=== PATIENT | female | born 1950 | race Caucasian/White ===

== ENCOUNTER 2016-09-21 12:39 | Inpatient (IN) | payer OTHER, BC ==
[2016-09-21 14:06] LABS: URINE APPEARANCE CLEAR; URINE BILIRUBIN NEGATIVE (NEGATIVE); URINE BLOOD NEGATIVE (NEGATIVE); URINE COLOR LTYELLOW; URINE GLUCOSE (UA) NEGATIVE (NEGATIVE); URINE KETONE NEGATIVE (NEGATIVE); URINE NITRITE NEGATIVE (NEGATIVE); URINE PROTEIN NEGATIVE (NEGATIVE); URINE UROBILINOGEN NEGATIVE E.U./dl (0.2-1.0)
[2016-09-21 14:33] LABS: URINE LEUK ESTERASE TRACE (NEGATIVE)
[2016-09-21 14:47] LABS: BASOPHIL 0.9 % (0-2.0); EOSINOPHIL 1.2 % (0-4.5); MCH 31.4 pg (25.7-33.7); MCHC 34.8 g/dl (32.0-36.0); MEAN CELL VOLUME 90.3 fl (80-96); MEAN PLT VOLUME 7.2 fl (7.5-11.1); NEUTROPHILS 64.1 % (42.8-82.8); PLATELET COUNT 259 K/MM3 (134-434); WHITE BLOOD COUNT 7.4 K/mm3 (4.0-10.0)
[2016-09-21 14:53] LABS: URINE RBC 1 /hpf (0-3); URINE WBC 2 /hpf (3-5)
--- NOTE | 2016-09-21 14:56 | PDOC ---
History of Present Illness - General Chief Complaint: Tremors Stated Complaint: SHAKING, PCP SENT Time Seen by Provider: 09/21/16 14:54 History Source: Patient Exam Limitations: No Limitations - History of Present Illness Initial Comments: 09/21/16 14:55 CHIEF COMPLAINT: "Shaking" HISTORY OF PRESENT ILLNESS: This is a 66 year old female with a history of anxiety/depression/panic disorder, NIDDM with neuropathy, asthma/COPD, osteoarthritis, IBS, hypothyroidism, and multiple episodes of c diff sent by her PCP for evaluation of lower extremity tremors, facial tremors, and worsening protruding/twisting movements of the tongue. The patient is not taking any neuroleptic drugs. She takes daily Klonopin (was recently changed from Xanax). PCP is Dr. Donohue Neurologist is Dr. Hale REVIEW OF SYSTEMS: GENERAL/CONSTITUTIONAL: No fever or chills. No weakness. No weight change. HEAD, EYES, EARS, NOSE AND THROAT: No change in vision. No ear pain or discharge. No sore throat. CARDIOVASCULAR: No chest pain or palpitations. RESPIRATORY: No cough, wheezing, or shortness of breath. GASTROINTESTINAL: Chronic constipation. No nausea, vomiting, or diarrhea. GENITOURINARY: No dysuria, frequency, or change in urination. MUSCULOSKELETAL: No joint or muscle swelling or pain. No neck or back pain. SKIN: No rash or easy bruising. NEUROLOGIC: Decreased sensation in lower extremities, involuntary tremor in face and lower extremities, involuntary tongue protruding/twisting. PSYCHIATRIC: Anxiety/panic. No suicidal or homicidal ideations, no auditory or visual hallucinations. ENDOCRINE: No increased thirst. No abnormal weight change. HEMATOLOGIC/LYMPHATIC: No anemia, easy bleeding, or history of blood clots. ALLERGIC/IMMUNOLOGIC: Many drug allergies. PHYSICAL EXAM: GENERAL: The patient is awake, alert, and fully oriented, in no acute distress. ENT: Pupils equal, round and reactive to light, extraocular movements intact, sclera anicteric, conjunctiva clear. Neck supple. LUNGS: Clear to auscultation bilaterally. Normal excursion. No respiratory distress or use of accessory muscles. CV: RRR, S1/S2, no MRG. Cap refill < 2 sec. ABDOMEN: Soft, non-distended, non-tender. EXTREMITIES: Normal range of motion, no edema. NEUROLOGICAL: Normal speech. CN II-XII grossly intact. Tongue protruding, lip smacking. No tremors noted. PSYCH: Anxious affect. SKIN: Warm, dry, normal turgor, no rashes or lesions noted. Past History - Past Medical History Allergies/Adverse Reactions: Allergies Allergy/AdvReac Type Severity Reaction Status Date / Time clindamycin Allergy Verified 02/15/16 07:49 epinephrine Allergy Verified 02/15/16 07:49 ibuprofen Allergy palpatation Verified 02/15/16 07:49 s Penicillins Allergy Verified 02/15/16 07:49 Sulfa (Sulfonamide Allergy Verified 02/15/16 07:49 Antibiotics) tramadol Allergy Verified 09/21/16 12:49 Home Medications: Ambulatory Orders Aspirin [ASA -] 81 mg PO DAILY 12/16/13 Saxagliptin HCl [Onglyza] 5 mg PO HS 12/16/13 Metoprolol Succinate [Toprol XL -] 12.5 mg PO DAILY #60 tab.sr.24h 03/15/14 Alprazolam [Xanax] 1 mg PO TID PRN 12/08/14 Acetaminophen [Tylenol .Regular Strength -] 650 mg PO Q4H PRN #0 tablet Levothyroxine [Synthroid -] 88 mcg PO DAILY@0700 #30 tablet 11/15/15 Losartan Potassium [Cozaar -] 100 mg PO DAILY #30 tablet 11/15/15 Ondansetron [Zofran -] 4 mg PO Q4H PRN #10 tablet 11/15/15 Polyethylene Glycol 3350 [Miralax 119 gm Btl -] 17 gm PO DAILY #1 bottle Ranitidine HCl [Zantac] 150 mg PO BID #14 tablet 02/15/16 COPD: Yes Diabetes: Yes GI Disorders: Yes (DIVERTICULITIS) Disorders: Yes (pelvic, urethral pain, frequency) HTN: Yes Hypercholesterolemia: Yes Liver Disease: Yes (hepatitis) Psychiatric Problems: Yes (ANXIETY) Seizures: No Thyroid Disease: Yes (hyopthyroid) - Surgical History Cholecystectomy: Yes - Immunization History Immunization Up to Date: Yes - Psycho/Social/Smoking Cessation Hx Anxiety: Yes Suicidal Ideation: No Smoking History: Never smoked Have you smoked in the past 12 months: No Information on smoking cessation initiated: No Hx Alcohol Use: No Drug/Substance Use Hx: No Substance Use Type: None Hx Substance Use Treatment: No *Physical Exam - Vital Signs Last Vital Signs Temp Pulse Resp BP Pulse Ox 98 F 60 18 182/83 96 09/21/16 12:47 09/21/16 12:47 09/21/16 12:47 09/21/16 12:47 09/21/16 12:47 ED Treatment Course - LABORATORY CBC & Chemistry Diagram: 09/21/16 14:30 09/21/16 14:28 - ADDITIONAL ORDERS Additional order review: Laboratory Results 09/21/16 14:24 Urine Color Ltyellow Urine Appearance Clear Urine pH 6.0 Urine Protein Negative Urine Glucose (UA) Negative Urine Ketones Negative Urine Blood Negative Urine Nitrite Negative Urine Bilirubin Negative Urine Urobilinogen Negative Ur Leukocyte Esterase Trace H Medical Decision Making - Medical Decision Making 09/21/16 15:50 A/P: 66 year old female with worsening tardive dyskinesia of uncertain etiology. 1. Basic labs + PTH, anti-phospholipid Ab to rule out less common causes of chorea 2. Head CT 3. Ativan 0.5mg IVP now 4. Neurology consultation 5. Admit to Dr. Donohue 09/21/16 16:[address]: no acute process Discussed with Dr. Glynn *DC/Admit/Observation/Transfer Diagnosis at time of Disposition: Tardive dyskinesia - Discharge Dispostion Admit: Yes - Referrals Referrals: Sherrill Donohue MD [Primary Care Provider] -
[2016-09-21] MEDS ORDERED: LORAZEPAM CARPU-JECT 2 MG/ML DISP.SYRIN IVPUSH ONE ×2 (15:16→18:09)
[2016-09-21] MEDS ORDERED: POLYETHYLENE GLYCOL 3350 119 GM BTL PO ONE (15:16)
[2016-09-21 15:26] LABS: ALBUMIN 3.8 g/dl (3.4-5.0); ALK PHOS 91 U/L (45-117); ANION GAP 10 (8-16); BILIRUBIN,TOTAL 0.5 mg/dL (0.2-1.0); CALCIUM 9.3 mg/dL (8.5-10.1); CO2 27 mmol/L (21-32); COCKROFT - GAULT 68.5355; CREATININE 0.9 mg/dL (0.55-1.02); GLUCOSE,RANDOM 184 mg/dL (74-106); SGOT/AST 18 U/L (15-37); SGPT/ALT 23 U/L (12-78); TOT PROT 7.5 g/dl (6.4-8.2)
[2016-09-21] MEDS ORDERED: LORAZEPAM CARPU-JECT 2 MG/ML DISP.SYRIN ONE ×2 (15:26→18:23)
[2016-09-21 21:01] VITALS: BMI 31.4
[2016-09-21] MEDS: METOPROLOL SUCCINATE 25 MG TAB.SR.24H (FP) PO SCH (22:12)
[2016-09-21] MEDS: RANITIDINE HCL 150 MG TABLET (FP) PO SCH (22:12)
[2016-09-21] MEDS: METHYL SALICYLATE/MENTHOL OINT 30 GM TUBE TP SCH (22:14)
[2016-09-21] MEDS: ACETAMINOPHEN 325 MG TABLET (FP) PO PRN (22:15)
[2016-09-22] MEDS ORDERED: LORazepam 1 MG TABLET PO ONE (01:30)
[2016-09-22] MEDS: sitaGLIPtin PHOSPHATE 50 MG TABLET PO SCH (06:14)
[2016-09-22] MEDS: LEVOTHYROXINE NA 88 MCG TABLET (FP) PO SCH (06:14)
[2016-09-22] MEDS: ACETAMINOPHEN 325 MG TABLET (FP) PO PRN ×2 (06:16→14:18)
[2016-09-22] MEDS: RANITIDINE HCL 150 MG TABLET (FP) PO SCH ×2 (10:18→21:50)
[2016-09-22] MEDS: LOSARTAN POTASSIUM 50 MG TABLET (FP) PO SCH (10:18)
[2016-09-22] MEDS: ASPIRIN COATED 81 MG TABLET.EC PO SCH (10:18)
[2016-09-22] MEDS: METOPROLOL SUCCINATE 25 MG TAB.SR.24H (FP) PO SCH ×2 (10:19→21:50)
[2016-09-22] MEDS: POLYETHYLENE GLYCOL 3350 119 GM BTL PO SCH ×2 (11:00→18:47)
--- NOTE | 2016-09-22 13:17 | CONSULT ---
Consult - text type - Consultation Consultation Note: Neurology History of Present Illness 66 year old female with a history of anxiety/depression/panic disorder, NIDDM with neuropathy, asthma/COPD, osteoarthritis, IBS, hypothyroidism, and multiple episodes of c diff sent by her PCP for evaluation of lower extremity tremors, facial tremors, and worsening protruding/twisting movements of the tongue. The patient is not taking any neuroleptic drugs. She takes daily Klonopin (was recently changed from Xanax). She was switched medications by her providers and sees Dr. Hale in the office, most recently 3 weeks ago when she was prescribed propranolol for this. Reports these symptoms have been on and off for the past month. During my evaluation, she was having movement of mandible but twitching would move from side to side, then stop, then start. Unclear etiology, seems stress related and patient very emotional during encounter. Was asking for Xanax but I indicated her providers had recommended she switch to long acting medication and therefore I would not change this. Would start her on baclofen, muscle relaxant. Past History - Past Medical History Allergies/Adverse Reactions: Allergies Allergy/AdvReac Type Severity Reaction Status Date / Time clindamycin Allergy Verified 02/15/16 07:49 epinephrine Allergy Verified 02/15/16 07:49 ibuprofen Allergy palpatation Verified 02/15/16 07:49 s Penicillins Allergy Verified 02/15/16 07:49 Sulfa (Sulfonamide Allergy Verified 02/15/16 07:49 Antibiotics) tramadol Allergy Verified 09/21/16 12:49 Active Medications Acetaminophen (Tylenol -) 650 mg PO Q6H PRN PRN Reason: FEVER OR PAIN Last Admin: 09/22/16 06:16 Dose: 650 mg Aspirin (Ecotrin -) 81 mg PO DAILY [facility] Last Admin: 09/22/16 10:18 Dose: 81 mg Baclofen (Lioresal -) 10 mg PO BID [facility] Levothyroxine Sodium (Synthroid -) 88 mcg PO DAILY@0700 [facility] Last Admin: 09/22/16 06:14 Dose: 88 mcg Losartan Potassium (Cozaar -) 100 mg PO DAILY [facility] Last Admin: 09/22/16 10:18 Dose: 100 mg Methyl Salicylate (Ronnie-Andrews -) 1 applic TP BID [facility] Last Admin: 09/21/16 22:14 Dose: Not Given Metoprolol Succinate (Toprol Xl -) 12.5 mg PO BID [facility] Last Admin: 09/22/16 10:19 Dose: 12.5 mg Polyethylene Glycol (Miralax (For Daily Use) -) 17 gm PO DAILY [facility] Ranitidine HCl (Zantac -) 150 mg PO BID [facility] Last Admin: 09/22/16 10:18 Dose: 150 mg Sitagliptin Phosphate (Januvia -) 50 mg PO DAILY@0700 [facility] Last Admin: 09/22/16 06:14 Dose: 50 mg COPD: Yes Diabetes: Yes GI Disorders: Yes (DIVERTICULITIS) Disorders: Yes (pelvic, urethral pain, frequency) HTN: Yes Hypercholesterolemia: Yes Liver Disease: Yes (hepatitis) Psychiatric Problems: Yes (ANXIETY) Seizures: No Thyroid Disease: Yes (hyopthyroid) - Surgical History Cholecystectomy: Yes - Immunization History Immunization Up to Date: Yes - Psycho/Social/Smoking Cessation Hx Anxiety: Yes Suicidal Ideation: No Smoking History: Never smoked Have you smoked in the past 12 months: No Information on smoking cessation initiated: No Hx Alcohol Use: No Drug/Substance Use Hx: No Substance Use Type: None Hx Substance Use Treatment: No *Physical Exam - Vital Signs Last Vital Signs Temp Pulse Resp BP Pulse Ox 98 F 60 18 182/83 96 09/21/16 12:47 09/21/16 12:47 09/21/16 12:47 09/21/16 12:47 09/21/16 12:47 PHYSICAL EXAM: GENERAL: The patient is awake, alert, and fully oriented, in no acute distress. ENT: Pupils equal, round and reactive to light, extraocular movements intact, sclera anicteric, conjunctiva clear. Neck supple. LUNGS: Clear to auscultation bilaterally. Normal excursion. No respiratory distress or use of accessory muscles. CV: RRR, S1/S2, no MRG. Cap refill < 2 sec. ABDOMEN: Soft, non-distended, non-tender. EXTREMITIES: Normal range of motion, no edema. NEUROLOGICAL: Normal speech. CN II-XII grossly intact. Tongue protruding, lip smacking. No tremors noted. Jaw movements episodic, strength intact, sensory normal CBCD WBC 7.4 K/mm3 (4.0-10.0) 09/21/16 14:30 RBC 4.54 M/mm3 (3.60-5.2) 09/21/16 14:30 Hgb 14.3 GM/dL (10.7-15.3) 09/21/16 14:30 Hct 41.0 % (32.4-45.2) 09/21/16 14:30 MCV 90.3 fl (80-96) 09/21/16 14:30 MCHC 34.8 g/dl (32.0-36.0) 09/21/16 14:30 RDW 13.0 % (11.6-15.6) 09/21/16 14:30 Plt Count 259 K/MM3 (134-434) 09/21/16 14:30 MPV 7.2 fl (7.5-11.1) L 09/21/16 14:30 CMP Sodium 138 mmol/L (136-145) 09/21/16 14:28 Potassium 4.1 mmol/L (3.5-5.1) 09/21/16 14:28 Chloride 101 mmol/L (98-107) 09/21/16 14:28 Carbon Dioxide 27 mmol/L (21-32) 09/21/16 14:28 Anion Gap 10 (8-16) 09/21/16 14:28 BUN 16 mg/dL (7-18) D 09/21/16 14:28 Creatinine 0.9 mg/dL (0.55-1.02) D 09/21/16 14:28 Creat Clearance w eGFR > 60 (>60) 09/21/16 14:28 Calcium 9.3 mg/dL (8.5-10.1) 09/21/16 14:28 Total Bilirubin 0.5 mg/dL (0.2-1.0) 09/21/16 14:28 AST 18 U/L (15-37) D 09/21/16 14:28 ALT 23 U/L (12-78) 09/21/16 14:28 Alkaline Phosphatase 91 U/L (45-117) 09/21/16 14:28 Total Protein 7.5 g/dl (6.4-8.2) 09/21/16 14:28 Albumin 3.8 g/dl (3.4-5.0) 09/21/16 14:28 Medical Decision Making 66 year old female with a history of anxiety/depression/panic disorder, NIDDM with neuropathy, asthma/COPD, osteoarthritis, IBS, hypothyroidism, and multiple episodes of c diff sent by her PCP for evaluation of lower extremity tremors, facial tremors, and worsening protruding/twisting movements of the tongue. The patient is not taking any neuroleptic drugs. She takes daily Klonopin (was recently changed from Xanax). She was switched medications by her providers and sees Dr. Hale in the office, most recently 3 weeks ago when she was prescribed propranolol for this. Reports these symptoms have been on and off for the past month. Does not feel propanolol helped Seems stress related and patient very emotional during encounter. Was asking for Xanax but I indicated her providers had recommended she switch to long acting medication and therefore I would not change this. Can give Klonipin if patient was cleared to take this Would start her on baclofen, muscle relaxant. Provided reassurance, symptoms should improve Relaxation recommended Follow up with Dr. Hale in office
[2016-09-22] MEDS ORDERED: BACLOFEN 10 MG TABLET (FP) PO ONE (13:45)
[2016-09-22] MEDS: METHYL SALICYLATE/MENTHOL OINT 30 GM TUBE TP SCH ×2 (14:18→22:00)
--- NOTE | 2016-09-22 14:59 | HP ---
Admitting History and Physical - Primary Care Physician PCP: Sherrill Donohue - Admission Chief Complaint: SENT FROM MY OFFICE FOR ACUTE FACIAL TWITCHING/TARDIVE DYSKINESIA History Source: Patient Limitations to Obtaining History: No Limitations - Past Medical History FRAME HAND: Yes: Peripheral Neuropathy (diabetic), Seizure (?) Cardiovascular: Yes: HTN, Hyperlipdemia Pulmonary: Yes: Asthma, COPD (nonsmoker, childhood aerosolized chem. exposure), Pneumonia Gastrointestinal: Yes: Other (IBS) Hepatobiliary: Yes: Cholelithiasis Renal/: Yes: UTI ...LMP Comment: postmenuposal ...: No Infectious Disease: Yes: Other (refractory uti) Psych: Yes: Anxiety, Depression, Panic (RECENT ADMISSION TO PSYCH FACILITY???) Musculoskeletal: Yes: Osteoarthritis (cspine) Endocrine: Yes: Diabetes Mellitus (diabetic neuropathy), Other (HYPONATREMIA ( RECENT ADMISSION TO [facility] FOR SAME)) - Past Surgical History Past Surgical History: Yes: Cholecystectomy (laparoscopic), - Smoking History Smoking history: Never smoked Have you smoked in the past 12 months: No - Alcohol/Substance Use Hx Alcohol Use: No History of Substance Use: reports: None - Social History ADL: Independent 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, 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 History of Recent Travel: No Home Medications - Allergies Allergies/Adverse Reactions: Allergies Allergy/AdvReac Type Severity Reaction Status Date / Time clindamycin Allergy Verified 02/15/16 07:49 epinephrine Allergy Verified 02/15/16 07:49 ibuprofen Allergy palpatation Verified 02/15/16 07:49 s Penicillins Allergy Verified 02/15/16 07:49 Sulfa (Sulfonamide Allergy Verified 02/15/16 07:49 Antibiotics) tramadol Allergy Verified 09/21/16 12:49 - Home Medications Home Medications: Ambulatory Orders Aspirin [ASA -] 81 mg PO DAILY 12/16/13 Saxagliptin HCl [Onglyza] 5 mg PO HS 12/16/13 Metoprolol Succinate [Toprol XL -] 12.5 mg PO DAILY #60 tab.sr.24h 03/15/14 Acetaminophen [Tylenol .Regular Strength -] 650 mg PO Q4H PRN #0 tablet Levothyroxine [Synthroid -] 88 mcg PO DAILY@0700 #30 tablet 11/15/15 Losartan Potassium [Cozaar -] 100 mg PO DAILY #30 tablet 11/15/15 Ondansetron [Zofran -] 4 mg PO Q4H PRN #10 tablet 11/15/15 Polyethylene Glycol 3350 [Miralax 119 gm Btl -] 17 gm PO DAILY #1 bottle Clonazepam [Klonopin -] 0.5 mg PO BID 09/21/16 Propranolol HCl 20 mg PO DAILY 09/21/16 Family Disease History - Family Disease History Family Disease History: [place]: Father ( suddenly at age 48 -> no autopsy), Other: Mother ( of MRSA in [facility] rm [id number]), Brother (sarcoidosis age 32) Review of Systems - Review of Systems Constitutional: reports: Weakness Eyes: reports: No Symptoms HENT: reports: Other Neck: reports: No Symptoms Cardiovascular: reports: No Symptoms Respiratory: reports: No Symptoms Gastrointestinal: reports: Abdominal Pain, Indigestion Genitourinary: reports: Dysuria Musculoskeletal: reports: Muscle Weakness Integumentary: reports: No Symptoms Neurological: reports: Confusion, Incoordination, Parasthesia, Weakness Endocrine: reports: No Symptoms Hematology/Lymphatic: reports: No Symptoms Psychiatric: reports: Other Physical Examination Vital Signs: Vital Signs Temperature 98.1 F 09/22/16 14:07 Pulse Rate 59 L 09/22/16 14:07 Respiratory Rate 20 09/22/16 14:07 Blood Pressure 152/62 09/22/16 14:07 O2 Sat by Pulse Oximetry (%) 96 09/21/16 20:38 Constitutional: Yes: Mild Distress Eyes: Yes: WNL HENT: Yes: Other Neck: Yes: WNL Cardiovascular: Yes: WNL Respiratory: Yes: WNL Gastrointestinal: Yes: WNL Renal/: Yes: WNL Musculoskeletal: Yes: Muscle Weakness Extremities: Yes: WNL Edema: No Peripheral Pulses WNL: Yes Integumentary: Yes: WNL Wound/Incision: Yes: Clean/Dry Neurological: Yes: Tingling, Weakness ...Motor Strength: LLE, RLE Psychiatric: Yes: Other Problem List - Problems (1) Mouth pain Code(s): K13.79 - OTHER LESIONS OF ORAL MUCOSA (2) Tardive dyskinesia Code(s): G24.01 - DRUG INDUCED SUBACUTE DYSKINESIA (3) Acquired autoimmune hypothyroidism Code(s): E03.8 - OTHER SPECIFIED HYPOTHYROIDISM (4) Anxiety Code(s): F41.9 - ANXIETY DISORDER, UNSPECIFIED (5) Dysuria Code(s): R30.0 - DYSURIA (6) Hypothyroid Code(s): E03.9 - HYPOTHYROIDISM, UNSPECIFIED Qualifiers: Hypothyroidism type: acquired Qualified Code(s): E03.9 - Hypothyroidism, unspecified Assessment/Plan BACLOFENS TARTED FOR TARDIVE DYSKINESIA STOP XANAX ATIVAN AND KLONOPIN PRN PT JESUS MANUEL GIL FOR PT
--- NOTE | 2016-09-22 15:01 | CONSULT ---
Admitting History and Physical - Primary Care Physician PCP: Sherrill Donohue - Admission History of Present Illness: 66 year old female with a history of anxiety/depression/panic disorder, NIDDM with neuropathy, asthma/COPD, osteoarthritis, IBS, hypothyroidism, and multiple episodes of c diff sent by her PCP for evaluation of lower extremity tremors, facial tremors, and worsening protruding/twisting movements of the tongue. The patient is not taking any neuroleptic drugs. History Source: Patient, Family Member, Medical Record Limitations to Obtaining History: No Limitations - Past Medical History [employer]: Yes: Peripheral Neuropathy (diabetic), Seizure (?) Cardiovascular: Yes: HTN, Hyperlipdemia Pulmonary: Yes: Asthma, COPD (nonsmoker, childhood aerosolized chem. exposure), Pneumonia Gastrointestinal: Yes: Other (IBS) Hepatobiliary: Yes: Cholelithiasis Renal/: Yes: UTI ...LMP Comment: postmenuposal ...: No Infectious Disease: Yes: Other (refractory uti) Psych: Yes: Anxiety, Depression, Panic (RECENT ADMISSION TO PSYCH FACILITY???) Musculoskeletal: Yes: Osteoarthritis (cspine) Endocrine: Yes: Diabetes Mellitus (diabetic neuropathy), Other (HYPONATREMIA ( RECENT ADMISSION TO [facility] FOR SAME)) - Past Surgical History Past Surgical History: Yes: Cholecystectomy (laparoscopic), - Smoking History Smoking history: Never smoked Have you smoked in the past 12 months: No - Alcohol/Substance Use Hx Alcohol Use: No History of Substance Use: reports: None - Social History ADL: Independent 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, 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 History of Recent Travel: No History - Admission Reason For Visit: TARDIVE DYSKINESIA - Diagnostics X-ray: Report Reviewed CT Scan: Report Reviewed - General Mental Status: Alert and Oriented, Awake and Alert, Able to Follow Commands, Anxious Attention: Intact Ability to Follow Directions: Excellent Head/Neck Control: WFL - Hearing Hearing: Normal Hearing Aide: No Speech Evaluation - Communication Primary Language: ANGOLAN Communication: Yes: Within Normal Limits Oral Expression Ability: Yes: No Impairment - Speech Production Able to Make Needs Known: Yes: WNL Intelligibility: Yes: WNL - Speech Characteristics Voice Loudness: Normal Voice Pitch: Yes: Normal Voice Phonatory-based Quality: Yes: Normal Speech Pattern: Normal Speech Clarity: < 100% Nasal Resonance: Normal Articulation: Yes: Precise - Language/Auditory Comprehension Follows: Yes: 2 Stage Simple Commands - Language/Verbal Expression Able to Respond to Simple Queries: Yes: WNL Able to Communicate Wants and Needs: Yes: WNL Functional Communication Status: Yes: WNL - Memory/Perception MCFP Memory: Yes: WNL Short Term Memory: Yes: WNL - Swallow Evaluation/Bedside Assessment Current Nutritional Intake: Regular, Thin Liquids Oral Secretions: Yes: WFL Dentition: Yes: Missing Teeth Facial Symmetry at Rest: Symmetrical Facial Symmetry on Retraction: Symmetrical Facial Movement: Involuntary (Pt reports involuntary twitching, alternating side to side.) Against Resistance Opening: Normal Against Resistance Closing: Normal Pucker Lips: Normal Smile: Normal Lingual Movement: Normal Lingual Speed of Movement: Normal Lingual Movement Strgth Against Opposition: Normal Lingual Movement Characteristics: Normal Velopharyngeal Movement: Normal Laryngeal Elevation: WFL Laryngeal Movement: Able to Palpate Rate of Intake: WFL Bolus Size: WFL Labial Seal: WFL Chewing: WFL Oral Prep Time: WFL A-P Transit: WFL Pocketing: None Timing of Swallow: WFL Coughing/Throat Clear: No Change in Voice: No Recommendations - Speech Evaluation, Impression/Plan Impression: Pt reports involuntary twitching, alternating side to side. Educated pt on progressive relaxation oral technigue with excellent ability to. increase control over facial movements. Pt and family were appreciative and with follow through with practice using mirror for visual feedback. - Dysphagia Impressions/Plan Swallowing Skills: WF Dysphagia Impressions: No Impairment *Silent aspiration: cannot be R/O at bedside Recommendations: Other (progressive relaxation techniques.) - Recommendations Diet Consistency: Regular Medication Administration: Whole with water Liquids: Thin Liquids
[2016-09-22] MEDS ORDERED: SODIUM CHLORIDE NASAL SPRAY 44 ML BOTTLE NS PRN (15:16)
--- NOTE | 2016-09-22 17:13 | EKG ---
Test Reason : Blood Pressure : / mmHG Vent. Rate : 060 BPM Atrial Rate : 060 BPM P-R Int : 184 ms QRS Dur : 092 ms QT Int : 436 ms P-R-T Axes : 034 017 032 degrees QTc Int : 436 ms NORMAL SINUS RHYTHM NORMAL ECG WHEN COMPARED WITH ECG OF 15-FEB-2016 09:13, NO SIGNIFICANT CHANGE WAS FOUND Confirmed by YARIEL HICKEY MD ([id number]) on 09/22/2016 5:13:36 PM Referred By: Confirmed By:YARIEL HICKEY MD
[2016-09-22] MEDS: LORATADINE 10 MG TABLET PO SCH (18:46)
[2016-09-22] MEDS ORDERED: PT OWN MED DRAWER 7, Y5N ONE (21:45)
[2016-09-22] MEDS: BACLOFEN 10 MG TABLET (FP) PO SCH (21:51)
[2016-09-22] MEDS: LORazepam 0.5 MG TABLET PO PRN (21:57)
[2016-09-23] MEDS: sitaGLIPtin PHOSPHATE 50 MG TABLET PO SCH (06:28)
[2016-09-23] MEDS: LEVOTHYROXINE NA 88 MCG TABLET (FP) PO SCH (06:28)
[2016-09-23] MEDS: ACETAMINOPHEN 325 MG TABLET (FP) PO PRN ×2 (06:32→12:10)
[2016-09-23] MEDS: RANITIDINE HCL 150 MG TABLET (FP) PO SCH ×2 (09:24→21:08)
[2016-09-23] MEDS: LORATADINE 10 MG TABLET PO SCH (09:24)
[2016-09-23] MEDS: ASPIRIN COATED 81 MG TABLET.EC PO SCH (09:24)
[2016-09-23] MEDS: BACLOFEN 10 MG TABLET (FP) PO SCH ×2 (09:24→21:08)
[2016-09-23] MEDS: LOSARTAN POTASSIUM 50 MG TABLET (FP) PO SCH (09:24)
[2016-09-23] MEDS: METOPROLOL SUCCINATE 25 MG TAB.SR.24H (FP) PO SCH ×2 (09:24→21:08)
[2016-09-23] MEDS: LORazepam 0.5 MG TABLET PO PRN (12:09)
--- NOTE | 2016-09-23 13:20 | PN ---
Progress Note (short form) - Note Progress Note: Neurology History of Present Illness 66 year old female with a history of anxiety/depression/panic disorder, NIDDM with neuropathy, asthma/COPD, osteoarthritis, IBS, hypothyroidism, and multiple episodes of c diff sent by her PCP for evaluation of lower extremity tremors, facial tremors, and worsening protruding/twisting movements of the tongue. The patient is not taking any neuroleptic drugs. She takes daily Klonopin (was recently changed from Xanax). She was switched medications by her providers and sees Dr. Hale in the office, most recently 3 weeks ago when she was prescribed propranolol for this. Reports these symptoms have been on and off for the past month. During my evaluation, she was having movement of mandible but twitching would move from side to side, then stop, then start. Unclear etiology, started on baclofen with some improvement. I also recommended outpatient Botox for dystonia if the patient is interested. Active Medications Acetaminophen (Tylenol -) 650 mg PO Q6H PRN PRN Reason: FEVER OR PAIN Last Admin: 09/23/16 12:10 Dose: 650 mg Aspirin (Ecotrin -) 81 mg PO DAILY [facility] Last Admin: 09/23/16 09:24 Dose: 81 mg Baclofen (Lioresal -) 10 mg PO BID [facility] Last Admin: 09/23/16 09:24 Dose: 10 mg Levothyroxine Sodium (Synthroid -) 88 mcg PO DAILY@0700 [facility] Last Admin: 09/23/16 06:28 Dose: 88 mcg Loratadine (Claritin -) 10 mg PO DAILY [facility] Last Admin: 09/23/16 09:24 Dose: 10 mg Lorazepam (Ativan -) 0.5 mg PO Q12H PRN PRN Reason: ANXIETY Last Admin: 09/23/16 12:09 Dose: 0.5 mg Losartan Potassium (Cozaar -) 100 mg PO DAILY [facility] Last Admin: 09/23/16 09:24 Dose: 100 mg Methyl Salicylate (Ronnie-Andrew[place] -) 1 applic TP BID [facility] Last Admin: 09/22/16 22:00 Dose: 1 applic Metoprolol Succinate (Toprol Xl -) 12.5 mg PO BID [facility] Last Admin: 09/23/16 09:24 Dose: 12.5 mg Polyethylene Glycol (Miralax (For Daily Use) -) 17 gm PO DAILY [facility] Last Admin: 09/22/16 11:00 Dose: Not Given Polyethylene Glycol (Miralax (For Daily Use) -) 17 gm PO DAILY [facility] Last Admin: 09/22/16 18:47 Dose: 17 gm Ranitidine HCl (Zantac -) 150 mg PO BID [facility] Last Admin: 09/23/16 09:24 Dose: 150 mg Sitagliptin Phosphate (Januvia -) 50 mg PO DAILY@0700 [facility] Last Admin: 09/23/16 06:28 Dose: 50 mg Sodium Chloride ([place] Nasal [place] -) 2 spray NS Q8H PRN PRN Reason: NASAL CONGESTION Last Admin: 09/22/16 18:46 Dose: 2 spray *Physical Exam Last Vital Signs Temp Pulse Resp BP Pulse Ox 98.6 F 53 L 20 155/66 96 09/23/16 05:13 09/23/16 05:13 09/23/16 05:13 09/23/16 05:13 09/22/16 21:00 PHYSICAL EXAM: GENERAL: The patient is awake, alert, and fully oriented, in no acute distress. ENT: Pupils equal, round and reactive to light, extraocular movements intact, sclera anicteric, conjunctiva clear. Neck supple. LUNGS: Clear to auscultation bilaterally. Normal excursion. No respiratory distress or use of accessory muscles. CV: RRR, S1/S2, no MRG. Cap refill < 2 sec. ABDOMEN: Soft, non-distended, non-tender. EXTREMITIES: Normal range of motion, no edema. NEUROLOGICAL: Normal speech. CN II-XII grossly intact. Tongue protruding, lip smacking. No tremors noted. Jaw movements episodic, strength intact, sensory normal CBCD WBC 7.4 K/mm3 (4.0-10.0) 09/21/16 14:30 RBC 4.54 M/mm3 (3.60-5.2) 09/21/16 14:30 Hgb 14.3 GM/dL (10.7-15.3) 09/21/16 14:30 Hct 41.0 % (32.4-45.2) 09/21/16 14:30 MCV 90.3 fl (80-96) 09/21/16 14:30 MCHC 34.8 g/dl (32.0-36.0) 09/21/16 14:30 RDW 13.0 % (11.6-15.6) 09/21/16 14:30 Plt Count 259 K/MM3 (134-434) 09/21/16 14:30 MPV 7.2 fl (7.5-11.1) L 09/21/16 14:30 CMP Sodium 138 mmol/L (136-145) 09/21/16 14:28 Potassium 4.1 mmol/L (3.5-5.1) 09/21/16 14:28 Chloride 101 mmol/L (98-107) 09/21/16 14:28 Carbon Dioxide 27 mmol/L (21-32) 09/21/16 14:28 Anion Gap 10 (8-16) 09/21/16 14:28 BUN 16 mg/dL (7-18) D 09/21/16 14:28 Creatinine 0.9 mg/dL (0.55-1.02) D 09/21/16 14:28 Creat Clearance w eGFR > 60 (>60) 09/21/16 14:28 Calcium 9.3 mg/dL (8.5-10.1) 09/21/16 14:28 Total Bilirubin 0.5 mg/dL (0.2-1.0) 09/21/16 14:28 AST 18 U/L (15-37) D 09/21/16 14:28 ALT 23 U/L (12-78) 09/21/16 14:28 Alkaline Phosphatase 91 U/L (45-117) 09/21/16 14:28 Total Protein 7.5 g/dl (6.4-8.2) 09/21/16 14:28 Albumin 3.8 g/dl (3.4-5.0) 09/21/16 14:28 Medical Decision Making 66 year old female with a history of anxiety/depression/panic disorder, NIDDM with neuropathy, asthma/COPD, osteoarthritis, IBS, hypothyroidism, and multiple episodes of c diff sent by her PCP for evaluation of lower extremity tremors, facial tremors, and worsening protruding/twisting movements of the tongue. The patient is not taking any neuroleptic drugs. She takes daily Klonopin (was recently changed from Xanax). She was switched medications by her providers and sees Dr. Hale in the office, most recently 3 weeks ago when she was prescribed propranolol for this. Reports these symptoms have been on and off for the past month. Does not feel propanolol helped Seems stress related Feels some improvement on baclofen, muscle relaxant. Provided reassurance, symptoms should improve Relaxation recommended Follow up with Dr. Hale in office and can consider botox treatment
--- NOTE | 2016-09-23 19:08 | PN ---
Progress Note, Physician Chief Complaint: +STRESS/EMOTIONALLY LABILE C/O HEADACHE - Current Medication List Current Medications: Active Medications Acetaminophen (Tylenol -) 650 mg PO Q6H PRN PRN Reason: FEVER OR PAIN Last Admin: 09/23/16 12:10 Dose: 650 mg Aspirin (Ecotrin -) 81 mg PO DAILY [facility] Last Admin: 09/23/16 09:24 Dose: 81 mg Baclofen (Lioresal -) 10 mg PO BID [facility] Last Admin: 09/23/16 09:24 Dose: 10 mg Levothyroxine Sodium (Synthroid -) 88 mcg PO DAILY@0700 [facility] Last Admin: 09/23/16 06:28 Dose: 88 mcg Loratadine (Claritin -) 10 mg PO DAILY [facility] Last Admin: 09/23/16 09:24 Dose: 10 mg Lorazepam (Ativan -) 0.5 mg PO Q12H PRN PRN Reason: ANXIETY Last Admin: 09/23/16 12:09 Dose: 0.5 mg Losartan Potassium (Cozaar -) 100 mg PO DAILY [facility] Last Admin: 09/23/16 09:24 Dose: 100 mg Methyl Salicylate (Ronnie-Andrews -) 1 applic TP BID [facility] Last Admin: 09/22/16 22:00 Dose: 1 applic Metoprolol Succinate (Toprol Xl -) 12.5 mg PO BID [facility] Last Admin: 09/23/16 09:24 Dose: 12.5 mg Polyethylene Glycol (Miralax (For Daily Use) -) 17 gm PO DAILY [facility] Last Admin: 09/22/16 11:00 Dose: Not Given Polyethylene Glycol (Miralax (For Daily Use) -) 17 gm PO DAILY [facility] Last Admin: 09/22/16 18:47 Dose: 17 gm Ranitidine HCl (Zantac -) 150 mg PO BID [facility] Last Admin: 09/23/16 09:24 Dose: 150 mg Sitagliptin Phosphate (Januvia -) 50 mg PO DAILY@0700 [facility] Last Admin: 09/23/16 06:28 Dose: 50 mg Sodium Chloride ([place] Nasal [place] -) 2 spray NS Q8H PRN PRN Reason: NASAL CONGESTION Last Admin: 09/22/16 18:46 Dose: 2 spray - Objective Vital Signs: Vital Signs Temperature 97.6 F 09/23/16 18:00 Pulse Rate 64 09/23/16 18:00 Respiratory Rate 20 09/23/16 18:00 Blood Pressure 158/75 09/23/16 18:00 O2 Sat by Pulse Oximetry (%) 96 09/23/16 09:00 Constitutional: Yes: Mild Distress Eyes: Yes: WNL HENT: Yes: WNL Neck: Yes: WNL Cardiovascular: Yes: WNL Respiratory: Yes: WNL Gastrointestinal: Yes: WNL Genitourinary: Yes: WNL Musculoskeletal: Yes: Back Pain, Muscle Weakness Extremities: Yes: WNL Edema: No Peripheral Pulses WNL: Yes Integumentary: Yes: WNL Wound/Incision: Yes: Clean/Dry Neurological: Yes: Numbness, Pre-Existing Deficit, Unsteady Gait ...Motor Strength: LLE, RLE Psychiatric: Yes: Other Problem List - Problems (1) Mouth pain Code(s): K13.79 - OTHER LESIONS OF [place]AL [place] (2) Tardive dyskinesia Code(s): G24.01 - DRUG INDUCED SUBACUTE DYSKINESIA (3) Acquired autoimmune hypothyroidism Code(s): E03.8 - OTHER SPECIFIED HYPOTHYROIDISM (4) Anxiety Code(s): F41.9 - ANXIETY DISORDER, UNSPECIFIED (5) Dysuria Code(s): R30.0 - DYSURIA (6) Hypothyroid Code(s): E03.9 - HYPOTHYROIDISM, UNSPECIFIED Qualifiers: Hypothyroidism type: acquired Qualified Code(s): E03.9 - Hypothyroidism, unspecified Assessment/Plan CT HEAD NOW BACLOFENS STARTED FOR TARDIVE DYSKINESIA? LIKELY STRESS/ANXIETY STOP XANAX ATIVAN AND KLONOPIN PRN PT JESUS MANUEL GIL FOR PT
[2016-09-23] MEDS: METHYL SALICYLATE/MENTHOL OINT 30 GM TUBE TP SCH ×2 (19:53→22:40)
[2016-09-23] MEDS: POLYETHYLENE GLYCOL 3350 119 GM BTL PO SCH ×2 (19:53)
[2016-09-24 00:08] LABS: CALCIUM 9.4 mg/dL (8.7-10.3)
[2016-09-24] MEDS: LORazepam 0.5 MG TABLET PO PRN (00:33)
[2016-09-24] MEDS: sitaGLIPtin PHOSPHATE 50 MG TABLET PO SCH (06:39)
[2016-09-24] MEDS: LEVOTHYROXINE NA 88 MCG TABLET (FP) PO SCH (06:39)
[2016-09-24] MEDS: ACETAMINOPHEN 325 MG TABLET (FP) PO PRN (06:43)
[2016-09-24] MEDS: LORATADINE 10 MG TABLET PO SCH (09:43)
[2016-09-24] MEDS: LOSARTAN POTASSIUM 50 MG TABLET (FP) PO SCH (09:43)
[2016-09-24] MEDS: BACLOFEN 10 MG TABLET (FP) PO SCH (09:43)
[2016-09-24] MEDS: RANITIDINE HCL 150 MG TABLET (FP) PO SCH (09:43)
[2016-09-24] MEDS: METHYL SALICYLATE/MENTHOL OINT 30 GM TUBE TP SCH (09:44)
[2016-09-24] MEDS: METOPROLOL SUCCINATE 25 MG TAB.SR.24H (FP) PO SCH (09:44)
[2016-09-24] MEDS: POLYETHYLENE GLYCOL 3350 119 GM BTL PO SCH (09:44)
--- NOTE | 2016-09-24 10:44 | DS ---
Physical Examination Vital Signs: Vital Signs Temperature 98.2 F 09/24/16 06:44 Pulse Rate 48 L 09/24/16 06:44 Respiratory Rate 20 09/24/16 06:44 Blood Pressure 184/76 09/24/16 06:44 O2 Sat by Pulse Oximetry (%) 98 09/23/16 21:00 Constitutional: Yes: Mild Distress Eyes: Yes: WNL HENT: Yes: WNL Neck: Yes: WNL Cardiovascular: Yes: WNL Respiratory: Yes: WNL Gastrointestinal: Yes: WNL Renal/: Yes: WNL Musculoskeletal: Yes: Muscle Weakness Extremities: Yes: WNL Edema: No Peripheral Pulses WNL: Yes Integumentary: Yes: WNL Wound/Incision: Yes: Clean/Dry Neurological: Yes: Numbness, Paresthesia, Unsteady Gait ...Motor Strength: LLE, RLE Psychiatric: Yes: Other Discharge Summary Reason For Visit: TARDIVE DYSKINESIA Current Active Problems Abdominal pain (Acute) Hyponatremia (Acute) IBS (irritable bowel syndrome) (Acute) Mouth pain (Acute) Tardive dyskinesia (Acute) Procedures: Principal: acute neuropathy/tardive dyskinesia workup Other Procedures: labs/ct scan carotid doppler Hospital Course: admitted and worked up, given treatment for twitches/spasms and neuropathy, will need snf - Instructions Diet, Activity, Other Instructions: ada/low sodium Referrals: Sherrill Donohue MD [Primary Care Provider] - Disposition: SNF FACILITY - Home Medications Comprehensive Discharge Medication List: Ambulatory Orders Aspirin [ASA -] 81 mg PO DAILY 12/16/13 Metoprolol Succinate [Toprol XL -] 12.5 mg PO DAILY #60 tab.sr.24h 03/15/14 Acetaminophen [Tylenol .Regular Strength -] 650 mg PO Q4H PRN #0 tablet Levothyroxine [Synthroid -] 88 mcg PO DAILY@0700 #30 tablet 11/15/15 Losartan Potassium [Cozaar -] 100 mg PO DAILY #30 tablet 11/15/15 Ondansetron [Zofran -] 4 mg PO Q4H PRN #10 tablet 11/15/15 Polyethylene Glycol 3350 [Miralax 119 gm Btl -] 17 gm PO DAILY #1 bottle Propranolol HCl 20 mg PO DAILY 09/21/16 Acetaminophen [Tylenol .Regular Strength -] 650 mg PO Q6H PRN #0 tablet Baclofen [Lioresal -] 10 mg PO BID tablet 09/24/16 Levothyroxine [Synthroid -] 88 mcg PO DAILY@0700 tablet 09/24/16 Loratadine [Claritin -] 10 mg PO DAILY tablet 09/24/16 Lorazepam [Ativan] 0.5 mg PO Q12H PRN #0 tablet MDD 3 09/24/16 Losartan Potassium [Cozaar -] 100 mg PO DAILY tablet 09/24/16 Methyl Salicylate/Menthol Oint [Analgesic Agenda -] 1 applic TP BID applic Ranitidine [Zantac -] 150 mg PO BID tablet 09/24/16 Sitagliptin Phosphate [Januvia -] 50 mg PO DAILY@0700 tablet 09/24/16 Sodium Chloride Nasal [place] [[place] Nasal [place] -] 2 spray NS Q8H PRN #0 spray 09/24/16
--- NOTE | 2016-09-24 11:27 | PN ---
Progress Note (short form) - Note Progress Note: Neurology History of Present Illness 66 year old female with a history of anxiety/depression/panic disorder, NIDDM with neuropathy, asthma/COPD, osteoarthritis, IBS, hypothyroidism, and multiple episodes of c diff sent by her PCP for evaluation of lower extremity tremors, facial tremors, and worsening protruding/twisting movements of the tongue. The patient is not taking any neuroleptic drugs. She takes daily Klonopin (was recently changed from Xanax). She was switched medications by her providers and sees Dr. Hale in the office, most recently 3 weeks ago when she was prescribed propranolol for this. Reports these symptoms have been on and off for the past month. During my evaluation, she was having movement of mandible but twitching would move from side to side, then stop, then start. Started on baclofen with some improvement. I also recommended outpatient Botox for dystonia if the patient is interested. Active Medications Acetaminophen (Tylenol -) 650 mg PO Q6H PRN PRN Reason: FEVER OR PAIN Last Admin: 09/24/16 06:43 Dose: 650 mg Aspirin (Ecotrin -) 81 mg PO DAILY [facility] Last Admin: 09/23/16 09:24 Dose: 81 mg Baclofen (Lioresal -) 10 mg PO BID [facility] Last Admin: 09/24/16 09:43 Dose: 10 mg Levothyroxine Sodium (Synthroid -) 88 mcg PO DAILY@0700 [facility] Last Admin: 09/24/16 06:39 Dose: 88 mcg Loratadine (Claritin -) 10 mg PO DAILY [facility] Last Admin: 09/24/16 09:43 Dose: 10 mg Lorazepam (Ativan -) 0.5 mg PO Q12H PRN PRN Reason: ANXIETY Last Admin: 09/24/16 00:33 Dose: 0.5 mg Losartan Potassium (Cozaar -) 100 mg PO DAILY [facility] Last Admin: 09/24/16 09:43 Dose: 100 mg Methyl Salicylate (Ronnie-Andrews -) 1 applic TP BID [facility] Last Admin: 09/24/16 09:44 Dose: 1 applic Metoprolol Succinate (Toprol Xl -) 12.5 mg PO BID [facility] Last Admin: 09/24/16 09:44 Dose: 12.5 mg Polyethylene Glycol (Miralax (For Daily Use) -) 17 gm PO DAILY [facility] Last Admin: 09/24/16 09:44 Dose: 17 g Polyethylene Glycol (Miralax (For Daily Use) -) 17 gm PO DAILY [facility] Last Admin: 09/23/16 19:53 Dose: Not Given Ranitidine HCl (Zantac -) 150 mg PO BID [facility] Last Admin: 09/24/16 09:43 Dose: 150 mg Sitagliptin Phosphate (Januvia -) 50 mg PO DAILY@0700 [facility] Last Admin: 09/24/16 06:39 Dose: 50 mg Sodium Chloride ([place] Nasal [place] -) 2 spray NS Q8H PRN PRN Reason: NASAL CONGESTION Last Admin: 09/22/16 18:46 Dose: 2 spray *Physical Exam Vital Signs Temperature 98.2 F 09/24/16 06:44 Pulse Rate 48 L 09/24/16 06:44 Respiratory Rate 20 09/24/16 06:44 Blood Pressure 184/76 09/24/16 06:44 O2 Sat by Pulse Oximetry (%) 98 09/23/16 21:00 PHYSICAL EXAM: GENERAL: The patient is awake, alert, and fully oriented, in no acute distress. ENT: Pupils equal, round and reactive to light, extraocular movements intact, sclera anicteric, conjunctiva clear. Neck supple. LUNGS: Clear to auscultation bilaterally. Normal excursion. No respiratory distress or use of accessory muscles. CV: RRR, S1/S2, no MRG. Cap refill < 2 sec. ABDOMEN: Soft, non-distended, non-tender. EXTREMITIES: Normal range of motion, no edema. NEUROLOGICAL: Normal speech. CN II-XII grossly intact. Tongue protruding, lip smacking. No tremors noted. Jaw movements episodic, strength intact, sensory normal CBCD WBC 7.4 K/mm3 (4.0-10.0) 09/21/16 14:30 RBC 4.54 M/mm3 (3.60-5.2) 09/21/16 14:30 Hgb 14.3 GM/dL (10.7-15.3) 09/21/16 14:30 Hct 41.0 % (32.4-45.2) 09/21/16 14:30 MCV 90.3 fl (80-96) 09/21/16 14:30 MCHC 34.8 g/dl (32.0-36.0) 09/21/16 14:30 RDW 13.0 % (11.6-15.6) 09/21/16 14:30 Plt Count 259 K/MM3 (134-434) 09/21/16 14:30 MPV 7.2 fl (7.5-11.1) L 09/21/16 14:30 CMP Sodium 138 mmol/L (136-145) 09/21/16 14:28 Potassium 4.1 mmol/L (3.5-5.1) 09/21/16 14:28 Chloride 101 mmol/L (98-107) 09/21/16 14:28 Carbon Dioxide 27 mmol/L (21-32) 09/21/16 14:28 Anion Gap 10 (8-16) 09/21/16 14:28 BUN 16 mg/dL (7-18) D 09/21/16 14:28 Creatinine 0.9 mg/dL (0.55-1.02) D 09/21/16 14:28 Creat Clearance w eGFR > 60 (>60) 09/21/16 14:28 Calcium 9.3 mg/dL (8.5-10.1) 09/21/16 14:28 Total Bilirubin 0.5 mg/dL (0.2-1.0) 09/21/16 14:28 AST 18 U/L (15-37) D 09/21/16 14:28 ALT 23 U/L (12-78) 09/21/16 14:28 Alkaline Phosphatase 91 U/L (45-117) 09/21/16 14:28 Total Protein 7.5 g/dl (6.4-8.2) 09/21/16 14:28 Albumin 3.8 g/dl (3.4-5.0) 09/21/16 14:28 Medical Decision Making 66 year old female with a history of anxiety/depression/panic disorder, NIDDM with neuropathy, asthma/COPD, osteoarthritis, IBS, hypothyroidism, and multiple episodes of c diff sent by her PCP for evaluation of lower extremity tremors, facial tremors, and worsening protruding/twisting movements of the tongue. The patient is not taking any neuroleptic drugs. She takes daily Klonopin (was recently changed from Xanax). She was switched medications by her providers and sees Dr. Hale in the office, most recently 3 weeks ago when she was prescribed propranolol for this. Reports these symptoms have been on and off for the past month. Does not feel propanolol helped Seems stress related Feels some improvement on baclofen, muscle relaxant, [facility] Provided reassurance, symptoms should improve Relaxation recommended Follow up with Dr. Hale in office and can consider botox treatment
[2016-09-24 16:06] VITALS: BP 157/73; PULSE 60; TEMP 98.3
[2016-10-01 10:09] LABS: B2-GLYCOPROTEIN IGA <10; B2-GLYCOPROTEIN IGG <10; B2-GLYCOPROTEIN IGM <10
== END 2016-09-24 11:33 | DRG 93 ==
LOC: JER 12:39 → JERBED 16:58 → J7W 20:17
PROVIDERS: ADMIT Family Medicine; ATTEND Family Medicine
DX: G24.01 Drug induced subacute dyskinesia (principal); F41.9 Anxiety disorder, unspecified; F32.9 Major depressive disorder, single episode, unspecified; F41.0 Panic disorder [episodic paroxysmal anxiety]; E11.40 Type 2 diabetes mellitus with diabetic neuropathy, unspecified; J44.9 Chronic obstructive pulmonary disease, unspecified; J45.909 Unspecified asthma, uncomplicated; T50.995A Adverse effect of other drugs, medicaments and biological substances, initial encounter; R30.0 Dysuria; E03.8 Other specified hypothyroidism; K58.9 Irritable bowel syndrome, unspecified; M19.90 Unspecified osteoarthritis, unspecified site; Z79.84 Long term (current) use of oral hypoglycemic drugs
CPT/HCPCS: 36415; 70450-TC; 71020-TC; 80053; 81003; 81015; 82310; 83970; 85025; 85597; 85730; 86146; 86147; 93005; 93010; 93880-TC; 97116-GP; 97161-GP; 99284-25; J0475

== ENCOUNTER 2016-10-28 06:59 | Inpatient (IN) | payer OTHER, BC ==
[2016-10-28 07:11] VITALS: BMI 31.1
[2016-10-28 08:01] LABS: BASOPHIL 0.5 % (0-2.0); EOSINOPHIL 0.3 % (0-4.5); MCH 31.6 pg (25.7-33.7); MEAN CELL VOLUME 90.3 fl (80-96); MEAN PLT VOLUME 7.2 fl (7.5-11.1); NEUTROPHILS 76.9 % (42.8-82.8); PLATELET COUNT 303 K/MM3 (134-434); RDW 12.3 % (11.6-15.6); WHITE BLOOD COUNT 8.6 K/mm3 (4.0-10.0)
[2016-10-28] MEDS ORDERED: ONDANSETRON 4 MG/2 ML VIAL IVPUSH ONE (08:07)
[2016-10-28] MEDS ORDERED: FAMOTIDINE 20 MG/50 ML IVPB 50 ML IVPB ONE ×2 (08:08→08:14)
[2016-10-28] MEDS ORDERED: SODIUM CHLORIDE 0.9% 1000 ML INFUS.BAG IV ONE ×2 (08:08→11:03)
[2016-10-28] MEDS ORDERED: ONDANSETRON 4 MG/2 ML VIAL ONE ×2 (08:14→16:40)
--- NOTE | 2016-10-28 08:33 | PDOC ---
History of Present Illness <Jocelynn Tripathi - Last Filed: 10/28/16 11:00> - General History Source: Patient Exam Limitations: No Limitations - History of Present Illness Initial Comments: 10/28/16 08:35 The patient is a 66 year old female, with a significant past medical history of hypertension, hyperlipidemia, NIDDM with neuropathy, anxiety/depression, panic disorder, asthma/COPD, osteoarthritis, IBS, hypothyroidism, and multiple episodes of C diff, who presents to the ED complaining of dizziness and lightheadedness since earlier this morning. She reports weakness in her legs bilaterally secondary to weakness. The patient reports she is compliant with her hypertension meds, and last took them this morning. The patient reports a headache, but denies any vertigo or imbalance. Patient reports she was admitted for Rehab at [facility] approximately 4 weeks ago. At the time patient reports she was experiencing episodes of nausea and diarrhea, but she denies any vomiting or constipation. She reports she was tested for C dif, at which time it was negative. Patient reports her diarrhea has gone on for the past 3 weeks, and describes it as a watery-brown consistency. Patient also reports she had her eyes dialyzed last week at [facility]. Since then, patient reports she has had difficulty focusing her eyes. She reports weakness and chills, but denies any fever or cough. She reports some chest discomfort, but denies any shortness of breath, diaphoresis, or palpitations. She denies any dysuria, hematuria, frequency, or urgency. Allergies: Clindamycin, Penicillins, Epinephrine, Ibuprofen, Sulfa(Sulfonamide antibiotics), Tramadol Past Surgical History: Cholecystectomy Social History: Non smoker. No ETOH or drug use. PCP: Dr. Calloway <Chad Martinez - Last Filed: 10/28/16 12:02> - General Chief Complaint: Blood Pressure Problem Stated Complaint: BLOOD PRESSURE PROBLEM Time Seen by Provider: 10/28/16 07:11 Past History - Past Medical History COPD: Yes Diabetes: Yes GI Disorders: Yes (DIVERTICULITIS) Disorders: Yes (pelvic, urethral pain, frequency) HTN: Yes Hypercholesterolemia: Yes Liver Disease: Yes (hepatitis) Psychiatric Problems: Yes (ANXIETY) Seizures: No Thyroid Disease: Yes (hyopthyroid) - Surgical History Cholecystectomy: Yes - Immunization History Immunization Up to Date: Yes - Psycho/Social/Smoking Cessation Hx Anxiety: Yes Suicidal Ideation: No Smoking History: Never smoked Have you smoked in the past 12 months: No Information on smoking cessation initiated: No Hx Alcohol Use: No Drug/Substance Use Hx: No Substance Use Type: None Hx Substance Use Treatment: No <Jocelynn Tripathi - Last Filed: 10/28/16 11:00> <Chad Martinez - Last Filed: 10/28/16 12:02> - Past Medical History Allergies/Adverse Reactions: Allergies Allergy/AdvReac Type Severity Reaction Status Date / Time clindamycin Allergy Verified 10/28/16 07:09 epinephrine Allergy Verified 10/28/16 07:09 ibuprofen Allergy palpatation Verified 10/28/16 07:09 s Penicillins Allergy Verified 10/28/16 07:09 Sulfa (Sulfonamide Allergy Verified 10/28/16 07:09 Antibiotics) tramadol Allergy Verified 10/28/16 07:09 Home Medications: Ambulatory Orders Acetaminophen 650 mg PO Q6H PRN 10/28/16 Amlodipine Besylate [Norvasc -] 10 mg PO DAILY 10/28/16 Aspirin [ASA -] 81 mg PO DAILY 10/28/16 Baclofen 10 mg PO BID 10/28/16 Citalopram Hydrobromide [Celexa -] 10 mg PO BID 10/28/16 Dextran 70/Hypromellose [Artificials Tears Drops] 1 drop OU Q4H 10/28/16 Ergocalciferol (Vitamin D2) [Vitamin D2] 2,000 unit PO DAILY 10/28/16 Levothyroxine Sodium [Levo-T] 88 mcg PO DAILY 10/28/16 Loperamide HCl [Imodium -] 2 mg PO Q3H PRN 10/28/16 Loratadine 10 mg PO DAILY 10/28/16 Lorazepam [Ativan] 1 mg PO Q6H PRN 10/28/16 Losartan Potassium [Cozaar] 100 mg PO DAILY 10/28/16 Mag Hydrox/Al Hydrox/Simeth [Mylanta Suspension -] 20 ml PO BID 10/28/16 Methyl Salicylate/Menthol [Bengay Greaseless Cream] 57 gm TP BID PRN 10/28/16 Metoprolol Tartrate 25 mg PO BID 10/28/16 Nystatin Powder [Nystop Powder -] 100,000 unit TP DAILY 10/28/16 Nystatin/Triamcin [Nystatin-Triamcinolone Cream] 30 gm TP BID 10/28/16 Ranitidine HCl 150 mg PO BID 10/28/16 Simvastatin 10 mg PO DAILY 10/28/16 Sitagliptin Phosphate [Januvia] 50 mg PO DAILY 10/28/16 Sodium Chloride [Rhinaris] 2 spray NS BID 10/28/16 Review of Systems - Review of Systems Able to Perform ROS?: Yes Comments:: 10/28/16 08:35 GENERAL/CONSTITUTIONAL: Yes: +chills, +weakness. No fever. HEAD, EYES, EARS, NOSE AND THROAT: Yes: +change in vision. No ear pain or discharge. No sore throat. CARDIOVASCULAR: Yes: +chest discomfort. No shortness of breath. RESPIRATORY: No cough, wheezing, or hemoptysis. GASTROINTESTINAL: Yes: +nausea, +diarrhea, +Hx of C dif. No vomiting or constipation. GENITOURINARY: No dysuria, frequency, or change in urination. MUSCULOSKELETAL: No joint or muscle swelling or pain. No neck or back pain. SKIN: No rash NEUROLOGIC: Yes: +dizziness, +lightheadedness, +weakness in legs bilaterally, + headache. No vertigo or loss of consciousness. ENDOCRINE: No increased thirst. No abnormal weight change. HEMATOLOGIC/LYMPHATIC: No anemia, easy bleeding, or history of blood clots. ALLERGIC/IMMUNOLOGIC: No hives or skin allergy. <Chad Martinez - Last Filed: 10/28/16 12:02> *Physical Exam - Vital Signs Last Vital Signs Temp Pulse Resp BP Pulse Ox 98.0 F 67 18 206/84 100 10/28/16 07:09 10/28/16 07:09 10/28/16 07:09 10/28/16 07:09 10/28/16 07:09 <Jocelynn Tripathi - Last Filed: 10/28/16 11:00> - Vital Signs Last Vital Signs Temp Pulse Resp BP Pulse Ox 98.0 F 67 18 206/84 100 10/28/16 07:09 10/28/16 07:09 10/28/16 07:09 10/28/16 07:09 10/28/16 07:09 - Physical Exam Comments: 10/28/16 08:35 GENERAL: Awake, alert, and fully oriented, in no acute distress HEAD: No signs of trauma EYES: PERRLA, EOMI, sclera anicteric, conjunctiva clear ENT: Auricles normal inspection, hearing grossly normal, nares patent. Moist mucosa NECK: Normal ROM, supple, no lymphadenopathy, JVD, or masses LUNGS: Breath sounds equal, clear to auscultation bilaterally. No wheezes, and no crackles HEART: Regular rate and rhythm, normal S1 and S2, no murmurs, rubs or gallops ABDOMEN: RLQ and epigastric tenderness, but no guarding or rebound. Soft, normoactive bowel sounds. No masses EXTREMITIES: Normal range of motion, no edema. No clubbing or cyanosis. No cords, erythema, or tenderness. DP/PT pulses 2+ and symmetric. NEUROLOGICAL: 5/5 strength in the bilateral upper extremities, and ? strength in bilateral lower extremities. Facial asymmetry, but corrected with movement of facial muscles. Moves all extremities. Normal speech, normal gait SKIN: Warm, Dry, normal turgor, no rashes or lesions noted. <Chad Martinez - Last Filed: 10/28/16 12:02> Heart Score/ECG Review #1 General ECG Interpretation: Sinus Rhythm, Normal Rate (57sinus alyssa), Normal Intervals, No acute ischemic changes - ECG Intrepretation Rhythm: Regular Rhythm - [place]ib[place] Hephzib[place]: Normal <Jocelynn Tripathi - Last Filed: 10/28/16 11:00> ED Treatment Course - LABORATORY CBC & Chemistry Diagram: 10/28/16 07:50 10/28/16 07:50 - ADDITIONAL ORDERS Additional order review: 10/28/16 07:50 RBC 4.49 MCV 90.3 MCHC 35.0 RDW 12.3 MPV 7.2 L Neutrophils % 76.9 Lymphocytes % 14.6 D Monocytes % 7.7 Eosinophils % 0.3 Basophils % 0.5 - RADIOLOGY Radiology Studies Ordered: Category Date Time Status ABDOMEN & PELVIS CT WITH CONTR [CT] Stat CT Scan 10/28/16 08:09 Ordered CHEST PA & LAT [RAD] Stat Radiology 10/28/16 08:09 Ordered <Jocelynn Tripathi - Last Filed: 10/28/16 11:00> - LABORATORY CBC & Chemistry Diagram: 10/28/16 07:50 10/28/16 07:50 - ADDITIONAL ORDERS Additional order review: 10/28/16 07:50 RBC 4.49 MCV 90.3 MCHC 35.0 RDW 12.3 MPV 7.2 L Neutrophils % 76.9 Lymphocytes % 14.6 D Monocytes % 7.7 Eosinophils % 0.3 Basophils % 0.5 - RADIOLOGY Radiograph Interpretation: 10/28/16 09:44 EXAM: CXR INTERPRETED BY: Dr. Angelo REVIEWED BY: Dr. Tripathi IMPRESSION: Development of mild platelike atelectasis at the left base. Otherwise no acute intrathoracic abnormality seen. Clinical correlation advised. EXAM: CT Abdomen and Pelvis INTERPRETED BY: Dr. Angelo REVIEWED BY: Dr. Tripathi IMPRESSION: No evidence of colonic pathology seen other than for sigmoid diverticulosis. No colitis identified. Possible left adnexal cyst which can be evaluated with a sonogram. Other findings as above. Clinical correlation advised. <Chad Martinez - Last Filed: 10/28/16 12:02> Medical Decision Making - Medical Decision Making 10/28/16 08:25 66 yo F with ho HTN recent C diff, here with c/o persistant diarrhea, abd pain and now headache feeling lightheaded. pt c/o nausea, no vomiting. stool like water, non bloody. abd pain constant. no f/c. does also c/o chest pain. did take bp meds this am. no sob no cough no urinary complaints. also c/o feeling lightheaded, denies vertigo or imbalance. c/o generalized weaknesss. also c/o bitemporal headache, constant. on exam awake, alert facies nonsymmetric ( old) lungs clear heart RRR no mr/g. abd soft obese, rlq ttp, epigatric ttp. no rebound no guarding. ext wwp . nuero alert and oriented x 3, 5/5 bilat upper ext, 4/5 bilat lower ext. CN intact ( facies correct with effort h/o tardives) differential: colitis, appy, electroyte abnormality, anemia, cdiff. dehydration , acs. plan ekg labs cxr ct a/p iv hydration antinausea, antacid, reassess. 10/28/16 11:00 labs noteable for hyponatremia. ct pending. d/w dr calloway, will admit to med surg, place on contact requesting dr ronquillo for renal, Hugo for GI <Jocelynn Tripathi - Last Filed: 10/28/16 11:00> - Medical Decision Making 10/28/16 10:52 First call placed to Dr. Calloway at 10:52. Awaiting call back. Case discussed with Dr. Calloway at 10:58. Agreed to admit First call placed to Dr. Perez at 11:01. Awaiting call back. Second call placed to Dr. Perez at 11:41. Awaiting call back. First call placed to Dr. Guy at 11:01. Awaiting call back. Case discussed with Dr. Rdz at 12:00. <Chad Martinez - Last Filed: 10/28/16 12:02> *DC/Admit/Observation/Transfer - Discharge Dispostion Admit: Yes <Jocelynn Tripathi - Last Filed: 10/28/16 11:00> - Attestations Scribe Attestion: 10/28/16 08:35 Documentation prepared by Chad Martinez, acting as clinical specialist medical device for Jocelynn Tripathi MD. <Chad Martinez - Last Filed: 10/28/16 12:02> Diagnosis at time of Disposition: Hyponatremia syndrome, Colitis - Referrals
[2016-10-28 08:34] LABS: URINE APPEARANCE SLCLOUDY; URINE BILIRUBIN NEGATIVE (NEGATIVE); URINE BLOOD NEGATIVE (NEGATIVE); URINE COLOR STRAW; URINE GLUCOSE (UA) 1+ (NEGATIVE); URINE KETONE TRACE (NEGATIVE); URINE LEUK ESTERASE NEGATIVE (NEGATIVE); URINE NITRITE NEGATIVE (NEGATIVE); URINE PROTEIN NEGATIVE (NEGATIVE); URINE UROBILINOGEN NEGATIVE E.U./dl (0.2-1.0)
[2016-10-28 08:37] LABS: ANION GAP 11 (8-16); BILIRUBIN,TOTAL 0.8 mg/dL (0.2-1.0); CALCIUM 9.5 mg/dL (8.5-10.1); CO2 27 mmol/L (21-32); CREATININE 0.6 mg/dL (0.55-1.02); GLUCOSE,RANDOM 182 mg/dL (74-106); SGOT/AST 28 U/L (15-37); SGPT/ALT 31 U/L (12-78); TOT PROT 7.6 g/dl (6.4-8.2)
[2016-10-28 08:38] LABS: ALK PHOS 105 U/L (45-117)
[2016-10-28 09:10] LABS: TROPONIN I < 0.02 ng/ml (0.00-0.05)
[2016-10-28] MEDS ORDERED: ACETAMINOPHEN 325 MG TABLET (FP) PO ONE (10:50)
[2016-10-28] MEDS ORDERED: ACETAMINOPHEN 325 MG TABLET (FP) ONE ×2 (10:51→10:54)
--- NOTE | 2016-10-28 13:34 | EKG ---
Test Reason : Blood Pressure : / mmHG Vent. Rate : 057 BPM Atrial Rate : 057 BPM P-R Int : 182 ms QRS Dur : 092 ms QT Int : 462 ms P-R-T Axes : 033 018 033 degrees QTc Int : 449 ms SINUS BRADYCARDIA OTHERWISE NORMAL ECG WHEN COMPARED WITH ECG OF 21-SEP-2016 14:25, NO SIGNIFICANT CHANGE WAS FOUND Confirmed by LEDA CHAUDHARY MD ([id number]) on 10/28/2016 1:34:17 PM Referred By: Confirmed By:LEDA CHAUDHARY MD
[2016-10-28 14:19] LABS: C-REACTIVE PROTEIN 0.3 MG/DL (0.00-0.3)
[2016-10-28] MEDS ORDERED: SODIUM CHLORIDE NASAL SPRAY 44 ML BOTTLE NS PRN (16:00)
--- NOTE | 2016-10-28 17:46 | CONSULT ---
Consult Consult Specialty:: Nephrology Reason for Consultation:: hyponatremia - History of Present Illness Chief Complaint: dizziness History of Present Illness: Pt is a 66 year old female with pmhx of hyponatremia, HTN, chol, DM, depression , COPD, anxiety, hypothyroidism and arthritis who presents to the ER complaining or dizziness. This has been going on for about one day. She was found to be hyponatremic and I was called to evaluate her. She has had hyponatremia in the past and it was attributed to thiazide and increased water intake. She says she drinks about 4 - 500 ml bottles of water per day in addition to other fluid consumption. She also complains of diarrhea. She denies dysuria or hematuria. She is awake and alert. - History Source History Provided By: Patient, Family Member, Medical Record - Past Medical History LAB DIRECTOR: Yes: Peripheral Neuropathy (diabetic), Seizure (?) Cardio/Vascular: Yes: HTN, Hyperlipdemia Pulmonary: Yes: Asthma, COPD (nonsmoker, childhood aerosolized chem. exposure), Pneumonia Gastrointestinal: Yes: Other (IBS) Hepatobiliary: Yes: Cholelithiasis Renal/: Yes: UTI Infectious Disease: Yes: Other (refractory uti) Psych: Yes: Anxiety, Depression, Panic (RECENT ADMISSION TO PSYCH FACILITY???) Musculoskeletal: Yes: Osteoarthritis (cspine) Endocrine: Yes: Diabetes Mellitus (diabetic neuropathy), Other (HYPONATREMIA ( RECENT ADMISSION TO [facility] FOR SAME)) Additional Medical History: h/o scarred urethra. s/p dilation. 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 History of Recent Travel: No Home Medications - Allergies Allergies/Adverse Reactions: Allergies Allergy/AdvReac Type Severity Reaction Status Date / Time clindamycin Allergy Verified 10/28/16 07:09 epinephrine Allergy Verified 10/28/16 07:09 ibuprofen Allergy palpatation Verified 10/28/16 07:09 s Penicillins Allergy Verified 10/28/16 07:09 Sulfa (Sulfonamide Allergy Verified 10/28/16 07:09 Antibiotics) tramadol Allergy Verified 10/28/16 07:09 - Home Medications Home Medications: Ambulatory Orders Acetaminophen 650 mg PO Q6H PRN 10/28/16 Amlodipine Besylate [Norvasc -] 10 mg PO DAILY 10/28/16 Aspirin [ASA -] 81 mg PO DAILY 10/28/16 Baclofen 10 mg PO BID 10/28/16 Citalopram Hydrobromide [Celexa -] 10 mg PO BID 10/28/16 Dextran 70/Hypromellose [Artificials Tears Drops] 1 drop OU Q4H 10/28/16 Ergocalciferol (Vitamin D2) [Vitamin D2] 2,000 unit PO DAILY 10/28/16 Levothyroxine Sodium [Levo-T] 88 mcg PO DAILY 10/28/16 Loperamide HCl [Imodium -] 2 mg PO Q3H PRN 10/28/16 Loratadine 10 mg PO DAILY 10/28/16 Lorazepam [Ativan] 1 mg PO Q6H PRN 10/28/16 Losartan Potassium [Cozaar] 100 mg PO DAILY 10/28/16 Mag Hydrox/Al Hydrox/Simeth [Mylanta Suspension -] 20 ml PO BID 10/28/16 Methyl Salicylate/Menthol [Bengay Greaseless Cream] 57 gm TP BID PRN 10/28/16 Metoprolol Tartrate 25 mg PO BID 10/28/16 Nystatin Powder [Nystop Powder -] 100,000 unit TP DAILY 10/28/16 Nystatin/Triamcin [Nystatin-Triamcinolone Cream] 30 gm TP BID 10/28/16 Ranitidine HCl 150 mg PO BID 10/28/16 Simvastatin 10 mg PO DAILY 10/28/16 Sitagliptin Phosphate [Januvia] 50 mg PO DAILY 10/28/16 Sodium Chloride [Rhinaris] 2 spray NS BID 10/28/16 Family Disease History - Family Disease History Family Disease History: [place]: Father ( suddenly at age 48 -> no autopsy), Other: Mother ( of MRSA in [facility] rm [id number]), Brother (sarcoidosis age 32) Review of Systems - Review of Systems Constitutional: reports: Malaise, Weakness Eyes: reports: No Symptoms HENT: reports: No Symptoms Neck: reports: No Symptoms Cardiovascular: reports: No Symptoms Respiratory: reports: No Symptoms Gastrointestinal: reports: Diarrhea Genitourinary: reports: No Symptoms Musculoskeletal: reports: No Symptoms Integumentary: reports: No Symptoms Neurological: reports: Dizziness Endocrine: reports: No Symptoms Hematology/Lymphatic: reports: No Symptoms Psychiatric: reports: Anxiety, Depression Physical Exam Vital Signs: Vital Signs Temperature 98.0 F 10/28/16 07:09 Pulse Rate 67 10/28/16 07:09 Respiratory Rate 18 10/28/16 07:09 Blood Pressure 206/84 10/28/16 07:09 O2 Sat by Pulse Oximetry (%) 100 10/28/16 07:09 Constitutional: Yes: Anxious Eyes: Yes: Conjunctiva Clear HENT: Yes: Atraumatic Neck: Yes: Supple Cardiovascular: Yes: S1, S2 Respiratory: Yes: CTA Bilaterally Gastrointestinal: Yes: Soft Renal/: Yes: WNL Musculoskeletal: Yes: WNL Edema: No Neurological: Yes: Oriented Psychiatric: Yes: Oriented, Other (very anxious) Labs: Laboratory Tests 10/28/16 10/28/16 10/28/16 07:50 07:50 07:50 WBC 8.6 Hgb 14.2 Plt Count 303 Sodium 128 L Potassium 3.7 Chloride 90 L D Carbon Dioxide 27 Anion Gap 11 BUN 8 D Creatinine 0.6 D Creat Clearance w eGFR > 60 Random Glucose 182 H Hemoglobin A1c % 6.9 H Urine Color Urine Appearance Urine pH Ur Specific [place] Urine Protein Urine Ketones Urine Blood Urine Nitrite Urine Bilirubin Urine Urobilinogen Ur Leukocyte Esterase 10/28/16 08:23 WBC Hgb Plt Count Sodium Potassium Chloride Carbon Dioxide Anion Gap BUN Creatinine Creat Clearance w eGFR Random Glucose Hemoglobin A1c % Urine Color Straw Urine Appearance Slcloudy Urine pH 8.0 D Ur Specific [place] 1.020 Urine Protein Negative Urine Ketones Trace H Urine Blood Negative Urine Nitrite Negative Urine Bilirubin Negative Urine Urobilinogen Negative Ur Leukocyte Esterase Negative Imaging - Results Chest X-ray: Report Reviewed Problem List - Problems (1) Hyponatremia Code(s): E87.1 - HYPO-OSMOLALITY AND HYPONATREMIA (2) IBS (irritable bowel syndrome) Code(s): K58.9 - IRRITABLE BOWEL SYNDROME WITHOUT DIARRHEA (3) COPD (chronic obstructive pulmonary disease) Code(s): J44.9 - CHRONIC OBSTRUCTIVE PULMONARY DISEASE, UNSPECIFIED (4) Hypothyroid Code(s): E03.9 - HYPOTHYROIDISM, UNSPECIFIED Qualifiers: Hypothyroidism type: acquired Qualified Code(s): E03.9 - Hypothyroidism, unspecified (5) Obesity Code(s): E66.9 - OBESITY, UNSPECIFIED Assessment/Plan Current Medications Generic Name Dose Route Start Last Admin Trade Name Freq PRN Reason Stop Dose Admin Acetaminophen 650 mg 10/28/16 16:00 Tylenol - PO Q6H PRN FEVER OR PAIN Amlodipine Besylate 10 mg 10/29/16 10:00 Norvasc - PO DAILY [facility]N Artificial Tears 1 drop 10/28/16 16:00 Artificial Tears OU BID PRN DRY EYES Aspirin 81 mg 10/29/16 10:00 Ecotrin - PO DAILY SHAWN Baclofen 10 mg 10/28/16 22:00 Lioresal - PO BID SHAWN Citalopram Hydrobromide 10 mg 10/29/16 10:00 Celexa - PO DAILY [facility]N Levothyroxine Sodium 88 mcg 10/29/16 07:00 Synthroid - PO DAILY@0700 [facility] Loratadine 10 mg 10/29/16 10:00 Claritin - PO DAILY [facility]N Lorazepam 0.5 mg 10/28/16 16:00 Ativan - PO TID PRN ANXIETY Losartan Potassium 100 mg 10/29/16 10:00 Cozaar - PO DAILY [facility]N Metoprolol Tartrate 25 mg 10/28/16 22:00 Lopressor - PO BID [facility] Nystatin 1 applic 10/28/16 22:00 Mycostatin Cream - TP BID SHAWN Nystatin 1 applic 10/29/16 10:00 Nystop Powder - TP DAILY [facility] Ranitidine HCl 150 mg 10/28/16 22:00 Zantac - PO BID [facility] Sitagliptin Phosphate 50 mg 10/29/16 07:00 Januvia - PO DAILY@0700 [facility] Sodium Chloride 2 spray 10/28/16 16:00 [place] Nasal [place] - NS TID PRN NASAL CONGESTION 155/85 is the repeat blood pressure Impression 1. hyponatremia 2. HTN 3. anxiety 4. depression 5. diarrhea 6. GERD 7. DM 8. COPD 9. hypothyroidism Plan - will send workup for hyponatremia - check urine and plasma osm - check urine lytes - check tsh and cotisol level - restrict free water - monitor sodium - repeat blood pressure is improved - resume home bp meds - will comment more on etiology of hyponatremia after more data is gathered - will follow pt Dr Perez
[2016-10-28] MEDS: ACETAMINOPHEN 325 MG TABLET (FP) PO PRN (20:50)
[2016-10-28] MEDS ORDERED: RANITIDINE HCL 150 MG TABLET (FP) ONE (21:31)
[2016-10-28] MEDS ORDERED: METOPROLOL TARTRATE 25 MG TABLET (FP) ONE (21:31)
[2016-10-28] MEDS ORDERED: BACLOFEN 10 MG TABLET (FP) ONE (21:32)
[2016-10-28] MEDS: BACLOFEN 10 MG TABLET (FP) PO SCH (23:04)
[2016-10-28] MEDS: METOPROLOL TARTRATE 25 MG TABLET (FP) PO SCH (23:05)
[2016-10-28] MEDS: NYSTATIN 100,000 UNIT/GM TOPICAL CREAM 15 GM TUBE TP SCH (23:15)
[2016-10-29] MEDS: RANITIDINE HCL 150 MG TABLET (FP) PO SCH ×3 (00:05→22:08)
[2016-10-29] MEDS ORDERED: INSULIN (NOVOLOG MIX 70/30) 100 UNITS/ML MDV SQ ONE (01:20)
[2016-10-29] MEDS: LORazepam 0.5 MG TABLET PO PRN ×2 (04:32→22:14)
[2016-10-29] MEDS ORDERED: LORazepam 0.5 MG TABLET ONE (04:34)
[2016-10-29 07:41] LABS: ALBUMIN 3.8 g/dl (3.4-5.0); ANION GAP 10 (8-16); BILIRUBIN,TOTAL 0.4 mg/dL (0.2-1.0); CALCIUM 8.8 mg/dL (8.5-10.1); CO2 26 mmol/L (21-32); CREATININE 0.7 mg/dL (0.55-1.02); GLUCOSE,RANDOM 155 mg/dL (74-106); SGOT/AST 23 U/L (15-37); SGPT/ALT 32 U/L (12-78); TOT PROT 7.3 g/dl (6.4-8.2)
[2016-10-29] MEDS ORDERED: sitaGLIPtin PHOSPHATE 50 MG TABLET ONE (07:45)
[2016-10-29 07:49] LABS: ALK PHOS 103 U/L (45-117); THYROID STIMULATING HORMONE 1.33 uIU/ml (0.358-3.74)
[2016-10-29] MEDS: LEVOTHYROXINE NA 88 MCG TABLET (FP) PO SCH (08:20)
[2016-10-29] MEDS: sitaGLIPtin PHOSPHATE 50 MG TABLET PO SCH (08:28)
[2016-10-29] MEDS: BACLOFEN 10 MG TABLET (FP) PO SCH ×2 (09:27→22:07)
[2016-10-29] MEDS: METOPROLOL TARTRATE 25 MG TABLET (FP) PO SCH ×2 (09:27→22:07)
[2016-10-29] MEDS: NYSTATIN 100,000 UNIT/GM TOPICAL CREAM 15 GM TUBE TP SCH ×2 (09:28→22:09)
[2016-10-29] MEDS: LORATADINE 10 MG TABLET PO SCH (09:29)
[2016-10-29] MEDS: NYSTATIN POWDER 100,000 UNITS/GM - 15 GM TOPICAL POWDER TP SCH (09:29)
[2016-10-29] MEDS: ASPIRIN COATED 81 MG TABLET.EC PO SCH (09:29)
[2016-10-29] MEDS: amLODIPine BESYLATE 10 MG TABLET (FP) PO SCH (09:29)
[2016-10-29] MEDS: LOSARTAN POTASSIUM 50 MG TABLET (FP) PO SCH (09:29)
[2016-10-29] MEDS ORDERED: CITALOPRAM HYDROBROMIDE 10 MG TABLET (FP) ONE (09:32)
[2016-10-29] MEDS: CITALOPRAM HYDROBROMIDE 10 MG TABLET (FP) PO SCH (09:38)
[2016-10-29 15:20] LABS: OSMOLALITY,SERUM 273 mosm/kg (278-305)
--- NOTE | 2016-10-29 15:38 | CON.GI ---
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 SHE RECENTLY WAS DISCHARGED FROM A ASSISTED. THE LOOSE STOOLS STARTED IN THE NH AND CONTINUED WHEN DISCHARGED. SHE COMPLAINED ABOUT FATIGUE AND WEAKNESS AND CAME TO THE ED. SODIUM WAS FOUND TO BE 128 AND SHE WAS ADMITTED. SHE HAS NOT HAD A LOOSE STOOL SINCE HER ADMISSION. SHE HAS NO FEVER OR INCREASED WBC. HER CT SCAN IS NEGATIVE EXCEPT FOR LEFT ADENEXAL MASS. TRANSVAGINAL SONOGRAM COULD NOT EVALUATE THIS DUE TO EXCESSIVE BOWEL IN THAT AREA. HER LAST COLON WITH ME WAS IN 2013 AND WAS REDUNDANT BUT NO MASS ETC SEEN. SHE DID WELL ON A FIBER DIET AND MIRALAX. SHE DENIES FEVER, N/V, ABDOMINAL PAIN, GERD, DYSPHAGIA, RECTAL BLEEDING OR MELENA. - History Source History Provided By: Patient Limitations to Obtaining History: No Limitations - Past Medical History HOME EXTENSION AGENT: Yes: Peripheral Neuropathy (diabetic), Seizure (?) Cardio/Vascular: Yes: HTN, Hyperlipdemia Pulmonary: Yes: Asthma, COPD (nonsmoker, childhood aerosolized chem. exposure), Pneumonia Gastrointestinal: Yes: Other (IBS) Hepatobiliary: Yes: Cholelithiasis Renal/: Yes: UTI Infectious Disease: Yes: Other (refractory uti) Psych: Yes: Anxiety, Depression, Panic (RECENT ADMISSION TO PSYCH FACILITY???) Musculoskeletal: Yes: Osteoarthritis (cspine) Endocrine: Yes: Diabetes Mellitus (diabetic neuropathy), Other (HYPONATREMIA ( RECENT ADMISSION TO [facility] FOR SAME)) Additional Medical History: h/o scarred urethra. s/p dilation. 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 History of Recent Travel: No Home Medications - Allergies Allergies/Adverse Reactions: Allergies Allergy/AdvReac Type Severity Reaction Status Date / Time clindamycin Allergy Verified 10/28/16 07:09 epinephrine Allergy Verified 10/28/16 07:09 ibuprofen Allergy palpatation Verified 10/28/16 07:09 s Penicillins Allergy Verified 10/28/16 07:09 Sulfa (Sulfonamide Allergy Verified 10/28/16 07:09 Antibiotics) tramadol Allergy Verified 10/28/16 07:09 - Home Medications Home Medications: Ambulatory Orders Acetaminophen 650 mg PO Q6H PRN 10/28/16 Amlodipine Besylate [Norvasc -] 10 mg PO DAILY 10/28/16 Aspirin [ASA -] 81 mg PO DAILY 10/28/16 Baclofen 10 mg PO BID 10/28/16 Citalopram Hydrobromide [Celexa -] 10 mg PO BID 10/28/16 Dextran 70/Hypromellose [Artificials Tears Drops] 1 drop OU Q4H 10/28/16 Ergocalciferol (Vitamin D2) [Vitamin D2] 2,000 unit PO DAILY 10/28/16 Levothyroxine Sodium [Levo-T] 88 mcg PO DAILY 10/28/16 Loperamide HCl [Imodium -] 2 mg PO Q3H PRN 10/28/16 Loratadine 10 mg PO DAILY 10/28/16 Lorazepam [Ativan] 1 mg PO Q6H PRN 10/28/16 Losartan Potassium [Cozaar] 100 mg PO DAILY 10/28/16 Mag Hydrox/Al Hydrox/Simeth [Mylanta Suspension -] 20 ml PO BID 10/28/16 Methyl Salicylate/Menthol [Bengay Greaseless Cream] 57 gm TP BID PRN 10/28/16 Metoprolol Tartrate 25 mg PO BID 10/28/16 Nystatin Powder [Nystop Powder -] 100,000 unit TP DAILY 10/28/16 Nystatin/Triamcin [Nystatin-Triamcinolone Cream] 30 gm TP BID 10/28/16 Ranitidine HCl 150 mg PO BID 10/28/16 Simvastatin 10 mg PO DAILY 10/28/16 Sitagliptin Phosphate [Januvia] 50 mg PO DAILY 10/28/16 Sodium Chloride [Rhinaris] 2 spray NS BID 10/28/16 Family Disease History - Family Disease History Family Disease History: CA: Father ( suddenly at age 48 -> no autopsy), Other: Mother ( of MRSA in [facility] rm 529), Brother (sarcoidosis age 32) Review of Systems - Review of Systems Constitutional: reports: Lethargy, Weakness Eyes: reports: No Symptoms HENT: reports: No Symptoms Neck: reports: No Symptoms Cardiovascular: reports: No Symptoms Respiratory: reports: No Symptoms Gastrointestinal: reports: Diarrhea, Other (NONW RESOLVED) Psychiatric: reports: Anxiety, Depression Physical Exam-GI Vital Signs: Vital Signs Temperature 97.9 F 10/29/16 09:23 Pulse Rate 63 10/29/16 09:23 Respiratory Rate 16 10/29/16 09:23 Blood Pressure 162/76 10/29/16 09:23 O2 Sat by Pulse Oximetry (%) 98 10/29/16 09:23 Constitutional: Yes: Obese Eyes: Yes: Conjunctiva Clear HENT: Yes: Normocephalic Neck: Yes: Supple Cardiovascular: Yes: Regular Rate and Rhythm Respiratory: Yes: Regular Gastrointestinal Inspection: Yes: WNL ...Auscultate: Yes: Normoactive Bowel Sounds ...Palpate: Yes: Soft Extremities: Yes: WNL Labs: CBC, BMP 10/29/16 06:20 Laboratory Tests 10/28/16 10/28/16 10/28/16 07:50 07:50 07:50 WBC 8.6 RBC 4.49 Hgb 14.2 Hct 40.5 MCV 90.3 MCHC 35.0 RDW 12.3 Plt Count 303 Sodium 128 L Potassium 3.7 Chloride 90 L D Carbon Dioxide 27 Anion Gap 11 BUN 8 D Creatinine 0.6 D Creat Clearance w eGFR > 60 Random Glucose 182 H Hemoglobin A1c % 6.9 H Calcium Total Bilirubin AST ALT Alkaline Phosphatase Albumin Lipase 171 TSH 10/29/16 06:20 WBC RBC Hgb Hct MCV MCHC RDW Plt Count Sodium 136 Potassium 3.8 Chloride 100 D Carbon Dioxide 26 Anion Gap 10 BUN 5 L D Creatinine 0.7 Creat Clearance w eGFR > 60 Random Glucose 155 H Hemoglobin A1c % Calcium 8.8 Total Bilirubin 0.4 D AST 23 ALT 32 Alkaline Phosphatase 103 Albumin 3.8 Lipase TSH 1.33 D Problem List - Problems (1) Viral gastroenteritis Assessment/Plan: SYMPTOMS HAVE RESOLVED. NO DIARRHEA SINCE ADMISSION. NO EVALUATION SUGGESTED AT THIS TIME. Code(s): A08.4 - VIRAL INTESTINAL INFECTION, UNSPECIFIED (2) IBS (irritable bowel syndrome) Assessment/Plan: HER DIARRHEA COULD ALSO BE RELATED TO IBS WITH CONSTIPATION AND OVERFLOW. SUGGEST REGULAR DIET WITH FIBER SUPPLEMENT Code(s): K58.9 - IRRITABLE BOWEL SYNDROME WITHOUT DIARRHEA (3) Left adrenal mass Assessment/Plan: SUGGEST FURTHER SENIOR DEVOPS ENGINEER EVALUATION Code(s): E27.9 - DISORDER OF ADRENAL GLAND, UNSPECIFIED (4) Hyponatremia syndrome Code(s): E87.1 - HYPO-OSMOLALITY AND HYPONATREMIA (5) Anxiety Code(s): F41.9 - ANXIETY DISORDER, UNSPECIFIED (6) Depression Code(s): F32.9 - MAJOR DEPRESSIVE DISORDER, SINGLE EPISODE, UNSPECIFIED
--- NOTE | 2016-10-29 17:10 | HP ---
Admitting History and Physical - Primary Care Physician PCP: Sherrill Donohue - Admission Chief Complaint: ABD PAIN/COLITIS/FACIAL TWITCHING History of Present Illness: The patient is a 66 year old female, with a significant past medical history of hypertension, hyperlipidemia, NIDDM with neuropathy, anxiety/depression, panic disorder, asthma/COPD, osteoarthritis, IBS, hypothyroidism, and multiple episodes of C diff, who presents to the ED complaining of dizziness and lightheadedness since earlier this morning. She reports weakness in her legs bilaterally secondary to weakness. The patient reports she is compliant with her hypertension meds, and last took them this morning. The patient reports a headache, but denies any vertigo or imbalance. Patient reports she was admitted for Rehab at [facility] approximately 4 weeks ago. At the time patient reports she was experiencing episodes of nausea and diarrhea, but she denies any vomiting or constipation. She reports she was tested for C dif, at which time it was negative. Patient reports her diarrhea has gone on for the past 3 weeks, and describes it as a watery-brown consistency. Patient also reports she had her eyes dialyzed last week at [facility]. Since then, patient reports she has had difficulty focusing her eyes. She reports weakness and chills, but denies any fever or cough. She reports some chest discomfort, but denies any shortness of breath, diaphoresis, or palpitations. She denies any dysuria, hematuria, frequency, or urgency. 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 exposure), Pneumonia Gastrointestinal: Yes: Other (IBS) Hepatobiliary: Yes: Cholelithiasis Renal/: Yes: UTI Infectious Disease: Yes: Other (refractory uti) Psych: Yes: Anxiety, Depression, Panic (RECENT ADMISSION TO PSYCH FACILITY???) Musculoskeletal: Yes: Osteoarthritis (cspine) Endocrine: Yes: Diabetes Mellitus (diabetic neuropathy), Other (HYPONATREMIA ( RECENT ADMISSION TO [facility] FOR SAME)) - Past Surgical History Past Surgical History: Yes: Cholecystectomy (laparoscopic), - Smoking History Smoking history: Never smoked Have you smoked in the past 12 months: No - Alcohol/Substance Use Hx Alcohol Use: No History of Substance Use: reports: None - Social History ADL: Independent 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, 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 History of Recent Travel: No Home Medications - Allergies Allergies/Adverse Reactions: Allergies Allergy/AdvReac Type Severity Reaction Status Date / Time clindamycin Allergy Verified 10/28/16 07:09 epinephrine Allergy Verified 10/28/16 07:09 ibuprofen Allergy palpatation Verified 10/28/16 07:09 s Penicillins Allergy Verified 10/28/16 07:09 Sulfa (Sulfonamide Allergy Verified 10/28/16 07:09 Antibiotics) tramadol Allergy Verified 10/28/16 07:09 - Home Medications Home Medications: Ambulatory Orders Acetaminophen 650 mg PO Q6H PRN 10/28/16 Amlodipine Besylate [Norvasc -] 10 mg PO DAILY 10/28/16 Aspirin [ASA -] 81 mg PO DAILY 10/28/16 Baclofen 10 mg PO BID 10/28/16 Citalopram Hydrobromide [Celexa -] 10 mg PO BID 10/28/16 Dextran 70/Hypromellose [Artificials Tears Drops] 1 drop OU Q4H 10/28/16 Ergocalciferol (Vitamin D2) [Vitamin D2] 2,000 unit PO DAILY 10/28/16 Levothyroxine Sodium [Levo-T] 88 mcg PO DAILY 10/28/16 Loperamide HCl [Imodium -] 2 mg PO Q3H PRN 10/28/16 Loratadine 10 mg PO DAILY 10/28/16 Lorazepam [Ativan] 1 mg PO Q6H PRN 10/28/16 Losartan Potassium [Cozaar] 100 mg PO DAILY 10/28/16 Mag Hydrox/Al Hydrox/Simeth [Mylanta Suspension -] 20 ml PO BID 10/28/16 Methyl Salicylate/Menthol [Bengay Greaseless Cream] 57 gm TP BID PRN 10/28/16 Metoprolol Tartrate 25 mg PO BID 10/28/16 Nystatin Powder [Nystop Powder -] 100,000 unit TP DAILY 10/28/16 Nystatin/Triamcin [Nystatin-Triamcinolone Cream] 30 gm TP BID 10/28/16 Ranitidine HCl 150 mg PO BID 10/28/16 Simvastatin 10 mg PO DAILY 10/28/16 Sitagliptin Phosphate [Januvia] 50 mg PO DAILY 10/28/16 Sodium Chloride [Rhinaris] 2 spray NS BID 10/28/16 Family Disease History - Family Disease History Family Disease History: CA: Father ( suddenly at age 48 -> no autopsy), Other: Mother ( of MRSA in [facility] rm 529), Brother (sarcoidosis age 32) Review of Systems - Review of Systems Constitutional: reports: Loss of Appetite, Malaise, Weakness Eyes: reports: Recent Change in Vision HENT: reports: Other Neck: reports: No Symptoms Cardiovascular: reports: No Symptoms Respiratory: reports: No Symptoms Gastrointestinal: reports: Abdominal Pain, Constipation, Dysphagia, Indigestion , Nausea Genitourinary: reports: Frequency Breasts: reports: No Symptoms Reported Musculoskeletal: reports: Back Pain, Joint Pain, Muscle Pain Integumentary: reports: No Symptoms Neurological: reports: Pre-Existing Deficit, Unsteady Gait, Weakness Endocrine: reports: No Symptoms Hematology/Lymphatic: reports: No Symptoms Psychiatric: reports: Anxiety, Depression, Panic, Paranoia Physical Examination Vital Signs: Vital Signs Temperature 98 F 10/29/16 15:51 Pulse Rate 62 10/29/16 15:51 Respiratory Rate 16 10/29/16 15:51 Blood Pressure 145/79 10/29/16 15:51 O2 Sat by Pulse Oximetry (%) 98 10/29/16 15:51 Constitutional: Yes: Moderate Distress Eyes: Yes: WNL HENT: Yes: Other Neck: Yes: WNL Cardiovascular: Yes: WNL Respiratory: Yes: WNL Gastrointestinal: Yes: Tenderness Renal/: Yes: WNL Musculoskeletal: Yes: Back Pain, Muscle Pain, Muscle Weakness Extremities: Yes: WNL Edema: No Peripheral Pulses WNL: Yes Integumentary: Yes: WNL Wound/Incision: Yes: Clean/Dry Neurological: Yes: Numbness, Paresthesia, Pre-Existing Deficit ...Motor Strength: LLE, RLE Psychiatric: Yes: Other Labs: CBC, BMP 10/29/16 06:20 Imaging - Results Cat Scan: Report Reviewed Ultrasound: Report Reviewed Problem List - Problems (1) Abdominal pain Code(s): R10.9 - UNSPECIFIED ABDOMINAL PAIN Qualifiers: Abdominal location: generalized Qualified Code(s): R10.84 - Generalized abdominal pain (2) Colitis Code(s): K52.9 - NONINFECTIVE GASTROENTERITIS AND COLITIS, UNSPECIFIED (3) Depression Code(s): F32.9 - MAJOR DEPRESSIVE DISORDER, SINGLE EPISODE, UNSPECIFIED Qualifiers: Depression Type: other depression Qualified Code(s): F32.89 - Other specified depressive episodes (4) Hyponatremia Code(s): E87.1 - HYPO-OSMOLALITY AND HYPONATREMIA (5) Hyponatremia syndrome Code(s): E87.1 - HYPO-OSMOLALITY AND HYPONATREMIA (6) IBS (irritable bowel syndrome) Code(s): K58.9 - IRRITABLE BOWEL SYNDROME WITHOUT DIARRHEA Qualifiers: Irritable bowel syndrome type: with diarrhea Qualified Code(s): K58.0 - Irritable bowel syndrome with diarrhea (7) Left adrenal mass Code(s): E27.9 - DISORDER OF ADRENAL GLAND, UNSPECIFIED (8) Mouth pain Code(s): K13.79 - OTHER LESIONS OF ORAL MUCOSA (9) Anxiety Code(s): F41.9 - ANXIETY DISORDER, UNSPECIFIED (10) Anxiety about health Code(s): F41.8 - OTHER SPECIFIED ANXIETY DISORDERS (11) C. difficile colitis Code(s): A04.7 - ENTEROCOLITIS DUE TO CLOSTRIDIUM DIFFICILE (12) Chronic abdominal pain Code(s): R10.9 - UNSPECIFIED ABDOMINAL PAIN G89.29 - OTHER CHRONIC PAIN (13) Diabetes Code(s): E11.9 - TYPE 2 DIABETES MELLITUS WITHOUT COMPLICATIONS Qualifiers: Diabetes mellitus complication detail: with polyneuropathy (14) Diarrhea Code(s): R19.7 - DIARRHEA, UNSPECIFIED (15) Dyslipidemia Code(s): E78.5 - HYPERLIPIDEMIA, UNSPECIFIED (16) Dysphagia Code(s): R13.10 - DYSPHAGIA, UNSPECIFIED (17) Dysuria Code(s): R30.0 - DYSURIA (18) HTN (hypertension) Code(s): I10 - ESSENTIAL (PRIMARY) HYPERTENSION (19) Hypothyroid Code(s): E03.9 - HYPOTHYROIDISM, UNSPECIFIED Qualifiers: Hypothyroidism type: acquired Qualified Code(s): E03.9 - Hypothyroidism, unspecified (20) Tardive dyskinesia Code(s): G24.01 - DRUG INDUCED SUBACUTE DYSKINESIA (21) Weakness Code(s): R53.1 - WEAKNESS Assessment/Plan ENDOCRINE WORKUP 24 HOUR URINE RENAL EVAL APPRECIATED GI F/U STOOL CDIFF CHECK LABS OOB TO CHAIR NEURO EVAL TARDIVE DYSKINESIA
--- NOTE | 2016-10-29 17:45 | CON.NEURO ---
Consult Consult Specialty:: neurology - History of Present Illness History of Present Illness: 66 year old female, with a significant past medical history of hypertension, hyperlipidemia, NIDDM with neuropathy, anxiety/depression, panic disorder, asthma/COPD, osteoarthritis, IBS, hypothyroidism, and multiple episodes of C diff, who presents to the ED complaining of dizziness and lightheadedness since earlier this morning. She reports weakness in her legs bilaterally secondary to weakness. The patient reports she is compliant with her hypertension meds, and last took them this morning. The patient reports a headache, but denies any vertigo or imbalance. Patient reports she was admitted for Rehab at [facility] approximately 4 weeks ago. At the time patient reports she was experiencing episodes of nausea and diarrhea, but she denies any vomiting or constipation. She reports she was tested for C dif, at which time it was negative. Patient reports her diarrhea has gone on for the past 3 weeks, and describes it as a watery-brown consistency. HX of facial movements for some years (Hx of bells , on R ) and feels intermittent involuntary tongue movements , and facial twitch--none seen today on exam. HX of ativan , but denies any new psych RX. dizziness positional and feels some ear pain, no diplopia, unsteadiness etc. 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 exposure), Pneumonia Gastrointestinal: Yes: Other (IBS) Hepatobiliary: Yes: Cholelithiasis Renal/: Yes: UTI Infectious Disease: Yes: Other (refractory uti) Psych: Yes: Anxiety, Depression, Panic (RECENT ADMISSION TO PSYCH FACILITY???) Musculoskeletal: Yes: Osteoarthritis (cspine) Endocrine: Yes: Diabetes Mellitus (diabetic neuropathy), Other (HYPONATREMIA ( RECENT ADMISSION TO [facility])) Additional Medical History: h/o scarred urethra. s/p dilation. 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 History of Recent Travel: No Home Medications - Allergies Allergies/Adverse Reactions: Allergies Allergy/AdvReac Type Severity Reaction Status Date / Time clindamycin Allergy Verified 10/28/16 07:09 epinephrine Allergy Verified 10/28/16 07:09 ibuprofen Allergy palpatation Verified 10/28/16 07:09 s Penicillins Allergy Verified 10/28/16 07:09 Sulfa (Sulfonamide Allergy Verified 10/28/16 07:09 Antibiotics) tramadol Allergy Verified 10/28/16 07:09 - Home Medications Home Medications: Ambulatory Orders Acetaminophen 650 mg PO Q6H PRN 10/28/16 Amlodipine Besylate [Norvasc -] 10 mg PO DAILY 10/28/16 Aspirin [ASA -] 81 mg PO DAILY 10/28/16 Baclofen 10 mg PO BID 10/28/16 Citalopram Hydrobromide [Celexa -] 10 mg PO BID 10/28/16 Dextran 70/Hypromellose [Artificials Tears Drops] 1 drop OU Q4H 10/28/16 Ergocalciferol (Vitamin D2) [Vitamin D2] 2,000 unit PO DAILY 10/28/16 Levothyroxine Sodium [Levo-T] 88 mcg PO DAILY 10/28/16 Loperamide HCl [Imodium -] 2 mg PO Q3H PRN 10/28/16 Loratadine 10 mg PO DAILY 10/28/16 Lorazepam [Ativan] 1 mg PO Q6H PRN 10/28/16 Losartan Potassium [Cozaar] 100 mg PO DAILY 10/28/16 Mag Hydrox/Al Hydrox/Simeth [Mylanta Suspension -] 20 ml PO BID 10/28/16 Methyl Salicylate/Menthol [Bengay Greaseless Cream] 57 gm TP BID PRN 10/28/16 Metoprolol Tartrate 25 mg PO BID 10/28/16 Nystatin Powder [Nystop Powder -] 100,000 unit TP DAILY 10/28/16 Nystatin/Triamcin [Nystatin-Triamcinolone Cream] 30 gm TP BID 10/28/16 Ranitidine HCl 150 mg PO BID 10/28/16 Simvastatin 10 mg PO DAILY 10/28/16 Sitagliptin Phosphate [Januvia] 50 mg PO DAILY 10/28/16 Sodium Chloride [Rhinaris] 2 spray NS BID 10/28/16 Family Disease History - Family Disease History Family Disease History: CA: Father ( suddenly at age 48 -> no autopsy), Other: Mother ( of MRSA in [facility] rm 529), Brother (sarcoidosis age 32) Physical Exam-Neuro Vital Signs: Vital Signs Temperature 98 F 10/29/16 15:51 Pulse Rate 62 10/29/16 15:51 Respiratory Rate 16 10/29/16 15:51 Blood Pressure 145/79 10/29/16 15:51 O2 Sat by Pulse Oximetry (%) 98 10/29/16 15:51 Constitutional: Yes: Well Nourished, No Distress Neck: Yes: WNL, Supple Respiratory: Yes: CTA Bilaterally Labs: CBC, BMP 10/29/16 06:20 - Neuro Exam Level Of Consciousness: Yes: Alert, Oriented to Person (EOMI, VFF, no facial twitching noted, no focal weakness though limited movements in the prox UE , shoulder region BL, distally LE 5/5, dec reflxes distally; can walk without assist. ) NIH Stroke Scale - Total Score NIH Stroke Scale Score: 0 Problem List - Problems (1) Weakness Code(s): R53.1 - WEAKNESS (2) Abnormal involuntary movement Code(s): R25.9 - UNSPECIFIED ABNORMAL INVOLUNTARY MOVEMENTS (3) Vertigo, peripheral Code(s): H81.399 - OTHER PERIPHERAL VERTIGO, UNSPECIFIED EAR Assessment/Plan 66 year old female, with a significant past medical history of hypertension, hyperlipidemia, NIDDM with neuropathy, anxiety/depression, panic disorder, asthma/COPD, osteoarthritis, IBS, hypothyroidism, and multiple episodes of C diff, who presents to the ED complaining of dizziness and lightheadedness since earlier this morning. HX of facial movements for some years (Hx of bells , on R ) and feels intermittent involuntary tongue movements , and facial twitch--none seen today on exam. HX of ativan , but denies any new psych RX. could be tardive though unusual to be not seen-- ? intermittent hemifascial spasm (from prior bells) she is very bothered by these sx, so will give trial congentin 0.5 bID TSH NL dizziness positional and feels some ear pain, no diplopia, unsteadiness etc. no central features on exam consider outpt ENT, fluids, meclizine. GI fu for ? IBS c/o. outpt FU Dr LUAN Hackett [phone]
--- NOTE | 2016-10-29 18:58 | PN ---
Progress Note, Physician History of Present Illness: Pt seen and examined at bedside. She still complains of light headedness. She says that the diarrhea has resolved. - Current Medication List Current Medications: Active Medications Acetaminophen (Tylenol -) 650 mg PO Q6H PRN PRN Reason: FEVER OR PAIN Last Admin: 10/28/16 20:50 Dose: 650 mg Amlodipine Besylate (Norvasc -) 10 mg PO DAILY [facility] Last Admin: 10/29/16 09:29 Dose: 10 mg Artificial Tears (Artificial Tears) 1 drop OU BID PRN PRN Reason: DRY EYES Aspirin (Ecotrin -) 81 mg PO DAILY [facility] Last Admin: 10/29/16 09:29 Dose: 81 mg Baclofen (Lioresal -) 10 mg PO BID [facility] Last Admin: 10/29/16 09:27 Dose: 10 mg Benztropine Mesylate (Cogentin -) 0.5 mg PO BID [facility] Citalopram Hydrobromide (Celexa -) 10 mg PO DAILY [facility] Last Admin: 10/29/16 09:38 Dose: 10 mg Insulin Aspart (Novolog Vial Sliding Scale -) 1 vial SQ ACHS [facility] PRN Reason: Protocol Levothyroxine Sodium (Synthroid -) 88 mcg PO DAILY@0700 [facility] Last Admin: 10/29/16 08:20 Dose: 88 mcg Loratadine (Claritin -) 10 mg PO DAILY [facility] Last Admin: 10/29/16 09:29 Dose: 10 mg Lorazepam (Ativan -) 0.5 mg PO TID PRN PRN Reason: ANXIETY Last Admin: 10/29/16 04:32 Dose: 0.5 mg Losartan Potassium (Cozaar -) 100 mg PO DAILY [facility] Last Admin: 10/29/16 09:29 Dose: 100 mg Metoprolol Tartrate (Lopressor -) 25 mg PO BID [facility] Last Admin: 10/29/16 09:27 Dose: 25 mg Nystatin (Mycostatin Cream -) 1 applic TP BID [facility] Last Admin: 10/29/16 09:28 Dose: 1 applic Nystatin (Nystop Powder -) 1 applic TP DAILY [facility] Last Admin: 10/29/16 09:29 Dose: Not Given Ranitidine HCl (Zantac -) 150 mg PO BID [facility] Last Admin: 10/29/16 09:28 Dose: 150 mg Sitagliptin Phosphate (Januvia -) 50 mg PO DAILY@0700 [facility] Last Admin: 10/29/16 08:28 Dose: 50 mg Sodium Chloride ([place]al [place] -) 2 spray NS TID PRN PRN Reason: NASAL CONGESTION - Objective Vital Signs: Vital Signs Temperature 98.1 F 10/29/16 18:50 Pulse Rate 59 L 10/29/16 18:50 Respiratory Rate 14 10/29/16 18:50 Blood Pressure 158/72 10/29/16 18:50 O2 Sat by Pulse Oximetry (%) 98 10/29/16 18:50 Constitutional: Yes: Calm Eyes: Yes: Conjunctiva Clear HENT: Yes: Atraumatic Neck: Yes: Supple Cardiovascular: Yes: S1, S2 Respiratory: Yes: CTA Bilaterally Gastrointestinal: Yes: Normal Bowel Sounds, Soft Genitourinary: Yes: WNL Musculoskeletal: Yes: WNL Edema: No Neurological: Yes: Oriented Psychiatric: Yes: Oriented Labs: CBC, BMP 10/29/16 06:20 Problem List - Problems (1) Hyponatremia Code(s): E87.1 - HYPO-OSMOLALITY AND HYPONATREMIA (2) IBS (irritable bowel syndrome) Code(s): K58.9 - IRRITABLE BOWEL SYNDROME WITHOUT DIARRHEA Qualifiers: Irritable bowel syndrome type: with diarrhea Qualified Code(s): K58.0 - Irritable bowel syndrome with diarrhea (3) COPD (chronic obstructive pulmonary disease) Code(s): J44.9 - CHRONIC OBSTRUCTIVE PULMONARY DISEASE, UNSPECIFIED (4) Hypothyroid Code(s): E03.9 - HYPOTHYROIDISM, UNSPECIFIED Qualifiers: Hypothyroidism type: acquired Qualified Code(s): E03.9 - Hypothyroidism, unspecified (5) Obesity Code(s): E66.9 - OBESITY, UNSPECIFIED Assessment/Plan Current Medications Generic Name Dose Route Start Last Admin Trade Name Freq PRN Reason Stop Dose Admin Acetaminophen 650 mg 10/28/16 16:00 10/28/16 20:50 Tylenol - PO 650 mg Q6H PRN Administration FEVER OR PAIN Amlodipine Besylate 10 mg 10/29/16 10:00 10/29/16 09:29 Norvasc - PO 10 mg DAILY [facility] Administration Artificial Tears 1 drop 10/28/16 16:00 Artificial Tears OU BID PRN DRY EYES Aspirin 81 mg 10/29/16 10:00 10/29/16 09:29 Ecotrin - PO 81 mg DAILY [facility] Administration Baclofen 10 mg 10/28/16 22:00 10/29/16 09:27 Lioresal - PO 10 mg BID [facility] Administration Benztropine Mesylate 0.5 mg 10/29/16 22:00 Cogentin - PO BID [facility] Citalopram Hydrobromide 10 mg 10/29/16 10:00 10/29/16 09:38 Celexa - PO 10 mg DAILY [facility] Administration Insulin Aspart 1 vial 10/29/16 22:00 Novolog Vial Sliding Scale - SQ ACHS [facility] Protocol Levothyroxine Sodium 88 mcg 10/29/16 07:00 10/29/16 08:20 Synthroid - PO 88 mcg DAILY@0700 [facility] Administration Loratadine 10 mg 10/29/16 10:00 10/29/16 09:29 Claritin - PO 10 mg DAILY [facility] Administration Lorazepam 0.5 mg 10/28/16 16:00 10/29/16 04:32 Ativan - PO 0.5 mg TID PRN Administration ANXIETY Losartan Potassium 100 mg 10/29/16 10:00 10/29/16 09:29 Cozaar - PO 100 mg DAILY [facility] Administration Metoprolol Tartrate 25 mg 10/28/16 22:00 10/29/16 09:27 Lopressor - PO 25 mg BID [facility] Administration Nystatin 1 applic 10/28/16 22:00 10/29/16 09:28 Mycostatin Cream - TP 1 applic BID [facility] Administration Nystatin 1 applic 10/29/16 10:00 10/29/16 09:29 Nystop Powder - TP Not Given DAILY [facility] Ranitidine HCl 150 mg 10/28/16 22:00 10/29/16 09:28 Zantac - PO 150 mg BID [facility] Administration Sitagliptin Phosphate 50 mg 10/29/16 07:00 10/29/16 08:28 Januvia - PO 50 mg DAILY@0700 [facility] Administration Sodium Chloride 2 spray 10/28/16 16:00 [place] Nasal [place] - NS TID PRN NASAL CONGESTION Laboratory Tests 11/11/15 11/12/15 11/13/15 10:11 06:20 06:00 Sodium 132 L 136 136 Serum Osmolality TSH Cortisol AM Sample Urine Osmolality Ur Random Sodium Ur Random Potassium Ur Random Chloride 10/29/16 10/29/16 10/29/16 06:20 06:20 09:40 Sodium Serum Osmolality TSH 1.33 D Cortisol AM Sample Pending Urine Osmolality Ur Random Sodium 157 Ur Random Potassium 13.0 Ur Random Chloride 162 10/29/16 09:48 Sodium Serum Osmolality 273 L TSH Cortisol AM Sample Urine Osmolality 403 Ur Random Sodium Ur Random Potassium Ur Random Chloride Impression 1. hyponatremia 2. HTN 3. anxiety 4. depression 5. diarrhea 6. GERD 7. DM 8. COPD 9. hypothyroidism Plan - sodium has improved - can stop fluids - diarrhea has resolved - monitor sodium - pt likely developed hyponatremia from excess free water intake and diarrhea Dr Perez
[2016-10-29] MEDS: ACETAMINOPHEN 325 MG TABLET (FP) PO PRN (20:07)
[2016-10-29] MEDS: INSULIN SLIDING SCALE (NOVOLOG) 1 VIAL SQ SCH (21:53)
[2016-10-29] MEDS: BENZTROPINE MESYLATE 0.5 MG TABLET (FP) PO SCH (22:14)
[2016-10-30] MEDS: INSULIN SLIDING SCALE (NOVOLOG) 1 VIAL SQ SCH ×4 (06:21→21:19)
[2016-10-30] MEDS: sitaGLIPtin PHOSPHATE 50 MG TABLET PO SCH (06:22)
[2016-10-30] MEDS: LEVOTHYROXINE NA 88 MCG TABLET (FP) PO SCH (06:25)
[2016-10-30] MEDS ORDERED: METOPROLOL TARTRATE 25 MG TABLET (FP) PO STA (07:09)
[2016-10-30] MEDS ORDERED: PT OWN MED DRAWER 7, Y5N ONE ×2 (08:55→21:02)
[2016-10-30] MEDS: ASPIRIN COATED 81 MG TABLET.EC PO SCH (08:59)
[2016-10-30] MEDS: HYDROCHLOROTHIAZIDE 25 MG TABLET (FP) PO SCH (08:59)
[2016-10-30] MEDS: LORATADINE 10 MG TABLET PO SCH (08:59)
[2016-10-30] MEDS: BACLOFEN 10 MG TABLET (FP) PO SCH ×2 (08:59→21:13)
[2016-10-30] MEDS: LOSARTAN POTASSIUM 50 MG TABLET (FP) PO SCH (08:59)
[2016-10-30] MEDS: RANITIDINE HCL 150 MG TABLET (FP) PO SCH ×2 (08:59→21:27)
[2016-10-30] MEDS: amLODIPine BESYLATE 10 MG TABLET (FP) PO SCH (08:59)
[2016-10-30] MEDS: CITALOPRAM HYDROBROMIDE 10 MG TABLET (FP) PO SCH (09:00)
[2016-10-30] MEDS: BENZTROPINE MESYLATE 0.5 MG TABLET (FP) PO SCH ×2 (09:00→21:15)
[2016-10-30] MEDS: NYSTATIN 100,000 UNIT/GM TOPICAL CREAM 15 GM TUBE TP SCH ×2 (09:01→21:16)
[2016-10-30] MEDS: NYSTATIN POWDER 100,000 UNITS/GM - 15 GM TOPICAL POWDER TP SCH (09:04)
--- NOTE | 2016-10-30 12:31 | PN ---
Progress Note, Physician History of Present Illness: Pt seen and examined. She complains of constipation. - Current Medication List Current Medications: Active Medications Acetaminophen (Tylenol -) 650 mg PO Q6H PRN PRN Reason: FEVER OR PAIN Last Admin: 10/29/16 20:07 Dose: 650 mg Amlodipine Besylate (Norvasc -) 10 mg PO DAILY [facility] Last Admin: 10/30/16 08:59 Dose: 10 mg Artificial Tears (Artificial Tears) 1 drop OU BID PRN PRN Reason: DRY EYES Aspirin (Ecotrin -) 81 mg PO DAILY [facility] Last Admin: 10/30/16 08:59 Dose: 81 mg Baclofen (Lioresal -) 10 mg PO BID [facility] Last Admin: 10/30/16 08:59 Dose: 10 mg Benztropine Mesylate (Cogentin -) 0.5 mg PO BID [facility] Last Admin: 10/30/16 09:00 Dose: Not Given Citalopram Hydrobromide (Celexa -) 10 mg PO DAILY [facility] Last Admin: 10/30/16 09:00 Dose: 10 mg Hydrochlorothiazide (Hctz -) 25 mg PO DAILY [facility] Last Admin: 10/30/16 08:59 Dose: 25 mg Insulin Aspart (Novolog Vial Sliding Scale -) 1 vial SQ ACHS [facility] PRN Reason: Protocol Last Admin: 10/30/16 12:02 Dose: Not Given Levothyroxine Sodium (Synthroid -) 88 mcg PO DAILY@0700 [facility] Last Admin: 10/30/16 06:25 Dose: 88 mcg Loratadine (Claritin -) 10 mg PO DAILY [facility] Last Admin: 10/30/16 08:59 Dose: 10 mg Lorazepam (Ativan -) 0.5 mg PO TID PRN PRN Reason: ANXIETY Last Admin: 10/29/16 22:14 Dose: 0.5 mg Losartan Potassium (Cozaar -) 100 mg PO DAILY [facility] Last Admin: 10/30/16 08:59 Dose: 100 mg Metoprolol Tartrate (Lopressor -) 25 mg PO BID [facility] Last Admin: 10/29/16 22:07 Dose: 25 mg Nystatin (Mycostatin Cream -) 1 applic TP BID [facility] Last Admin: 10/30/16 09:01 Dose: 1 applic Nystatin (Nystop Powder -) 1 applic TP DAILY [facility] Last Admin: 10/30/16 09:04 Dose: Not Given Ranitidine HCl (Zantac -) 150 mg PO BID [facility] Last Admin: 10/30/16 08:59 Dose: 150 mg Sitagliptin Phosphate (Januvia -) 50 mg PO DAILY@0700 [facility] Last Admin: 10/30/16 06:22 Dose: 50 mg Sodium Chloride ([place] Nasal [place] -) 2 spray NS TID PRN PRN Reason: NASAL CONGESTION Last Admin: 10/30/16 06:22 Dose: 2 spray - Objective Vital Signs: Vital Signs Temperature 98.2 F 10/30/16 08:00 Pulse Rate 60 10/30/16 08:57 Respiratory Rate 18 10/30/16 08:00 Blood Pressure 178/59 10/30/16 08:00 O2 Sat by Pulse Oximetry (%) 98 10/29/16 21:00 Constitutional: Yes: Calm Eyes: Yes: Conjunctiva Clear HENT: Yes: Atraumatic Neck: Yes: Supple Cardiovascular: Yes: S1, S2 Respiratory: Yes: CTA Bilaterally Gastrointestinal: Yes: Normal Bowel Sounds, Soft Genitourinary: Yes: WNL Musculoskeletal: Yes: WNL Neurological: Yes: Oriented Psychiatric: Yes: Oriented Labs: CBC, BMP 10/29/16 06:20 Problem List - Problems (1) Hyponatremia Code(s): E87.1 - HYPO-OSMOLALITY AND HYPONATREMIA (2) IBS (irritable bowel syndrome) Code(s): K58.9 - IRRITABLE BOWEL SYNDROME WITHOUT DIARRHEA Qualifiers: Irritable bowel syndrome type: with diarrhea Qualified Code(s): K58.0 - Irritable bowel syndrome with diarrhea (3) COPD (chronic obstructive pulmonary disease) Code(s): J44.9 - CHRONIC OBSTRUCTIVE PULMONARY DISEASE, UNSPECIFIED (4) Hypothyroid Code(s): E03.9 - HYPOTHYROIDISM, UNSPECIFIED Qualifiers: Hypothyroidism type: acquired Qualified Code(s): E03.9 - Hypothyroidism, unspecified (5) Obesity Code(s): E66.9 - OBESITY, UNSPECIFIED Assessment/Plan Current Medications Generic Name Dose Route Start Last Admin Trade Name Freq PRN Reason Stop Dose Admin Acetaminophen 650 mg 10/28/16 16:00 10/29/16 20:07 Tylenol - PO 650 mg Q6H PRN Administration FEVER OR PAIN Amlodipine Besylate 10 mg 10/29/16 10:00 10/30/16 08:59 Norvasc - PO 10 mg DAILY [facility] Administration Artificial Tears 1 drop 10/28/16 16:00 Artificial Tears OU BID PRN DRY EYES Aspirin 81 mg 10/29/16 10:00 10/30/16 08:59 Ecotrin - PO 81 mg DAILY [facility] Administration Baclofen 10 mg 10/28/16 22:00 10/30/16 08:59 Lioresal - PO 10 mg BID [facility] Administration Benztropine Mesylate 0.5 mg 10/29/16 22:00 10/30/16 09:00 Cogentin - PO Not Given BID [facility] Citalopram Hydrobromide 10 mg 10/29/16 10:00 10/30/16 09:00 Celexa - PO 10 mg DAILY [facility] Administration Hydrochlorothiazide 25 mg 10/30/16 10:00 10/30/16 08:59 Hctz - PO 25 mg DAILY [facility] Administration Insulin Aspart 1 vial 10/29/16 22:00 10/30/16 12:02 Novolog Vial Sliding Scale - SQ Not Given ACHS [facility] Protocol Levothyroxine Sodium 88 mcg 10/29/16 07:00 10/30/16 06:25 Synthroid - PO 88 mcg DAILY@0700 [facility] Administration Loratadine 10 mg 10/29/16 10:00 10/30/16 08:59 Claritin - PO 10 mg DAILY [facility] Administration Lorazepam 0.5 mg 10/28/16 16:00 10/29/16 22:14 Ativan - PO 0.5 mg TID PRN Administration ANXIETY Losartan Potassium 100 mg 10/29/16 10:00 10/30/16 08:59 Cozaar - PO 100 mg DAILY [facility] Administration Metoprolol Tartrate 25 mg 10/28/16 22:00 10/29/16 22:07 Lopressor - PO 25 mg BID [facility] Administration Nystatin 1 applic 10/28/16 22:00 10/30/16 09:01 Mycostatin Cream - TP 1 applic BID [facility] Administration Nystatin 1 applic 10/29/16 10:00 10/30/16 09:04 Nystop Powder - TP Not Given DAILY [facility] Ranitidine HCl 150 mg 10/28/16 22:00 10/30/16 08:59 Zantac - PO 150 mg BID [facility] Administration Sitagliptin Phosphate 50 mg 10/29/16 07:00 10/30/16 06:22 Januvia - PO 50 mg DAILY@0700 [facility] Administration Sodium Chloride 2 spray 10/28/16 16:00 10/30/16 06:22 [place] Nasal [place] - NS 2 spray TID PRN Administration NASAL CONGESTION Impression 1. hyponatremia 2. HTN 3. anxiety 4. depression 5. diarrhea 6. GERD 7. DM 8. COPD 9. hypothyroidism Plan - no new labs - monitor bmp - no acute change in management - discussed diet with pt - will follow PRN Dr Perez
[2016-10-30] MEDS: ACETAMINOPHEN 325 MG TABLET (FP) PO PRN (12:46)
[2016-10-30] MEDS: METOPROLOL TARTRATE 25 MG TABLET (FP) PO SCH ×2 (12:56→21:15)
--- NOTE | 2016-10-30 12:56 | PN ---
Progress Note (short form) - Note Progress Note: GASTROENTEROLOGY PATIENT ADMITTED FOR SEVERE DIARRHEA FOR TWO WEEKS. NOW SHE IS COMPLAINING OF CONSTIPATION! SEE RECOMMENDATIONS FROM YESTERDAY. WILL SIGN OFF CASE TODAY RANJIT PURI MD Problem List - Problems (1) Viral gastroenteritis Code(s): A08.4 - VIRAL INTESTINAL INFECTION, UNSPECIFIED (2) IBS (irritable bowel syndrome) Code(s): K58.9 - IRRITABLE BOWEL SYNDROME WITHOUT DIARRHEA Qualifiers: Irritable bowel syndrome type: with diarrhea Qualified Code(s): K58.0 - Irritable bowel syndrome with diarrhea (3) Left adrenal mass Code(s): E27.9 - DISORDER OF ADRENAL GLAND, UNSPECIFIED (4) Hyponatremia syndrome Code(s): E87.1 - HYPO-OSMOLALITY AND HYPONATREMIA (5) Anxiety Code(s): F41.9 - ANXIETY DISORDER, UNSPECIFIED (6) Depression Code(s): F32.9 - MAJOR DEPRESSIVE DISORDER, SINGLE EPISODE, UNSPECIFIED Qualifiers: Depression Type: other depression Qualified Code(s): F32.89 - Other specified depressive episodes
[2016-10-30] MEDS ORDERED: MAGNESIUM HYDROX 2400MG/30ML ORAL SUSPENSION 30 ML CUP PO PRN (15:30)
--- NOTE | 2016-10-30 15:30 | PN ---
Progress Note, Physician Chief Complaint: VERY ANXIOUS FEELS LIKE SHE IS DYING DIARRHEA/CONSTIPATION FROM IBS NO FEVER VS STABLE - Current Medication List Current Medications: Active Medications Acetaminophen (Tylenol -) 650 mg PO Q6H PRN PRN Reason: FEVER OR PAIN Last Admin: 10/30/16 12:46 Dose: 650 mg Amlodipine Besylate (Norvasc -) 10 mg PO DAILY [facility] Last Admin: 10/30/16 08:59 Dose: 10 mg Artificial Tears (Artificial Tears) 1 drop OU BID PRN PRN Reason: DRY EYES Aspirin (Ecotrin -) 81 mg PO DAILY [facility] Last Admin: 10/30/16 08:59 Dose: 81 mg Baclofen (Lioresal -) 10 mg PO BID [facility] Last Admin: 10/30/16 08:59 Dose: 10 mg Benztropine Mesylate (Cogentin -) 0.5 mg PO BID [facility] Last Admin: 10/30/16 09:00 Dose: Not Given Citalopram Hydrobromide (Celexa -) 10 mg PO DAILY [facility] Last Admin: 10/30/16 09:00 Dose: 10 mg Hydrochlorothiazide (Hctz -) 25 mg PO DAILY [facility] Last Admin: 10/30/16 08:59 Dose: 25 mg Insulin Aspart (Novolog Vial Sliding Scale -) 1 vial SQ ACHS [facility] PRN Reason: Protocol Last Admin: 10/30/16 12:02 Dose: Not Given Levothyroxine Sodium (Synthroid -) 88 mcg PO DAILY@0700 [facility] Last Admin: 10/30/16 06:25 Dose: 88 mcg Loratadine (Claritin -) 10 mg PO DAILY [facility] Last Admin: 10/30/16 08:59 Dose: 10 mg Lorazepam (Ativan -) 0.5 mg PO TID PRN PRN Reason: ANXIETY Last Admin: 10/29/16 22:14 Dose: 0.5 mg Losartan Potassium (Cozaar -) 100 mg PO DAILY [facility] Last Admin: 10/30/16 08:59 Dose: 100 mg Metoprolol Tartrate (Lopressor -) 25 mg PO BID [facility] Last Admin: 10/30/16 12:56 Dose: 25 mg Nystatin (Mycostatin Cream -) 1 applic TP BID [facility] Last Admin: 10/30/16 09:01 Dose: 1 applic Nystatin (Nystop Powder -) 1 applic TP DAILY [facility] Last Admin: 10/30/16 09:04 Dose: Not Given Ranitidine HCl (Zantac -) 150 mg PO BID [facility] Last Admin: 10/30/16 08:59 Dose: 150 mg Sitagliptin Phosphate (Januvia -) 50 mg PO DAILY@0700 [facility] Last Admin: 10/30/16 06:22 Dose: 50 mg Sodium Chloride ([place] Nasal [place] -) 2 spray NS TID PRN PRN Reason: NASAL CONGESTION Last Admin: 10/30/16 06:22 Dose: 2 spray - Objective Vital Signs: Vital Signs Temperature 98.9 F 10/30/16 15:00 Pulse Rate 59 L 10/30/16 15:00 Respiratory Rate 20 10/30/16 15:00 Blood Pressure 158/80 10/30/16 15:00 O2 Sat by Pulse Oximetry (%) 98 10/30/16 15:27 Constitutional: Yes: Mild Distress Eyes: Yes: WNL HENT: Yes: WNL Neck: Yes: WNL Cardiovascular: Yes: WNL Respiratory: Yes: WNL Gastrointestinal: Yes: Other Genitourinary: Yes: WNL Musculoskeletal: Yes: Back Pain, Muscle Pain Extremities: Yes: WNL Edema: Yes Edema: LLE: 1+, RLE: 1+ Peripheral Pulses WNL: Yes Integumentary: Yes: WNL Wound/Incision: Yes: Clean/Dry Neurological: Yes: Paresthesia, Pre-Existing Deficit, Unsteady Gait, Weakness ...Motor Strength: LLE, RLE Psychiatric: Yes: Agitated, Other Labs: CBC, BMP 10/29/16 06:20 Problem List - Problems (1) Abdominal pain Code(s): R10.9 - UNSPECIFIED ABDOMINAL PAIN Qualifiers: Abdominal location: generalized Qualified Code(s): R10.84 - Generalized abdominal pain (2) Colitis Code(s): K52.9 - NONINFECTIVE GASTROENTERITIS AND COLITIS, UNSPECIFIED (3) Depression Code(s): F32.9 - MAJOR DEPRESSIVE DISORDER, SINGLE EPISODE, UNSPECIFIED Qualifiers: Depression Type: other depression Qualified Code(s): F32.89 - Other specified depressive episodes (4) Hyponatremia Code(s): E87.1 - HYPO-OSMOLALITY AND HYPONATREMIA (5) Hyponatremia syndrome Code(s): E87.1 - HYPO-OSMOLALITY AND HYPONATREMIA (6) IBS (irritable bowel syndrome) Code(s): K58.9 - IRRITABLE BOWEL SYNDROME WITHOUT DIARRHEA Qualifiers: Irritable bowel syndrome type: with diarrhea Qualified Code(s): K58.0 - Irritable bowel syndrome with diarrhea (7) Left adrenal mass Code(s): E27.9 - DISORDER OF ADRENAL GLAND, UNSPECIFIED (8) Mouth pain Code(s): K13.79 - OTHER LESIONS OF ORAL MUCOSA (9) Anxiety Code(s): F41.9 - ANXIETY DISORDER, UNSPECIFIED (10) Anxiety about health Code(s): F41.8 - OTHER SPECIFIED ANXIETY DISORDERS (11) C. difficile colitis Code(s): A04.7 - ENTEROCOLITIS DUE TO CLOSTRIDIUM DIFFICILE (12) Chronic abdominal pain Code(s): R10.9 - UNSPECIFIED ABDOMINAL PAIN G89.29 - OTHER CHRONIC PAIN (13) Diabetes Code(s): E11.9 - TYPE 2 DIABETES MELLITUS WITHOUT COMPLICATIONS Qualifiers: Diabetes mellitus complication detail: with polyneuropathy (14) Diarrhea Code(s): R19.7 - DIARRHEA, UNSPECIFIED (15) Dyslipidemia Code(s): E78.5 - HYPERLIPIDEMIA, UNSPECIFIED (16) Dysphagia Code(s): R13.10 - DYSPHAGIA, UNSPECIFIED (17) Dysuria Code(s): R30.0 - DYSURIA (18) HTN (hypertension) Code(s): I10 - ESSENTIAL (PRIMARY) HYPERTENSION (19) Hypothyroid Code(s): E03.9 - HYPOTHYROIDISM, UNSPECIFIED Qualifiers: Hypothyroidism type: acquired Qualified Code(s): E03.9 - Hypothyroidism, unspecified (20) Tardive dyskinesia Code(s): G24.01 - DRUG INDUCED SUBACUTE DYSKINESIA (21) Weakness Code(s): R53.1 - WEAKNESS Assessment/Plan PSYCHIATRY CONSULT REASSURANCE GIVEN FOR 20 MINS MOM X 1 FOR CONSTIPATION PRN REFUSES SHAUNA, WANTS TO DISCUSS WITH NEUROLOGY
--- NOTE | 2016-10-30 17:11 | CON.PSY ---
Psychiatry Consult Chief Complaint: I am anxious, all these meds make me sick. look at my tongue and moutrh. cant stop twitching. Symptoms: reports: Irritability - Previous Psychiatric Treatment Outpatient: None Inpatient: None - Previous Substance Abuse Treatment Outpatient: None Inpatient: None - Current Medications Current Medications: Active Medications Acetaminophen (Tylenol -) 650 mg PO Q6H PRN PRN Reason: FEVER OR PAIN Last Admin: 10/30/16 12:46 Dose: 650 mg Amlodipine Besylate (Norvasc -) 10 mg PO DAILY [facility] Last Admin: 10/30/16 08:59 Dose: 10 mg Artificial Tears (Artificial Tears) 1 drop OU BID PRN PRN Reason: DRY EYES Aspirin (Ecotrin -) 81 mg PO DAILY [facility] Last Admin: 10/30/16 08:59 Dose: 81 mg Baclofen (Lioresal -) 10 mg PO BID [facility] Last Admin: 10/30/16 08:59 Dose: 10 mg Benztropine Mesylate (Cogentin -) 0.5 mg PO BID [facility] Last Admin: 10/30/16 09:00 Dose: Not Given Citalopram Hydrobromide (Celexa -) 10 mg PO DAILY [facility] Last Admin: 10/30/16 09:00 Dose: 10 mg Hydrochlorothiazide (Hctz -) 25 mg PO DAILY [facility] Last Admin: 10/30/16 08:59 Dose: 25 mg Insulin Aspart (Novolog Vial Sliding Scale -) 1 vial SQ ACHS [facility] PRN Reason: Protocol Last Admin: 10/30/16 12:02 Dose: Not Given Levothyroxine Sodium (Synthroid -) 88 mcg PO DAILY@0700 [facility] Last Admin: 10/30/16 06:25 Dose: 88 mcg Loratadine (Claritin -) 10 mg PO DAILY [facility] Last Admin: 10/30/16 08:59 Dose: 10 mg Lorazepam (Ativan -) 0.5 mg PO TID PRN PRN Reason: ANXIETY Last Admin: 10/29/16 22:14 Dose: 0.5 mg Losartan Potassium (Cozaar -) 100 mg PO DAILY [facility] Last Admin: 10/30/16 08:59 Dose: 100 mg Magnesium Hydroxide (Milk Of Magnesia -) 30 ml PO DAILY PRN PRN Reason: CONSTIPATION Metoprolol Tartrate (Lopressor -) 25 mg PO BID [facility] Last Admin: 10/30/16 12:56 Dose: 25 mg Nystatin (Mycostatin Cream -) 1 applic TP BID [facility] Last Admin: 10/30/16 09:01 Dose: 1 applic Nystatin (Nystop Powder -) 1 applic TP DAILY [facility] Last Admin: 10/30/16 09:04 Dose: Not Given Ranitidine HCl (Zantac -) 150 mg PO BID [facility] Last Admin: 10/30/16 08:59 Dose: 150 mg Sitagliptin Phosphate (Januvia -) 50 mg PO DAILY@0700 [facility] Last Admin: 10/30/16 06:22 Dose: 50 mg Sodium Chloride ([place] Nasal [place] -) 2 spray NS TID PRN PRN Reason: NASAL CONGESTION Last Admin: 10/30/16 06:22 Dose: 2 spray - Allergies Allergies: Allergies Allergy/AdvReac Type Severity Reaction Status Date / Time clindamycin Allergy Verified 10/28/16 07:09 epinephrine Allergy Verified 10/28/16 07:09 ibuprofen Allergy palpatation Verified 10/28/16 07:09 s Penicillins Allergy Verified 10/28/16 07:09 Sulfa (Sulfonamide Allergy Verified 10/28/16 07:09 Antibiotics) tramadol Allergy Verified 10/28/16 07:09 - Current Living Status Usual Living Arrangement: With Spouse - Current Mental Status Evaluation Appearance: Disheveled Attitude: Cooperative - Affect Affect: Constrictive Appropriateness: Appropriate to Content - Mood Mood: Anxious - Speech/Language Expressive: Delayed, Talkative - Psychomotor Activity Psychomotor Activity: Hyperactive - Thought Process Thought Process: Intact - Thought Content Hallucinations: Absent Delusions: Absent - Self Perception Self Perception: No Impairment - Cognition Attention: Alert Orientation: Time Memory, Immediate Recall: Intact Memory, Short Term: 2/3 Memory, Remote with Promptin/3 - Concentration Serial Sevens Intact: No Simple Calculations Intact: No - Abstraction Proverb Interpretation: Intact Judgement: Intact - Insight Insight: Intact - Impulse Control Impulse Control: Good Control - Suicidal Ideation Suicidal Ideation: No - Homicidal Ideation Homicidal Ideation: No Assessment/Plan 1) D/C Ciatlopram , can cause Hyponatremia.
[2016-10-30] MEDS ORDERED: INSULIN (NOVOLOG) ASPART 100 UNITS/ML 10ML VIAL ONE (21:12)
[2016-10-30] MEDS: LORazepam 0.5 MG TABLET PO PRN (21:13)
[2016-10-31 00:24] LABS: URINE POTASSIUM 11.9 MEQ/L
[2016-10-31] MEDS ORDERED: diphenhydrAMINE HCL 25 MG CAPSULE (FP) PO PRN (02:48)
[2016-10-31] MEDS ORDERED: diphenhydrAMINE HCL 25 MG CAPSULE (FP) PO ONE (02:50)
--- NOTE | 2016-10-31 02:52 | HOSP ---
Subjective - Review of Symptoms Events since last encounter: Called to evaluate patient by nurse. Patient states her face is red and "demands " to see a doctor. Patient states that she was sleeping soundly, had to urinate , when she look in the mirror she noticed her face was red. She denies numbness , tingling, change in sensation. General: Yes: Fatigue, Malaise. No: Chills, Night Sweats HEENT: No: Head Aches, Visual Changes, Eye Pain, Ear Pain Pulmonary: No: Dyspnea, Cough Cardiovascular: No: Chest Pain, Palpitations, Light Headedness Gastrointestinal: Yes: Diarrhea. No: Nausea, Vomiting, Abdominal Pain Genitourinary: No: Dysuria, Frequency, Incontinence Musculoskeletal: Yes: Back Pain Neurological: Yes: Weakness, Other (twitching; facail drooping from tardive dyskinesia). No: Numbness, Incoordination, Change in speech Physical Examination Vital Signs: Vital Signs Temperature 97.7 F 10/30/16 22:00 Pulse Rate 56 L 10/30/16 22:00 Respiratory Rate 20 10/30/16 22:00 Blood Pressure 160/72 10/30/16 22:00 O2 Sat by Pulse Oximetry (%) 98 10/30/16 21:00 Constitutional: Yes: Well Nourished, Anxious Eyes: Yes: WNL HENT: Yes: WNL, Other (facial twitching; david erythema f the nose and cheeks) Neck: Yes: Supple Cardiovascular: Yes: Regular Rate and Rhythm, S1, S2 Respiratory: Yes: Regular Gastrointestinal: Yes: Normal Bowel Sounds, Soft Edema: No Peripheral Pulses: Left Radial: 2+, Right Radial: 2+, Left Doralis Pedis: 2+, Right Dorsalis Pedis: 2+ Integumentary: Yes: WNL Neurological: Yes: Alert, Oriented, Pre-Existing Deficit (facial twitching and tongue deviation chronic), Tremors Labs: CBC, BMP 10/29/16 06:20 Hospitalist Encounter Assessment: 66 year old female with a PMH hypertension, hyperlipidemia, NIDDM with neuropathy, anxiety/depression, panic disorder, asthma/COPD, osteoarthritis, IBS , hypothyroidism, and multiple episodes of C diff. Admitted for hyponatremia and diarrhea. Patient has history of facial movements for years, bells palsy, intermittent tongue movements and spasms, seen by neurology, complaining of redness in face. Denies any other associated symptoms including weakness, numbness, itching. #erythema may be secondary to sleeping with face pressed against pillow?, patient rubbing face? mouthwash? -nurse states that she kept rubbing her face and chest and asking her if she was turning red. -nurse also states that she swallowed her mouth wash instead of spitting it out. -do not think there is any acute/new medical concerns at this time -patient states that all obvious muscle twitching/tongue movement were her baseline; no new symptoms -monitor patient -vitals wnl -Benadryl 25mg po once Visit type - Emergency Visit Emergency Visit: Yes ED Registration Date: 10/28/16 Care time: The patient presented to the Emergency Department on the above date and was hospitalized for further evaluation of their emergent condition. - New Patient This patient is new to me today: Yes Date on this admission: 10/31/16 - Critical Care Critical Care patient: No
[2016-10-31] MEDS: LEVOTHYROXINE NA 88 MCG TABLET (FP) PO SCH (06:47)
[2016-10-31] MEDS: INSULIN SLIDING SCALE (NOVOLOG) 1 VIAL SQ SCH ×4 (06:47→22:17)
[2016-10-31] MEDS: sitaGLIPtin PHOSPHATE 50 MG TABLET PO SCH (06:48)
--- NOTE | 2016-10-31 09:16 | PN ---
Progress Note, Physician History of Present Illness: LEG PAIN - Current Medication List Current Medications: Active Medications Acetaminophen (Tylenol -) 650 mg PO Q6H PRN PRN Reason: FEVER OR PAIN Last Admin: 10/30/16 12:46 Dose: 650 mg Amlodipine Besylate (Norvasc -) 10 mg PO DAILY [facility] Last Admin: 10/30/16 08:59 Dose: 10 mg Artificial Tears (Artificial Tears) 1 drop OU BID PRN PRN Reason: DRY EYES Aspirin (Ecotrin -) 81 mg PO DAILY [facility] Last Admin: 10/30/16 08:59 Dose: 81 mg Baclofen (Lioresal -) 10 mg PO BID [facility] Last Admin: 10/30/16 21:13 Dose: 10 mg Benztropine Mesylate (Cogentin -) 0.5 mg PO BID [facility] Last Admin: 10/30/16 21:15 Dose: Not Given Hydrochlorothiazide (Hctz -) 25 mg PO DAILY [facility] Last Admin: 10/30/16 08:59 Dose: 25 mg Insulin Aspart (Novolog Vial Sliding Scale -) 1 vial SQ ACHS [facility] PRN Reason: Protocol Last Admin: 10/31/16 06:47 Dose: Not Given Levothyroxine Sodium (Synthroid -) 88 mcg PO DAILY@0700 [facility] Last Admin: 10/31/16 06:47 Dose: 88 mcg Loratadine (Claritin -) 10 mg PO DAILY [facility] Last Admin: 10/30/16 08:59 Dose: 10 mg Lorazepam (Ativan -) 0.5 mg PO TID PRN PRN Reason: ANXIETY Last Admin: 10/30/16 21:13 Dose: 0.5 mg Losartan Potassium (Cozaar -) 100 mg PO DAILY [facility] Last Admin: 10/30/16 08:59 Dose: 100 mg Magnesium Hydroxide (Milk Of Magnesia -) 30 ml PO DAILY PRN PRN Reason: CONSTIPATION Metoprolol Tartrate (Lopressor -) 25 mg PO BID [facility] Last Admin: 10/30/16 21:15 Dose: Not Given Nystatin (Mycostatin Cream -) 1 applic TP BID [facility] Last Admin: 10/30/16 21:16 Dose: Not Given Nystatin (Nystop Powder -) 1 applic TP DAILY [facility] Last Admin: 10/30/16 09:04 Dose: Not Given Ranitidine HCl (Zantac -) 150 mg PO BID [facility] Last Admin: 10/30/16 21:27 Dose: Not Given Sitagliptin Phosphate (Januvia -) 50 mg PO DAILY@0700 [facility] Last Admin: 10/31/16 06:48 Dose: 50 mg Sodium Chloride ([place] Nasal [place] -) 2 spray NS TID PRN PRN Reason: NASAL CONGESTION Last Admin: 10/30/16 06:22 Dose: 2 spray - Objective Vital Signs: Vital Signs Temperature 98.3 F 10/31/16 06:00 Pulse Rate 63 10/31/16 06:00 Respiratory Rate 20 10/31/16 06:00 Blood Pressure 150/66 10/31/16 06:00 O2 Sat by Pulse Oximetry (%) 98 10/30/16 21:00 Cardiovascular: Yes: Regular Rate and Rhythm Respiratory: Yes: Regular, CTA Bilaterally Gastrointestinal: Yes: Normal Bowel Sounds, Soft. No: Tenderness Labs: CBC, BMP 10/29/16 06:20 Assessment/Plan - Problems 1) Viral gastroenteritis Assessment/Plan: SYMPTOMS HAVE RESOLVED. NO DIARRHEA SINCE ADMISSION. NO EVALUATION SUGGESTED AT THIS TIME. Code(s): A08.4 - VIRAL INTESTINAL INFECTION, UNSPECIFIED (2) IBS (irritable bowel syndrome) Assessment/Plan: HER DIARRHEA COULD ALSO BE RELATED TO IBS WITH CONSTIPATION AND OVERFLOW. SUGGEST REGULAR DIET WITH FIBER SUPPLEMENT Code(s): K58.9 - IRRITABLE BOWEL SYNDROME WITHOUT DIARRHEA (3) Depression Code(s): F32.9 - MAJOR DEPRESSIVE DISORDER, SINGLE EPISODE, UNSPECIFIED Qualifiers: Depression Type: other depression Qualified Code(s): F32.89 - Other specified depressive episodes (4) Hyponatremia Code(s): E87.1 - HYPO-OSMOLALITY AND HYPONATREMIA (5) Left adrenal mass Code(s): E27.9 - DISORDER OF ADRENAL GLAND, UNSPECIFIED (6) Mouth pain Code(s): K13.79 - OTHER LESIONS OF ORAL MUCOSA (7) Anxiety PSYCHIATRY CONSULT REASSURANCE GIVEN FOR 20 MINS MOM X 1 FOR CONSTIPATION PRN REFUSES SHAUNA, WANTS TO DISCUSS WITH NEUROLOGY Code(s): F41.9 - ANXIETY DISORDER, UNSPECIFIED (8) Diabetes Code(s): E11.9 - TYPE 2 DIABETES MELLITUS WITHOUT COMPLICATIONS Qualifiers: Diabetes mellitus complication detail: with polyneuropathy (9) Leg pAIN DUPLEX (10) Hypothyroid Code(s): E03.9 - HYPOTHYROIDISM, UNSPECIFIED Qualifiers: Hypothyroidism type: acquired Qualified Code(s): E03.9 - Hypothyroidism, unspecified (11) Tardive dyskinesia Code(s): G24.01 - DRUG INDUCED SUBACUTE DYSKINESIA
[2016-10-31] MEDS: LORazepam 0.5 MG TABLET PO PRN (09:54)
[2016-10-31] MEDS: LORATADINE 10 MG TABLET PO SCH (09:54)
[2016-10-31] MEDS: BENZTROPINE MESYLATE 0.5 MG TABLET (FP) PO SCH ×2 (09:55→22:20)
[2016-10-31] MEDS: ASPIRIN COATED 81 MG TABLET.EC PO SCH (09:55)
[2016-10-31] MEDS: LOSARTAN POTASSIUM 50 MG TABLET (FP) PO SCH (09:55)
[2016-10-31] MEDS: HYDROCHLOROTHIAZIDE 25 MG TABLET (FP) PO SCH (09:56)
[2016-10-31] MEDS: METOPROLOL TARTRATE 25 MG TABLET (FP) PO SCH ×2 (09:57→22:21)
[2016-10-31] MEDS: BACLOFEN 10 MG TABLET (FP) PO SCH ×2 (09:57→22:20)
[2016-10-31] MEDS: RANITIDINE HCL 150 MG TABLET (FP) PO SCH ×2 (09:58→22:20)
[2016-10-31] MEDS: amLODIPine BESYLATE 10 MG TABLET (FP) PO SCH (09:58)
[2016-10-31] MEDS: NYSTATIN POWDER 100,000 UNITS/GM - 15 GM TOPICAL POWDER TP SCH (09:59)
[2016-10-31] MEDS: NYSTATIN 100,000 UNIT/GM TOPICAL CREAM 15 GM TUBE TP SCH ×2 (09:59→22:57)
[2016-10-31 11:02] LABS: BASOPHIL 0.9 % (0-2.0); EOSINOPHIL 0.6 % (0-4.5); MCH 31.5 pg (25.7-33.7); MCHC 34.9 g/dl (32.0-36.0); MEAN CELL VOLUME 90.3 fl (80-96); MEAN PLT VOLUME 7.3 fl (7.5-11.1); NEUTROPHILS 71.1 % (42.8-82.8); PLATELET COUNT 298 K/MM3 (134-434); RDW 12.2 % (11.6-15.6); WHITE BLOOD COUNT 7.4 K/mm3 (4.0-10.0)
[2016-10-31 11:29] LABS: ALBUMIN 3.7 g/dl (3.4-5.0); ANION GAP 11 (8-16); CALCIUM 8.9 mg/dL (8.5-10.1); CO2 26 mmol/L (21-32); GLUCOSE,RANDOM 196 mg/dL (74-106); SGOT/AST 19 U/L (15-37); SGPT/ALT 28 U/L (12-78)
[2016-10-31 11:32] LABS: ALK PHOS 107 U/L (45-117); BILIRUBIN,TOTAL 0.5 mg/dL (0.2-1.0); CREATININE 0.8 mg/dL (0.55-1.02); TOT PROT 7.1 g/dl (6.4-8.2)
[2016-10-31] MEDS: ACETAMINOPHEN 325 MG TABLET (FP) PO PRN (20:11)
[2016-10-31] MEDS ORDERED: PT OWN MED DRAWER 7, Y5N ONE (22:36)
[2016-11-01] MEDS: ARTIFICIAL TEARS (POLYVINYL ALCOHOL 1.4%) OPTH DROPS OU PRN (02:07)
[2016-11-01] MEDS ORDERED: PT OWN MED DRAWER 7, Y5N ONE ×2 (06:03→22:26)
[2016-11-01] MEDS: LEVOTHYROXINE NA 88 MCG TABLET (FP) PO SCH (06:17)
[2016-11-01] MEDS: sitaGLIPtin PHOSPHATE 50 MG TABLET PO SCH (06:18)
[2016-11-01] MEDS: INSULIN SLIDING SCALE (NOVOLOG) 1 VIAL SQ SCH ×4 (06:18→21:45)
[2016-11-01] MEDS: HYDROCHLOROTHIAZIDE 25 MG TABLET (FP) PO SCH (09:52)
[2016-11-01] MEDS: LORATADINE 10 MG TABLET PO SCH (09:52)
[2016-11-01] MEDS: amLODIPine BESYLATE 10 MG TABLET (FP) PO SCH (09:52)
[2016-11-01] MEDS: BACLOFEN 10 MG TABLET (FP) PO SCH ×2 (09:52→21:42)
[2016-11-01] MEDS: LOSARTAN POTASSIUM 50 MG TABLET (FP) PO SCH (09:53)
[2016-11-01] MEDS: RANITIDINE HCL 150 MG TABLET (FP) PO SCH ×2 (09:53→21:42)
[2016-11-01] MEDS: ASPIRIN COATED 81 MG TABLET.EC PO SCH (09:53)
[2016-11-01] MEDS: METOPROLOL TARTRATE 25 MG TABLET (FP) PO SCH ×2 (09:53→21:42)
[2016-11-01] MEDS: LORazepam 0.5 MG TABLET PO PRN ×2 (09:53→21:45)
[2016-11-01] MEDS: BENZTROPINE MESYLATE 0.5 MG TABLET (FP) PO SCH ×3 (09:54→21:49)
[2016-11-01] MEDS: NYSTATIN 100,000 UNIT/GM TOPICAL CREAM 15 GM TUBE TP SCH ×2 (09:54→21:47)
[2016-11-01] MEDS: NYSTATIN POWDER 100,000 UNITS/GM - 15 GM TOPICAL POWDER TP SCH (09:54)
[2016-11-01] MEDS: ACETAMINOPHEN 325 MG TABLET (FP) PO PRN ×2 (09:56→15:59)
--- NOTE | 2016-11-01 12:52 | PN ---
Progress Note (short form) - Note Progress Note: HPI: 66 year old female, with a significant past medical history of hypertension , hyperlipidemia, NIDDM with neuropathy, anxiety/depression, panic disorder, asthma/COPD, osteoarthritis, IBS, hypothyroidism, and multiple episodes of C diff, who presents to the ED complaining of dizziness and lightheadedness since earlier this morning. She reports weakness in her legs bilaterally secondary to weakness. The patient reports she is compliant with her hypertension meds, and last took them this morning. The patient reports a headache, but denies any vertigo or imbalance. Patient reports she was admitted for Rehab at [facility] approximately 4 weeks ago. At the time patient reports she was experiencing episodes of nausea and diarrhea, but she denies any vomiting or constipation. She reports she was tested for C dif, at which time it was negative. Patient reports her diarrhea has gone on for the past 3 weeks, and describes it as a watery-brown consistency. HX of facial movements for some years (Hx of bells , on R ) and feels intermittent involuntary tongue movements , and facial twitch--none seen today on exam. HX of ativan , but denies any new psych RX. dizziness positional and feels some ear pain, no diplopia, unsteadiness etc. FU: multiple complaints from rectal pain , blurry vision, and hands shaking. very anxious. facial movements lessen she is distracted. 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 exposure), Pneumonia Gastrointestinal: Yes: Other (IBS) Hepatobiliary: Yes: Cholelithiasis Renal/: Yes: UTI Infectious Disease: Yes: Other (refractory uti) Psych: Yes: Anxiety, Depression, Panic (RECENT ADMISSION TO PSYCH FACILITY???) Musculoskeletal: Yes: Osteoarthritis (cspine) Endocrine: Yes: Diabetes Mellitus (diabetic neuropathy), Other (HYPONATREMIA ( RECENT ADMISSION TO [facility] FOR SAME)) Additional Medical History: h/o scarred urethra. s/p dilation. 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 History of Recent Travel: No Home Medications - Allergies Allergies/Adverse Reactions: Allergies Allergy/AdvReac Type Severity Reaction Status Date / Time clindamycin Allergy Verified 10/28/16 07:09 epinephrine Allergy Verified 10/28/16 07:09 ibuprofen Allergy palpatation Verified 10/28/16 07:09 s Penicillins Allergy Verified 10/28/16 07:09 Sulfa (Sulfonamide Allergy Verified 10/28/16 07:09 Antibiotics) tramadol Allergy Verified 10/28/16 07:09 - Home Medications Home Medications: Ambulatory Orders Acetaminophen 650 mg PO Q6H PRN 10/28/16 Amlodipine Besylate [Norvasc -] 10 mg PO DAILY 10/28/16 Aspirin [ASA -] 81 mg PO DAILY 10/28/16 Baclofen 10 mg PO BID 10/28/16 Citalopram Hydrobromide [Celexa -] 10 mg PO BID 10/28/16 Dextran 70/Hypromellose [Artificials Tears Drops] 1 drop OU Q4H 10/28/16 Ergocalciferol (Vitamin D2) [Vitamin D2] 2,000 unit PO DAILY 10/28/16 Levothyroxine Sodium [Levo-T] 88 mcg PO DAILY 10/28/16 Loperamide HCl [Imodium -] 2 mg PO Q3H PRN 10/28/16 Loratadine 10 mg PO DAILY 10/28/16 Lorazepam [Ativan] 1 mg PO Q6H PRN 10/28/16 Losartan Potassium [Cozaar] 100 mg PO DAILY 10/28/16 Mag Hydrox/Al Hydrox/Simeth [Mylanta Suspension -] 20 ml PO BID 10/28/16 Methyl Salicylate/Menthol [Bengay Greaseless Cream] 57 gm TP BID PRN 10/28/16 Metoprolol Tartrate 25 mg PO BID 10/28/16 Nystatin Powder [Nystop Powder -] 100,000 unit TP DAILY 10/28/16 Nystatin/Triamcin [Nystatin-Triamcinolone Cream] 30 gm TP BID 10/28/16 Ranitidine HCl 150 mg PO BID 10/28/16 Simvastatin 10 mg PO DAILY 10/28/16 Sitagliptin Phosphate [Januvia] 50 mg PO DAILY 10/28/16 Sodium Chloride [Rhinaris] 2 spray NS BID 10/28/16 Family Disease History - Family Disease History Family Disease History: [place]: Father ( suddenly at age 48 -> no autopsy), Other: Mother ( of MRSA in [facility] rm [id number]), Brother (sarcoidosis age 32) Physical Exam-Neuro Vital Signs: Vital Signs Period Temp Pulse Resp BP Sys/Mathew Pulse Ox Last 24 Hr 97.8 F-98.3 F 59-69 18-20 136-157/70-80 98 Constitutional: Yes: Well Nourished, No Distress Neck: Yes: WNL, Supple Respiratory: Yes: CTA Bilaterally Labs: CBC, BMP 10/29/16 06:20 - Neuro Exam Level Of Consciousness: Yes: Alert, Oriented to Person (EOMI, VFF, no facial twitching noted, no focal weakness though limited movements in the prox UE , shoulder region BL, distally LE 5/5, dec reflxes distally; can walk without assist. ) NIH Stroke Scale - Total Score NIH Stroke Scale Score: 0 Problem List - Problems (1) Weakness Code(s): R53.1 - WEAKNESS (2) Abnormal involuntary movement Code(s): R25.9 - UNSPECIFIED ABNORMAL INVOLUNTARY MOVEMENTS (3) Vertigo, peripheral Code(s): H81.399 - OTHER PERIPHERAL VERTIGO, UNSPECIFIED EAR Assessment/Plan 66 year old female, with a significant past medical history of hypertension, hyperlipidemia, NIDDM with neuropathy, anxiety/depression, panic disorder, asthma/COPD, osteoarthritis, IBS, hypothyroidism, and multiple episodes of C diff, presents, HX of facial movements for some years (Hx of bells , on R ) and feels intermittent involuntary tongue movements , and facial twitch; facial appear psychogenic, along with multiple unrelated somatic c/o. possible can use new tardive RX, though NA at hospital --need psychiatry FU as outpt neurology sign off Dr Hackett [phone] Problem List - Problems (1) Weakness Code(s): R53.1 - WEAKNESS (2) Abnormal involuntary movement Code(s): R25.9 - UNSPECIFIED ABNORMAL INVOLUNTARY MOVEMENTS (3) Vertigo, peripheral Code(s): H81.399 - OTHER PERIPHERAL VERTIGO, UNSPECIFIED EAR
--- NOTE | 2016-11-01 16:24 | PN ---
Progress Note, Physician History of Present Illness: LEG PAIN - Current Medication List Current Medications: Active Medications Acetaminophen (Tylenol -) 650 mg PO Q6H PRN PRN Reason: FEVER OR PAIN Last Admin: 11/01/16 15:59 Dose: 650 mg Amlodipine Besylate (Norvasc -) 10 mg PO DAILY [facility] Last Admin: 11/01/16 09:52 Dose: 10 mg Artificial Tears (Artificial Tears) 1 drop OU BID PRN PRN Reason: DRY EYES Last Admin: 11/01/16 02:07 Dose: 1 drp Aspirin (Ecotrin -) 81 mg PO DAILY [facility] Last Admin: 11/01/16 09:53 Dose: 81 mg Baclofen (Lioresal -) 10 mg PO BID [facility] Last Admin: 11/01/16 09:52 Dose: 10 mg Benztropine Mesylate (Cogentin -) 0.5 mg PO BID [facility] Last Admin: 11/01/16 09:54 Dose: Not Given Hydrochlorothiazide (Hctz -) 25 mg PO DAILY [facility] Last Admin: 11/01/16 09:52 Dose: 25 mg Insulin Aspart (Novolog Vial Sliding Scale -) 1 vial SQ ACHS [facility] PRN Reason: Protocol Last Admin: 11/01/16 12:23 Dose: Not Given Levothyroxine Sodium (Synthroid -) 88 mcg PO DAILY@0700 [facility] Last Admin: 11/01/16 06:17 Dose: 88 mcg Loratadine (Claritin -) 10 mg PO DAILY [facility] Last Admin: 11/01/16 09:52 Dose: 10 mg Lorazepam (Ativan -) 0.5 mg PO TID PRN PRN Reason: ANXIETY Last Admin: 11/01/16 09:53 Dose: 0.5 mg Losartan Potassium (Cozaar -) 100 mg PO DAILY [facility] Last Admin: 11/01/16 09:53 Dose: 100 mg Magnesium Hydroxide (Milk Of Magnesia -) 30 ml PO DAILY PRN PRN Reason: CONSTIPATION Metoprolol Tartrate (Lopressor -) 25 mg PO BID [facility] Last Admin: 11/01/16 09:53 Dose: 25 mg Nystatin (Mycostatin Cream -) 1 applic TP BID [facility] Last Admin: 11/01/16 09:54 Dose: 1 applic Nystatin (Nystop Powder -) 1 applic TP DAILY [facility] Last Admin: 11/01/16 09:54 Dose: 1 applic Ranitidine HCl (Zantac -) 150 mg PO BID [facility] Last Admin: 11/01/16 09:53 Dose: 150 mg Sitagliptin Phosphate (Januvia -) 50 mg PO DAILY@0700 [facility] Last Admin: 11/01/16 06:18 Dose: 50 mg Sodium Chloride ([place] Nasal [place] -) 2 spray NS TID PRN PRN Reason: NASAL CONGESTION Last Admin: 10/30/16 06:22 Dose: 2 spray - Objective Vital Signs: Vital Signs Temperature 97.9 F 11/01/16 14:00 Pulse Rate 61 11/01/16 14:00 Respiratory Rate 18 11/01/16 14:00 Blood Pressure 137/71 11/01/16 14:00 O2 Sat by Pulse Oximetry (%) 98 10/31/16 21:00 Cardiovascular: Yes: Regular Rate and Rhythm Respiratory: Yes: Regular, CTA Bilaterally Gastrointestinal: Yes: Normal Bowel Sounds, Soft Labs: CBC, BMP 10/31/16 10:00 10/31/16 10:00 Assessment/Plan - Problems 1) Viral gastroenteritis Assessment/Plan: SYMPTOMS HAVE RESOLVED. NO DIARRHEA SINCE ADMISSION. NO EVALUATION SUGGESTED AT THIS TIME. Code(s): A08.4 - VIRAL INTESTINAL INFECTION, UNSPECIFIED (2) IBS (irritable bowel syndrome) Assessment/Plan: HER DIARRHEA COULD ALSO BE RELATED TO IBS WITH CONSTIPATION AND OVERFLOW. SUGGEST REGULAR DIET WITH FIBER SUPPLEMENT Code(s): K58.9 - IRRITABLE BOWEL SYNDROME WITHOUT DIARRHEA (3) Depression Code(s): F32.9 - MAJOR DEPRESSIVE DISORDER, SINGLE EPISODE, UNSPECIFIED Qualifiers: Depression Type: other depression Qualified Code(s): F32.89 - Other specified depressive episodes (4) Hyponatremia Code(s): E87.1 - HYPO-OSMOLALITY AND HYPONATREMIA (5) Left adrenal mass Code(s): E27.9 - DISORDER OF ADRENAL GLAND, UNSPECIFIED (6) Mouth pain Code(s): K13.79 - OTHER LESIONS OF ORAL MUCOSA (7) Anxiety PSYCHIATRY CONSULT REASSURANCE GIVEN FOR 20 MINS MOM X 1 FOR CONSTIPATION PRN REFUSES COGENTIN, WANTS TO DISCUSS WITH NEUROLOGY Code(s): F41.9 - ANXIETY DISORDER, UNSPECIFIED (8) Diabetes Code(s): E11.9 - TYPE 2 DIABETES MELLITUS WITHOUT COMPLICATIONS Qualifiers: Diabetes mellitus complication detail: with polyneuropathy (9) Leg pAIN DUPLEX NEGATIVE (10) Hypothyroid Code(s): E03.9 - HYPOTHYROIDISM, UNSPECIFIED Qualifiers: Hypothyroidism type: acquired Qualified Code(s): E03.9 - Hypothyroidism, unspecified (11) Tardive dyskinesia Code(s): G24.01 - DRUG INDUCED SUBACUTE DYSKINESIA
[2016-11-02] MEDS: LORazepam 0.5 MG TABLET PO PRN (04:55)
[2016-11-02] MEDS ORDERED: PT OWN MED DRAWER 7, Y5N ONE ×2 (05:18→10:09)
[2016-11-02] MEDS: sitaGLIPtin PHOSPHATE 50 MG TABLET PO SCH (06:26)
[2016-11-02] MEDS: LEVOTHYROXINE NA 88 MCG TABLET (FP) PO SCH (06:26)
[2016-11-02] MEDS: INSULIN SLIDING SCALE (NOVOLOG) 1 VIAL SQ SCH ×3 (06:26→17:39)
--- NOTE | 2016-11-02 07:36 | DS ---
Physical Examination Vital Signs: Vital Signs Temperature 98.8 F 11/02/16 05:31 Pulse Rate 78 11/02/16 05:31 Respiratory Rate 20 11/02/16 05:31 Blood Pressure 158/78 11/02/16 05:31 O2 Sat by Pulse Oximetry (%) 98 11/01/16 20:41 Constitutional: Yes: No Distress Eyes: Yes: WNL HENT: Yes: WNL Neck: Yes: WNL Cardiovascular: Yes: WNL Respiratory: Yes: WNL Gastrointestinal: Yes: WNL Musculoskeletal: Yes: Muscle Pain Extremities: Yes: WNL Edema: No Peripheral Pulses WNL: Yes Integumentary: Yes: WNL Wound/Incision: Yes: Clean/Dry Neurological: Yes: Paresthesia, Unsteady Gait ...Motor Strength: LLE, RLE Psychiatric: Yes: Agitated, Other Labs: CBC, BMP 10/31/16 10:00 10/31/16 10:00 Discharge Summary Reason For Visit: HYPONATREMIA Current Active Problems Abdominal pain (Acute) Abnormal involuntary movement (Acute) Colitis (Acute) Depression (Acute) Hyponatremia (Acute) Hyponatremia syndrome (Acute) IBS (irritable bowel syndrome) (Acute) Left adrenal mass (Acute) Mouth pain (Acute) Vertigo, peripheral (Acute) Viral gastroenteritis (Acute) Procedures: Principal: ct scan Other Procedures: labs Hospital Course: admitted with colitis, r/o cva, labs and workup as outpatient Condition: Fair - Instructions Diet, Activity, Other Instructions: ada Referrals: Sherrill Donohue MD [Primary Care Provider] - Disposition: VNS/HOME HEALTH CARE - Home Medications Comprehensive Discharge Medication List: Ambulatory Orders Acetaminophen 650 mg PO Q6H PRN 10/28/16 Amlodipine Besylate [Norvasc -] 10 mg PO DAILY 10/28/16 Aspirin [ASA -] 81 mg PO DAILY 10/28/16 Baclofen 10 mg PO BID 10/28/16 Dextran 70/Hypromellose [Artificials Tears Drops] 1 drop OU Q4H 10/28/16 Ergocalciferol (Vitamin D2) [Vitamin D2] 2,000 unit PO DAILY 10/28/16 Levothyroxine Sodium [Levo-T] 88 mcg PO DAILY 10/28/16 Loperamide HCl [Imodium -] 2 mg PO Q3H PRN 10/28/16 Loratadine 10 mg PO DAILY 10/28/16 Lorazepam [Ativan] 1 mg PO Q6H PRN 10/28/16 Losartan Potassium [Cozaar] 100 mg PO DAILY 10/28/16 Mag Hydrox/Al Hydrox/Simeth [MAALOX *SUSPENSION* -] 20 ml PO BID 10/28/16 Methyl Salicylate/Menthol [Bengay Greaseless Cream] 57 gm TP BID PRN 10/28/16 Metoprolol Tartrate 25 mg PO BID 10/28/16 Nystatin Powder [Nystop Powder -] 100,000 unit TP DAILY 10/28/16 Nystatin/Triamcin [Nystatin-Triamcinolone Cream] 30 gm TP BID 10/28/16 Ranitidine HCl 150 mg PO BID 10/28/16 Simvastatin 10 mg PO DAILY 10/28/16 Sitagliptin Phosphate [Januvia] 50 mg PO DAILY 10/28/16 Sodium Chloride [Rhinaris] 2 spray NS BID 10/28/16 Acetaminophen [Tylenol .Regular Strength -] 650 mg PO Q6H PRN #0 tablet Amlodipine Besylate [Norvasc -] 10 mg PO DAILY tablet 11/02/16 Baclofen [Lioresal -] 10 mg PO BID tablet 11/02/16 Benztropine Mesylate [Cogentin -] 0.5 mg PO BID #60 tablet 11/02/16 Levothyroxine [Synthroid -] 88 mcg PO DAILY@0700 tablet 11/02/16 Loratadine [Claritin -] 10 mg PO DAILY tablet 11/02/16 Lorazepam [Ativan] 0.5 mg PO TID PRN #0 tablet MDD 3 11/02/16 Losartan Potassium [Cozaar -] 100 mg PO DAILY tablet 11/02/16 Metoprolol Tartrate [Lopressor -] 25 mg PO BID tablet 11/02/16 Ranitidine [Zantac -] 150 mg PO BID tablet 11/02/16
[2016-11-02] MEDS: amLODIPine BESYLATE 10 MG TABLET (FP) PO SCH (09:55)
[2016-11-02] MEDS: LORATADINE 10 MG TABLET PO SCH (09:55)
[2016-11-02] MEDS: RANITIDINE HCL 150 MG TABLET (FP) PO SCH (09:55)
[2016-11-02] MEDS: METOPROLOL TARTRATE 25 MG TABLET (FP) PO SCH (09:56)
[2016-11-02] MEDS: BACLOFEN 10 MG TABLET (FP) PO SCH (09:56)
[2016-11-02] MEDS: LOSARTAN POTASSIUM 50 MG TABLET (FP) PO SCH (09:56)
[2016-11-02] MEDS: HYDROCHLOROTHIAZIDE 25 MG TABLET (FP) PO SCH (09:56)
[2016-11-02] MEDS: BENZTROPINE MESYLATE 0.5 MG TABLET (FP) PO SCH (09:56)
[2016-11-02] MEDS: ASPIRIN COATED 81 MG TABLET.EC PO SCH (09:56)
[2016-11-02] MEDS: NYSTATIN POWDER 100,000 UNITS/GM - 15 GM TOPICAL POWDER TP SCH (10:06)
[2016-11-02] MEDS: NYSTATIN 100,000 UNIT/GM TOPICAL CREAM 15 GM TUBE TP SCH (10:06)
[2016-11-02] MEDS: ARTIFICIAL TEARS (POLYVINYL ALCOHOL 1.4%) OPTH DROPS OU PRN (10:07)
[2016-11-02] MEDS: ACETAMINOPHEN 325 MG TABLET (FP) PO PRN (11:33)
[2016-11-02 14:18] VITALS: BP 143/78; PULSE 62; TEMP 98.2
[2016-11-03 11:12] LABS: URINE 24 HOUR PH 5.8
[2016-11-03 14:14] LABS: KAPPA/LAMBDA RATIO, UR 18.68 (2.04-10.37)
[2016-11-05 11:42] LABS: URIC 24HR URINE 325.5
[2016-11-05 11:48] LABS: URINE MAGNESIUM RANDOM 4.4 MG/DL; URINE PHOSPHOROUS 12.6 MG/DL
== END 2016-11-02 18:06 | disposition home health service (06) | DRG 392 ==
LOC: JER 06:59 → JERBED 11:02 → J6S 10-29 18:59
PROVIDERS: ADMIT Family Medicine; ATTEND Family Medicine
DX: K58.8 Other irritable bowel syndrome (principal); E87.1 Hypo-osmolality and hyponatremia; K57.92 Diverticulitis of intestine, part unspecified, without perforation or abscess without bleeding; A08.4 Viral intestinal infection, unspecified; I10 Essential (primary) hypertension; E78.5 Hyperlipidemia, unspecified; F41.8 Other specified anxiety disorders; F41.0 Panic disorder [episodic paroxysmal anxiety]; J44.9 Chronic obstructive pulmonary disease, unspecified; E11.42 Type 2 diabetes mellitus with diabetic polyneuropathy; J45.909 Unspecified asthma, uncomplicated; E03.9 Hypothyroidism, unspecified; E27.9 Disorder of adrenal gland, unspecified; K80.20 Calculus of gallbladder without cholecystitis without obstruction; M19.90 Unspecified osteoarthritis, unspecified site; E78.00 Pure hypercholesterolemia, unspecified; E66.8 Other obesity; Z68.31 Body mass index [BMI] 31.0-31.9, adult; H81.399 Other peripheral vertigo, unspecified ear; G24.01 Drug induced subacute dyskinesia; Z88.0 Allergy status to penicillin
CPT/HCPCS: 36415; 71020-TC; 74177-TC; 76830-TC; 76856-TC; 80053; 81003; 82043; 82150; 82436; 82533; 82550; 82553; 83036; 83690; 83735; 83883; 83930; 83935; 83945; 83986; 84105; 84133; 84300; 84443; 84484; 84560; 85025; 85651; 86140; 87086; 87324; 87449; 93005; 93010; 93971-TC; 99285-25; J0475; Q9967

== ENCOUNTER 2016-12-25 14:33 | Inpatient (IN) | payer OTHER, BC ==
[2016-12-25] MEDS ORDERED: LORazepam 2 MG/ML SDV VIAL ONE ×3 (14:43→16:35)
[2016-12-25] MEDS ORDERED: SODIUM CHLORIDE 1,000 ML IV STA ×2 (14:54→19:33)
[2016-12-25 15:06] LABS: BASOPHIL 0.6 % (0-2.0); EOSINOPHIL 0.2 % (0-4.5); MCHC 33.9 g/dl (32.0-36.0); MEAN CELL VOLUME 91.5 fl (80-96); MEAN PLT VOLUME 7.6 fl (7.5-11.1); NEUTROPHILS 72.7 % (42.8-82.8); PLATELET COUNT 410 K/MM3 (134-434); RDW 12.6 % (11.6-15.6); WHITE BLOOD COUNT 12.5 K/mm3 (4.0-10.0)
[2016-12-25 15:11] LABS: URINE APPEARANCE SLCLOUDY; URINE BILIRUBIN NEGATIVE (NEGATIVE); URINE BLOOD NEGATIVE (NEGATIVE); URINE COLOR YELLOW; URINE GLUCOSE (UA) NEGATIVE (NEGATIVE); URINE KETONE NEGATIVE (NEGATIVE); URINE LEUK ESTERASE NEGATIVE (NEGATIVE); URINE NITRITE NEGATIVE (NEGATIVE); URINE UROBILINOGEN NEGATIVE mg/dL (0.2-1.0)
[2016-12-25 15:12] LABS: URINE PROTEIN 2+ (NEGATIVE)
[2016-12-25 15:15] LABS: URINE HYALINE CAST 21 /lpf; URINE MUCUS RARE; URINE RBC 2 /hpf (0-3); URINE WBC 2 /hpf (3-5)
[2016-12-25 15:31] LABS: URINE MARIJUANA THC NEGATIVE ng/ml (CUTOFF=50)
[2016-12-25 15:39] LABS: ALBUMIN 4.2 g/dl (3.4-5.0); ANION GAP 13 (8-16); BILIRUBIN,TOTAL 0.8 mg/dL (0.2-1.0); CALCIUM 9.8 mg/dL (8.5-10.1); CO2 22 mmol/L (21-32); CREATININE 1.1 mg/dL (0.55-1.02); GLUCOSE,RANDOM 191 mg/dL (74-106); SGOT/AST 16 U/L (15-37); SGPT/ALT 25 U/L (12-78); TOT PROT 8.2 g/dl (6.4-8.2)
--- NOTE | 2016-12-25 15:42 | PDOC ---
History of Present Illness <Samantha Matute - Last Filed: 12/25/16 20:11> - History of Present Illness Initial Comments: 12/25/16 22:06 "The patient is a 66 year old female, with a significant past medical history of hypertension, hyperlipidemia, NIDDM with neuropathy, anxiety/depression, panic disorder, asthma/COPD, osteoarthritis, IBS, hypothyroidism, and multiple episodes of C diff, who presents to the ED with AMS. As per , patient was mildly confused last night as she was unable to answer questions appropriately. This morning the patient was increasingly altered. states, patient was not responding to questions. Patient presents to the ED for further evaluation. states the patient was not complaining of fevers/chills, headache, neck pain before last night. Has had previous ER visits and admissions for similar episodes in the past but has never had this level of confusion. Family denies seeing pt take any illicit substances, though daughter states that the pt does not take her medications as prescribed and often self medicates and misses doses. Of note, daughter states that the pt is chronically on benzos, previously prescribed xanax and klonopin, now on ativan. Does not know when her last dose was. Does not believe pt has ever withdrawn. Allergies: Clindamycin, Penicillins, Epinephrine, Ibuprofen, Sulfa(Sulfonamide antibiotics), Tramadol Past Surgical History: Cholecystectomy Social History: Non smoker. No ETOH or drug use. PCP: Dr. Donohue " 12/25/16 22:11 <Vance Calloway - Last Filed: 12/25/16 22:06> <Ayla Hawk - Last Filed: 12/26/16 02:14> - General Chief Complaint: CVA/TIA Stated Complaint: CHANGE IN MENTAL STATUS Time Seen by Provider: 12/25/16 15:01 Past History <Samantha Matute - Last Filed: 12/25/16 20:11> - Past Medical History COPD: Yes Diabetes: Yes GI Disorders: Yes (Diverticulitis, Colitis, Stool c-diff in the past) Disorders: Yes (pelvic, urethral pain, frequency) HTN: Yes Hypercholesterolemia: Yes Liver Disease: Yes (Hepatitis) Psychiatric Problems: Yes (ANXIETY) Seizures: No Thyroid Disease: Yes (Hyopthyroidism) - Surgical History Cholecystectomy: Yes - Immunization History Immunization Up to Date: Yes - Psycho/Social/Smoking Cessation Hx Anxiety: Yes Suicidal Ideation: No Smoking History: Unknown if ever smoked Have you smoked in the past 12 months: No Hx Alcohol Use: No Drug/Substance Use Hx: No Substance Use Type: None Hx Substance Use Treatment: No <Vance Calloway - Last Filed: 12/25/16 22:06> <Ayla Hawk - Last Filed: 12/26/16 02:14> - Past Medical History Allergies/Adverse Reactions: Allergies Allergy/AdvReac Type Severity Reaction Status Date / Time clindamycin Allergy Verified 12/25/16 14:36 epinephrine Allergy Verified 12/25/16 14:36 ibuprofen Allergy palpatation Verified 12/25/16 14:36 s Penicillins Allergy Verified 12/25/16 14:36 Sulfa (Sulfonamide Allergy Verified 12/25/16 14:36 Antibiotics) tramadol Allergy Verified 12/25/16 14:36 Home Medications: Ambulatory Orders Levothyroxine [Synthroid -] 88 mcg PO DAILY@0700 #30 tablet 11/02/16 Lorazepam [Ativan] 0.5 mg PO TID PRN #0 tablet MDD 3 11/02/16 Metoprolol Tartrate [Lopressor -] 25 mg PO BID tablet 11/02/16 Sitagliptin Phosphate [Januvia] 50 mg PO DAILY #30 tab 11/02/16 Losartan Potassium 100 mg PO DAILY 12/25/16 Valbenazine Tosylate [Ingrezza] 40 mg PO DAILY 12/25/16 Review of Systems - Review of Systems Able to Perform ROS?: No Comments:: 12/25/16 22:07 Altered mental status <Vance Calloway - Last Filed: 12/25/16 22:06> *Physical Exam - Vital Signs Last Vital Signs Temp Pulse Resp BP Pulse Ox 99.4 F 122 H 20 187/64 96 12/25/16 19:36 12/25/16 19:36 12/25/16 19:36 12/25/16 19:36 12/25/16 19:36 <Samantha Matute - Last Filed: 12/25/16 20:11> - Vital Signs Last Vital Signs Temp Pulse Resp BP Pulse Ox 99.4 F 145 H 20 239/138 100 12/25/16 14:36 12/25/16 14:36 12/25/16 14:36 12/25/16 14:36 12/25/16 14:36 - Physical Exam Comments: 12/25/16 22:08 GENERAL: Awake, agitated and confused HEAD: No signs of trauma EYES: PERRLA, EOMI, sclera anicteric, conjunctiva clear ENT: Auricles normal inspection, nares patent, oropharynx clear without exudates. Moist mucosa NECK: Normal ROM, no signs of meningismus, supple, no lymphadenopathy, JVD, or masses LUNGS: Breath sounds equal, clear to auscultation bilaterally. No wheezes, and no crackles HEART: Regular rate and rhythm, normal S1 and S2, no murmurs, rubs or gallops ABDOMEN: Soft, nontender, normoactive bowel sounds. No guarding, no rebound. No masses EXTREMITIES: Normal range of motion, no edema. No clubbing or cyanosis. No cords, erythema, or tenderness NEUROLOGICAL: Cranial nerves II through XII grossly intact. moves all extremities, mild tremor in BUE, no rigidity, no clonus SKIN: Warm, Dry, normal turgor, no rashes or lesions noted." <Ou,Vance - Last Filed: 12/25/16 22:06> - Vital Signs Last Vital Signs Temp Pulse Resp BP Pulse Ox 99.4 F 122 H 20 187/64 96 12/25/16 19:36 12/25/16 19:36 12/25/16 19:36 12/25/16 19:36 12/25/16 19:36 <Ayla Hawk - Last Filed: 12/26/16 02:14> Heart Score/ECG Review - ECG Impressions Comment:: 12/25/16 22:10 Sinus tachycardia with no TI/STDs, no TWIs, intervals wnl, no terminal R wave in aVR, no QRS prolongation, no QTc prolongation <Ou,Vance - Last Filed: 12/25/16 22:06> ED Treatment Course - LABORATORY CBC & Chemistry Diagram: 12/25/16 14:45 12/25/16 14:45 - ADDITIONAL ORDERS Additional order review: Laboratory Results 12/25/16 12/25/16 12/25/16 17:10 14:45 14:45 INR PTT (Actin FS) Sodium 134 L Potassium 3.8 Chloride 99 Carbon Dioxide 22 Anion Gap 13 BUN 15 D Creatinine 1.1 H D Creat Clearance w eGFR 49.39 Random Glucose 191 H Lactic Acid 1.0 Calcium 9.8 Total Bilirubin 0.8 D AST 16 ALT 25 Alkaline Phosphatase 129 H D Creatine Kinase 118 Troponin I 0.05 Total Protein 8.2 Albumin 4.2 TSH 2.33 D Free T4 1.26 Urine Color Urine Appearance Urine pH Ur Specific [place] Urine Protein Urine Glucose (UA) Urine Ketones Urine Blood Urine Nitrite Urine Bilirubin Urine Urobilinogen Ur Leukocyte Esterase Urine RBC Urine WBC Hyaline Casts Urine Mucus Opiates Screen Negative Methadone Screen Negative Barbiturate Screen Negative Phencyclidine Screen Negative Ur Amphetamines Screen Negative MDMA (Ecstasy) Screen Negative Benzodiazepines Screen Positive Cocaine Screen Negative U Marijuana (THC) Screen Negative 12/25/16 12/25/16 12/25/16 14:45 14:45 14:45 INR 1.20 H PTT (Actin FS) 23.0 L Sodium Cancelled Potassium Cancelled Chloride Cancelled Carbon Dioxide Cancelled Anion Gap Cancelled BUN Cancelled Creatinine Cancelled Creat Clearance w eGFR Cancelled Random Glucose Cancelled Lactic Acid Calcium Cancelled Total Bilirubin Cancelled AST Cancelled ALT Cancelled Alkaline Phosphatase Cancelled Creatine Kinase Cancelled Troponin I Cancelled Total Protein Cancelled Albumin Cancelled TSH Free T4 Urine Color Yellow Urine Appearance Slcloudy Urine pH 5.0 D Ur Specific [place] 1.020 Urine Protein 2+ H Urine Glucose (UA) Negative Urine Ketones Negative Urine Blood Negative Urine Nitrite Negative Urine Bilirubin Negative Urine Urobilinogen Negative Ur Leukocyte Esterase Negative Urine RBC 2 Urine WBC 2 Hyaline Casts 21 Urine Mucus Rare Opiates Screen Methadone Screen Barbiturate Screen Phencyclidine Screen Ur Amphetamines Screen MDMA (Ecstasy) Screen Benzodiazepines Screen Cocaine Screen U Marijuana (THC) Screen 12/25/16 14:45 RBC 4.73 MCV 91.5 MCHC 33.9 RDW 12.6 MPV 7.6 Neutrophils % 72.7 Lymphocytes % 18.3 Monocytes % 8.2 Eosinophils % 0.2 Basophils % 0.6 - Medications Given in the ED: ED Medications Discontinued Medications Generic Name Dose Route Start Last Admin Trade Name Freq PRN Reason Stop Dose Admin Sodium Chloride 1,000 mls @ 1,000 mls/hr 12/25/16 14:54 12/25/16 15:00 Normal Saline - IV 12/25/16 15:53 1,000 mls/hr ASDIR STA Administration Lorazepam 2 mg 12/25/16 14:50 12/25/16 14:30 Ativan Injection - IVPUSH 12/25/16 14:51 2 mg ONCE ONE Administration Lorazepam 2 mg 12/25/16 15:40 12/25/16 16:02 Ativan Injection - IVPUSH 12/25/16 15:41 2 mg ONCE ONE Administration Lorazepam 2 mg 12/25/16 16:30 12/25/16 16:37 Ativan Injection - IVPUSH 12/25/16 16:31 2 mg ONCE ONE Administration <Samantha Matute - Last Filed: 12/25/16 20:11> - LABORATORY CBC & Chemistry Diagram: 12/25/16 14:45 12/25/16 14:45 - ADDITIONAL ORDERS Additional order review: Laboratory Results 12/25/16 12/25/16 12/25/16 14:45 14:45 14:45 Sodium Cancelled Potassium Cancelled Chloride Cancelled Carbon Dioxide Cancelled Anion Gap Cancelled BUN Cancelled Creatinine Cancelled Creat Clearance w eGFR Cancelled Random Glucose Cancelled Calcium Cancelled Total Bilirubin Cancelled AST Cancelled ALT Cancelled Alkaline Phosphatase Cancelled Creatine Kinase Cancelled Troponin I Cancelled Total Protein Cancelled Albumin Cancelled Urine Color Yellow Urine Appearance Slcloudy Urine pH 5.0 D Urine Protein 2+ H Urine Glucose (UA) Negative Urine Ketones Negative Urine Blood Negative Urine Nitrite Negative Urine Bilirubin Negative Urine Urobilinogen Negative Ur Leukocyte Esterase Negative Urine RBC 2 Urine WBC 2 Hyaline Casts 21 Urine Mucus Rare Opiates Screen Negative Methadone Screen Negative Barbiturate Screen Negative Phencyclidine Screen Negative Ur Amphetamines Screen Negative MDMA (Ecstasy) Screen Negative Benzodiazepines Screen Positive Cocaine Screen Negative U Marijuana (THC) Screen Negative 12/25/16 14:45 RBC 4.73 MCV 91.5 MCHC 33.9 RDW 12.6 MPV 7.6 Neutrophils % 72.7 Lymphocytes % 18.3 Monocytes % 8.2 Eosinophils % 0.2 Basophils % 0.6 - Medications Given in the ED: ED Medications Discontinued Medications Generic Name Dose Route Start Last Admin Trade Name Freq PRN Reason Stop Dose Admin Lorazepam 2 mg 12/25/16 14:50 12/25/16 14:30 Ativan Injection - IVPUSH 12/25/16 14:51 2 mg ONCE ONE Administration <Vance Calloway - Last Filed: 12/25/16 22:06> - LABORATORY CBC & Chemistry Diagram: 12/25/16 22:30 12/25/16 22:30 - ADDITIONAL ORDERS Additional order review: Laboratory Results 12/25/16 12/25/16 12/25/16 17:10 14:45 14:45 INR PTT (Actin FS) Sodium 134 L Potassium 3.8 Chloride 99 Carbon Dioxide 22 Anion Gap 13 BUN 15 D Creatinine 1.1 H D Creat Clearance w eGFR 49.39 Random Glucose 191 H Lactic Acid 1.0 Calcium 9.8 Total Bilirubin 0.8 D AST 16 ALT 25 Alkaline Phosphatase 129 H D Creatine Kinase 118 Troponin I 0.05 Total Protein 8.2 Albumin 4.2 TSH 2.33 D Free T4 1.26 Urine Color Urine Appearance Urine pH Ur Specific [place] Urine Protein Urine Glucose (UA) Urine Ketones Urine Blood Urine Nitrite Urine Bilirubin Urine Urobilinogen Ur Leukocyte Esterase Urine RBC Urine WBC Hyaline Casts Urine Mucus Opiates Screen Negative Methadone Screen Negative Barbiturate Screen Negative Phencyclidine Screen Negative Ur Amphetamines Screen Negative MDMA (Ecstasy) Screen Negative Benzodiazepines Screen Positive Cocaine Screen Negative U Marijuana (THC) Screen Negative 12/25/16 12/25/16 12/25/16 14:45 14:45 14:45 INR 1.20 H PTT (Actin FS) 23.0 L Sodium Cancelled Potassium Cancelled Chloride Cancelled Carbon Dioxide Cancelled Anion Gap Cancelled BUN Cancelled Creatinine Cancelled Creat Clearance w eGFR Cancelled Random Glucose Cancelled Lactic Acid Calcium Cancelled Total Bilirubin Cancelled AST Cancelled ALT Cancelled Alkaline Phosphatase Cancelled Creatine Kinase Cancelled Troponin I Cancelled Total Protein Cancelled Albumin Cancelled TSH Free T4 Urine Color Yellow Urine Appearance Slcloudy Urine pH 5.0 D Ur Specific [place] 1.020 Urine Protein 2+ H Urine Glucose (UA) Negative Urine Ketones Negative Urine Blood Negative Urine Nitrite Negative Urine Bilirubin Negative Urine Urobilinogen Negative Ur Leukocyte Esterase Negative Urine RBC 2 Urine WBC 2 Hyaline Casts 21 Urine Mucus Rare Opiates Screen Methadone Screen Barbiturate Screen Phencyclidine Screen Ur Amphetamines Screen MDMA (Ecstasy) Screen Benzodiazepines Screen Cocaine Screen U Marijuana (THC) Screen 12/25/16 14:45 RBC 4.73 MCV 91.5 MCHC 33.9 RDW 12.6 MPV 7.6 Neutrophils % 72.7 Lymphocytes % 18.3 Monocytes % 8.2 Eosinophils % 0.2 Basophils % 0.6 - Medications Given in the ED: ED Medications Discontinued Medications Generic Name Dose Route Start Last Admin Trade Name Jerrica PRN Reason Stop Dose Admin Sodium Chloride 1,000 mls @ 1,000 mls/hr 12/25/16 14:54 12/25/16 15:00 Normal Saline - IV 12/25/16 15:53 1,000 mls/hr ASDIR STA Administration Sodium Chloride 1,000 mls @ 1,000 mls/hr 12/25/16 19:33 12/25/16 20:34 Normal Saline - IV 12/25/16 20:32 1,000 mls/hr ASDIR STA Administration Lorazepam 2 mg 12/25/16 14:50 12/25/16 14:30 Ativan Injection - IVPUSH 12/25/16 14:51 2 mg ONCE ONE Administration Lorazepam 2 mg 12/25/16 15:40 12/25/16 16:02 Ativan Injection - IVPUSH 12/25/16 15:41 2 mg ONCE ONE Administration Lorazepam 2 mg 12/25/16 16:30 12/25/16 16:37 Ativan Injection - IVPUSH 12/25/16 16:31 2 mg ONCE ONE Administration <Ayla Hawk - Last Filed: 12/26/16 02:14> Medical Decision Making - Medical Decision Making 12/25/16 20:11 Dr. Hackett was paged and notified via phone service. <Samantha Matute - Last Filed: 12/25/16 20:11> - Medical Decision Making 12/25/16 22:11 66 F presents with altered mental status x 2 days. Highly suspicious for toxic/ metabolic process given polypharmacy and h/o depression/anxiety and benzo dependence. Possible benzo withrawal given agitation, confusion, and vitals reflecting tachycardia and hypertension. Consider NMS or serotonin syndrome, though pt clinically does not appear consistent with these, with no clonus or rigidity or fever. Pt also not on neuroleptics or antidepressants per family. Pt with no fever upon presentation to ER and no infectious symptoms at home. However, should consider meningitis or other infectious process. Other primary neuro process should be considered as well, though less likely given otherwise non-focal neuro exam. - CTH - Labs, UA, BCx, Ucx - Tox labs, ETOH level - CXR - IVF - Benzos for agitation - Consider abx for meningitis - Admit <Vance Calloway - Last Filed: 12/25/16 22:06> - Medical Decision Making 12/26/16 02:12 Pt comes with AMS; I received signout. Pt spiked a fever. She has normal head CT scan and she has normal labs (WBC elevated at 12.5) she was pancultured; she will be treated for meningitis; pt is PCN allergy - unclear what her allergic rxn is. She will be treated with meropenem; vanco; acyclovir; dexamethasone. Ampicillin for listeria cannot be given. Case d/w ID service. They will follow in the AM. Pt admitted to the ICU. <Ayla Hawk - Last Filed: 12/26/16 02:14> *DC/Admit/Observation/Transfer <Samantha Matute - Last Filed: 12/25/16 20:11> <Vance Calloway - Last Filed: 12/25/16 22:06> - Discharge Dispostion Admit: Yes <Ayla Hawk - Last Filed: 12/26/16 02:14> Diagnosis at time of Disposition: Meningitis - Discharge Dispostion Condition at time of disposition: Critical - Referrals
[2016-12-25 15:47] LABS: ALK PHOS 129 U/L (45-117); CPK 118 IU/L (26-192); FREE T4 1.26 ng/dl (0.76-1.46); THYROID STIMULATING HORMONE 2.33 uIU/ml (0.358-3.74); TROPONIN I 0.05 ng/ml (0.00-0.05)
[2016-12-25 16:35] LABS: INR 1.2 (0.82-1.09); PROTHROMBIN TIME (PATIENT) 13.3 SEC (9.98-11.88)
[2016-12-25] MEDS ORDERED: MIDAZOLAM HCL 2 MG/2 ML SINGLE DOSE VIAL ONE (17:18)
[2016-12-25] MEDS ORDERED: HALOPERIDOL LACTATE 5 MG/ML ONE (17:56)
[2016-12-25] MEDS ORDERED: PROPOFOL 20 ML ONE ×2 (18:56→23:32)
[2016-12-25] MEDS ORDERED: ACETAMINOPHEN 1000 MG/100 ML VIAL (NON FORMULARY) IVPB ONE (19:56)
[2016-12-25] MEDS ORDERED: METOPROLOL TARTRATE 5 MG/5 ML VIAL IVPUSH ONE (19:56)
[2016-12-25] MEDS ORDERED: VANCOMYCIN 1,000 MG in DEXTROSE 5%-WATER - 250 ML IVPB ONE (20:03)
[2016-12-25] MEDS ORDERED: DEXTROSE 5% IVPB ONE ×2 (20:11→23:45)
[2016-12-25] MEDS ORDERED: DEXAMETHASONE SOD PHOSPHATE 20 MG/5 ML VIAL IVPB ONE (20:11)
[2016-12-25] MEDS ORDERED: MEROPENEM IVPB ONE ×2 (20:11→23:45)
[2016-12-25] MEDS ORDERED: WATER IVPB ONE ×2 (20:11→23:45)
[2016-12-25] MEDS ORDERED: ACYCLOVIR INJECTION 800 MG in DEXTROSE 5%-WATER - 100 ML IVPB ONE (20:16)
[2016-12-25] MEDS ORDERED: PROPOFOL 200 MG/20 ML VIAL IVPUSH ONE (20:38)
[2016-12-25] MEDS ORDERED: METOPROLOL TARTRATE 5 MG/5 ML VIAL ONE ×2 (20:39→20:53)
[2016-12-25] MEDS ORDERED: ACETAMINOPHEN INJECTION 100 ML IVPB ONE (20:39)
[2016-12-25] MEDS ORDERED: DEXAMETHASONE SOD PHOSPHATE 4 MG/1 ML VIAL ONE (20:39)
[2016-12-25] MEDS ORDERED: VANCOMYCIN 1 GRAM (PRE-DOCKED) 250 ML IVPB ONE (20:40)
[2016-12-25] MEDS ORDERED: MIDAZOLAM HCL 2 MG/2 ML SINGLE DOSE VIAL IVPUSH ONE ×2 (22:03→22:05)
[2016-12-25] MEDS ORDERED: SODIUM CHLORIDE 1,000 ML IV SCH (23:00)
[2016-12-25] MEDS ORDERED: PROPOFOL 100 ML IVPUSH SCH (23:30)
[2016-12-25] MEDS ORDERED: CEFTRIAXONE 100 ML IVPB ONE (23:37)
[2016-12-26] MEDS: DEXTROSE 5%-NORMAL SALINE 1,000 ML IV SCH
--- NOTE | 2016-12-26 00:04 | PROC ---
Lumbar Puncture Indication: fever, altered mental status, leukocytosis, no other obvious source Risks and Benefits Explained: Yes Consent on Chart: Yes Sterile Technique: Yes Skin prep: Chlorhexidine Position: Right lateral decubitus Site: L3-L4 Local Anesthesia: 1% Lidocaine with epi Opening Pressure(mmHg): 17 CSF Color, Appearance: Clear Sterile Dressing Applied: Yes
[2016-12-26 00:07] LABS: MCH 31.1 pg (25.7-33.7); MCHC 34.2 g/dl (32.0-36.0); MEAN CELL VOLUME 90.9 fl (80-96); MEAN PLT VOLUME 7.7 fl (7.5-11.1); PLATELET COUNT 279 K/MM3 (134-434); RDW 12.5 % (11.6-15.6); WHITE BLOOD COUNT 13.4 K/mm3 (4.0-10.0)
--- NOTE | 2016-12-26 00:18 | CONSULT ---
Consult Consult Specialty:: PULMONARY/CRITICAL CARE Referred by:: Dr Donohue Reason for Consultation:: fever, altered mental status - History of Present Illness Chief Complaint: altered mental status History of Present Illness: In brief, 66 woman with HTN, HLD, DM2, neuropathy, anxiety and depression, chronic pain, asthma, COPD, hypothyroid, history of C.Diff, IBS, who presented to the ED when she was found to have expressive aphasia, was aggitated, confused and combative (baseline is alert, oriented and calm). In the ED a HCT was done and negative for an acute process, she was febrile to 101F with WBC of 12. Urine was negative and CXR was negative. She was treated for presumed meningitis with Vanc, Dexamethasone and was ordered Meropenem (not given) and admitted to the ICU. - History Source History Provided By: Family Member, Medical Record Limitations to Obtaining History: Clinical Condition - Past Medical History [employer]NER: Yes: Peripheral Neuropathy (diabetic), Seizure (?) Cardio/Vascular: Yes: HTN, Hyperlipdemia Pulmonary: Yes: Asthma, COPD (nonsmoker, childhood aerosolized chem. exposure), Pneumonia Gastrointestinal: Yes: Other (IBS) Hepatobiliary: Yes: Cholelithiasis Renal/: Yes: UTI Infectious Disease: Yes: Other (refractory uti) Psych: Yes: Anxiety, Depression, Panic (RECENT ADMISSION TO PSYCH FACILITY???) Musculoskeletal: Yes: Osteoarthritis (cspine) Endocrine: Yes: Diabetes Mellitus (diabetic neuropathy), Other (HYPONATREMIA ( RECENT ADMISSION TO [facility] FOR SAME)) Additional Medical History: h/o scarred urethra. s/p dilation. 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 History of Recent Travel: No Home Medications - Allergies Allergies/Adverse Reactions: Allergies Allergy/AdvReac Type Severity Reaction Status Date / Time clindamycin Allergy Verified 12/25/16 14:36 epinephrine Allergy Verified 12/25/16 14:36 ibuprofen Allergy palpatation Verified 12/25/16 14:36 s Penicillins Allergy Verified 12/25/16 14:36 Sulfa (Sulfonamide Allergy Verified 12/25/16 14:36 Antibiotics) tramadol Allergy Verified 12/25/16 14:36 - Home Medications Home Medications: Ambulatory Orders Levothyroxine [Synthroid -] 88 mcg PO DAILY@0700 #30 tablet 11/02/16 Lorazepam [Ativan] 0.5 mg PO TID PRN #0 tablet MDD 3 11/02/16 Metoprolol Tartrate [Lopressor -] 25 mg PO BID tablet 11/02/16 Sitagliptin Phosphate [Januvia] 50 mg PO DAILY #30 tab 11/02/16 Losartan Potassium 100 mg PO DAILY 12/25/16 Valbenazine Tosylate [Ingrezza] 40 mg PO DAILY 12/25/16 Family Disease History - Family Disease History Family Disease History: [place]: Father ( suddenly at age 48 -> no autopsy), Other: Mother ( of MRSA in [facility] rm [id number]), Brother (sarcoidosis age 32) Review of Systems Unable to obtain ROS, reason: unresponsive Physical Exam Vital Signs: Vital Signs Temperature 99.8 F H 12/25/16 21:55 Pulse Rate 89 12/25/16 21:55 Respiratory Rate 20 12/25/16 21:55 Blood Pressure 145/89 12/25/16 21:55 O2 Sat by Pulse Oximetry (%) 96 12/25/16 19:36 Constitutional: Yes: Anxious, Mild Distress Eyes: Yes: WNL, PERRL HENT: Yes: Atraumatic, Normocephalic Neck: Yes: Rigid. No: Lymphadenopathy Cardiovascular: Yes: Regular Rate and Rhythm Respiratory: Yes: WNL Gastrointestinal: Yes: Soft, Abdomen, Obese Renal/: Yes: [place] Present Musculoskeletal: Yes: WNL Extremities: Yes: WNL, Other (SOUTH) Edema: No Peripheral Pulses WNL: Yes Integumentary: Yes: WNL Neurological: Yes: Other (awake, does not follow, moves all extremities) Imaging - Results Chest X-ray: Image Reviewed Cat Scan: Report Reviewed, Image Reviewed Problem List - Problems (1) Diabetes Code(s): E11.9 - TYPE 2 DIABETES MELLITUS WITHOUT COMPLICATIONS Qualifiers: Diabetes mellitus complication detail: with polyneuropathy (2) HTN (hypertension) Code(s): I10 - ESSENTIAL (PRIMARY) HYPERTENSION (3) Hypothyroid Code(s): E03.9 - HYPOTHYROIDISM, UNSPECIFIED Qualifiers: Hypothyroidism type: acquired Qualified Code(s): E03.9 - Hypothyroidism, unspecified (4) Sepsis Code(s): A41.9 - SEPSIS, UNSPECIFIED ORGANISM (5) Altered mental status, unspecified Code(s): R41.82 - ALTERED MENTAL STATUS, UNSPECIFIED Assessment/Plan Altered mental status with headache and fever - r/o meningitis HTN DM2 Hypothyroid HLD Anxiety Depression Prior C.Diff IBD -LP now -Vanc/CTX/Acyclovir pending LP results -IVF -FS and Dextrose -MRI when able -DVT PPx Thank you for this interesting consult CCT 45min Stoney Owusu [employer] SALES DIRECTOR
[2016-12-26 00:21] LABS: INR 1.25 (0.82-1.09); PROTHROMBIN TIME (PATIENT) 13.8 SEC (9.98-11.88)
[2016-12-26 00:25] VITALS: BMI 32.2
[2016-12-26 00:33] LABS: ALBUMIN 3.7 g/dl (3.4-5.0); ANION GAP 8 (8-16); CALCIUM 8.6 mg/dL (8.5-10.1); CO2 26 mmol/L (21-32); CREATININE 0.7 mg/dL (0.55-1.02); GLUCOSE,RANDOM 192 mg/dL (74-106); PHOSPHOROUS 2.2 mg/dL (2.5-4.9); SGPT/ALT 25 U/L (12-78)
[2016-12-26 00:35] LABS: ALK PHOS 109 U/L (45-117); BILIRUBIN,TOTAL 0.9 mg/dL (0.2-1.0); TOT PROT 7.1 g/dl (6.4-8.2)
[2016-12-26] MEDS ORDERED: PT OWN MED DRAWER 7, Y5N ONE ×2 (00:36→09:16)
[2016-12-26] MEDS: CEFTRIAXONE 100 ML IVPB SCH ×2 (00:38→09:32)
[2016-12-26 00:43] LABS: MAGNESIUM 1.7 mg/dL (1.8-2.4); SGOT/AST 28 U/L (15-37)
[2016-12-26 01:19] LABS: CSF APPEARANCE CLEAR; CSF COLOR COLORLESS; CSF RBC 0
[2016-12-26 01:41] LABS: GLUCOSE,CSF 94 mg/dL (50-80)
[2016-12-26] MEDS ORDERED: ACYCLOVIR INJECTION 800 MG in DEXTROSE 5%-WATER - 100 ML IVPB SCH (02:00)
[2016-12-26] MEDS: ACYCLOVIR INJECTION 800 MG in DEXTROSE 5%-WATER - 250 ML IVPB SCH ×2 (02:10→10:19)
[2016-12-26] MEDS ORDERED: MAGNESIUM SULF 50% (8.12 MEQ/2 ML-1 GM VIAL) IVPB ONE (05:51)
[2016-12-26] MEDS ORDERED: POTASSIUM PHOSPHATE 15 MM in SODIUM CHLORIDE 250 ML IVPB ONE (05:52)
[2016-12-26 06:47] LABS: MCH 31.4 pg (25.7-33.7); MCHC 34.7 g/dl (32.0-36.0); MEAN CELL VOLUME 90.4 fl (80-96); MEAN PLT VOLUME 7.8 fl (7.5-11.1); PLATELET COUNT 278 K/MM3 (134-434); RDW 12.9 % (11.6-15.6); WHITE BLOOD COUNT 7.7 K/mm3 (4.0-10.0)
[2016-12-26] MEDS: INSULIN SLIDING SCALE (NOVOLOG) 1 VIAL SQ SCH ×4 (06:59→21:49)
[2016-12-26 07:12] LABS: ALBUMIN 3.6 g/dl (3.4-5.0); ALK PHOS 110 U/L (45-117); ANION GAP 13 (8-16); BILIRUBIN,TOTAL 0.6 mg/dL (0.2-1.0); CALCIUM 8.6 mg/dL (8.5-10.1); CO2 24 mmol/L (21-32); CREATININE 0.7 mg/dL (0.55-1.02); GLUCOSE,RANDOM 272 mg/dL (74-106); MAGNESIUM 1.7 mg/dL (1.8-2.4); PHOSPHOROUS 2.1 mg/dL (2.5-4.9); SGOT/AST 23 U/L (15-37); SGPT/ALT 23 U/L (12-78); TOT PROT 7.1 g/dl (6.4-8.2)
[2016-12-26] MEDS: MUPIROCIN 2% TOPICAL OINTMENT FOR DECOLONIZATION NS SCH ×2 (09:32→22:01)
[2016-12-26] MEDS ORDERED: HALOPERIDOL LACTATE 5 MG/ML IM PRN (10:03)
--- NOTE | 2016-12-26 10:56 | PN ---
Progress Note (short form) - Note Progress Note: ID consult dictated imp/reccd 66 year old female admitted from home with increased confusion has anxiety and depression and was started on ingrezza 2 months ago for tardive dyskinesia no fevers at home in ed required sedation for head ct (ativan, versed, propoful) had fever after she returned form head ct 101 with WBC of 12 she was given vancomycin and decadron and admitted to ICU head ct negative cxray no infiltrate she had an LP with 0/0 wbc/rbc currently awake intermittently alert some aphasia noted change in Mental status given normal LP will d/c antibiotics and antivirals await neurology evaluation-?MRI, ?EEG, ?meds I spoke with the ICU [facility]ER about this patient last night Problem List - Problems (1) Altered mental status, unspecified Code(s): R41.82 - ALTERED MENTAL STATUS, UNSPECIFIED
--- NOTE | 2016-12-26 11:43 | CONS ---
DATE OF CONSULTATION: DATE OF DICTATION: 12/26/2016 REQUESTING PHYSICIAN: Sherrill Donohue MD HISTORY OF PRESENT ILLNESS: This is a 66-year-old woman who lives at home with her family. She has a history of anxiety and depression. She was brought to the emergency room by her family with aphasia. She was agitated and confused and combative. Per her family, she has had some issues of anxiety in the past as well as tardive dyskinesia and was recently started on a new medication two months ago for that. She was placed on Ingrezza. There were no fevers at home. She was sedated with multiple medications in the emergency room in order to have a head CT that was read as normal. She also had episodic hypertension after the head CT was completed. She was noted to have fever, which verbally was reported at 101, documented at 99.8. She was felt by the emergency room doctor to be obtunded with a stiff neck and was empirically ordered broad spectrum antibiotics. She received Decadron and vancomycin and was transferred to the ICU prior to receiving any other antibiotics. She underwent a spinal tap in the ICU after consent was obtained from the family. CSF revealed 0 white cells and 0 red cells with glucose of 94. I had spoken to the critical care PROJECT PROGRAM MANAGER prior to LP, and we elected to start her immediately after the tap with Rocephin, vancomycin, and acyclovir pending LP results. I am asked to see her for further management. She is awake. She is restless. She is intermittently appropriate. She is able to state her name. She knows the names of her children. She otherwise has intermittent garbled speech and aphasia. She has had no further fever. PAST MEDICAL HISTORY: Notable for history of hypertension, COPD, diverticulitis , C. difficile. She gets pelvic urethral pain. She has a history of hypertension, hypercholesterolemia, hepatitis, anxiety, depression, and hypothyroidism. She is status post cholecystectomy in the past. She also has a past medical history of neuropathy, anxiety, depression, panic disorder, and osteoarthritis. ALLERGIES: Include CLINDAMYCIN, EPINEPHRINE, IBUPROFEN, PENICILLIN, SULFA, and TRAMADOL. She has tolerated ceftriaxone in the past in 2013 when she had diverticulitis. MEDICATIONS AT HOME: Include Synthroid, Ativan, Lopressor, Januvia, losartan, and Ingrezza. SOCIAL HISTORY: She lives at home with her family. PHYSICAL EXAMINATION Vital signs: This morning, her temperature is 98, her pulse is 78, blood pressure is 140/82, respiratory rate 18, she is saturating 100%. HEENT: She is normocephalic. Her eyes are anicteric. Neck: Supple. She has no meningeal signs. Lungs: Clear to auscultation. Heart: Regular rate and rhythm. Abdomen: Soft, nontender. Skin: She has no skin breakdown. DIAGNOSTIC DATA: White count is 7.7, it was on admission 12.5, hemoglobin 13.5, platelets are 278. BUN 11, creatinine 0.7. LFTs are normal. Urinalysis had 2 white cells. CSF with 0 white cells and 0 red cells. Urine toxicology was positive for benzodiazepines which she takes. Blood cultures are pending. Urine culture is negative. Gram stain and CSF negative, of course. Chest x-ray has no infiltrates. Head CT has no evidence of any acute changes. SUMMARY: This is a 66-year-old woman with change in mental status. Given the normal lichen planus, I do not suspect she has an infectious etiology for this. Given normal lichen planus, I would stop her antibiotics and antivirals. Would await neurology evaluation. Perhaps, she has had stroke and needs an MRI or EEG. She has no signs of urinary tract infection or pneumonia as well. Between conversations with ED MD, ICU staff and patient evaluation, over 40 minutes spent in the care of this critically ill ICU patient ADAN PEARSON M.D. [id number] MTDD
--- NOTE | 2016-12-26 11:43 | CON.NEURO ---
Consult - History of Present Illness History of Present Illness: 66 woman with HTN, HLD, DM2, neuropathy, anxiety and depression, chronic pain, asthma, COPD, hypothyroid, history of C.Diff, IBS, who presented to the ED when she was found to have was agitated, confused and combative (baseline is anxious) . In the ED a HCT was done and negative for an acute process, she was febrile to 101F with WBC of 12. Urine was negative and CXR was negative. LP done : WBC (-), protein NL ; now off ABX ; no more fevers --more awake today though still may become somwehat nonsensical midsentence--she is bale to follow all requests. States started on INGREZA last couple weeks for dyskinesias by PSYCH--she was seen by me for this in past as well, though there was a question if these were psych driven. - History Source History Provided By: Medical Record - Past Medical History SPEAKER WIRER: Yes: Peripheral Neuropathy (diabetic), Seizure (?) Cardio/Vascular: Yes: HTN, Hyperlipdemia Pulmonary: Yes: Asthma, COPD (nonsmoker, childhood aerosolized chem. exposure), Pneumonia Gastrointestinal: Yes: Other (IBS) Hepatobiliary: Yes: Cholelithiasis Renal/: Yes: UTI Infectious Disease: Yes: Other (refractory uti) Psych: Yes: Anxiety, Depression, Panic (RECENT ADMISSION TO PSYCH FACILITY???) Musculoskeletal: Yes: Osteoarthritis (cspine) Endocrine: Yes: Diabetes Mellitus (diabetic neuropathy), Other (HYPONATREMIA ( RECENT ADMISSION TO [facility] FOR SAME)) Additional Medical History: h/o scarred urethra. s/p dilation. 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 History of Recent Travel: No Home Medications - Allergies Allergies/Adverse Reactions: Allergies Allergy/AdvReac Type Severity Reaction Status Date / Time clindamycin Allergy Verified 12/25/16 14:36 epinephrine Allergy Verified 12/25/16 14:36 ibuprofen Allergy palpatation Verified 12/25/16 14:36 s Penicillins Allergy Verified 12/25/16 14:36 Sulfa (Sulfonamide Allergy Verified 12/25/16 14:36 Antibiotics) tramadol Allergy Verified 12/25/16 14:36 - Home Medications Home Medications: Ambulatory Orders Levothyroxine [Synthroid -] 88 mcg PO DAILY@0700 #30 tablet 11/02/16 Lorazepam [Ativan] 0.5 mg PO TID PRN #0 tablet MDD 3 11/02/16 Metoprolol Tartrate [Lopressor -] 25 mg PO BID tablet 11/02/16 Sitagliptin Phosphate [Januvia] 50 mg PO DAILY #30 tab 11/02/16 Losartan Potassium 100 mg PO DAILY 12/25/16 Valbenazine Tosylate [Ingrezza] 40 mg PO DAILY 12/25/16 Family Disease History - Family Disease History Family Disease History: [place]: Father ( suddenly at age 48 -> no autopsy), Other: Mother ( of MRSA in [facility] rm [id number]), Brother (sarcoidosis age 32) Physical Exam-Neuro Vital Signs: Vital Signs Temperature 98.0 F 12/26/16 10:00 Pulse Rate 78 12/26/16 10:00 Respiratory Rate 18 12/26/16 10:00 Blood Pressure 140/82 12/26/16 10:00 O2 Sat by Pulse Oximetry (%) 100 12/26/16 08:59 Constitutional: Yes: Well Nourished Labs: CBC, BMP 12/26/16 05:15 12/26/16 05:15 INR, PTT INR 1.25 (0.82-1.09) H 12/25/16 22:30 CBCD WBC 7.7 K/mm3 (4.0-10.0) D 12/26/16 05:15 RBC 4.30 M/mm3 (3.60-5.2) 12/26/16 05:15 Hgb 13.5 GM/dL (10.7-15.3) 12/26/16 05:15 Hct 38.9 % (32.4-45.2) 12/26/16 05:15 MCV 90.4 fl (80-96) 12/26/16 05:15 MCHC 34.7 g/dl (32.0-36.0) 12/26/16 05:15 RDW 12.9 % (11.6-15.6) 12/26/16 05:15 Plt Count 278 K/MM3 (134-434) 12/26/16 05:15 MPV 7.8 fl (7.5-11.1) 12/26/16 05:15 CMP Sodium 134 mmol/L (136-145) L 12/26/16 05:15 Potassium 3.3 mmol/L (3.5-5.1) L 12/26/16 05:15 Chloride 97 mmol/L (98-107) L 12/26/16 05:15 Carbon Dioxide 24 mmol/L (21-32) 12/26/16 05:15 Anion Gap 13 (8-16) 12/26/16 05:15 BUN 9 mg/dL (7-18) 12/26/16 05:15 Creatinine 0.7 mg/dL (0.55-1.02) 12/26/16 05:15 Creat Clearance w eGFR > 60 (>60) 12/26/16 05:15 Calcium 8.6 mg/dL (8.5-10.1) 12/26/16 05:15 Total Bilirubin 0.6 mg/dL (0.2-1.0) D 12/26/16 05:15 AST 23 U/L (15-37) 12/26/16 05:15 ALT 23 U/L (12-78) 12/26/16 05:15 Alkaline Phosphatase 110 U/L (45-117) 12/26/16 05:15 Total Protein 7.1 g/dl (6.4-8.2) 12/26/16 05:15 Albumin 3.6 g/dl (3.4-5.0) 12/26/16 05:15 - Neuro Exam Level Of Consciousness: Yes: Alert (awake and conversive, she recongnized me after only seeing me 2x over one month ago, she was oriented and follwed all requests, though she had periods of nonsesnsical speech, difficulty with naming and repetition, EOMI, no focal weakness, no EPS or dykinesias , plantars down ) Imaging - Results Cat Scan: Report Reviewed, Image Reviewed Problem List - Problems (1) Abdominal pain Code(s): R10.9 - UNSPECIFIED ABDOMINAL PAIN Qualifiers: Abdominal location: generalized Qualified Code(s): R10.84 - Generalized abdominal pain (2) Altered mental status, unspecified Code(s): R41.82 - ALTERED MENTAL STATUS, UNSPECIFIED Assessment/Plan ? toxic /metabolic encephalopathy --Rx induced (ingreza) ? vs less likely receptive aphasia (? wernickes though she was still able to comprehend) she has underlying severe anxiety and not sure if this is also contributing. states she did not misuse RX LP (-), off ABX, FU HSV check MRI BRAIN may move to tele FU Abdom pain FU TSH, B12 Dr Hackett [phone]
[2016-12-26] MEDS ORDERED: PNEUMOC 13-VAL CONJ-DIP CRM/PF 0.5 ML DISP.SYRIN IM ONE (12:00)
[2016-12-26] MEDS ORDERED: LORazepam 2 MG/ML SDV VIAL ONE (16:07)
--- NOTE | 2016-12-26 18:37 | HP ---
Admitting History and Physical - Primary Care Physician PCP: Sherrill Donohue - Admission Chief Complaint: Patient came in for increasing confusion and agitation History of Present Illness: 66 woman with HTN, HLD, DM2, neuropathy, anxiety and depression, chronic pain, asthma, COPD, hypothyroid, history of C.Diff, IBS, who presented to the ED when she was found to have increasing confusion and agitation (baseline is anxious). Patient was started on Ingreza a couple of weeks ago for dyskinesias by psych. In the ED a HCT was done and negative for an acute process, she was febrile to 101F with WBC of 12. Urine was negative and CXR was negative. But was started on emperic therapy to cover for meningitis. LP done : WBC (-), protein NL ; now off ABX ; no more fevers --patient was initially asleep and woke up, able to responds to questions, although noted with some confabulated words. 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 exposure), Pneumonia Gastrointestinal: Yes: Other (IBS) Hepatobiliary: Yes: Cholelithiasis Renal/: Yes: UTI Infectious Disease: Yes: Other (refractory uti) Psych: Yes: Anxiety, Depression, Panic (RECENT ADMISSION TO PSYCH FACILITY???) Musculoskeletal: Yes: Osteoarthritis (cspine) Endocrine: Yes: Diabetes Mellitus (diabetic neuropathy), Other (HYPONATREMIA ( RECENT ADMISSION TO [facility] FOR SAME)) - Past Surgical History Past Surgical History: Yes: Cholecystectomy (laparoscopic), - Smoking History Smoking history: Unknown if ever smoked Have you smoked in the past 12 months: No - Alcohol/Substance Use Hx Alcohol Use: No History of Substance Use: reports: None - Social History ADL: Independent 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, 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 History of Recent Travel: No Home Medications - Allergies Allergies/Adverse Reactions: Allergies Allergy/AdvReac Type Severity Reaction Status Date / Time clindamycin Allergy Verified 12/25/16 14:36 epinephrine Allergy Verified 12/25/16 14:36 ibuprofen Allergy palpatation Verified 12/25/16 14:36 s Penicillins Allergy Verified 12/25/16 14:36 Sulfa (Sulfonamide Allergy Verified 12/25/16 14:36 Antibiotics) tramadol Allergy Verified 12/25/16 14:36 - Home Medications Home Medications: Ambulatory Orders Levothyroxine [Synthroid -] 88 mcg PO DAILY@0700 #30 tablet 11/02/16 Lorazepam [Ativan] 0.5 mg PO TID PRN #0 tablet MDD 3 11/02/16 Metoprolol Tartrate [Lopressor -] 25 mg PO BID tablet 11/02/16 Sitagliptin Phosphate [Januvia] 50 mg PO DAILY #30 tab 11/02/16 Losartan Potassium 100 mg PO DAILY 12/25/16 Valbenazine Tosylate [Ingrezza] 40 mg PO DAILY 12/25/16 Family Disease History - Family Disease History Family Disease History: [place]: Father ( suddenly at age 48 -> no autopsy), Other: Mother ( of MRSA in [facility] rm 529), Brother (sarcoidosis age 32) Review of Systems - Review of Systems Constitutional: reports: Fever (Febrile in the ED. Currently afebrile.). denies: Chills Eyes: denies: Double Vision HENT: denies: Ear Discharge, Ear Pain, Gingival Bleeding Neck: denies: Stiffness Cardiovascular: denies: Chest Pain Respiratory: denies: Cough Gastrointestinal: denies: Abdominal Pain Genitourinary: denies: Burning Musculoskeletal: denies: Joint Swelling Integumentary: denies: Bruising Neurological: reports: Confusion (Confusion in the ED. Now, more awake, responds to questions appropriately, although noted with some confabulated words ) Endocrine: denies: Excessive Sweating Hematology/Lymphatic: denies: Excessive Bleeding Physical Examination Vital Signs: Vital Signs Temperature 97.8 F 12/26/16 18:00 Pulse Rate 100 H 12/26/16 18:00 Respiratory Rate 18 12/26/16 18:00 Blood Pressure 122/67 12/26/16 18:00 O2 Sat by Pulse Oximetry (%) 98 12/26/16 12:08 Constitutional: Yes: No Distress, Anxious Eyes: Yes: Conjunctiva Clear, EOM Intact HENT: Yes: Atraumatic, Normocephalic Neck: Yes: Supple Cardiovascular: Yes: Regular Rate and Rhythm, S1, S2 Respiratory: Yes: Regular, CTA Bilaterally Gastrointestinal: Yes: Normal Bowel Sounds, Soft Edema: No Peripheral Pulses WNL: Yes Neurological: Yes: Alert, Oriented, Other (noted with some confabulated words between conversation) Psychiatric: Yes: Agitated (Agitated in the ED, now more awake, alert and oriented, responds to questions appropriately.) Labs: CBC, BMP 12/26/16 05:15 12/26/16 05:15 Problem List - Problems (1) Altered mental status, unspecified Code(s): R41.82 - ALTERED MENTAL STATUS, UNSPECIFIED (2) Fever Code(s): R50.9 - FEVER, UNSPECIFIED Assessment/Plan (1) Altered mental status, unspecified Code(s): R41.82 - ALTERED MENTAL STATUS, UNSPECIFIED - CT head - negative for acute process - Neurology consult appreciated. - Follow up MRI result - Patient is now more awake, responds to questions appropriately, although noted with some confabulation of words. - Continue Neuro check (2) Fever Code(s): R50.9 - FEVER, UNSPECIFIED - started on empiric therapy (R/O Meningitis) - [facility] culture - CXR - negative - UC - negative - LP - WBC (-), protein NL ; now off ABX - Currently afebrile. - Repeat labs in AM - Possible downgrade to tele
--- NOTE | 2016-12-26 18:41 | EKG ---
Test Reason : Blood Pressure : / mmHG Vent. Rate : 136 BPM Atrial Rate : 136 BPM P-R Int : 148 ms QRS Dur : 092 ms QT Int : 280 ms P-R-T Axes : 073 045 080 degrees QTc Int : 421 ms POOR DATA QUALITY, INTERPRETATION MAY BE ADVERSELY AFFECTED SINUS TACHYCARDIA SEPTAL INFARCT , AGE UNDETERMINED ABNORMAL ECG WHEN COMPARED WITH ECG OF 28-OCT-2016 07:13, VENT. RATE HAS INCREASED BY [address] NOW DEPRESSED IN LATERAL LEADS Confirmed by JOSHUA REYES MD ([id number]) on 12/26/2016 6:41:07 PM Referred By: Confirmed By:JOSHUA REYES MD
[2016-12-26] MEDS: VANCOMYCIN 1,000 MG in DEXTROSE 5%-WATER - 250 ML IVPB SCH (19:32)
[2016-12-26] MEDS: CHLORHEXIDINE GLUCONATE 4% CLEANSER FOR DECOLONIZATION TP SCH (21:02)
[2016-12-27 06:32] LABS: BASOPHIL 0.6 % (0-2.0); EOSINOPHIL 0.2 % (0-4.5); MCH 31.2 pg (25.7-33.7); MCHC 34.3 g/dl (32.0-36.0); MEAN CELL VOLUME 90.8 fl (80-96); MEAN PLT VOLUME 7.7 fl (7.5-11.1); NEUTROPHILS 76.4 % (42.8-82.8); PLATELET COUNT 289 K/MM3 (134-434); RDW 12.7 % (11.6-15.6); WHITE BLOOD COUNT 11.5 K/mm3 (4.0-10.0)
[2016-12-27 06:57] LABS: ALBUMIN 3.3 g/dl (3.4-5.0); ALK PHOS 97 U/L (45-117); ANION GAP 7 (8-16); BILIRUBIN,TOTAL 0.7 mg/dL (0.2-1.0); CALCIUM 8.5 mg/dL (8.5-10.1); CO2 28 mmol/L (21-32); CREATININE 0.8 mg/dL (0.55-1.02); GLUCOSE,RANDOM 198 mg/dL (74-106); MAGNESIUM 2.1 mg/dL (1.8-2.4); PHOSPHOROUS 1.8 mg/dL (2.5-4.9); SGOT/AST 21 U/L (15-37); SGPT/ALT 25 U/L (12-78); TOT PROT 6.5 g/dl (6.4-8.2)
[2016-12-27] MEDS: DEXTROSE 5%-NORMAL SALINE 1,000 ML IV SCH ×2 (08:02→10:42)
[2016-12-27] MEDS: INSULIN SLIDING SCALE (NOVOLOG) 1 VIAL SQ SCH ×4 (08:05→21:38)
[2016-12-27] MEDS ORDERED: ONDANSETRON 4 MG/2 ML VIAL ONE (08:52)
[2016-12-27] MEDS: ONDANSETRON 4 MG/2 ML VIAL IVPB PRN (09:00)
--- NOTE | 2016-12-27 09:14 | PN ---
Progress Note (short form) - Note Progress Note: PULMONARY/CCM Pt seen and examined in the ICU. Mental status much improved today. Some nausea and epigastric discomfort today. No cough but some diarrhea. No fevers or chills. Last Vital Signs Temp Pulse Resp BP Pulse Ox 97 F L 106 H 20 151/79 100 12/27/16 02:00 12/27/16 08:00 12/27/16 08:00 12/27/16 08:00 12/27/16 08:23 Intake & Output 12/24/16 12/25/16 12/26/16 12/27/16 23:59 23:59 23:59 23:59 Intake Total 2250 3257 Output Total 3050 550 Balance 2250 207 -550 Weight 185 lb 176 lb 5.917 oz 176 lb Gen: NAD, more alert, awake Heart: tachycardic, regular Lung: decreased breath sounds at the bases Abd: soft, nontender Ext: no edema CBC, BMP 12/27/16 05:15 12/27/16 05:15 Active Medications Chlorhexidine Gluconate (Hibiclens For Decolonization -) 1 applic TP HS SHAWN Last Admin: 12/26/16 21:02 Dose: 1 applic Haloperidol (Haldol Injection (Fast Acting) -) 2 mg IM Q4H PRN PRN Reason: AGITATION Last Admin: 12/26/16 16:15 Dose: 2 mg Dextrose/Sodium Chloride (D5-Ns -) 1,000 mls @ 83 mls/hr IV ASDIR [facility] Last Admin: 12/27/16 08:02 Dose: Not Given Insulin Aspart (Novolog Vial Sliding Scale -) 1 vial SQ ACHS SHAWN PRN Reason: Protocol Last Admin: 12/27/16 08:05 Dose: Not Given Mupirocin (Bactroban Ointment (For Decolonization) -) 1 applic NS BID SHAWN Stop: 12/31/16 09:59 Last Admin: 12/26/16 22:01 Dose: 1 applic A/P Altered Mental Status improved likely medication effect HTN DM Hypothyroidism Hyperlipidemia h/o C Diff Anxiety/Depression - continue IVF - start zofran, zantac - f/u cultures - continue to monitor off antibiotics - DVT prophylaxis - can monitor on floor
[2016-12-27] MEDS: MUPIROCIN 2% TOPICAL OINTMENT FOR DECOLONIZATION NS SCH ×2 (09:45→21:32)
[2016-12-27] MEDS: RANITIDINE HCL 150 MG TABLET (FP) PO SCH ×2 (09:51→21:35)
[2016-12-27] MEDS: METOPROLOL TARTRATE 25 MG TABLET (FP) PO SCH ×2 (09:51→21:35)
[2016-12-27] MEDS: LEVOTHYROXINE NA 88 MCG TABLET (FP) PO SCH (10:21)
[2016-12-27] MEDS: LOSARTAN POTASSIUM 50 MG TABLET (FP) PO SCH (10:21)
--- NOTE | 2016-12-27 10:31 | PN ---
Progress Note (short form) - Note Progress Note: totally alert and oriented remembers me from 2013 when I took care of her for cdiff! anxious Vital Signs Period Temp Pulse Resp BP Sys/Mathew Pulse Ox Last 24 Hr 97 F-98.2 F 85-113 14-24 119-164/64-99 98-100 cor-rrr lungs clear abd soft,nt ext no edema MRI- no cva CBC, BMP 12/27/16 05:15 12/27/16 05:15 Microbiology 12/25/16 22:30 Blood - Peripheral Venous Blood Culture - Preliminary NO GROWTH OBTAINED AFTER 24 HOURS, INCUBATION TO CONTINUE FOR 4 DAYS. 12/25/16 22:30 Blood - Peripheral Venous Blood Culture - Preliminary NO GROWTH OBTAINED AFTER 24 HOURS, INCUBATION TO CONTINUE FOR 4 DAYS. 12/26/16 00:00 Cerebral Spinal Fluid - Lumbar Puncture Viral Culture - Preliminary 12/26/16 00:00 Cerebral Spinal Fluid - Lumbar Puncture KRISTINA Preparation - Preliminary 12/26/16 00:00 Cerebral Spinal Fluid - Lumbar Puncture Fungal Culture - Preliminary 12/25/16 14:45 Urine - Urine Molina Urine Culture - Final NO GROWTH OBTAINED 12/26/16 00:00 Cerebral Spinal Fluid - Lumbar Puncture Gram Stain - Final 12/26/16 00:00 Cerebral Spinal Fluid - Lumbar Puncture AFB Smear Concentration - Preliminary 12/26/16 00:00 Cerebral Spinal Fluid - Lumbar Puncture Mycobacterial Culture - Preliminary Current Medications Chlorhexidine Gluconate (Hibiclens For Decolonization -) 1 applic TP HS [facility] Last Admin: 12/26/16 21:02 Dose: 1 applic Haloperidol (Haldol Injection (Fast Acting) -) 2 mg IM Q4H PRN PRN Reason: AGITATION Last Admin: 12/26/16 16:15 Dose: 2 mg Dextrose/Sodium Chloride (D5-Ns -) 1,000 mls @ 83 mls/hr IV ASDIR [facility] Last Admin: 12/27/16 08:02 Dose: Not Given Insulin Aspart (Novolog Vial Sliding Scale -) 1 vial SQ ACHS [facility] PRN Reason: Protocol Last Admin: 12/27/16 08:05 Dose: Not Given Levothyroxine Sodium (Synthroid -) 88 mcg PO DAILY@0700 [facility] Last Admin: 12/27/16 10:21 Dose: 88 mcg Losartan Potassium (Cozaar -) 100 mg PO DAILY [facility] Last Admin: 12/27/16 10:21 Dose: 100 mg Metoprolol Tartrate (Lopressor -) 25 mg PO BID [facility] Last Admin: 12/27/16 09:51 Dose: 25 mg Mupirocin (Bactroban Ointment (For Decolonization) -) 1 applic NS BID [facility] Stop: 12/31/16 09:59 Last Admin: 12/27/16 09:45 Dose: 1 applic Ondansetron HCl (Zofran Injection) 4 mg IVPB Q6H PRN PRN Reason: NAUSEA Last Admin: 12/27/16 09:00 Dose: 4 mg Ranitidine HCl (Zantac -) 150 mg PO BID [facility] Last Admin: 12/27/16 09:51 Dose: 150 mg Sitagliptin Phosphate (Januvia -) 50 mg PO DAILY@0700 [facility] a/p doing well mental status changes resolved suspect meds leukocytosis most likely due to steroids she received in ED continue off antiboitics cultures are negative please call back if needed Problem List - Problems (1) Altered mental status, unspecified Code(s): R41.82 - ALTERED MENTAL STATUS, UNSPECIFIED
[2016-12-27] MEDS: SODIUM CHLORIDE 1,000 ML IV SCH ×2 (12:38→21:51)
--- NOTE | 2016-12-27 13:48 | PN ---
Progress Note (short form) - Note Progress Note: 66 woman with HTN, HLD, DM2, neuropathy, anxiety and depression, chronic pain, asthma, COPD, hypothyroid, history of C.Diff, IBS, who presented to the ED when she was found to have was agitated, confused and combative (baseline is anxious) . In the ED a HCT was done and negative for an acute process, she was febrile to 101F with WBC of 12. Urine was negative and CXR was negative. LP done : WBC (-), protein NL ; now off ABX ; no more fevers --more awake today though still may become somwehat nonsensical midsentence--she is bale to follow all requests. States started on INGREZA last couple weeks for dyskinesias by PSYCH--she was seen by me for this in past as well, though there was a question if these were psych driven. FU back to baseline, MRI reviewed. states she had similar rxn before starting ingrezza feels dizziness (has multiple somatic complaints historically) MRI BRAIN IMPRESSION: No infarct is identified. Minimal to mild periventricular and subcortical chronic microvascular changes are noted. Right frontal chronic microbleed. - History Source History Provided By: Medical Record - Past Medical History [employer]: Yes: Peripheral Neuropathy (diabetic), Seizure (?) Cardio/Vascular: Yes: HTN, Hyperlipdemia Pulmonary: Yes: Asthma, COPD (nonsmoker, childhood aerosolized chem. exposure), Pneumonia Gastrointestinal: Yes: Other (IBS) Hepatobiliary: Yes: Cholelithiasis Renal/: Yes: UTI Infectious Disease: Yes: Other (refractory uti) Psych: Yes: Anxiety, Depression, Panic (RECENT ADMISSION TO PSYCH FACILITY???) Musculoskeletal: Yes: Osteoarthritis (cspine) Endocrine: Yes: Diabetes Mellitus (diabetic neuropathy), Other (HYPONATREMIA ( RECENT ADMISSION TO [facility] FOR SAME)) Additional Medical History: h/o scarred urethra. s/p dilation. 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 History of Recent Travel: No Home Medications - Allergies Allergies/Adverse Reactions: Allergies Allergy/AdvReac Type Severity Reaction Status Date / Time clindamycin Allergy Verified 12/25/16 14:36 epinephrine Allergy Verified 12/25/16 14:36 ibuprofen Allergy palpatation Verified 12/25/16 14:36 s Penicillins Allergy Verified 12/25/16 14:36 Sulfa (Sulfonamide Allergy Verified 12/25/16 14:36 Antibiotics) tramadol Allergy Verified 12/25/16 14:36 - Home Medications Home Medications: Ambulatory Orders Levothyroxine [Synthroid -] 88 mcg PO DAILY@0700 #30 tablet 11/02/16 Lorazepam [Ativan] 0.5 mg PO TID PRN #0 tablet MDD 3 11/02/16 Metoprolol Tartrate [Lopressor -] 25 mg PO BID tablet 11/02/16 Sitagliptin Phosphate [Januvia] 50 mg PO DAILY #30 tab 11/02/16 Losartan Potassium 100 mg PO DAILY 12/25/16 Valbenazine Tosylate [Ingrezza] 40 mg PO DAILY 12/25/16 Family Disease History - Family Disease History Family Disease History: [place]: Father ( suddenly at age 48 -> no autopsy), Other: Mother ( of MRSA in [facility] rm [id number]), Brother (sarcoidosis age 32) Physical Exam-Neuro Vital Signs: Vital Signs Vital Signs Temperature 98.9 F 12/27/16 10:00 Pulse Rate 68 12/27/16 12:00 Respiratory Rate 20 12/27/16 12:00 Blood Pressure 157/91 12/27/16 12:00 O2 Sat by Pulse Oximetry (%) 100 12/27/16 12:41 Constitutional: Yes: Well Nourished Labs: CBCD WBC 11.5 K/mm3 (4.0-10.0) H D 12/27/16 05:15 RBC 4.19 M/mm3 (3.60-5.2) 12/27/16 05:15 Hgb 13.1 GM/dL (10.7-15.3) 12/27/16 05:15 Hct 38.0 % (32.4-45.2) 12/27/16 05:15 MCV 90.8 fl (80-96) 12/27/16 05:15 MCHC 34.3 g/dl (32.0-36.0) 12/27/16 05:15 RDW 12.7 % (11.6-15.6) 12/27/16 05:15 Plt Count 289 K/MM3 (134-434) 12/27/16 05:15 MPV 7.7 fl (7.5-11.1) 12/27/16 05:15 CMP Sodium 137 mmol/L (136-145) 12/27/16 05:15 Potassium 3.6 mmol/L (3.5-5.1) 12/27/16 05:15 Chloride 102 mmol/L (98-107) 12/27/16 05:15 Carbon Dioxide 28 mmol/L (21-32) 12/27/16 05:15 Anion Gap 7 (8-16) L 12/27/16 05:15 BUN 12 mg/dL (7-18) D 12/27/16 05:15 Creatinine 0.8 mg/dL (0.55-1.02) 12/27/16 05:15 Creat Clearance w eGFR > 60 (>60) 12/27/16 05:15 Calcium 8.5 mg/dL (8.5-10.1) 12/27/16 05:15 Total Bilirubin 0.7 mg/dL (0.2-1.0) 12/27/16 05:15 AST 21 U/L (15-37) 12/27/16 05:15 ALT 25 U/L (12-78) 12/27/16 05:15 Alkaline Phosphatase 97 U/L (45-117) 12/27/16 05:15 Total Protein 6.5 g/dl (6.4-8.2) 12/27/16 05:15 Albumin 3.3 g/dl (3.4-5.0) L 12/27/16 05:15 - Neuro Exam Level Of Consciousness: Yes: Alert (awake and conversive, she recongnized me after only seeing me 2x over one month ago, she was oriented and follwed all requests, though she had periods of nonsesnsical speech, difficulty with naming and repetition, EOMI, no focal weakness, no EPS or dykinesias , plantars down ) Imaging - Results Cat Scan: Report Reviewed, Image Reviewed Problem List - Problems (1) Abdominal pain Code(s): R10.9 - UNSPECIFIED ABDOMINAL PAIN Qualifiers: Abdominal location: generalized Qualified Code(s): R10.84 - Generalized abdominal pain (2) Altered mental status, unspecified Code(s): R41.82 - ALTERED MENTAL STATUS, UNSPECIFIED Assessment/Plan ? toxic /metabolic encephalopathy --Rx induced (ingreza) ? vs less likely receptive aphasia (? wernickes though she was still able to comprehend) she has underlying severe anxiety and not sure if this is also contributing. states she did not misuse RX LP (-), off ABX, FU HSV MRI BRAIN no acute findings [facility] for chronic vertigo outpt PSYCH FU Dr Hackett [phone] Problem List - Problems (1) Abdominal pain Code(s): R10.9 - UNSPECIFIED ABDOMINAL PAIN Qualifiers: Abdominal location: generalized Qualified Code(s): R10.84 - Generalized abdominal pain (2) Altered mental status, unspecified Code(s): R41.82 - ALTERED MENTAL STATUS, UNSPECIFIED
--- NOTE | 2016-12-27 15:15 | PN ---
Progress Note, Physician Chief Complaint: Increasing confusion and agitation Got better now, patient is baseline mentation History of Present Illness: 66 woman with HTN, HLD, DM2, neuropathy, anxiety and depression, chronic pain, asthma, COPD, hypothyroid, history of C.Diff, IBS, who presented to the ED when she was found to have increasing confusion and agitation (baseline is anxious). Patient was started on Ingreza a couple of weeks ago for dyskinesias by psych. In the ED a HCT was done and negative for an acute process, she was febrile to 101F with WBC of 12. Urine was negative and CXR was negative. But was started on emperic therapy to cover for meningitis. LP done : WBC (-), protein NL ; now off ABX ; no more fevers --patient was initially asleep and woke up, able to responds to questions, although noted with some confabulated words. Currently patient is alert and oriented, NAD, complains of a slight headache. Denies chest pain, SOB, palpitation. - Current Medication List Current Medications: Active Medications Chlorhexidine Gluconate (Hibiclens For Decolonization -) 1 applic TP HS [facility] Last Admin: 12/26/16 21:02 Dose: 1 applic Haloperidol (Haldol Injection (Fast Acting) -) 2 mg IM Q4H PRN PRN Reason: AGITATION Last Admin: 12/26/16 16:15 Dose: 2 mg Sodium Chloride (Normal Saline -) 1,000 mls @ 83 mls/hr IV ASDIR [facility] Last Admin: 12/27/16 12:38 Dose: 83 mls/hr Insulin Aspart (Novolog Vial Sliding Scale -) 1 vial SQ ACHS [facility] PRN Reason: Protocol Last Admin: 12/27/16 10:54 Dose: 2 units Levothyroxine Sodium (Synthroid -) 88 mcg PO DAILY@0700 [facility] Last Admin: 12/27/16 10:21 Dose: 88 mcg Losartan Potassium (Cozaar -) 100 mg PO DAILY [facility] Last Admin: 12/27/16 10:21 Dose: 100 mg Metoprolol Tartrate (Lopressor -) 25 mg PO BID [facility] Last Admin: 12/27/16 09:51 Dose: 25 mg Mupirocin (Bactroban Ointment (For Decolonization) -) 1 applic NS BID [facility] Stop: 12/31/16 09:59 Last Admin: 12/27/16 09:45 Dose: 1 applic Ondansetron HCl (Zofran Injection) 4 mg IVPB Q6H PRN PRN Reason: NAUSEA Last Admin: 12/27/16 09:00 Dose: 4 mg Ranitidine HCl (Zantac -) 150 mg PO BID [facility] Last Admin: 12/27/16 09:51 Dose: 150 mg Sitagliptin Phosphate (Januvia -) 50 mg PO DAILY@0700 [facility] - Objective Vital Signs: Vital Signs Temperature 98.0 F 12/27/16 14:00 Pulse Rate 68 12/27/16 14:00 Respiratory Rate 20 12/27/16 14:00 Blood Pressure 160/70 12/27/16 14:00 O2 Sat by Pulse Oximetry (%) 100 12/27/16 12:41 Constitutional: Yes: No Distress, Anxious Eyes: Yes: Conjunctiva Clear, EOM Intact HENT: Yes: Atraumatic, Normocephalic Neck: Yes: Supple Cardiovascular: Yes: Regular Rate and Rhythm Respiratory: Yes: Regular, CTA Bilaterally Gastrointestinal: Yes: Normal Bowel Sounds, Soft Edema: No Peripheral Pulses WNL: Yes Neurological: Yes: Alert, Oriented Labs: CBC, BMP 12/27/16 05:15 12/27/16 05:15 INR, PTT INR 1.25 (0.82-1.09) H 12/25/16 22:30 Problem List - Problems (1) Altered mental status, unspecified Code(s): R41.82 - ALTERED MENTAL STATUS, UNSPECIFIED (2) Fever Code(s): R50.9 - FEVER, UNSPECIFIED Assessment/Plan (1) Altered mental status, unspecified Code(s): R41.82 - ALTERED MENTAL STATUS, UNSPECIFIED - CT head - negative for acute process - Neurology on board - MRI result reviewed. --> No infarct identified - Patient is now more awake, responds to questions appropriately, looks anxious - Continue to monitor LOC (2) Fever Code(s): R50.9 - FEVER, UNSPECIFIED - started on empiric therapy (R/O Meningitis) - [facility] culture - CXR - negative - UC - negative - LP - WBC (-), protein NL ; now off ABX - Currently afebrile. - Repeat labs in AM - Possible downgrade to floor
[2016-12-27] MEDS: ACETAMINOPHEN 325 MG TABLET (FP) PO PRN ×2 (16:23→22:15)
[2016-12-27] MEDS: CHLORHEXIDINE GLUCONATE 4% CLEANSER FOR DECOLONIZATION TP SCH (21:32)
[2016-12-28] MEDS: ONDANSETRON 4 MG/2 ML VIAL IVPB PRN ×3 (03:10→18:47)
[2016-12-28] MEDS: ACETAMINOPHEN 325 MG TABLET (FP) PO PRN ×2 (03:10→09:54)
[2016-12-28] MEDS: SODIUM CHLORIDE 1,000 ML IV SCH (05:11)
[2016-12-28] MEDS: INSULIN SLIDING SCALE (NOVOLOG) 1 VIAL SQ SCH ×4 (06:09→22:32)
[2016-12-28] MEDS: LEVOTHYROXINE NA 88 MCG TABLET (FP) PO SCH (06:11)
[2016-12-28] MEDS: sitaGLIPtin PHOSPHATE 50 MG TABLET PO SCH ×2 (06:33→06:38)
--- NOTE | 2016-12-28 07:10 | DS ---
Physical Examination Vital Signs: Vital Signs Temperature 97.9 F 12/27/16 22:00 Pulse Rate 88 12/27/16 22:00 Respiratory Rate 20 12/27/16 22:00 Blood Pressure 138/78 12/27/16 22:00 O2 Sat by Pulse Oximetry (%) 95 12/27/16 21:00 Findings/Remarks: awaiting physical therapy eval for snf vs home. Patient offered SNF placement but she and her family refused,,dc home with nurse home service. Patient nervous and anxious Constitutional: Yes: Mild Distress Eyes: Yes: WNL HENT: Yes: WNL Neck: Yes: WNL Cardiovascular: Yes: WNL Respiratory: Yes: WNL Gastrointestinal: Yes: WNL Renal/: Yes: WNL Musculoskeletal: Yes: Muscle Pain Extremities: Yes: WNL Edema: No Peripheral Pulses WNL: Yes Integumentary: Yes: WNL Wound/Incision: Yes: Clean/Dry Neurological: Yes: Pre-Existing Deficit Psychiatric: Yes: Agitated, Other Labs: CBC, BMP 12/27/16 05:15 12/27/16 05:15 Discharge Summary Reason For Visit: TRANSIENT ALTERATION OF AWARENESS Current Active Problems Abdominal pain (Acute) Altered mental status, unspecified (Acute) Fever (Acute) Hyponatremia (Acute) IBS (irritable bowel syndrome) (Acute) Meningitis (Acute) Mouth pain (Acute) Sepsis (Acute) Procedures: Principal: mri brain Other Procedures: labs and cultures/LP Hospital Course: admitted for altered mental status, and worked up for rule out CVA and LP done all without any acut changes, BP meds adjustd, DC home or SNF . Condition: Improved - Instructions Diet, Activity, Other Instructions: low sodium/ada/low fat Please see your PMD in 1 week Referrals: Sherrill Donohue MD [Primary Care Provider] - Disposition: VNS/HOME HEALTH CARE - Home Medications Comprehensive Discharge Medication List: Ambulatory Orders Levothyroxine [Synthroid -] 88 mcg PO DAILY@0700 #30 tablet 11/02/16 Lorazepam [Ativan] 0.5 mg PO TID PRN #0 tablet MDD 3 11/02/16 Metoprolol Tartrate [Lopressor -] 25 mg PO BID tablet 11/02/16 Sitagliptin Phosphate [Januvia] 50 mg PO DAILY #30 tab 11/02/16 Losartan Potassium 100 mg PO DAILY 12/25/16 Acetaminophen [Tylenol .Regular Strength -] 650 mg PO Q6H PRN #0 tablet Levothyroxine [Synthroid -] 88 mcg PO DAILY@0700 tablet 12/28/16 Losartan Potassium [Cozaar -] 100 mg PO DAILY tablet 12/28/16 Metoprolol Tartrate [Lopressor -] 25 mg PO BID tablet 12/28/16 Mupirocin Ointment [Bactroban Ointment (For Decolonization) -] 1 applic NS BID applic 12/28/16 Sitagliptin Phosphate [Januvia -] 50 mg PO DAILY@0700 tablet 12/28/16
[2016-12-28 08:57] LABS: BASOPHIL 0.9 % (0-2.0); EOSINOPHIL 1.1 % (0-4.5); MCH 31.5 pg (25.7-33.7); MCHC 34.3 g/dl (32.0-36.0); MEAN CELL VOLUME 91.6 fl (80-96); MEAN PLT VOLUME 7.4 fl (7.5-11.1); NEUTROPHILS 63.7 % (42.8-82.8); PLATELET COUNT 353 K/MM3 (134-434); RDW 12.8 % (11.6-15.6); WHITE BLOOD COUNT 8.6 K/mm3 (4.0-10.0)
[2016-12-28 09:14] LABS: ALBUMIN 3.5 g/dl (3.4-5.0); ANION GAP 6 (8-16); CALCIUM 8.8 mg/dL (8.5-10.1); CO2 26 mmol/L (21-32); GLUCOSE,RANDOM 166 mg/dL (74-106); MAGNESIUM 2.1 mg/dL (1.8-2.4); SGOT/AST 20 U/L (15-37); SGPT/ALT 28 U/L (12-78)
[2016-12-28 09:17] LABS: ALK PHOS 101 U/L (45-117); BILIRUBIN,TOTAL 0.5 mg/dL (0.2-1.0); CREATININE 0.7 mg/dL (0.55-1.02); TOT PROT 6.9 g/dl (6.4-8.2)
[2016-12-28] MEDS: MUPIROCIN 2% TOPICAL OINTMENT FOR DECOLONIZATION NS SCH ×2 (09:48→22:32)
[2016-12-28] MEDS: METOPROLOL TARTRATE 25 MG TABLET (FP) PO SCH ×2 (09:54→22:32)
[2016-12-28] MEDS: LOSARTAN POTASSIUM 50 MG TABLET (FP) PO SCH (09:54)
[2016-12-28] MEDS: RANITIDINE HCL 150 MG TABLET (FP) PO SCH ×2 (09:54→22:32)
[2016-12-28] MEDS ORDERED: INSULIN (NOVOLOG) ASPART 100 UNITS/ML 10ML VIAL ONE ×2 (11:17→22:24)
[2016-12-28] MEDS ORDERED: amLODIPine BESYLATE 5 MG TABLET (FP) PO ONE (17:45)
[2016-12-28] MEDS: CHLORHEXIDINE GLUCONATE 4% CLEANSER FOR DECOLONIZATION TP SCH (22:32)
[2016-12-29] MEDS: ACETAMINOPHEN 325 MG TABLET (FP) PO PRN ×2 (01:46→14:18)
[2016-12-29] MEDS ORDERED: PT OWN MED DRAWER 7, Y5N ONE ×2 (05:53→06:55)
[2016-12-29] MEDS: sitaGLIPtin PHOSPHATE 50 MG TABLET PO SCH (06:06)
[2016-12-29] MEDS: LEVOTHYROXINE NA 88 MCG TABLET (FP) PO SCH (06:07)
[2016-12-29] MEDS: INSULIN SLIDING SCALE (NOVOLOG) 1 VIAL SQ SCH ×4 (06:07→22:31)
[2016-12-29] MEDS: METOPROLOL TARTRATE 50 MG TABLET (FP) PO SCH ×3 (06:44→22:31)
[2016-12-29] MEDS ORDERED: HYDROCHLOROTHIAZIDE 12.5 MG CAPSULE (FP) PO SCH (06:45)
[2016-12-29] MEDS: MUPIROCIN 2% TOPICAL OINTMENT FOR DECOLONIZATION NS SCH (10:30)
[2016-12-29] MEDS: LOSARTAN POTASSIUM 50 MG TABLET (FP) PO SCH (10:36)
[2016-12-29] MEDS: RANITIDINE HCL 150 MG TABLET (FP) PO SCH ×2 (10:36→22:31)
[2016-12-29] MEDS ORDERED: amLODIPine BESYLATE 5 MG TABLET (FP) PO ONE (13:30)
[2016-12-29] MEDS ORDERED: LORazepam 1 MG TABLET PO ONE (13:30)
[2016-12-29] MEDS ORDERED: FUROSEMIDE 40 MG/4 ML INJECTABLE VIAL IVPB ONE (15:41)
--- NOTE | 2016-12-29 15:41 | PN ---
Progress Note, Physician Chief Complaint: AWAKE ALERT ANXIOUS HTN ELEVATED BP DISCUSSED WITH PATIENT DENIES CP/SOB - Current Medication List Current Medications: Active Medications Acetaminophen (Tylenol -) 650 mg PO Q6H PRN PRN Reason: FEVER OR PAIN Last Admin: 12/29/16 14:18 Dose: 650 mg Chlorhexidine Gluconate (Hibiclens For Decolonization -) 1 applic TP HS [facility] Last Admin: 12/28/16 22:32 Dose: Not Given Haloperidol (Haldol Injection (Fast Acting) -) 2 mg IM Q4H PRN PRN Reason: AGITATION Last Admin: 12/26/16 16:15 Dose: 2 mg Hydrochlorothiazide (Hctz -) 12.5 mg PO DAILY [facility] Last Admin: 12/29/16 06:44 Dose: 12.5 mg Insulin Aspart (Novolog Vial Sliding Scale -) 1 vial SQ ACHS [facility] PRN Reason: Protocol Last Admin: 12/29/16 11:50 Dose: Not Given Levothyroxine Sodium (Synthroid -) 88 mcg PO DAILY@0700 [facility] Last Admin: 12/29/16 06:07 Dose: 88 mcg Losartan Potassium (Cozaar -) 100 mg PO DAILY [facility] Last Admin: 12/29/16 10:36 Dose: 100 mg Metoprolol Tartrate (Lopressor -) 50 mg PO BID [facility] Last Admin: 12/29/16 10:33 Dose: Not Given Mupirocin (Bactroban Ointment (For Decolonization) -) 1 applic NS BID [facility] Stop: 12/31/16 09:59 Last Admin: 12/29/16 10:30 Dose: Not Given Ondansetron HCl (Zofran Injection) 4 mg IVPB Q6H PRN PRN Reason: NAUSEA Last Admin: 12/28/16 18:47 Dose: 4 mg Ranitidine HCl (Zantac -) 150 mg PO BID [facility] Last Admin: 12/29/16 10:36 Dose: 150 mg Sitagliptin Phosphate (Januvia -) 50 mg PO DAILY@0700 [facility] Last Admin: 12/29/16 06:06 Dose: 50 mg - Objective Vital Signs: Vital Signs Temperature 97.9 F 12/29/16 13:58 Pulse Rate 75 12/29/16 13:58 Respiratory Rate 20 12/29/16 13:19 Blood Pressure 196/105 12/29/16 13:19 O2 Sat by Pulse Oximetry (%) 96 12/29/16 09:00 Constitutional: Yes: Moderate Distress Eyes: Yes: WNL HENT: Yes: WNL Neck: Yes: WNL Cardiovascular: Yes: WNL Respiratory: Yes: WNL Gastrointestinal: Yes: WNL Genitourinary: Yes: WNL Musculoskeletal: Yes: WNL Extremities: Yes: WNL Edema: No Peripheral Pulses WNL: Yes Integumentary: Yes: WNL Wound/Incision: Yes: Clean/Dry Neurological: Yes: WNL (DYSKINESA OF FACE TWITCHING), Other ...Motor Strength: WNL Psychiatric: Yes: WNL Labs: CBC, BMP 12/28/16 08:15 12/28/16 08:15 INR, PTT INR 1.25 (0.82-1.09) H 12/25/16 22:30 Problem List - Problems (1) Mouth pain Code(s): K13.79 - OTHER LESIONS OF ORAL MUCOSA (2) Hypertensive emergency Code(s): I16.1 - HYPERTENSIVE EMERGENCY (3) Hypertensive urgency Code(s): I16.0 - HYPERTENSIVE URGENCY Assessment/Plan CANCEL DISCHARGE METOPROLOL 50MG BID INCREASED FROM 25MG BID LOSARTAN 100MG HCTZ 12.5 MG STOP ALL IVF WILL GIVE ATIVAN PRN FOR ANXIETY EKG STAT CARDIOLOGY EVAL PSYCHIATRY EVAL LASIX IV NOW FOR FLUID OVERLOAD
[2016-12-29] MEDS ORDERED: hydrALAZINE HCL 50 MG TABLET (FP) PO ONE (16:04)
--- NOTE | 2016-12-29 16:16 | PN ---
Progress Note (short form) - Note Progress Note: brief note--formal consult to follow. requested by dr calloway to consult on this pt for hypertensive urgency. chart reviewed. phone call to floor, spoke with nurse. in summary: pt admitted thru ER 12/25, presented with confusion and agitation, not answering questions appropriately at home per . she has PMH depression, anxiety, panic disorder with mult prior admits for "similar episodes" per ER doctors' note, but never this extent of confusion. other PMH notable for HTN (on metopr 25 bid and losartan 100mg at home), HPL, DM , asthma, chronic pain, IBS. in ER, ekg showed sinus tachycardia, trop was 0.05. CT head unrevealing. +fever, WBC 12. she had lumbar puncture which was negative for meningitis per neuro consult note. subsequent TSH was normal. neuro felt etiology could be toxic-metabolic encephalopathy, vs meds (recently started Ingreza) vs less likely receptive aphasia (e.g. wernickes) vs severe anxiety. MRI ordered which showed R frontal chronic microbleed. seen by neuro in f/u 12/27 who felt no acute neuro process evidence here, rec'd outpt psych f/u. Echo done here, showing: nl LV size and systolic fxn; basal septal LVH; nl RV; nl LA; mild-mod AI; moderate aortic root dilation; no peric effusion BP on presentation to ER was 239/138, came down to 170s-180s/90-100. on subsequent hospital days she was running 130s-160s/70s-90s. in am of 12/29 her BP was up again (190/90), so her lopressor was increased from 25 bid to 50 bid, and hctz 12.5mg was added to her losartan (first doses of the med changes given at 6:40am). then bp 196/105 at 1:19pm and amlodipine 5mg x 1 given (at 1:30 pm). RN confirms dr calloway's earlier note that pt denies cp or sob, or other new neuro deficits for that matter--only complaint at time of this note is headache. EKG done earlier this afternoon reviewed by me: sinus alyssa at 56 bpm; normal axis/intervals; no q waves or ST-T abnormalities. i recommended one time dose of hydralazine 50mg po now, and nurse to call with BP in 60 minutes following the med--will decide on standing hydralazine dose depending on the bp response. changed hctz 12.5 to chlorthalidone 25mg (twice as potent as hctz), to start tomorrow if bp remains stable tonight. changed losartan to valsartan 320mg to start tomorrow. continue metoprolol 50 bid for now--consider change to labetalol depending on bp trend. i ordered plasma renin activity and aldosterone levels (which will need to be followed up as outpt as results take several days--though her K has been mostly normal here, low on one occasion. will consider pheo workup later, depending on clinical response to meds. given dilated aortic root with mild-moderate AI, this suggests pt's bp is chronically suboptimally controlled. will need close outpt f/u of bp in future ADDENDUM (5:50 PM): phone call to RN, pt's bp down to 146/66 after hydralazine 50mg dose. mild VALENZUELA at present. no cp, sob, neuro complaints. will start hydralazine 25mg bid. cont metopr 50 bid, diovan 320 qd (starting tomorrow), chlorthalidone 25mg qd ( starting tomorrow). defer amlodipine as her bp did not respond to this. suspect will be able to decr or stop hydralazine once the other meds are on board. full consult to follow in am
[2016-12-29] MEDS ORDERED: hydrALAZINE HCL 50 MG TABLET (FP) PO PRN (17:48)
--- NOTE | 2016-12-29 18:43 | EKG ---
Test Reason : Blood Pressure : / mmHG Vent. Rate : 056 BPM Atrial Rate : 056 BPM P-R Int : 166 ms QRS Dur : 090 ms QT Int : 474 ms P-R-T Axes : 034 -04 022 degrees QTc Int : 457 ms SINUS BRADYCARDIA OTHERWISE NORMAL ECG WHEN COMPARED WITH ECG OF 25-DEC-2016 14:49, VENT. RATE HAS DECREASED BY [address] NO LONGER DEPRESSED IN LATERAL LEADS CLINICAL CORRELATION IS RECOMMENDED Confirmed by RAMANDEEP WHALEN MD ([id number]) on 12/29/2016 6:42:41 PM Referred By: Misael ALARCON Confirmed By:RAMANDEEP WHALEN MD
--- NOTE | 2016-12-29 19:30 | CON.PSY ---
Psychiatry Consult Chief Complaint: Asked to see this patient, a 66 year old female admitted on with Altered mental Status. History of Present Problem: History obtained from chart, RN, and both and son gave collateral information. 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 Since then,she has had multiple hospitalizations. She has a history of Depression/Anxiety and its hard to decipher the circumstances surrounding her T dyskinesia. At some point she must have taken antipsychotics medications. As per patient, she sees and was given Ingrezza for her tardive dyskinesia. She is adamant about not starting any type of psychiatric medications for fear of worsening t.dyskinesia. Both and son are also against antidepresants or benzo. Patient expressed anger and depression and she has multiple somatic complaints. Symptoms: reports: Depressed Mood, Worthlessness/Guilt, Decreased Energy, Impaired Concentration, Decreased Motivation, Restlessness - Current Medications Current Medications: Active Medications Acetaminophen (Tylenol -) 650 mg PO Q6H PRN PRN Reason: FEVER OR PAIN Last Admin: 12/29/16 14:18 Dose: 650 mg Chlorthalidone (Hygroton -) 25 mg PO DAILY [facility] Haloperidol (Haldol Injection (Fast Acting) -) 2 mg IM Q4H PRN PRN Reason: AGITATION Last Admin: 12/26/16 16:15 Dose: 2 mg Hydralazine HCl (Apresoline -) 25 mg PO BID [facility] Hydralazine HCl (Apresoline -) 50 mg PO Q4H PRN PRN Reason: HYPERTENSION Insulin Aspart (Novolog Vial Sliding Scale -) 1 vial SQ ACHS [facility] PRN Reason: Protocol Last Admin: 12/29/16 17:03 Dose: Not Given Levothyroxine Sodium (Synthroid -) 88 mcg PO DAILY@0700 [facility] Last Admin: 12/29/16 06:07 Dose: 88 mcg Metoprolol Tartrate (Lopressor -) 50 mg PO BID [facility] Last Admin: 12/29/16 10:33 Dose: Not Given Ondansetron HCl (Zofran Injection) 4 mg IVPB Q6H PRN PRN Reason: NAUSEA Last Admin: 12/28/16 18:47 Dose: 4 mg Ranitidine HCl (Zantac -) 150 mg PO BID [facility] Last Admin: 12/29/16 10:36 Dose: 150 mg Sitagliptin Phosphate (Januvia -) 50 mg PO DAILY@0700 [facility] Last Admin: 12/29/16 06:06 Dose: 50 mg Valsartan (Diovan -) 320 mg PO DAILY [facility] - Allergies Allergies: Allergies Allergy/AdvReac Type Severity Reaction Status Date / Time clindamycin Allergy Verified 12/25/16 14:36 epinephrine Allergy Verified 12/25/16 14:36 ibuprofen Allergy palpatation Verified 12/25/16 14:36 s Penicillins Allergy Verified 12/25/16 14:36 Sulfa (Sulfonamide Allergy Verified 12/25/16 14:36 Antibiotics) tramadol Allergy Verified 12/25/16 14:36 - Current Living Status Usual Living Arrangement: With Significant Other - Current Mental Status Evaluation Appearance: Other (casual, neat and clean) Attitude: Cooperative - Affect Affect: Labile - Mood Mood: Depressed, Anxious, Angry, Irritable - Speech/Language Expressive: Coherent Receptive: Age Appropriate Comprehension of Spoken Words - Psychomotor Activity Psychomotor Activity: Normal - Thought Process Thought Process: Intact - Thought Content Hallucinations: Absent Delusions: Absent Type: Somatic Delusions, Description: multiple somatic complaints - Cognition Attention: Alert Orientation: Time, Person, Place Memory, Immediate Recall: Impaired Memory, Short Term: 1/3 (not cooperative with further exam) - Abstraction Proverb Interpretation: Intact Judgement: Moderately Impaired - Insight Insight: Impaired - Impulse Control Impulse Control: Minimally Impaired - Suicidal Ideation Suicidal Ideation: No Plan: Discuss treatment options with patient /family. She will be followed by her psychiatrist upon discharge. Adv. to discuss options with her psychiatrist - antidepressants. Adv. to consider ativan prn for now
[2016-12-29] MEDS: hydrALAZINE HCL 25 MG TABLET (FP) PO SCH (22:31)
[2016-12-30] MEDS ORDERED: PT OWN MED DRAWER 7, Y5N ONE ×2 (05:57→09:35)
[2016-12-30] MEDS ORDERED: HALOPERIDOL LACTATE 5 MG/ML IM PRN (07:40)
[2016-12-30 08:20] LABS: MCH 30.6 pg (25.7-33.7); MEAN CELL VOLUME 89.9 fl (80-96); MEAN PLT VOLUME 7.3 fl (7.5-11.1); PLATELET COUNT 368 K/MM3 (134-434); RDW 12.6 % (11.6-15.6); WHITE BLOOD COUNT 8.8 K/mm3 (4.0-10.0)
[2016-12-30 09:12] LABS: ALBUMIN 3.7 g/dl (3.4-5.0); ALK PHOS 100 U/L (45-117); ANION GAP 12 (8-16); BILIRUBIN,TOTAL 0.6 mg/dL (0.2-1.0); CO2 29 mmol/L (21-32); CREATININE 0.6 mg/dL (0.55-1.02); GLUCOSE,RANDOM 170 mg/dL (74-106); MAGNESIUM 1.6 mg/dL (1.8-2.4); PHOSPHOROUS 3.1 mg/dL (2.5-4.9); SGOT/AST 14 U/L (15-37); SGPT/ALT 26 U/L (12-78)
[2016-12-30] MEDS: VALSARTAN 160 MG TABLET (UD) PO SCH (10:03)
[2016-12-30] MEDS: hydrALAZINE HCL 25 MG TABLET (FP) PO SCH ×2 (10:03→22:06)
[2016-12-30] MEDS: METOPROLOL TARTRATE 50 MG TABLET (FP) PO SCH ×2 (10:03→22:05)
[2016-12-30] MEDS: RANITIDINE HCL 150 MG TABLET (FP) PO SCH ×2 (10:03→22:05)
[2016-12-30] MEDS: CHLORTHALIDONE 25 MG TABLET PO SCH (10:25)
--- NOTE | 2016-12-30 11:08 | CON.CARD ---
Cardiology Consult (text) - Consultation Consultation Note: cc: ams hpi: 66 f hx dm, htn, hld, depression/anxiety, hypothyroid, who came to ER for ams. No cp, sob, palps, loc, pnd, orthopnea, le edema. No hx hrt dz. Seen by neuro and felt likely psych issues causing her presenting sxs. Psych now following. BP has been very high here, often driven by her anxiety. Cardio eval requested for bp management. pmh: per hpi psh: cholecystectomy social: no tob fam: no premature cad/scd ros: per hpi; no nvd, cough, rash, dysuria, nasal congestion. +VALENZUELA, +rectal pain , no hematuria, gib meds: Home Medications Medication Instructions Recorded Levothyroxine [Synthroid -] 88 mcg PO DAILY@0700 #30 tablet 11/02/16 Lorazepam [Ativan] 0.5 mg PO TID PRN #0 tablet MDD 3 11/02/16 Metoprolol Tartrate [Lopressor -] 25 mg PO BID tablet 11/02/16 Sitagliptin Phosphate [Januvia] 50 mg PO DAILY #30 tab 11/02/16 Losartan Potassium 100 mg PO DAILY 12/25/16 Acetaminophen [Tylenol .Regular 650 mg PO Q6H PRN #0 tablet 12/28/16 Strength -] Levothyroxine [Synthroid -] 88 mcg PO DAILY@0700 tablet 12/28/16 Losartan Potassium [Cozaar -] 100 mg PO DAILY tablet 12/28/16 Metoprolol Tartrate [Lopressor -] 25 mg PO BID tablet 12/28/16 Mupirocin Ointment [Bactroban 1 applic NS BID applic 12/28/16 Ointment (For Decolonization) -] Sitagliptin Phosphate [Januvia -] 50 mg PO DAILY@0700 tablet 12/28/16 pe: Vital Signs Period Temp Pulse Resp BP Sys/Mathew Pulse Ox Last 24 Hr 97.6 F-97.9 F 64-92 18-20 146-202/66-105 96 nad no jvd rrr s1s2 no mrg cta bl nl eff aaox3 no le e/c/c abd nt nd pos bs no jaundice diaphoresis pos dp pt no carotid bruits Laboratory Last Values WBC 8.8 K/mm3 (4.0-10.0) 12/30/16 06:30 RBC 4.48 M/mm3 (3.60-5.2) 12/30/16 06:30 Hgb 13.7 GM/dL (10.7-15.3) 12/30/16 06:30 Hct 40.3 % (32.4-45.2) 12/30/16 06:30 MCV 89.9 fl (80-96) 12/30/16 06:30 MCH 30.6 pg (25.7-33.7) 12/30/16 06:30 MCHC 34.0 g/dl (32.0-36.0) 12/30/16 06:30 RDW 12.6 % (11.6-15.6) 12/30/16 06:30 Plt Count 368 K/MM3 (134-434) 12/30/16 06:30 MPV 7.3 fl (7.5-11.1) L 12/30/16 06:30 Neutrophils % 63.7 % (42.8-82.8) 12/28/16 08:15 Lymphocytes % 26.8 % (8-40) D 12/28/16 08:15 Monocytes % 7.5 % (3.8-10.2) 12/28/16 08:15 Eosinophils % 1.1 % (0-4.5) D 12/28/16 08:15 Basophils % 0.9 % (0-2.0) 12/28/16 08:15 INR 1.25 (0.82-1.09) H 12/25/16 22:30 PTT (Actin FS) 23.0 SECONDS (26.9-34.4) L 12/25/16 14:45 Sodium 133 mmol/L (136-145) L 12/30/16 06:30 Potassium 3.7 mmol/L (3.5-5.1) 12/30/16 06:30 Chloride 92 mmol/L (98-107) L D 12/30/16 06:30 Carbon Dioxide 29 mmol/L (21-32) 12/30/16 06:30 Anion Gap 12 (8-16) 12/30/16 06:30 BUN 8 mg/dL (7-18) 12/30/16 06:30 Creatinine 0.6 mg/dL (0.55-1.02) 12/30/16 06:30 Creat Clearance w eGFR > 60 (>60) 12/30/16 06:30 POC Glucometer 173 UNITS (()) 12/30/16 06:22 Random Glucose 170 mg/dL (74-106) H 12/30/16 06:30 Lactic Acid 0.8 mmol/L (0.4-2.0) 12/25/16 22:30 Calcium 9.0 mg/dL (8.5-10.1) 12/30/16 06:30 Phosphorus 3.1 mg/dL (2.5-4.9) D 12/30/16 06:30 Magnesium 1.6 mg/dL (1.8-2.4) L D 12/30/16 06:30 Total Bilirubin 0.6 mg/dL (0.2-1.0) 12/30/16 06:30 AST 14 U/L (15-37) L D 12/30/16 06:30 ALT 26 U/L (12-78) 12/30/16 06:30 Alkaline Phosphatase 100 U/L (45-117) 12/30/16 06:30 Creatine Kinase 118 IU/L (26-192) 12/25/16 14:45 Troponin I 0.05 ng/ml (0.00-0.05) 12/25/16 14:45 Total Protein 7.0 g/dl (6.4-8.2) 12/30/16 06:30 Albumin 3.7 g/dl (3.4-5.0) 12/30/16 06:30 TSH 2.33 uIU/ml (0.358-3.74) D 12/25/16 14:45 Free T4 1.26 ng/dl (0.76-1.46) 12/25/16 14:45 Free T3 2.2 pg/ml (2.0-4.4) 12/25/16 14:45 Urine Color Yellow 12/25/16 14:45 Urine Appearance Slcloudy 12/25/16 14:45 Urine pH 5.0 (5.0-8.0) D 12/25/16 14:45 Ur Specific [place] 1.020 (1.005-1.025) 12/25/16 14:45 Urine Protein 2+ (NEGATIVE) H 12/25/16 14:45 Urine Glucose (UA) Negative (NEGATIVE) 12/25/16 14:45 Urine Ketones Negative (NEGATIVE) 12/25/16 14:45 Urine Blood Negative (NEGATIVE) 12/25/16 14:45 Urine Nitrite Negative (NEGATIVE) 12/25/16 14:45 Urine Bilirubin Negative (NEGATIVE) 12/25/16 14:45 Urine Urobilinogen Negative mg/dL (0.2-1.0) 12/25/16 14:45 Ur Leukocyte Esterase Negative (NEGATIVE) 12/25/16 14:45 Urine RBC 2 /hpf (0-3) 12/25/16 14:45 Urine WBC 2 /hpf (3-5) 12/25/16 14:45 Hyaline Casts 21 /lpf 12/25/16 14:45 Urine Mucus Rare 12/25/16 14:45 CSF Appearance Clear 12/26/16 00:00 CSF Color Colorless 12/26/16 00:00 CSF WBC 0 /mm3 12/26/16 00:00 CSF RBC 0 12/26/16 00:00 CSF Neutrophils % 12/26/16 00:00 CSF Glucose 94 mg/dL (50-80) H 12/26/16 00:00 CSF Total Protein 47 mg/dL (15-45) H 12/26/16 00:00 CSF VDRL Non reactive (Non Heaven:<1:1) 12/26/16 00:00 Vancomycin Pre-Dose 6.442 ug/ml (5.0-10.0) 12/26/16 05:15 Salicylates < 4.0 mg/dl (0.0-30.0) 12/25/16 14:45 Opiates Screen Negative ng/ml (KCBJMD=889) 12/25/16 14:45 Methadone Screen Negative ng/ml (XJGKAD=274) 12/25/16 14:45 Barbiturate Screen Negative ng/ml (KZGYOJ=613) 12/25/16 14:45 Phencyclidine Screen Negative ng/ml (CUTOFF=25) 12/25/16 14:45 Ur Amphetamines Screen Negative ng/ml (SDWUNM=367) 12/25/16 14:45 MDMA (Ecstasy) Screen Negative ng/ml (JEYASG=960) 12/25/16 14:45 Benzodiazepines Screen Positive ng/ml (EVHUZZ=839) 12/25/16 14:45 Cocaine Screen Negative ng/ml (JBIRGI=587) 12/25/16 14:45 U Marijuana (THC) Screen Negative ng/ml (CUTOFF=50) 12/25/16 14:45 ecg 12/25/16: sinus tachy, nl intervals, no ischemic changes ecg 12/29/16: sr, nl intervals, no ischemic changes echo 12/2016: nl lv/rv, g1dd, mild-mod ar, mild mr, mild tr, mild-mod pr, mod ao root dil cxr: clear lungs a/p: 66 f hx dm, htn, hld, depression/anxiety, hypothyroid, who came to ER for ams. ams: -evaluated by neuro and psych, seems issues mostly psych related at this point htn: -elevated, likely extreme anxiety contributing -changed hctz 12.5 to chlorthalidone 25mg (twice as potent as hctz) -changed losartan to valsartan 320mg -continued metoprolol 50 bid -started hydralazine 25 bid -monitor bp response, uptitrate hydralazine if needed -ordered plasma renin activity and aldosterone levels (which will need to be followed up as outpt as results take several days) -given dilated aortic root with mild-moderate AI, this suggests pt's bp is chronically suboptimally controlled-->will need close outpt f/u of bp in future hld: -stable, diet control hypothyroid: -stable on synthroid, tsh wnl mild valvular dz (mr, tr, pr, ar): -stable, outpt monitoring and bp control
[2016-12-30] MEDS: INSULIN SLIDING SCALE (NOVOLOG) 1 VIAL SQ SCH ×3 (14:17→22:06)
--- NOTE | 2016-12-30 16:20 | PN ---
Progress Note, Physician Chief Complaint: FAMILY BEDSIDE, ANXIOUS WITH ELEVATED BP NO CHEST PAIN NO SOB NO DIZZINESS - Current Medication List Current Medications: Active Medications Acetaminophen (Tylenol -) 650 mg PO Q6H PRN PRN Reason: FEVER OR PAIN Last Admin: 12/29/16 14:18 Dose: 650 mg Chlorthalidone (Hygroton -) 25 mg PO DAILY COUNT INCLUDES THE [facility] Last Admin: 12/30/16 10:25 Dose: 25 mg Haloperidol (Haldol Injection (Fast Acting) -) 2 mg IM Q4H PRN PRN Reason: AGITATION Hydralazine HCl (Apresoline -) 25 mg PO BID COUNT INCLUDES THE [facility] Last Admin: 12/30/16 10:03 Dose: 25 mg Hydralazine HCl (Apresoline -) 50 mg PO Q4H PRN PRN Reason: HYPERTENSION Insulin Aspart (Novolog Vial Sliding Scale -) 1 vial SQ ACHS COUNT INCLUDES THE [facility] PRN Reason: Protocol Last Admin: 12/30/16 14:17 Dose: Not Given Levothyroxine Sodium (Synthroid -) 88 mcg PO DAILY@0700 COUNT INCLUDES THE [facility] Last Admin: 12/29/16 06:07 Dose: 88 mcg Metoprolol Tartrate (Lopressor -) 50 mg PO BID COUNT INCLUDES THE [facility] Last Admin: 12/30/16 10:03 Dose: 50 mg Ondansetron HCl (Zofran Injection) 4 mg IVPB Q6H PRN PRN Reason: NAUSEA Last Admin: 12/28/16 18:47 Dose: 4 mg Ranitidine HCl (Zantac -) 150 mg PO BID COUNT INCLUDES THE [facility] Last Admin: 12/30/16 10:03 Dose: 150 mg Sitagliptin Phosphate (Januvia -) 50 mg PO DAILY@0700 COUNT INCLUDES THE [facility] Last Admin: 12/29/16 06:06 Dose: 50 mg Valsartan (Diovan -) 320 mg PO DAILY COUNT INCLUDES THE [facility] Last Admin: 12/30/16 10:03 Dose: 320 mg - Objective Vital Signs: Vital Signs Temperature 98.1 F 12/30/16 15:02 Pulse Rate 74 12/30/16 15:02 Respiratory Rate 20 12/30/16 06:00 Blood Pressure 161/97 12/30/16 15:02 O2 Sat by Pulse Oximetry (%) 96 12/29/16 21:00 Constitutional: Yes: Mild Distress Eyes: Yes: WNL HENT: Yes: WNL Neck: Yes: WNL Cardiovascular: Yes: WNL Respiratory: Yes: WNL Gastrointestinal: Yes: WNL Genitourinary: Yes: WNL Musculoskeletal: Yes: WNL Extremities: Yes: WNL Edema: No Peripheral Pulses WNL: Yes Integumentary: Yes: WNL Wound/Incision: Yes: Clean/Dry Neurological: Yes: Pre-Existing Deficit ...Motor Strength: LLE, RLE Psychiatric: Yes: Agitated, Other (ANXIOUS) Labs: CBC, BMP 12/30/16 06:30 12/30/16 06:30 INR, PTT INR 1.25 (0.82-1.09) H 12/25/16 22:30 Problem List - Problems (1) Mouth pain Code(s): K13.79 - OTHER LESIONS OF [place]AL [place]OS[place] (2) Hypertensive emergency Code(s): I16.1 - HYPERTENSIVE EMERGENCY (3) Hypertensive urgency Code(s): I16.0 - HYPERTENSIVE URGENCY (4) Anxiety and depression Code(s): F41.8 - OTHER SPECIFIED ANXIETY DISORDERS Assessment/Plan [facility]IV[facility] PRN MONITOR TONIGHT DC PLANNING TOMORROW SEVERE ANXIETY NEEDS STRONG SUPPORT GROUP OUTPATIENT RECOMMENDING A [facility] A REFERRAL
[2016-12-30] MEDS ORDERED: LORazepam 1 MG TABLET PO PRN (16:24)
[2016-12-31] MEDS: INSULIN SLIDING SCALE (NOVOLOG) 1 VIAL SQ SCH (06:07)
[2016-12-31] MEDS: LEVOTHYROXINE NA 88 MCG TABLET (FP) PO SCH (06:08)
[2016-12-31] MEDS: sitaGLIPtin PHOSPHATE 50 MG TABLET PO SCH (06:08)
--- NOTE | 2016-12-31 06:25 | DS ---
Physical Examination Vital Signs: Vital Signs Temperature 98.7 F 12/30/16 22:51 Pulse Rate 76 12/30/16 22:51 Respiratory Rate 20 12/30/16 22:51 Blood Pressure 128/66 12/30/16 22:51 O2 Sat by Pulse Oximetry (%) 97 12/30/16 20:47 Findings/Remarks: improving blood pressure, can go home and follow with her primary MD Constitutional: Yes: No Distress Eyes: Yes: WNL HENT: Yes: WNL Neck: Yes: WNL Cardiovascular: Yes: WNL Respiratory: Yes: WNL Gastrointestinal: Yes: WNL Musculoskeletal: Yes: WNL Extremities: Yes: WNL Edema: No Peripheral Pulses WNL: Yes Integumentary: Yes: WNL Wound/Incision: Yes: Clean/Dry Neurological: Yes: Pre-Existing Deficit ...Motor Strength: WNL Psychiatric: Yes: Other Labs: CBC, BMP 12/30/16 06:30 12/30/16 06:30 Discharge Summary Reason For Visit: TRANSIENT ALTERATION OF AWARENESS Current Active Problems Abdominal pain (Acute) Altered mental status, unspecified (Acute) Anxiety and depression (Acute) Fever (Acute) Hypertensive emergency (Acute) Hypertensive urgency (Acute) Hyponatremia (Acute) IBS (irritable bowel syndrome) (Acute) Meningitis (Acute) Mouth pain (Acute) Sepsis (Acute) Procedures: Principal: mri/mra/ct brain Other Procedures: labs/cultures, lumbar punctures Hospital Course: admitted for viral syndrome rule out cva vs meningitis, patient developed malignant hypertension and now improves, cva workup negative, patient history of severe anxiety with malingering disorder. will need strong support group as outpatient Condition: Fair - Instructions Diet, Activity, Other Instructions: low sodium/ada/low fat Please see your PMD in 1 week Cardiology follow up with dr moreau Referrals: Sherrill Donohue MD [Primary Care Provider] - Disposition: VNS/HOME HEALTH CARE - Home Medications Comprehensive Discharge Medication List: Ambulatory Orders Levothyroxine [Synthroid -] 88 mcg PO DAILY@0700 #30 tablet 11/02/16 Lorazepam [Ativan] 0.5 mg PO TID PRN #0 tablet MDD 3 11/02/16 Sitagliptin Phosphate [Januvia] 50 mg PO DAILY #30 tab 11/02/16 Acetaminophen [Tylenol .Regular Strength -] 650 mg PO Q6H PRN #0 tablet Levothyroxine [Synthroid -] 88 mcg PO DAILY@0700 tablet 12/28/16 Mupirocin Ointment [Bactroban Ointment (For Decolonization) -] 1 applic NS BID applic 12/28/16 Sitagliptin Phosphate [Januvia -] 50 mg PO DAILY@0700 tablet 12/28/16 Chlorthalidone [Hygroton -] 25 mg PO DAILY #30 tablet 12/31/16 Hydralazine HCl [Apresoline -] 25 mg PO BID #60 tablet 12/31/16 Lorazepam [Ativan] 1 mg PO TID PRN #0 tablet MDD 3 12/31/16 Metoprolol Tartrate [Lopressor -] 50 mg PO BID #60 tablet 12/31/16 Valsartan [Diovan] 320 mg PO DAILY #30 tablet 12/31/16
[2016-12-31] MEDS: CHLORTHALIDONE 25 MG TABLET PO SCH (09:54)
[2016-12-31] MEDS: RANITIDINE HCL 150 MG TABLET (FP) PO SCH (09:54)
[2016-12-31] MEDS: METOPROLOL TARTRATE 50 MG TABLET (FP) PO SCH (09:54)
[2016-12-31] MEDS: hydrALAZINE HCL 25 MG TABLET (FP) PO SCH (09:54)
[2016-12-31] MEDS: VALSARTAN 160 MG TABLET (UD) PO SCH (09:54)
--- NOTE | 2016-12-31 10:47 | PN ---
Progress Note (short form) - Note Progress Note: s: no cp sob palps dizzy o: Vital Signs Period Temp Pulse Resp BP Sys/Mathew Pulse Ox Last 24 Hr 98.1 F-98.8 F 74-83 18-20 128-161/66-97 97-97 nad no jvd rrr s1s2 no mrg cta bl nl eff aaox3 no le e/c/c no jaundice diaphoresis Current Medications Generic Name Dose Route Start Last Admin Trade Name Freq PRN Reason Stop Dose Admin Acetaminophen 650 mg 12/27/16 15:10 12/29/16 14:18 Tylenol - PO 650 mg Q6H PRN Administration FEVER OR PAIN Chlorthalidone 25 mg 12/30/16 10:00 12/31/16 09:54 Hygroton - PO 25 mg DAILY SHAWN Administration Haloperidol 2 mg 12/30/16 07:40 Haldol Injection (Fast Acting) - IM Q4H PRN AGITATION Hydralazine HCl 25 mg 12/29/16 22:00 12/31/16 09:54 Apresoline - PO 25 mg BID SHAWN Administration Hydralazine HCl 50 mg 12/29/16 17:48 Apresoline - PO Q4H PRN HYPERTENSION Insulin Aspart 1 vial 12/30/16 11:00 12/31/16 06:07 Novolog Vial Sliding Scale - SQ Not Given ACHS [facility] Protocol Levothyroxine Sodium 88 mcg 12/27/16 10:15 12/31/16 06:08 Synthroid - PO 88 mcg DAILY@0700 SHAWN Administration Lorazepam 1 mg 12/30/16 16:24 12/31/16 06:08 Ativan - PO 1 mg TID PRN Administration ANXIETY Metoprolol Tartrate 50 mg 12/29/16 06:45 12/31/16 09:54 Lopressor - PO 50 mg BID SHAWN Administration Ondansetron HCl 4 mg 12/27/16 09:16 12/28/16 18:47 Zofran Injection IVPB 4 mg Q6H PRN Administration NAUSEA Ranitidine HCl 150 mg 12/27/16 10:00 12/31/16 09:54 Zantac - PO 150 mg BID SHAWN Administration Sitagliptin Phosphate 50 mg 12/28/16 07:00 12/31/16 06:08 Januvia - PO 50 mg DAILY@0700 SHAWN Administration Valsartan 320 mg 12/30/16 10:00 12/31/16 09:54 Diovan - PO 320 mg DAILY SHAWN Administration CBC, BMP 12/30/16 06:30 12/30/16 06:30 ecg 12/25/16: sinus tachy, nl intervals, no ischemic changes ecg 12/29/16: sr, nl intervals, no ischemic changes echo 12/2016: nl lv/rv, g1dd, mild-mod ar, mild mr, mild tr, mild-mod pr, mod ao root dil cxr: clear lungs a/p: 66 f hx dm, htn, hld, depression/anxiety, hypothyroid, who came to ER for ams. ams: -evaluated by neuro and psych, seems issues mostly psych related at this point htn: -elevated, likely anxiety contributing -changed hctz 12.5 to chlorthalidone 25mg (twice as potent as hctz) -changed losartan to valsartan 320mg -continued metoprolol 50 bid -started hydralazine 25 bid -bp improved today after above changes, cont same, monitor as outpt and can uptitrate hydralazine if needed -ordered plasma renin activity and aldosterone levels (which will need to be followed up as outpt as results take several days) -given dilated aortic root with mild-moderate AI, this suggests pt's bp is chronically suboptimally controlled-->will need close outpt f/u of bp in future hld: -stable, diet control hypothyroid: -stable on synthroid, tsh wnl mild valvular dz (mr, tr, pr, ar): -stable, outpt monitoring and bp control
[2016-12-31 11:56] VITALS: BP 121/77; PULSE 88; TEMP 98.7
[2017-01-02 16:13] LABS: RENIN ACTIVITY(PRA) < 0.167 ng/mL/hr (0.167-5.380)
== END 2016-12-31 12:35 | disposition home health service (06) | DRG 880 ==
LOC: JER 14:33 → JERBED 20:47 → JICU 22:25 → J6S 12-27 14:37
PROVIDERS: ADMIT Family Medicine; ATTEND Family Medicine
PROC: 009U3ZX Drainage of Spinal Canal, Percutaneous Approach, Diagnostic (ICD-10-PCS; principal; 2016-12-26)
DX: F41.8 Other specified anxiety disorders (principal); E87.1 Hypo-osmolality and hyponatremia; I16.1 Hypertensive emergency; I10 Essential (primary) hypertension; E78.5 Hyperlipidemia, unspecified; E11.42 Type 2 diabetes mellitus with diabetic polyneuropathy; F41.0 Panic disorder [episodic paroxysmal anxiety]; J44.9 Chronic obstructive pulmonary disease, unspecified; K58.8 Other irritable bowel syndrome; E03.9 Hypothyroidism, unspecified; M19.90 Unspecified osteoarthritis, unspecified site; R10.84 Generalized abdominal pain; K80.80 Other cholelithiasis without obstruction; R45.1 Restlessness and agitation; G24.9 Dystonia, unspecified; R50.9 Fever, unspecified; I08.3 Combined rheumatic disorders of mitral, aortic and tricuspid valves; K13.79 Other lesions of oral mucosa; Z88.0 Allergy status to penicillin; Z76.5 Malingerer [conscious simulation]
CPT/HCPCS: 36415; 70450-TC; 70551-TC; 71010-TC; 74000-TC; 80053; 80307; 81003; 81015; 82088; 82945; 83605; 83735; 84100; 84157; 84244; 84439; 84443; 84481; 84484; 85025; 85027; 85610; 85730; 86592; 87040; 87070; 87086; 87102; 87116; 87205; 87206; 87210; 87252; 87324; 87449; 87529; 89050; 90670; 93005; 93010; 93306-TC; 97116-GP; 97161-GP; 99283-25; G0480; J8540

== ENCOUNTER 2017-01-12 20:23 | Inpatient (IN) | payer OTHER, BC ==
[2017-01-12] MEDS ORDERED: ONDANSETRON 4 MG TABLET PO ONE (20:39)
--- NOTE | 2017-01-12 21:03 | PDOC ---
History of Present Illness - General Chief Complaint: Altered Mental Status Stated Complaint: AMS Time Seen by Provider: 01/12/17 20:39 History Source: Patient Exam Limitations: Clinical Condition - History of Present Illness Initial Comments: 01/12/17 21:03 Patient is a 66 y.o. female with a PMH HTN, HLD, NIDDM and COPD who presents to our ED today via family for AMS. Family notes patient had an unwitnessed fall this morning when getting out of bed though patient denies any head trauma. Patient's family notes patient has been unresponsive - her eyes remained open, however she would give monosyllabic answers. Patient's family also notes patient has had 1 episode of vomiting (non-bloody) today. Of note, patient was recently hospitalized 12/25-01/01 at which time CVA was ruled out and patient was noted to have malingering and anxiety. Patient's family notes similarities to her presentation today and last month, however also notes that patient had an increased in her hypertension medications since her last admission and that they believe this is the source of her altered mental status. Patient denies any chest pain, shortness of breath or abdominal pain. Past History - Past Medical History Allergies/Adverse Reactions: Allergies Allergy/AdvReac Type Severity Reaction Status Date / Time clindamycin Allergy Verified 01/12/17 21:31 epinephrine Allergy Verified 01/12/17 21:31 ibuprofen Allergy palpatation Verified 01/12/17 21:31 s Penicillins Allergy Verified 01/12/17 21:31 Sulfa (Sulfonamide Allergy Verified 01/12/17 21:31 Antibiotics) tramadol Allergy Verified 01/12/17 21:31 Home Medications: Ambulatory Orders Levothyroxine [Synthroid -] 88 mcg PO DAILY@0700 #30 tablet 11/02/16 Lorazepam [Ativan] 0.5 mg PO TID PRN #0 tablet MDD 3 11/02/16 Sitagliptin Phosphate [Januvia] 50 mg PO DAILY #30 tab 11/02/16 Acetaminophen [Tylenol .Regular Strength -] 650 mg PO Q6H PRN #0 tablet Levothyroxine [Synthroid -] 88 mcg PO DAILY@0700 tablet 12/28/16 Mupirocin Ointment [Bactroban Ointment (For Decolonization) -] 1 applic NS BID applic 12/28/16 Sitagliptin Phosphate [Januvia -] 50 mg PO DAILY@0700 tablet 12/28/16 Chlorthalidone [Hygroton -] 25 mg PO DAILY #30 tablet 12/31/16 Hydralazine HCl [Apresoline -] 25 mg PO BID #60 tablet 12/31/16 Lorazepam [Ativan] 1 mg PO TID PRN #0 tablet MDD 3 12/31/16 Metoprolol Tartrate [Lopressor -] 50 mg PO BID #60 tablet 12/31/16 Valsartan [Diovan] 320 mg PO DAILY #30 tablet 12/31/16 COPD: Yes Diabetes: Yes GI Disorders: Yes (Diverticulitis, Colitis, Stool c-diff in the past) Disorders: Yes (pelvic, urethral pain, frequency) HTN: Yes Hypercholesterolemia: Yes Liver Disease: Yes (Hepatitis) Psychiatric Problems: Yes (ANXIETY) Seizures: No Thyroid Disease: Yes (Hyopthyroidism) - Surgical History Cholecystectomy: Yes - Immunization History Immunization Up to Date: Yes - Psycho/Social/Smoking Cessation Hx Anxiety: Yes Suicidal Ideation: No Smoking History: Never smoked Have you smoked in the past 12 months: No Information on smoking cessation initiated: No Hx Alcohol Use: No Drug/Substance Use Hx: No Substance Use Type: None Hx Substance Use Treatment: No *Physical Exam - Vital Signs Last Vital Signs Temp Pulse Resp BP Pulse Ox 98 F 62 19 111/61 96 01/12/17 21:01 01/12/17 21:01 01/12/17 21:01 01/12/17 21:01 01/12/17 21:01 - Physical Exam General Appearance: Yes: Nourished HEENT: positive: EOMI, ANDRE, Normal Voice Neck: positive: Trachea midline, Supple Respiratory/Chest: positive: Lungs Clear, Normal Breath Sounds Cardiovascular: positive: Regular Rhythm, Regular Rate, S1, S2 Gastrointestinal/Abdominal: positive: Soft Extremity: positive: Normal Capillary Refill, Normal Inspection Integumentary: positive: Normal Color, Diaphoresis Neurologic: positive: Alert, Depressed Affect Medical Decision Making - Medical Decision Making 01/12/17 21:41 Patient is an 66 y.o. female with a PMH of HTN, NIDDM, COPD, Hypothyroidism and Malingering who presents via family for AMS. Patient did have a mechanical unwitnessed fall today. Differential DDx includes Brain Bleed vs. UTI vs. Electrolyte Imbalance vs. Malingering PLAN 1. CT Head 2. UA, Urine Toxicology 3. CMP, CBC 4. EKG 5. TSH, FT4 01/12/17 21:54 Patient signed out to Dr. Margarito Everett (Attending) *DC/Admit/Observation/Transfer Diagnosis at time of Disposition: Alteration in activity - Referrals Referrals: Sherrill Donohue MD [Primary Care Provider] -
[2017-01-12] MEDS ORDERED: SODIUM CHLORIDE 0.9% 1000 ML INFUS.BAG IV ONE (21:08)
--- NOTE | 2017-01-12 21:08 | PDOC ---
Attending Attestation - Resident Resident Name: Taisha Shelton - ED Attending Attestation I have performed the following: I have examined & evaluated the patient, The case was reviewed & discussed with the resident, I agree w/resident's findings & plan, Exceptions are as noted - HPI HPI: 01/12/17 21:06 Pt brought in by family because of being out of it. Possible of unwitnessed fall today. - Physicial Exam PE: 01/12/17 21:08 *Physical Exam General Appearance: Yes: disheveled. No: Apparent Distress, Intoxicated HEENT: positive: EOMI, ANDRE, Normal ENT Inspection, Normal Voice, TMs Normal, Pharynx Normal. negative: Pale Conjunctivae, Photophobia, Scleral Icterus (R), Scleral Icterus (L) Neck: positive: Trachea midline, Normal Thyroid, Supple. negative: Tender, Rigid, Carotid bruit, Stridor, Lymphadenopathy (R), Lymphadenopathy (L), Thyromegaly Respiratory/Chest: positive: Lungs Clear, Normal Breath Sounds. negative: Chest Tender, Respiratory Distress, Accessory Muscle Use, Labored Respiration, RES, Crackles, Rales, Rhonchi, Stridor, Wheezing, Dullness Cardiovascular: positive: Regular Rhythm, Regular Rate, S1, S2. negative: Edema , JVD, Murmur, Bradycardia, Tachycardia Gastrointestinal/Abdominal: positive: Normal Bowel Sounds, Flat, Soft. negative : Tender, Organomegaly, Pulsatile Mass, Increased Bowel Sounds, Decreased BS, Distended, Guarding, Rebound, Hernia, Hepatomegaly, Spleenomegaly Lymphatic: negative: Adenopathy, Tenderness Musculoskeletal: positive: Normal Inspection. negative: CVA Tenderness, Decreased Range of Motion Extremity: positive: Normal Capillary Refill, Normal Inspection, Normal Range of Motion, Pelvis Stable. negative: Tender, Pedal Edema, Swelling, Erythema Integumentary: positive: Normal Color, Dry, Warm. 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 negative: EOM Palsy, Facial Droop, Sensory Deficit - Medical Decision Making 01/13/17 00:05 Pt will be admitted for electrolyte imbalance 01/13/17 00:45 Dr. Donohue called me last night to inform me that the pt was discharged from his practice. He will not be taking pt for admission. 01/13/17 01:[address] Perez (nephrology) states to repeat labs after the two liter of NS she received, then the sodium deficit can be calculated. Discharge Disposition - Diagnosis Hyponatremia, Hypokalemia, Altered mental status, unspecified - Discharge Dispostion Condition at time of disposition: Guarded Last Admission D/C Date: 12/31/16 Admit: Yes - Referrals - Patient Instructions - Post Discharge Activity
[2017-01-12] MEDS ORDERED: ONDANSETRON *ODT* 4 MG TABLET ONE (21:09)
[2017-01-12 22:19] LABS: BASOPHIL 0.2 % (0-2.0); MCH 31.7 pg (25.7-33.7); MCHC 37.3 g/dl (32.0-36.0); MEAN CELL VOLUME 85.1 fl (80-96); MEAN PLT VOLUME 7.1 fl (7.5-11.1); NEUTROPHILS 84.8 % (42.8-82.8); PLATELET COUNT 473 K/MM3 (134-434); RDW 12.9 % (11.6-15.6); WHITE BLOOD COUNT 13.9 K/mm3 (4.0-10.0)
[2017-01-12 22:36] LABS: ANION GAP 15 (8-16); BILIRUBIN,TOTAL 1.3 mg/dL (0.2-1.0); CALCIUM 9.3 mg/dL (8.5-10.1); CO2 25 mmol/L (21-32); CREATININE 0.6 mg/dL (0.55-1.02); GLUCOSE,RANDOM 154 mg/dL (74-106); SGOT/AST 40 U/L (15-37); SGPT/ALT 35 U/L (12-78); TOT PROT 7.6 g/dl (6.4-8.2)
[2017-01-12 22:39] LABS: ALK PHOS 112 U/L (45-117)
[2017-01-12] MEDS ORDERED: SODIUM CHLORIDE 1,000 ML IV STA (22:47)
[2017-01-12] MEDS ORDERED: POTASSIUM CHLORIDE TABS 20 MEQ TABLET.ER (FP) PO ONE ×2 (22:47→22:55)
[2017-01-12] MEDS ORDERED: POTASSIUM CHLORIDE ORAL LIQUID 20 MEQ/15 ML ONE (22:59)
[2017-01-12 23:45] LABS: PLATELET COMMENT2 NO CLOTTING DETECTED; PLATELET ESTIMATE SLT INCREASED (NORMAL)
[2017-01-13 00:07] LABS: URINE APPEARANCE CLEAR; URINE BILIRUBIN NEGATIVE (NEGATIVE); URINE BLOOD NEGATIVE (NEGATIVE); URINE COLOR YELLOW; URINE GLUCOSE (UA) 3+ (NEGATIVE); URINE KETONE 1+ (NEGATIVE); URINE LEUK ESTERASE NEGATIVE (NEGATIVE); URINE NITRITE NEGATIVE (NEGATIVE); URINE UROBILINOGEN NEGATIVE mg/dL (0.2-1.0)
[2017-01-13 00:09] LABS: URINE PROTEIN 2+ (NEGATIVE)
[2017-01-13 00:11] LABS: URINE HYALINE CAST 1 /lpf; URINE MUCUS RARE; URINE RBC 5 /hpf (0-3); URINE WBC 1 /hpf (3-5)
--- NOTE | 2017-01-13 01:25 | PN ---
Teaching Attending Note Name of Resident: Orlin Olivera ATTENDING PHYSICIAN STATEMENT I saw and evaluated the patient. I reviewed the resident's note and discussed the case with the resident. I agree with the resident's findings and plan as documented. SUBJECTIVE: 66 yo F with pmhx of HTN, HLD, NIDDM, and COPD. hypothyriodism, hx. of C.Diff, IBS, who presents with AMS. Family states that she was getting out of bed this am, when she fell. Also notes 1 episode of vomiting. When they spoke to her she was mumbleing and unable to give answers. Family states she increased her Anti-Htn meds. As per Family she was started on Chlorothalidone recently. OBJECTIVE: Physical: VS: Vital Signs Period Temp Pulse Resp BP Sys/Mathew Pulse Ox Last 24 Hr 98 F 62-89 19-20 111-157/61-70 96 GEN: NAD, AA0 X1 (person) HEENT: NCAT, PERRL, throat without erythema or exudates CARD: RRR S1, S2 RESP: CTAB ABD: BSx4, NTD to palpation EXT: - C/C/E CBCD WBC 13.9 K/mm3 (4.0-10.0) H D 01/12/17 21:45 RBC 4.36 M/mm3 (3.60-5.2) 01/12/17 21:45 Hgb 13.8 GM/dL (10.7-15.3) 01/12/17 21:45 Hct 37.1 % (32.4-45.2) 01/12/17 21:45 MCV 85.1 fl (80-96) 01/12/17 21:45 MCHC 37.3 g/dl (32.0-36.0) H 01/12/17 21:45 RDW 12.9 % (11.6-15.6) 01/12/17 21:45 Plt Count 473 K/MM3 (134-434) H D 01/12/17 21:45 MPV 7.1 fl (7.5-11.1) L 01/12/17 21:45 CMP Sodium 108 mmol/L (136-145) L* D 01/12/17 21:45 Potassium 3.1 mmol/L (3.5-5.1) L 09/05/17 21:45 Chloride 68 mmol/L (98-107) L D 01/12/17 21:45 Carbon Dioxide 25 mmol/L (21-32) 01/12/17 21:45 Anion Gap 15 (8-16) 01/12/17 21:45 BUN 17 mg/dL (7-18) D 01/12/17 21:45 Creatinine 0.6 mg/dL (0.55-1.02) 01/12/17 21:45 Creat Clearance w eGFR > 60 (>60) 01/12/17 21:45 Calcium 9.3 mg/dL (8.5-10.1) 01/12/17 21:45 Total Bilirubin 1.3 mg/dL (0.2-1.0) H D 01/12/17 21:45 AST 40 U/L (15-37) H D 01/12/17 21:45 ALT 35 U/L (12-78) D 01/12/17 21:45 Alkaline Phosphatase 112 U/L (45-117) 01/12/17 21:45 Total Protein 7.6 g/dl (6.4-8.2) 01/12/17 21:45 Albumin 4.0 g/dl (3.4-5.0) 01/12/17 21:45 Home Medications Medication Instructions Recorded Levothyroxine [Synthroid -] 88 mcg PO DAILY@0700 #30 tablet 11/02/16 Lorazepam [Ativan] 0.5 mg PO TID PRN #0 tablet MDD 3 11/02/16 Sitagliptin Phosphate [Januvia] 50 mg PO DAILY #30 tab 11/02/16 Acetaminophen [Tylenol .Regular 650 mg PO Q6H PRN #0 tablet 12/28/16 Strength -] Levothyroxine [Synthroid -] 88 mcg PO DAILY@0700 tablet 12/28/16 Mupirocin Ointment [Bactroban 1 applic NS BID applic 12/28/16 Ointment (For Decolonization) -] Sitagliptin Phosphate [Januvia -] 50 mg PO DAILY@0700 tablet 12/28/16 Chlorthalidone [Hygroton -] 25 mg PO DAILY #30 tablet 12/31/16 Hydralazine HCl [Apresoline -] 25 mg PO BID #60 tablet 12/31/16 Lorazepam [Ativan] 1 mg PO TID PRN #0 tablet MDD 3 12/31/16 Metoprolol Tartrate [Lopressor -] 50 mg PO BID #60 tablet 12/31/16 Valsartan [Diovan] 320 mg PO DAILY #30 tablet 12/31/16 CXR- Pending HEAD CT- Negative (Pre-[place] Read) ASSESSMENT AND PLAN: 66 yo F with pmhx of HTN, HLD, NIDDM, recently admitted for AMS who presents with AMS and found to be severely hyponatremic 1.) AMS- Most likely due to severe hyponatremia - Nephrology consulted and recc NS @ 100/hr, as pt. is having no active seizures does not need 3%hypertonic saline at this time - Fluid Restrict - Chem checks q 3 hrs - Neuro checks q 2 hrs - check U/Serum osm/lytess - HOLD Chlorothalidone as most likely cause - Check TSH, FT4 - FU Utox - CT Head negative - NPO until AMS resolved 2.) HTN - Hold PO meds for now, as pt. has AMS - HOLD Chlorothalidone 3.) NIDDM - FS - RAISS 4.) Leukocytosis - Most likley reactive - Negative UA, FU CXR 5.) Dvt Ppx - Heparin 5000 q 8 F: As above E: Hypokalemia/Hypomagnesemia- Replete- Chk. EKG N: NPO Place in ICU CC Time: 40 minutes Case discussed with Silk Screener
[2017-01-13 02:12] LABS: ALBUMIN 3.4 g/dl (3.4-5.0); ALK PHOS 98 U/L (45-117); ANION GAP 15 (8-16); BILIRUBIN,TOTAL 1.1 mg/dL (0.2-1.0); CALCIUM 8.4 mg/dL (8.5-10.1); CO2 21 mmol/L (21-32); CREATININE 0.6 mg/dL (0.55-1.02); GLUCOSE,RANDOM 151 mg/dL (74-106); MAGNESIUM 1.5 mg/dL (1.8-2.4); SGOT/AST 37 U/L (15-37); SGPT/ALT 31 U/L (12-78); TOT PROT 6.5 g/dl (6.4-8.2)
--- NOTE | 2017-01-13 02:23 | CONSULT ---
Consult Consult Specialty:: Pulm/CCM Reason for Consultation:: AMS in setting of hyponatremia - History of Present Illness Chief Complaint: AMS History of Present Illness: 66 year old F with pmh of anxiety, HTN, HLD, NIDDM, and COPD presenting with altered mental status.Found to be hyponatremic with Na 108. She was given 2L NS bolus and transferred to ICU for further management As per family and previous notes pt has had decreased responsiveness over the past few days and was significantly altered this afternoon. She was hospitalized about 3 weeks ago for similar symptoms. Extensive w/u including LP was unremarkable. AMS thought to be d/t hypertensive urgency re SBP>200. She was discharged on ~3 additional antihypertensives including Chlorthalidone, valsartan. Family stated that pt was compliant with her meds and denied excessive po fluid intake. They reported bilious emesis x2 but denied fever, chills, dizziness, SOB, diarrhea. In ED VSS T98, HR 68, BP 111/61, O2 sat 96% on RA. CT head unremarkable. Labs notable for Na 108, K 3.1, Cl 68. ECG NSR. 2L NS bolus given. K repleted. Nephrology consulted. In ICU VS stable, oriented x2, able to follow simple commands but mental status waxing and waning. Na 109 after 2L NS. Nephrology recommended continue NS IVF @ 100cc/h and check BMP q3-4hrs. 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 exposure), Pneumonia Gastrointestinal: Yes: Other (IBS) Hepatobiliary: Yes: Cholelithiasis Renal/: Yes: UTI Infectious Disease: Yes: Other (refractory uti) Psych: Yes: Anxiety, Depression, Panic (RECENT ADMISSION TO PSYCH FACILITY???) Musculoskeletal: Yes: Osteoarthritis (cspine) Endocrine: Yes: Diabetes Mellitus (diabetic neuropathy), Other (HYPONATREMIA ( RECENT ADMISSION TO [facility] FOR SAME)) Additional Medical History: h/o scarred urethra. s/p dilation. 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 History of Recent Travel: No Home Medications - Allergies Allergies/Adverse Reactions: Allergies Allergy/AdvReac Type Severity Reaction Status Date / Time clindamycin Allergy Verified 01/12/17 21:31 epinephrine Allergy Verified 01/12/17 21:31 ibuprofen Allergy palpatation Verified 01/12/17 21:31 s Penicillins Allergy Verified 01/12/17 21:31 Sulfa (Sulfonamide Allergy Verified 01/12/17 21:31 Antibiotics) tramadol Allergy Verified 01/12/17 21:31 - Home Medications Home Medications: Ambulatory Orders Levothyroxine [Synthroid -] 88 mcg PO DAILY@0700 #30 tablet 11/02/16 Lorazepam [Ativan] 0.5 mg PO TID PRN #0 tablet MDD 3 11/02/16 Sitagliptin Phosphate [Januvia] 50 mg PO DAILY #30 tab 11/02/16 Acetaminophen [Tylenol .Regular Strength -] 650 mg PO Q6H PRN #0 tablet Levothyroxine [Synthroid -] 88 mcg PO DAILY@0700 tablet 12/28/16 Mupirocin Ointment [Bactroban Ointment (For Decolonization) -] 1 applic NS BID applic 12/28/16 Sitagliptin Phosphate [Januvia -] 50 mg PO DAILY@0700 tablet 12/28/16 Chlorthalidone [Hygroton -] 25 mg PO DAILY #30 tablet 12/31/16 Hydralazine HCl [Apresoline -] 25 mg PO BID #60 tablet 12/31/16 Lorazepam [Ativan] 1 mg PO TID PRN #0 tablet MDD 3 12/31/16 Metoprolol Tartrate [Lopressor -] 50 mg PO BID #60 tablet 12/31/16 Valsartan [Diovan] 320 mg PO DAILY #30 tablet 12/31/16 Family Disease History - Family Disease History Family Disease History: [place]: Father ( suddenly at age 48 -> no autopsy), Other: Mother ( of MRSA in [facility] rm 529), Brother (sarcoidosis age 32) Review of Systems Unable to obtain ROS, reason: Pt somnolent Physical Exam Vital Signs: Vital Signs Temperature 98 F 01/12/17 21:01 Pulse Rate 89 01/13/17 00:34 Respiratory Rate 20 01/13/17 00:34 Blood Pressure 157/70 01/13/17 00:34 O2 Sat by Pulse Oximetry (%) 96 01/12/17 21:01 Constitutional: Yes: No Distress, Calm, Obese Eyes: Yes: Other (Pupils equal, slow response to light) HENT: Yes: Atraumatic Neck: Yes: WNL, Trachea Midline Cardiovascular: Yes: Regular Rate and Rhythm Respiratory: Yes: WNL, CTA Bilaterally Gastrointestinal: Yes: Soft, Abdomen, Obese, Other (Non tender) Musculoskeletal: Yes: WNL Extremities: Yes: WNL Edema: No Peripheral Pulses WNL: Yes Integumentary: Yes: WNL Neurological: Yes: Other (Somnolent, Oriented x1; responding appropriately to simple commands) Labs: CBC, BMP 01/13/17 01:30 CBC,CMP WBC 13.9 K/mm3 (4.0-10.0) H D 01/12/17 21:45 RBC 4.36 M/mm3 (3.60-5.2) 01/12/17 21:45 Hgb 13.8 GM/dL (10.7-15.3) 01/12/17 21:45 Hct 37.1 % (32.4-45.2) 01/12/17 21:45 MCV 85.1 fl (80-96) 01/12/17 21:45 MCH 31.7 pg (25.7-33.7) 01/12/17 21:45 MCHC 37.3 g/dl (32.0-36.0) H 01/12/17 21:45 RDW 12.9 % (11.6-15.6) 01/12/17 21:45 Plt Count 473 K/MM3 (134-434) H D 01/12/17 21:45 MPV 7.1 fl (7.5-11.1) L 01/12/17 21:45 Neutrophils % 84.8 % (42.8-82.8) H D 01/12/17 21:45 Lymphocytes % 8.7 % (8-40) D 01/12/17 21:45 Monocytes % 6.3 % (3.8-10.2) 01/12/17 21:45 Eosinophils % 0.0 % (0-4.5) D 01/12/17 21:45 Basophils % 0.2 % (0-2.0) 01/12/17 21:45 Platelet Estimate Slt increased (NORMAL) 01/12/17 21:45 Platelet Comment No clumping noted 01/12/17 21:45 Platelet Comment No clotting detected 01/12/17 21:45 RBC Morphology Appears normal 01/12/17 21:45 Sodium 109 mmol/L (136-145) L* 01/13/17 01:30 Potassium 3.3 mmol/L (3.5-5.1) L 01/13/17 01:30 Chloride 73 mmol/L (98-107) L 01/13/17 01:30 Carbon Dioxide 21 mmol/L (21-32) 01/13/17 01:30 Anion Gap 15 (8-16) 01/13/17 01:30 BUN 18 mg/dL (7-18) 01/13/17 01:30 Creatinine 0.6 mg/dL (0.55-1.02) 01/13/17 01:30 Creat Clearance w eGFR > 60 (>60) 01/13/17 01:30 Random Glucose 151 mg/dL (74-106) H 01/13/17 01:30 Calcium 8.4 mg/dL (8.5-10.1) L 01/13/17 01:30 Magnesium 1.5 mg/dL (1.8-2.4) L 01/13/17 01:30 Total Bilirubin 1.1 mg/dL (0.2-1.0) H 01/13/17 01:30 AST 37 U/L (15-37) 01/13/17 01:30 ALT 31 U/L (12-78) 01/13/17 01:30 Alkaline Phosphatase 98 U/L (45-117) 01/13/17 01:30 Total Protein 6.5 g/dl (6.4-8.2) 01/13/17 01:30 Albumin 3.4 g/dl (3.4-5.0) 01/13/17 01:30 Lipase 216 U/L (73-393) 01/13/17 01:30 Problem List - Problems (1) Altered mental status, unspecified Code(s): R41.82 - ALTERED MENTAL STATUS, UNSPECIFIED (2) Hypokalemia Code(s): E87.6 - HYPOKALEMIA (3) Hyponatremia Code(s): E87.1 - HYPO-OSMOLALITY AND HYPONATREMIA Assessment/Plan 66 year old F with pmh of anxiety, HTN, HLD, NIDDM, and COPD who was transferred to ICU with altered mental status in the setting of severe hyponatremia possible d/t adverse reaction to diuretic (chlorthalidone). Plan: -Nephrology consult-recs appreciated -Cont NS IVF @100cc/h -Monitor BMPq3-4hrs/ -Goal Na 120 after 24hrs -Hold free water -Neuro checks -Safety precautions re disorientation -Aspiration precautions -HD monitor -Antihypertensives as needed -SCDs
[2017-01-13] MEDS ORDERED: MAGNESIUM SULF 50% (8.12 MEQ/2 ML-1 GM VIAL) IVPB ONE (02:28)
--- NOTE | 2017-01-13 02:29 | MSN ---
Admitting History and Physical - Admission Chief Complaint: AMS History of Present Illness: History obtained from family, patient has altered mental status and is poor historian. Pt is a 66 y/o female w hx of severe anxiety, HTN, HLD, and NIDDM presenting for evaluation of altered mental status over the past several days. Pt was admitted 3 weeks ago for similar symptoms as well as malignant hypertension and had a no acute findings on neuro/cardio workup, cause was believed to be anxiety /malingering. Pt's BP medications were changed including changing hctz 12.5 daily to chlorthalidone 25 daily. Pt did not see PCP or cardiology for follow- up afterwards as advised at discharge. Pt's family states that she has been less and less responsive over the past few days and more confused, leading them to bring her to the ER tonight. In the ER she was found to have very low sodium of 108 as well as other electrolyte abnormalities. They state that she has been taking her medications as prescribed, has not been drinking excess fluids, has not taken any drugs other than those prescribed to her. She had 3 episodes of vomiting, small volume and bilious, over the last 3 days, but no diarrhea. No seizures. 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 exposure), Pneumonia Gastrointestinal: Yes: Other (IBS) Hepatobiliary: Yes: Cholelithiasis Renal/: Yes: UTI Infectious Disease: Yes: Other (refractory uti) Psych: Yes: Anxiety, Depression, Panic (RECENT ADMISSION TO PSYCH FACILITY???) Musculoskeletal: Yes: Osteoarthritis (cspine) Endocrine: Yes: Diabetes Mellitus (diabetic neuropathy), Other (HYPONATREMIA ( RECENT ADMISSION TO [facility] FOR SAME)) - Past Surgical History Past Surgical History: Yes: Cholecystectomy (laparoscopic), - Smoking History Smoking history: Never smoked Have you smoked in the past 12 months: No - Alcohol/Substance Use Hx Alcohol Use: No History of Substance Use: reports: None - Social History ADL: Independent 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, 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 History of Recent Travel: No Home Medications - Allergies Allergies/Adverse Reactions: Allergies Allergy/AdvReac Type Severity Reaction Status Date / Time clindamycin Allergy Verified 01/12/17 21:31 epinephrine Allergy Verified 01/12/17 21:31 ibuprofen Allergy palpatation Verified 01/12/17 21:31 s Penicillins Allergy Verified 01/12/17 21:31 Sulfa (Sulfonamide Allergy Verified 01/12/17 21:31 Antibiotics) tramadol Allergy Verified 01/12/17 21:31 - Home Medications Home Medications: Ambulatory Orders Levothyroxine [Synthroid -] 88 mcg PO DAILY@0700 #30 tablet 11/02/16 Lorazepam [Ativan] 0.5 mg PO TID PRN #0 tablet MDD 3 11/02/16 Sitagliptin Phosphate [Januvia] 50 mg PO DAILY #30 tab 11/02/16 Acetaminophen [Tylenol .Regular Strength -] 650 mg PO Q6H PRN #0 tablet Levothyroxine [Synthroid -] 88 mcg PO DAILY@0700 tablet 12/28/16 Mupirocin Ointment [Bactroban Ointment (For Decolonization) -] 1 applic NS BID applic 12/28/16 Sitagliptin Phosphate [Januvia -] 50 mg PO DAILY@0700 tablet 12/28/16 Chlorthalidone [Hygroton -] 25 mg PO DAILY #30 tablet 12/31/16 Hydralazine HCl [Apresoline -] 25 mg PO BID #60 tablet 12/31/16 Lorazepam [Ativan] 1 mg PO TID PRN #0 tablet MDD 3 12/31/16 Metoprolol Tartrate [Lopressor -] 50 mg PO BID #60 tablet 12/31/16 Valsartan [Diovan] 320 mg PO DAILY #30 tablet 12/31/16 Family Disease History - Family Disease History Family Disease History: [place]: Father ( suddenly at age 48 -> no autopsy), Other: Mother ( of MRSA in [facility] rm 529), Brother (sarcoidosis age 32) Review of Systems Unable to obtain ROS, reason: Pt is stuporous Physical Examination Vital Signs: Vital Signs Temperature 98 F 01/12/17 21:01 Pulse Rate 89 01/13/17 00:34 Respiratory Rate 20 01/13/17 00:34 Blood Pressure 157/70 01/13/17 00:34 O2 Sat by Pulse Oximetry (%) 96 01/12/17 21:01 Constitutional: Yes: Well Nourished, Other (Stuporous) Eyes: Yes: WNL, Conjunctiva Clear, EOM Intact HENT: Yes: WNL, Atraumatic, Normocephalic Neck: Yes: WNL, Supple, Trachea Midline Cardiovascular: Yes: WNL, Regular Rate and Rhythm. No: Bradycardia, Tachycardia , Gallop, Murmur, Rub Respiratory: Yes: WNL, Regular, CTA Bilaterally. No: Diminished, Rales, Rhonchi , Stridor, Wheezes Gastrointestinal: Yes: WNL, Normal Bowel Sounds, Soft Extremities: Yes: WNL Peripheral Pulses WNL: Yes Neurological: Yes: Confusion, Unresponsive, Weakness, Other (Oriented to self, not to place or time). No: Dysarthria, Facial Droop, Seizure, Tremors ...Motor Strength: WNL Psychiatric: Yes: Other (Unable to assess) Labs: CBC, BMP 01/13/17 01:30 Imaging - Results X-ray: Image Reviewed Assessment/Plan #Hyponatremia - Possibly secondary to diuretic use. - Hold chlorthalidone - AMS improving - Per Dr. Perez, continue NS 75ml/hr, avoid hypertonic saline for now. Last Na showed improvement from 108 to 109. Pt's mental status slightly improved from admission. - Serum and urine osmolarities - Trend BMP q2h. #Metabolic encephalopathy, likely secondary to above - Mental status improving. Neurochecks q4h. #FEN - Hypokalemia (3.1), hypochloremia (68), hypomagnesemia (1.5) KCl given twice in ER. Magnesium repleted. - Trend BMP q2h. #HTN - Hold all po home hypertensives for now. #HLD - Continue home statin #Hypothyroid - Continue synthroid #Anxiety/depression - Hold xanax #DVT Prophylaxis - Heparin 5000 sq TID
[2017-01-13] MEDS ORDERED: SODIUM CHLORIDE 1,000 ML IV SCH ×3 (02:30→03:30)
[2017-01-13 02:45] LABS: ACETONE SERUM NEGATIVE (NEGATIVE)
--- NOTE | 2017-01-13 03:17 | HP ---
CHIEF COMPLAINT: Altered mental status PCP: Dr. Donohue HISTORY OF PRESENT ILLNESS: 66 year old F with pmh of anxiety, HTN, HLD, NIDDM, and COPD presenting with altered mental status. History obtained by family members. Patient has had decreased responsiveness over the past few days and was significantly altered this afternoon prompting them to bring her to the ER. Patient had episodes of non bloody, non bilious emesis. Family states patient has been taking all of her medications as prescribed, has not been drinking excessive amounts of water , denies any drug usage or OTC medications. Patient was admitted to the hospital in the ICU 3 weeks ago for similar symptoms. She underwent an LP that was negative for meningitis. She was found to have malignant HTN and was d/c with new BP meds. She had increased her HCTZ from 12.5 to chlorthalidone 25. ER course was notable for: (1) Na- 108, wbc- 13.9, k- 3.1, cl-68 (2) UA-negative, UTox-pending (3) Head CT- negative per [facility], cxr- pending Recent Travel: denies PAST MEDICAL HISTORY: as per hpi PAST SURGICAL HISTORY: cholecystectomy, Social History: Smoking: denies Alcohol: denies Drugs: denies Family History: Allergies clindamycin Allergy (Verified 01/12/17 21:31) epinephrine Allergy (Verified 01/12/17 21:31) ibuprofen Allergy (Verified 01/12/17 21:31) palpatations Penicillins Allergy (Verified 01/12/17 21:31) Sulfa (Sulfonamide Antibiotics) Allergy (Verified 01/12/17 21:31) tramadol Allergy (Verified 01/12/17 21:31) HOME MEDICATIONS: Home Medications Medication Instructions Recorded Levothyroxine [Synthroid -] 88 mcg PO DAILY@0700 #30 tablet 11/02/16 Lorazepam [Ativan] 0.5 mg PO TID PRN #0 tablet MDD 3 11/02/16 Sitagliptin Phosphate [Januvia] 50 mg PO DAILY #30 tab 11/02/16 Acetaminophen [Tylenol .Regular 650 mg PO Q6H PRN #0 tablet 12/28/16 Strength -] Levothyroxine [Synthroid -] 88 mcg PO DAILY@0700 tablet 12/28/16 Mupirocin Ointment [Bactroban 1 applic NS BID applic 12/28/16 Ointment (For Decolonization) -] Sitagliptin Phosphate [Januvia -] 50 mg PO DAILY@0700 tablet 12/28/16 Chlorthalidone [Hygroton -] 25 mg PO DAILY #30 tablet 12/31/16 Hydralazine HCl [Apresoline -] 25 mg PO BID #60 tablet 12/31/16 Lorazepam [Ativan] 1 mg PO TID PRN #0 tablet MDD 3 12/31/16 Metoprolol Tartrate [Lopressor -] 50 mg PO BID #60 tablet 12/31/16 Valsartan [Diovan] 320 mg PO DAILY #30 tablet 12/31/16 REVIEW OF SYSTEMS-- unable to obtain as patient has AMS PHYSICAL EXAMINATION GENERAL: Awake, stuporous, somnelent, arousable and oriented to self, in no acute distress. HEAD: Normal with no signs of trauma. EYES: Pupils equal, round and reactive to light (diminshed), extraocular movements intact, sclera anicteric, conjunctiva clear. No lid lag. EARS, NOSE, THROAT: Oropharynx clear without exudates. Moist mucous membranes. NECK: Normal range of motion, supple without lymphadenopathy, JVD, or masses. LUNGS: Breath sounds equal, clear to auscultation bilaterally. No wheezes, and no crackles. HEART: Regular rate and rhythm, normal S1 and S2 without murmur, rub or gallop. ABDOMEN: Soft, nontender, not distended, normoactive bowel sounds, no guarding, no rebound, no masses. No hepatomegaly or splenomegaly. MUSCULOSKELETAL: Normal range of motion at all joints. No bony deformities or tenderness. UPPER EXTREMITIES: 2+ pulses, warm, well-perfused. No cyanosis. No clubbing. No peripheral edema. LOWER EXTREMITIES: 2+ pulses, warm, well-perfused. No calf tenderness. No peripheral edema. NEUROLOGICAL: Unable to assess SKIN: Warm, dry, normal turgor, no rashes or lesions noted, normal capillary refill. Laboratory Results - last 24 hr 01/13/17 01/13/17 01:30 01:30 Sodium 109 L* Potassium 3.3 L Chloride 73 L Carbon Dioxide 21 Anion Gap 15 BUN 18 Creatinine 0.6 Creat Clearance w eGFR > 60 Random Glucose 151 H Calcium 8.4 L Magnesium 1.5 L Total Bilirubin 1.1 H AST 37 ALT 31 Alkaline Phosphatase 98 Total Protein 6.5 Albumin 3.4 Lipase 216 Alcohol, Quantitative < 5.0 Acetone, Qual Negative L ASSESSMENT/PLAN: 66 y.o. F with pmh of HTN, HLD, DM, and COPD presenting with AMS. #Metabolic Encephalopathy 2/2 to severe hyponatremia likely 2/2 to thiazide diuretics -Na-108 on admission, repeat 109 -Hold chlorthalidone -Serum osm/urine osm/urine lytes pending -TSH/Free T4/Am cortisol pending -Neuro checks q2 hrs -BMP q 3-4 hrs -Fluid restrict <1L -UTox pending -Continue IVF NS 100 cc/hr. Spoke with Dr. Perez regarding patient, he recommends IVF NS @ 100 cc/hr and re-checking BMP q3-[address] Bal, due to no active seizures, pt does not need hypertonic saline at this time. -Nephrology consulted, Dr. Perez #HTN -Hold chlorthalidone -Hold hydralazine 25 mg po bid -Hold valsartan 320 mg po daily #DM -Hold januvia -BGM achs -ISS achs #Leukocytosis, likely reactive -F/u CXR -UA negative -Follow CBC #FEN/GI -IVF @ 100 cc/hr -repleted Mg, K, Cl -NPO #PPx -Heparin 5000 units sq TID #Dispo -Admit to ICU -Slowly correct sodium Visit type - Emergency Visit Emergency Visit: Yes ED Registration Date: 01/13/17 Care time: The patient presented to the Emergency Department on the above date and was hospitalized for further evaluation of their emergent condition. - New Patient This patient is new to me today: Yes Date on this admission: 01/14/17 - Critical Care Critical Care patient: No
[2017-01-13 03:58] VITALS: BMI 31.9
[2017-01-13] MEDS: LEVOTHYROXINE NA 88 MCG TABLET (FP) PO SCH (06:06)
[2017-01-13] MEDS: HEPARIN NA (PORCINE) 5,000 UNITS/ML 1ML VIAL SQ SCH ×3 (06:06→22:49)
[2017-01-13] MEDS: INSULIN SLIDING SCALE (NOVOLOG) 1 VIAL SQ SCH ×4 (06:11→23:48)
[2017-01-13 06:47] LABS: ALBUMIN 3.4 g/dl (3.4-5.0); ANION GAP 14 (8-16); CALCIUM 8.5 mg/dL (8.5-10.1); CO2 24 mmol/L (21-32); GLUCOSE,RANDOM 133 mg/dL (74-106); SGPT/ALT 31 U/L (12-78)
[2017-01-13 06:50] LABS: ALK PHOS 92 U/L (45-117); BASOPHIL 0.2 % (0-2.0); BILIRUBIN,TOTAL 1.1 mg/dL (0.2-1.0); CREATININE 0.5 mg/dL (0.55-1.02); EOSINOPHIL 0.1 % (0-4.5); MCH 31.3 pg (25.7-33.7); MCHC 36.7 g/dl (32.0-36.0); MEAN CELL VOLUME 85.3 fl (80-96); NEUTROPHILS 80.4 % (42.8-82.8); PLATELET COUNT 371 K/MM3 (134-434); RDW 12.9 % (11.6-15.6); SGOT/AST 35 U/L (15-37); TOT PROT 6.2 g/dl (6.4-8.2)
[2017-01-13] MEDS: KCL 10 MEQ IVPB 100 ML IVPB SCH ×6 (07:53→15:41)
[2017-01-13 08:47] LABS: OSMOLALITY,SERUM 230 mosm/kg (278-305)
[2017-01-13] MEDS ORDERED: KCL 10 MEQ IVPB 100 ML IVPB SCH (09:45)
[2017-01-13] MEDS: MUPIROCIN 2% TOPICAL OINTMENT FOR DECOLONIZATION NS SCH ×2 (09:48→22:50)
[2017-01-13] MEDS ORDERED: VALSARTAN 160 MG TABLET (UD) PO SCH (10:00)
[2017-01-13] MEDS ORDERED: hydrALAZINE HCL 25 MG TABLET (FP) PO SCH (10:00)
[2017-01-13] MEDS ORDERED: HEPARIN NA (PORCINE) 5,000 UNITS/ML 1ML VIAL SQ SCH (10:00)
[2017-01-13] MEDS: METOPROLOL TARTRATE 50 MG TABLET (FP) PO SCH ×2 (10:15→22:49)
--- NOTE | 2017-01-13 12:06 | CONSULT ---
Consult Consult Specialty:: Nephrology Reason for Consultation:: hyponatremia - History of Present Illness Chief Complaint: brought in with fall and s/p change in mental status History of Present Illness: Pt is a 66 year old female with pmhx of hyponatremia, DM, COPD, and HTN who was brought in to the hospital after a fall and change in mental status. I was called to evaluate her for hyponatremia. Pt says she was taking chlorthalidone once or twice per day. She says that she has not been eating much over last 3 to 4 days. She remains confused. She was given two liters of saline in er and her sodium started to improve. She has history of anxiety. She was recently admitted for r/o CVA. She is more awake today than she was last night. - History Source History Provided By: Patient, Medical Record - Past Medical History [employer] ROCK [employer]ER: Yes: Peripheral Neuropathy (diabetic), Seizure (?) Cardio/Vascular: Yes: HTN, Hyperlipdemia Pulmonary: Yes: Asthma, COPD (nonsmoker, childhood aerosolized chem. exposure), Pneumonia Gastrointestinal: Yes: Other (IBS) Hepatobiliary: Yes: Cholelithiasis Renal/: Yes: UTI Infectious Disease: Yes: Other (refractory uti) Psych: Yes: Anxiety, Depression, Panic (RECENT ADMISSION TO PSYCH FACILITY???) Musculoskeletal: Yes: Osteoarthritis (cspine) Endocrine: Yes: Diabetes Mellitus (diabetic neuropathy), Other (HYPONATREMIA ( RECENT ADMISSION TO [facility] FOR SAME)) Additional Medical History: h/o scarred urethra. s/p dilation. 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 History of Recent Travel: No Home Medications - Allergies Allergies/Adverse Reactions: Allergies Allergy/AdvReac Type Severity Reaction Status Date / Time clindamycin Allergy Verified 01/12/17 21:31 epinephrine Allergy Verified 01/12/17 21:31 ibuprofen Allergy palpatation Verified 01/12/17 21:31 s Penicillins Allergy Verified 01/12/17 21:31 Sulfa (Sulfonamide Allergy Verified 01/12/17 21:31 Antibiotics) tramadol Allergy Verified 01/12/17 21:31 - Home Medications Home Medications: Ambulatory Orders Levothyroxine [Synthroid -] 88 mcg PO DAILY@0700 #30 tablet 11/02/16 Lorazepam [Ativan] 0.5 mg PO TID PRN #0 tablet MDD 3 11/02/16 Sitagliptin Phosphate [Januvia] 50 mg PO DAILY #30 tab 11/02/16 Acetaminophen [Tylenol .Regular Strength -] 650 mg PO Q6H PRN #0 tablet Levothyroxine [Synthroid -] 88 mcg PO DAILY@0700 tablet 12/28/16 Mupirocin Ointment [Bactroban Ointment (For Decolonization) -] 1 applic NS BID applic 12/28/16 Sitagliptin Phosphate [Januvia -] 50 mg PO DAILY@0700 tablet 12/28/16 Chlorthalidone [Hygroton -] 25 mg PO DAILY #30 tablet 12/31/16 Hydralazine HCl [Apresoline -] 25 mg PO BID #60 tablet 12/31/16 Lorazepam [Ativan] 1 mg PO TID PRN #0 tablet MDD 3 12/31/16 Metoprolol Tartrate [Lopressor -] 50 mg PO BID #60 tablet 12/31/16 Valsartan [Diovan] 320 mg PO DAILY #30 tablet 12/31/16 Family Disease History - Family Disease History Family Disease History: [place]: Father ( suddenly at age 48 -> no autopsy), Other: Mother ( of MRSA in [facility] rm [id number]), Brother (sarcoidosis age 32) Review of Systems - Review of Systems Constitutional: reports: Malaise Eyes: reports: No Symptoms HENT: reports: No Symptoms Neck: reports: No Symptoms Cardiovascular: reports: No Symptoms Respiratory: reports: No Symptoms Gastrointestinal: reports: Diarrhea Genitourinary: reports: No Symptoms Musculoskeletal: reports: No Symptoms Physical Exam Vital Signs: Vital Signs Temperature 98.2 F 01/13/17 10:00 Pulse Rate 99 H 01/13/17 10:00 Respiratory Rate 24 01/13/17 10:00 Blood Pressure 152/77 01/13/17 10:00 O2 Sat by Pulse Oximetry (%) 96 01/12/17 21:01 Constitutional: Yes: Anxious Eyes: Yes: Conjunctiva Clear HENT: Yes: Atraumatic Cardiovascular: Yes: S1, S2 Respiratory: Yes: CTA Bilaterally Gastrointestinal: Yes: Soft Renal/: Yes: Incontinence Musculoskeletal: Yes: WNL Extremities: Yes: WNL Edema: No Integumentary: Yes: Other (decreased skin turgor) Neurological: Yes: Confusion Labs: CBC, BMP 01/13/17 05:15 Laboratory Tests 12/25/16 12/26/16 12/27/16 22:30 05:15 05:15 Sodium 135 L 134 L 137 12/28/16 12/30/16 01/12/17 08:15 06:30 21:45 Sodium 138 133 L 108 L* D 01/13/17 01/13/17 01/13/17 01:30 05:15 11:50 Sodium 109 L* 112 L* Pending Imaging - Results Chest X-ray: Report Reviewed Problem List - Problems (1) Hyponatremia Code(s): E87.1 - HYPO-OSMOLALITY AND HYPONATREMIA (2) Anxiety Code(s): F41.9 - ANXIETY DISORDER, UNSPECIFIED Assessment/Plan Current Medications Generic Name Dose Route Start Last Admin Trade Name Freq PRN Reason Stop Dose Admin Chlorhexidine Gluconate 1 applic 01/13/17 22:00 Hibiclens For Decolonization - TP HS SHAWN Heparin Sodium (Porcine) 5,000 unit 01/13/17 06:00 01/13/17 06:06 Heparin - SQ 5,000 unit TID SHAWN Administration Sodium Chloride 1,000 mls @ 125 mls/hr 01/13/17 03:30 01/13/17 03:30 Normal Saline - IV 125 mls/hr ASDIR SHAWN Administration Insulin Aspart 1 vial 01/13/17 07:00 01/13/17 12:01 Novolog Vial Sliding Scale - SQ Not Given ACHS [facility] Protocol Levothyroxine Sodium 88 mcg 01/13/17 07:00 01/13/17 06:06 Synthroid - PO Not Given DAILY@0700 SHAWN Metoprolol Tartrate 50 mg 01/13/17 10:00 01/13/17 10:15 Lopressor - PO Not Given BID SHAWN Mupirocin 1 applic 01/13/17 10:00 01/13/17 09:48 Bactroban Ointment (For Decolonization) - NS 01/18/17 09:59 1 applic BID SHAWN Administration Nystatin 1 applic 01/13/17 12:00 Nystop Powder - TP DAILY SHAWN Laboratory Tests 01/12/17 01/13/17 01/13/17 21:45 05:15 05:15 Serum Osmolality 230 L TSH Pending Cortisol AM Sample Pending Urine Osmolality Ur Random Sodium 01/13/17 01/13/17 11:00 11:00 Serum Osmolality TSH Cortisol AM Sample Urine Osmolality Pending Ur Random Sodium Pending Impression 1. hyponatremia 2. HTN 3. anxiety 4. depression 5. diarrhea 6. GERD 7. DM 8. COPD 9. hypothyroidism 10. hypokalemia Plan - sodium is improving with normal saline - repeat bmp now - mental status is improving, she is more awake - stop chlorthalidone, do not recommend using thiazides in the future - cont to monitor sodium closely - keep pt in the ICU - follow up brain ct from last night, report is not in chart - discussed with medical team - repeat potassium is pending - check repeat mag level - discussed with ICU Dr Perez
[2017-01-13 12:28] LABS: ANION GAP 13 (8-16); CALCIUM 8.1 mg/dL (8.5-10.1); CO2 21 mmol/L (21-32); CREATININE 0.5 mg/dL (0.55-1.02); GLUCOSE,RANDOM 171 mg/dL (74-106); MAGNESIUM 1.9 mg/dL (1.8-2.4)
[2017-01-13] MEDS ORDERED: SODIUM CHLORIDE 3% 500 ML IV ONE ×3 (13:09→23:24)
--- NOTE | 2017-01-13 13:16 | PN ---
Physical Exam: SUBJECTIVE: Patient seen and examined. Patient was brought to hospital due to AMS, found to have hyponatremia. Claritza was initialy started on NS, her sr NA improved from 108 to 110, than again decreased to 110 Patient is still AMS, discussed with community organization worker, we will start her on hypertonic saline, Moniot bmp q2h OBJECTIVE: Vital Signs Period Temp Pulse Resp BP Sys/Mathew Pulse Ox Last 24 Hr 97.6 F-98.2 F 62-105 18-25 102-163/53-77 100 GENERAL: The patient is awake, ams HEAD: Normal with no signs of trauma. EYES: PERRL, ENT:nares patent, oropharynx clear without exudates,dry mucous membranes. NECK: Trachea midline, full range of motion, supple. LUNGS: Breath sounds equal, clear to auscultation bilaterally, no wheezes, no crackles, no accessory muscle use. HEART: s1s2 normal ABDOMEN: Soft, nontender, nondistended, normoactive bowel sounds, no guarding, no rebound, EXTREMITIES: 2+ pulses, warm, well-perfused, no edema. NEUROLOGICAL: moving all four limbs rest unobtainable. PSYCH: Normal mood, normal affect. SKIN: Warm, dry Laboratory Results - last 24 hr 01/13/17 01/13/17 01/13/17 01:30 01:30 05:15 WBC 13.0 H RBC 3.94 Hgb 12.3 D Hct 33.6 MCV 85.3 MCH 31.3 MCHC 36.7 H RDW 12.9 Plt Count 371 D MPV 7.0 L Neutrophils % 80.4 Lymphocytes % 8.8 Monocytes % 10.5 H Eosinophils % 0.1 D Basophils % 0.2 Sodium 109 L* Potassium 3.3 L Chloride 73 L Carbon Dioxide 21 Anion Gap 15 BUN 18 Creatinine 0.6 Creat Clearance w eGFR > 60 POC Glucometer Random Glucose 151 H Serum Osmolality Calcium 8.4 L Magnesium 1.5 L Total Bilirubin 1.1 H AST 37 ALT 31 Alkaline Phosphatase 98 Total Protein 6.5 Albumin 3.4 Lipase 216 Free T4 Urine Osmolality Ur Random Sodium Ur Random Potassium Ur Random Chloride Alcohol, Quantitative < 5.0 Acetone, Qual Negative L 01/13/17 01/13/17 01/13/17 05:15 05:40 06:08 WBC RBC Hgb Hct MCV MCH MCHC RDW Plt Count MPV Neutrophils % Lymphocytes % Monocytes % Eosinophils % Basophils % Sodium 112 L* Potassium 2.9 L* Chloride 74 L Carbon Dioxide 24 Anion Gap 14 BUN 16 Creatinine 0.5 L Creat Clearance w eGFR > 60 POC Glucometer [phone] Random Glucose 133 H Serum Osmolality 230 L Calcium 8.5 Magnesium Total Bilirubin 1.1 H AST 35 ALT 31 Alkaline Phosphatase 92 Total Protein 6.2 L Albumin 3.4 Lipase Free T4 Cancelled Urine Osmolality Cancelled Ur Random Sodium Ur Random Potassium Ur Random Chloride Alcohol, Quantitative Acetone, Qual 01/13/17 01/13/17 11:00 11:50 WBC RBC Hgb Hct MCV MCH MCHC RDW Plt Count MPV Neutrophils % Lymphocytes % Monocytes % Eosinophils % Basophils % Sodium 110 L* Potassium 3.1 L Chloride 76 L Carbon Dioxide 21 Anion Gap 13 BUN 16 Creatinine 0.5 L Creat Clearance w eGFR POC Glucometer Random Glucose 171 H D Serum Osmolality Calcium 8.1 L Magnesium 1.9 D Total Bilirubin AST ALT Alkaline Phosphatase Total Protein Albumin Lipase Free T4 Urine Osmolality Ur Random Sodium 35 Ur Random Potassium 66.6 Ur Random Chloride 89 Alcohol, Quantitative Acetone, Qual Active Medications Generic Name Dose Route Start Last Admin Trade Name Freq PRN Reason Stop Dose Admin Chlorhexidine Gluconate 1 applic 01/13/17 22:00 Hibiclens For Decolonization - TP HS SHAWN Heparin Sodium (Porcine) 5,000 unit 01/13/17 06:00 01/13/17 06:06 Heparin - SQ 5,000 unit TID SHAWN Administration Sodium Chloride 1,000 mls @ 125 mls/hr 01/13/17 03:30 01/13/17 03:30 Normal Saline - IV 125 mls/hr ASDIR SHAWN Administration Sodium Chloride 500 mls @ 15 mls/hr 01/13/17 13:09 Sodium Chloride 3% IV 01/14/17 22:28 ASDIR ONE Insulin Aspart 1 vial 01/13/17 07:00 01/13/17 12:01 Novolog Vial Sliding Scale - SQ Not Given ACHS [facility] Protocol Levothyroxine Sodium 88 mcg 01/13/17 07:00 01/13/17 06:06 Synthroid - PO Not Given DAILY@0700 [facility] Metoprolol Tartrate 50 mg 01/13/17 10:00 01/13/17 10:15 Lopressor - PO Not Given BID [facility] Mupirocin 1 applic 01/13/17 10:00 01/13/17 09:48 Bactroban Ointment (For Decolonization) - NS 01/18/17 09:59 1 applic BID SHAWN Administration Nystatin 1 applic 01/13/17 12:00 Nystop Powder - TP DAILY SHAWN ASSESSMENT/PLAN: #Metabolic Encephalopathy 2/2 to severe hyponatremia likely 2/2 to thiazide diuretics - Na 110 - started on hypertonic saline, - repeat BMP q2h - rate of increse 0.5 meq/hour, not more than 10-12 meq in 24 hour. - Hold chlorthalidone and valsartan for now. - Npo for now due to altered mental status. - neuro check q2h - take aspiration and fall precutions. - monitor intake and output - monitor vitals #HTN - BP is increasing started her on hydralazine 25 bid -stop chlorthalidone as it can cause hyponatremia -on valsartan 160mg po bid #DM hold oral hypogylycemic BGM monitoring on novalog sliding scale #Leukocytosis, likely reactive cxr reviewed UA pending , #FEN/GI -IVF 3%ns at 15cc/hr -repleted Mg, K, -NPO #PPx -Heparin 5000 units sq TID #Dispo: in icu Visit type - Emergency Visit Emergency Visit: Yes ED Registration Date: 01/13/17 Care time: The patient presented to the Emergency Department on the above date and was hospitalized for further evaluation of their emergent condition. - New Patient This patient is new to me today: Yes Date on this admission: 01/13/17 - Critical Care Critical Care patient: Yes Total Critical Care Time (in minutes): 45 Critical Care Statement: The care of this patient involved high complexity decision making to prevent further life threatening deterioration of the patient 's condition and/or to evaluate & treat vital organ system(s) failure or risk of failure.
--- NOTE | 2017-01-13 13:29 | PN ---
Progress Note (short form) - Note Progress Note: Laboratory Tests 01/13/17 11:50 Sodium 110 L* Potassium 3.1 L Chloride 76 L Carbon Dioxide 21 Anion Gap 13 BUN 16 Creatinine 0.5 L - sodium is dropping, will start hypertonic saline - cont to check sodium q 2 hrs Problem List - Problems (1) Hyponatremia Code(s): E87.1 - HYPO-OSMOLALITY AND HYPONATREMIA (2) Anxiety Code(s): F41.9 - ANXIETY DISORDER, UNSPECIFIED
[2017-01-13 14:16] LABS: ALBUMIN 3.3 g/dl (3.4-5.0); ALK PHOS 91 U/L (45-117); BILIRUBIN,DIRECT 0.3 mg/dL (0.0-0.2); BILIRUBIN,TOTAL 1.1 mg/dL (0.2-1.0); SGOT/AST 38 U/L (15-37); SGPT/ALT 34 U/L (12-78); TOT PROT 6.1 g/dl (6.4-8.2)
[2017-01-13] MEDS ORDERED: LIDOCAINE HCL 2% JELLY (5 ML/TUBE) TP ONE (14:40)
--- NOTE | 2017-01-13 14:54 | EKG ---
Test Reason : Blood Pressure : / mmHG Vent. Rate : 078 BPM Atrial Rate : 078 BPM P-R Int : 180 ms QRS Dur : 096 ms QT Int : 426 ms P-R-T Axes : 047 050 044 degrees QTc Int : 485 ms POOR DATA QUALITY, INTERPRETATION MAY BE ADVERSELY AFFECTED NORMAL SINUS RHYTHM NORMAL ECG WHEN COMPARED WITH ECG OF 29-DEC-2016 15:52, NO SIGNIFICANT CHANGE WAS FOUND Confirmed by LEDA CHAUDHARY MD ([id number]) on 01/13/2017 2:53:53 PM Referred By: Confirmed By:LEDA CHAUDHARY MD
[2017-01-13] MEDS ORDERED: PT OWN MED DRAWER 7, Y5N ONE ×2 (15:20→17:07)
[2017-01-13] MEDS: NYSTATIN POWDER 100,000 UNITS/GM - 15 GM TOPICAL POWDER TP SCH (15:28)
[2017-01-13 17:29] LABS: ANION GAP 15 (8-16); CALCIUM 8.3 mg/dL (8.5-10.1); CO2 20 mmol/L (21-32); GLUCOSE,RANDOM 169 mg/dL (74-106)
[2017-01-13 17:31] LABS: CREATININE 0.6 mg/dL (0.55-1.02)
--- NOTE | 2017-01-13 18:06 | PN ---
Teaching Attending Note Name of Resident: Nito Beckford ATTENDING PHYSICIAN STATEMENT I saw and evaluated the patient. I reviewed the resident's note and discussed the case with the resident. I agree with the resident's findings and plan as documented. SUBJECTIVE: unable to obtain hx due to confusion. family could not be reached OBJECTIVE: Sleeping comfortably when assessed, started screaming when awoken. confused not cooperative Dry MM, round wqual pupils , reactive to light , no facial droop CV: RRR Lungs : CTAB Ext: no edema . no axillary sweat . Abd : soft, NT, ND , NL BS neuro : limited, round equal reactive pupils, moves all extremities, reflexes 2 + knee jerk and biceps , no facial droop . ASSESSMENT AND PLAN: 66 y/o lady with h/o HTN, HLD, NIDDM, and COPD who presented with AMS. She was found to have severe hyponatremia 1- Severe hyponatremia: likely hypotonic hypovolemic hyponatremia form being on Chlorthalidone. due to confusion , and worsening NA o n NS, hypertonic saline was started . case d/w Dr. Cox. repeat NA q 2 hr . goal of NA increase 0.5 meq/dl/hr dc cholorthalidone 2- Leukocytosis , likely reactive, no signs of infection on UA and cxray 3- HTN, cont diovan, HZN, and BB dispo: ICU Critical Care Total Critical Care Time (in minutes): 45 Critical Care Statement: The care of this patient involved high complexity decision making to prevent further life threatening deterioration of the patient 's condition and/or to evaluate & treat vital organ system(s) failure or risk of failure.
[2017-01-13] MEDS ORDERED: ONDANSETRON 4 MG/2 ML VIAL IVPUSH ONE (18:39)
[2017-01-13 18:58] LABS: ANION GAP 16 (8-16); CO2 19 mmol/L (21-32); CREATININE 0.5 mg/dL (0.55-1.02); GLUCOSE,RANDOM 171 mg/dL (74-106)
--- NOTE | 2017-01-13 19:48 | PN ---
Physical Exam: SUBJECTIVE: Patient seen and examined. Poor historian due to confusion. OBJECTIVE: Vital Signs Period Temp Pulse Resp BP Sys/Mathew Pulse Ox Last 24 Hr 97.6 F-98.2 F 62-105 18-27 102-163/53-77 100 GENERAL: NAD, confused, A/0 x 1 HEAD: Normal with no signs of trauma. EYES: PERRL, extraocular movements intact, sclera anicteric, conjunctiva clear. No ptosis. ENT: dry mucous membranes. NECK: supple. LUNGS: Breath sounds equal, clear to auscultation bilaterally, no wheezes, no crackles, no accessory muscle use. HEART: Regular rate and rhythm, S1, S2 without murmur, rub or gallop. ABDOMEN: Soft, nontender, nondistended, normoactive bowel sounds, no guarding, no rebound, no hepatosplenomegaly, no masses. EXTREMITIES: 2+ pulses, warm, well-perfused, no edema. NEUROLOGICAL: Cranial nerves II through XII grossly intact. SKIN: dry axilla Laboratory Results - last 24 hr 01/13/17 01/13/17 01/13/17 01:30 01:30 05:15 WBC 13.0 H RBC 3.94 Hgb 12.3 D Hct 33.6 MCV 85.3 MCH 31.3 MCHC 36.7 H RDW 12.9 Plt Count 371 D MPV 7.0 L Neutrophils % 80.4 Lymphocytes % 8.8 Monocytes % 10.5 H Eosinophils % 0.1 D Basophils % 0.2 Sodium 109 L* Potassium 3.3 L Chloride 73 L Carbon Dioxide 21 Anion Gap 15 BUN 18 Creatinine 0.6 Creat Clearance w eGFR > 60 POC Glucometer Random Glucose 151 H Serum Osmolality Calcium 8.4 L Magnesium 1.5 L Total Bilirubin 1.1 H Direct Bilirubin AST 37 ALT 31 Alkaline Phosphatase 98 Total Protein 6.5 Albumin 3.4 Lipase 216 Free T4 Urine Osmolality Ur Random Sodium Ur Random Potassium Ur Random Chloride Alcohol, Quantitative < 5.0 Acetone, Qual Negative L 01/13/17 01/13/17 01/13/17 05:15 05:40 06:08 WBC RBC Hgb Hct MCV MCH MCHC RDW Plt Count MPV Neutrophils % Lymphocytes % Monocytes % Eosinophils % Basophils % Sodium 112 L* Potassium 2.9 L* Chloride 74 L Carbon Dioxide 24 Anion Gap 14 BUN 16 Creatinine 0.5 L Creat Clearance w eGFR > 60 POC Glucometer 158.15198 Random Glucose 133 H Serum Osmolality 230 L Calcium 8.5 Magnesium Total Bilirubin 1.1 H Direct Bilirubin AST 35 ALT 31 Alkaline Phosphatase 92 Total Protein 6.2 L Albumin 3.4 Lipase Free T4 Cancelled Urine Osmolality Cancelled Ur Random Sodium Ur Random Potassium Ur Random Chloride Alcohol, Quantitative Acetone, Qual 01/13/17 01/13/17 01/13/17 11:00 11:00 11:50 WBC RBC Hgb Hct MCV MCH MCHC RDW Plt Count MPV Neutrophils % Lymphocytes % Monocytes % Eosinophils % Basophils % Sodium 110 L* Potassium 3.1 L Chloride 76 L Carbon Dioxide 21 Anion Gap 13 BUN 16 Creatinine 0.5 L Creat Clearance w eGFR POC Glucometer Random Glucose 171 H D Serum Osmolality Calcium 8.1 L Magnesium 1.9 D Total Bilirubin 1.1 H Direct Bilirubin 0.3 H D AST 38 H ALT 34 Alkaline Phosphatase 91 Total Protein 6.1 L Albumin 3.3 L Lipase Free T4 Urine Osmolality 747 D Ur Random Sodium 35 Ur Random Potassium 66.6 Ur Random Chloride 89 Alcohol, Quantitative Acetone, Qual 01/13/17 01/13/17 01/13/17 11:50 15:30 16:45 WBC RBC Hgb Hct MCV MCH MCHC RDW Plt Count MPV Neutrophils % Lymphocytes % Monocytes % Eosinophils % Basophils % Sodium Cancelled 111 L* 112 L* Potassium Cancelled 3.3 L 3.3 L Chloride Cancelled 76 L 77 L Carbon Dioxide Cancelled 20 L 19 L Anion Gap Cancelled 15 16 BUN Cancelled 14 14 Creatinine Cancelled 0.6 0.5 L Creat Clearance w eGFR Cancelled POC Glucometer Random Glucose Cancelled 169 H 171 H Serum Osmolality Calcium Cancelled 8.3 L 8.0 L Magnesium Cancelled Total Bilirubin Cancelled Direct Bilirubin AST Cancelled ALT Cancelled Alkaline Phosphatase Cancelled Total Protein Cancelled Albumin Cancelled Lipase Free T4 Urine Osmolality Ur Random Sodium Ur Random Potassium Ur Random Chloride Alcohol, Quantitative Acetone, Qual Active Medications Generic Name Dose Route Start Last Admin Trade Name Freq PRN Reason Stop Dose Admin Chlorhexidine Gluconate 1 applic 01/13/17 22:00 Hibiclens For Decolonization - TP HS SHAWN Heparin Sodium (Porcine) 5,000 unit 01/13/17 06:00 01/13/17 14:07 Heparin - SQ 5,000 unit TID SHAWN Administration Hydralazine HCl 25 mg 01/13/17 22:00 Apresoline - PO BID SHAWN Sodium Chloride 500 mls @ 20 mls/hr 01/13/17 14:15 01/13/17 15:29 Sodium Chloride 3% IV 01/14/17 15:14 20 mls/hr ASDIR ONE Administration Insulin Aspart 1 vial 01/13/17 07:00 01/13/17 16:35 Novolog Vial Sliding Scale - SQ Not Given ACHS [facility] Protocol Levothyroxine Sodium 88 mcg 01/13/17 07:00 01/13/17 06:06 Synthroid - PO Not Given DAILY@0700 SH[facility]N Metoprolol Tartrate 50 mg 01/13/17 10:00 01/13/17 10:15 Lopressor - PO Not Given BID SHAWN Mupirocin 1 applic 01/13/17 10:00 01/13/17 09:48 Bactroban Ointment (For Decolonization) - NS 01/18/17 09:59 1 applic BID SHAWN Administration Nystatin 1 applic 01/13/17 12:00 01/13/17 15:28 Nystop Powder - TP 1 applic DAILY [facility]N Administration Valsartan 160 mg 01/13/17 22:00 Diovan - PO BID SHAWN ASSESSMENT/PLAN: 66 y/o lady with h/o HTN, HLD, NIDDM, and COPD who presented with AMS. She was found to have severe hyponatremia #Severe hyponatremia: likely hypotonic hypovolemic hyponatremia secondary from Chlorthalidone. -she recently started on Chlorothalidone, now held - 3% hypertonic saline started due to failure of NA increasing from NS as per Nephro - repeat BMP q2 hours -Goal is to increase NA 0.5 meq/dl/hour -Stopped Cholorthalidone -F/u labs in AM:Bmp, urine sodium, FeNa #Leukocytosis -likely reactive -CXR negative -U/A negative -Follow CBC #HTN -Hold chlorthalidone -Continue diovan, hydralazine, BB #DM -Hold januvia -BGM achs -ISS achs #FEN/GI -IVF Sodium chloride @ 20cc/hour -repleted Mg, K, Cl -NPO #PPx -Heparin 5000 units sq TID Visit type - Emergency Visit Emergency Visit: Yes ED Registration Date: 01/13/17 Care time: The patient presented to the Emergency Department on the above date and was hospitalized for further evaluation of their emergent condition. - New Patient This patient is new to me today: Yes Date on this admission: 01/13/17 - Critical Care Critical Care patient: Yes Total Critical Care Time (in minutes): 45 Critical Care Statement: The care of this patient involved high complexity decision making to prevent further life threatening deterioration of the patient 's condition and/or to evaluate & treat vital organ system(s) failure or risk of failure.
[2017-01-13 20:08] LABS: ANION GAP 17 (8-16); CO2 18 mmol/L (21-32); CREATININE 0.4 mg/dL (0.55-1.02); GLUCOSE,RANDOM 163 mg/dL (74-106)
[2017-01-13 20:13] LABS: URINE MARIJUANA THC NEGATIVE ng/ml (CUTOFF=50)
[2017-01-13 21:47] LABS: CALCIUM 8.6 mg/dL (8.5-10.1)
[2017-01-13 22:16] LABS: ANION GAP 14 (8-16); CO2 20 mmol/L (21-32); CREATININE 0.4 mg/dL (0.55-1.02); GLUCOSE,RANDOM 148 mg/dL (74-106)
[2017-01-13] MEDS: VALSARTAN 160 MG TABLET (UD) PO SCH (22:49)
[2017-01-13] MEDS: hydrALAZINE HCL 25 MG TABLET (FP) PO SCH (22:49)
[2017-01-13] MEDS: CHLORHEXIDINE GLUCONATE 4% CLEANSER FOR DECOLONIZATION TP SCH (22:50)
[2017-01-14 00:19] LABS: ANION GAP 13 (8-16); CALCIUM 8.2 mg/dL (8.5-10.1); CO2 21 mmol/L (21-32); CREATININE 0.4 mg/dL (0.55-1.02); GLUCOSE,RANDOM 140 mg/dL (74-106)
[2017-01-14] MEDS: ACETAMINOPHEN 325 MG TABLET (FP) PO PRN ×4 (02:10→20:38)
[2017-01-14 02:46] LABS: ANION GAP 12 (8-16); CALCIUM 8.1 mg/dL (8.5-10.1); CO2 24 mmol/L (21-32); CREATININE 0.5 mg/dL (0.55-1.02); GLUCOSE,RANDOM 141 mg/dL (74-106)
[2017-01-14 03:39] LABS: THYROID STIMULATING HORMONE 1.16 uIU/ml (0.358-3.74)
[2017-01-14 04:27] LABS: FREE T4 1.36 ng/dl (0.76-1.46)
[2017-01-14 04:42] LABS: ANION GAP 14 (8-16); CO2 19 mmol/L (21-32); CREATININE 0.4 mg/dL (0.55-1.02); GLUCOSE,RANDOM 133 mg/dL (74-106)
[2017-01-14 06:05] LABS: BASOPHIL 0.1 % (0-2.0); EOSINOPHIL 0.1 % (0-4.5); MCH 31.9 pg (25.7-33.7); MCHC 36.9 g/dl (32.0-36.0); MEAN CELL VOLUME 86.5 fl (80-96); MEAN PLT VOLUME 7.2 fl (7.5-11.1); NEUTROPHILS 80.1 % (42.8-82.8); PLATELET COUNT 369 K/MM3 (134-434); RDW 12.7 % (11.6-15.6); WHITE BLOOD COUNT 11.6 K/mm3 (4.0-10.0)
[2017-01-14] MEDS: HEPARIN NA (PORCINE) 5,000 UNITS/ML 1ML VIAL SQ SCH ×3 (06:10→21:21)
[2017-01-14] MEDS: LEVOTHYROXINE NA 88 MCG TABLET (FP) PO SCH (06:17)
[2017-01-14 06:24] LABS: MAGNESIUM 1.7 mg/dL (1.8-2.4); PHOSPHOROUS 1.6 mg/dL (2.5-4.9)
[2017-01-14 06:34] LABS: ANION GAP 12 (8-16); CALCIUM 7.9 mg/dL (8.5-10.1); CO2 23 mmol/L (21-32); GLUCOSE,RANDOM 121 mg/dL (74-106)
[2017-01-14 06:36] LABS: CREATININE 0.4 mg/dL (0.55-1.02)
[2017-01-14] MEDS: INSULIN SLIDING SCALE (NOVOLOG) 1 VIAL SQ SCH ×4 (07:26→21:21)
[2017-01-14] MEDS ORDERED: PT OWN MED DRAWER 7, Y5N ONE ×2 (08:54→09:25)
[2017-01-14] MEDS: METOPROLOL TARTRATE 50 MG TABLET (FP) PO SCH ×2 (09:09→21:20)
[2017-01-14] MEDS: VALSARTAN 160 MG TABLET (UD) PO SCH ×2 (09:09→21:20)
[2017-01-14] MEDS: hydrALAZINE HCL 25 MG TABLET (FP) PO SCH ×2 (09:09→21:20)
[2017-01-14] MEDS ORDERED: POTASSIUM CHLORIDE ORAL LIQUID 20 MEQ/15 ML PO ONE (09:17)
[2017-01-14] MEDS: MUPIROCIN 2% TOPICAL OINTMENT FOR DECOLONIZATION NS SCH ×2 (09:21→21:22)
[2017-01-14] MEDS: NYSTATIN POWDER 100,000 UNITS/GM - 15 GM TOPICAL POWDER TP SCH (09:22)
[2017-01-14] MEDS ORDERED: MAGNESIUM SULF 50% (8.12 MEQ/2 ML-1 GM VIAL) IVPB ONE ×3 (09:35→14:00)
[2017-01-14] MEDS ORDERED: POTASSIUM CHLORIDE TABS 20 MEQ TABLET.ER (FP) PO ONE (09:45)
[2017-01-14 09:58] LABS: ANION GAP 12 (8-16); CALCIUM 8.3 mg/dL (8.5-10.1); CO2 22 mmol/L (21-32); CREATININE 0.5 mg/dL (0.55-1.02); GLUCOSE,RANDOM 126 mg/dL (74-106)
[2017-01-14] MEDS ORDERED: POTASSIUM PHOSPHATE 30 MM in SODIUM CHLORIDE 250 ML IVPB ONE (10:00)
[2017-01-14 10:49] LABS: ANION GAP 10 (8-16); CO2 23 mmol/L (21-32); CREATININE 0.5 mg/dL (0.55-1.02); GLUCOSE,RANDOM 139 mg/dL (74-106)
--- NOTE | 2017-01-14 12:37 | PN ---
Physical Exam: SUBJECTIVE: Patient seen and examine, mental status improving. C/o lethargy, wants to eat. OBJECTIVE: Vital Signs Period Temp Pulse Resp BP Sys/Mathew Pulse Ox Last 24 Hr 97.5 F-98.5 F 53-99 16-27 98-163/54-75 100 GENERAL: The patient is lethargic, sitting up in bed with eyes closed, responding to questioning, oriented to date HEAD: Normal with no signs of trauma. LUNGS: Breath sounds equal, clear to auscultation bilaterally, no wheezes, no crackles, no accessory muscle use. HEART: Regular rate and rhythm, S1, S2 without murmur, rub or gallop. ABDOMEN: Soft, nontender, nondistended, normoactive bowel sounds, no guarding, no rebound, no hepatosplenomegaly, no masses. EXTREMITIES: 2+ pulses, warm, well-perfused, no edema. NEUROLOGICAL: AAOx3; SKIN: Warm, dry, normal turgor, no rashes or lesions noted Active Medications Generic Name Dose Route Start Last Admin Trade Name Cesarioq PRN Reason Stop Dose Admin Acetaminophen 650 mg 01/13/17 23:25 01/14/17 09:08 Tylenol - PO 650 mg Q6H PRN Administration FEVER OR PAIN Chlorhexidine Gluconate 1 applic 01/13/17 22:00 01/13/17 22:50 Hibiclens For Decolonization - TP 1 applic HS [facility] Administration Heparin Sodium (Porcine) 5,000 unit 01/13/17 06:00 01/14/17 06:10 Heparin - SQ 5,000 unit TID [facility] Administration Hydralazine HCl 25 mg 01/13/17 22:00 01/14/17 09:09 Apresoline - PO 25 mg BID [facility] Administration Potassium Phosphate 30 mm/ 260 mls @ 65 mls/hr 01/14/17 10:00 01/14/17 10:37 Sodium Chloride IVPB 01/14/17 13:59 65 mls/hr ONCE ONE Administration Insulin Aspart 1 vial 01/13/17 07:00 01/14/17 10:38 Novolog Vial Sliding Scale - SQ Not Given ACHS [facility] Protocol Levothyroxine Sodium 88 mcg 01/13/17 07:00 01/14/17 06:17 Synthroid - PO 88 mcg DAILY@0700 [facility] Administration Metoprolol Tartrate 50 mg 01/13/17 10:00 01/14/17 09:09 Lopressor - PO 50 mg BID [facility] Administration Mupirocin 1 applic 01/13/17 10:00 01/14/17 09:21 Bactroban Ointment (For Decolonization) - NS 01/18/17 09:59 1 applic BID [facility] Administration Nystatin 1 applic 01/13/17 12:00 01/14/17 09:22 Nystop Powder - TP 1 applic DAILY [facility] Administration Valsartan 160 mg 01/13/17 22:00 01/14/17 09:09 Diovan - PO 160 mg BID [facility] Administration ASSESSMENT/PLAN: This is a 66 year old female with a past medical history of hyponatremia sec to thiazides, DM, COPD, HTN who presented to the ER with altered mental status. Patient found to be severely hyponatremic. Hyponatremia most likely to increase home medication,chlorthalidone. #altered mental status secondary to severe hyponatremia: improving -serum Na this morning 116; will increase #% NS to 30mls/hr -continue to check Na q2h -adjust IVF accordingly #hypokalmia: resolved #hypomagnesemia: -replace with magnesium 2mg IVPB in NS -repeat #DM: -insulin ss -bgm #hypertension: -continue diovan 160mg po bid -metoprolol 50mg po bid -hydralizine 25mg po bid #hypothyroid: -cont levthyroxine 88mcg qd FEN: Fluids: 3%NS 30mls/hr Electrolytes: see above Diet: diabetic diet VTE prophylaxis: heparin sq Disposition: continue ICU care Problem List - Problems (1) Altered mental status, unspecified Code(s): R41.82 - ALTERED MENTAL STATUS, UNSPECIFIED (2) Hypokalemia Code(s): E87.6 - HYPOKALEMIA (3) Hyponatremia Code(s): E87.1 - HYPO-OSMOLALITY AND HYPONATREMIA (4) HTN (hypertension) Code(s): I10 - ESSENTIAL (PRIMARY) HYPERTENSION Visit type - Emergency Visit Emergency Visit: Yes ED Registration Date: 01/13/17 Care time: The patient presented to the Emergency Department on the above date and was hospitalized for further evaluation of their emergent condition. - New Patient This patient is new to me today: Yes Date on this admission: 01/14/17 - Critical Care Critical Care patient: Yes Total Critical Care Time (in minutes): 35 Critical Care Statement: The care of this patient involved high complexity decision making to prevent further life threatening deterioration of the patient 's condition and/or to evaluate & treat vital organ system(s) failure or risk of failure.
--- NOTE | 2017-01-14 13:36 | PN ---
Progress Note, Physician History of Present Illness: Pt seen and examined at bedside. She is more awake today but her mental status is not back to baseline. - Current Medication List Current Medications: Active Medications Acetaminophen (Tylenol -) 650 mg PO Q6H PRN PRN Reason: FEVER OR PAIN Last Admin: 01/14/17 09:08 Dose: 650 mg Chlorhexidine Gluconate (Hibiclens For Decolonization -) 1 applic TP [facility] Last Admin: 01/13/17 22:50 Dose: 1 applic Heparin Sodium (Porcine) (Heparin -) 5,000 unit SQ TID [facility] Last Admin: 01/14/17 06:10 Dose: 5,000 unit Hydralazine HCl (Apresoline -) 25 mg PO BID [facility] Last Admin: 01/14/17 09:09 Dose: 25 mg Potassium Phosphate 30 mm/ (Sodium Chloride) 260 mls @ 65 mls/hr IVPB ONCE ONE Stop: 01/14/17 13:59 Last Admin: 01/14/17 10:37 Dose: 65 mls/hr Insulin Aspart (Novolog Vial Sliding Scale -) 1 vial SQ ACHS [facility] PRN Reason: Protocol Last Admin: 01/14/17 10:38 Dose: Not Given Levothyroxine Sodium (Synthroid -) 88 mcg PO DAILY@0700 [facility] Last Admin: 01/14/17 06:17 Dose: 88 mcg Metoprolol Tartrate (Lopressor -) 50 mg PO BID [facility] Last Admin: 01/14/17 09:09 Dose: 50 mg Mupirocin (Bactroban Ointment (For Decolonization) -) 1 applic NS BID [facility] Stop: 01/18/17 09:59 Last Admin: 01/14/17 09:21 Dose: 1 applic Nystatin (Nystop Powder -) 1 applic TP DAILY [facility] Last Admin: 01/14/17 09:22 Dose: 1 applic Valsartan (Diovan -) 160 mg PO BID [facility] Last Admin: 01/14/17 09:09 Dose: 160 mg - Objective Vital Signs: Vital Signs Temperature 97.5 F L 01/14/17 10:00 Pulse Rate 54 L 01/14/17 12:00 Respiratory Rate 20 01/14/17 12:00 Blood Pressure 115/59 01/14/17 12:00 O2 Sat by Pulse Oximetry (%) 98 01/14/17 09:00 Constitutional: Yes: Calm Eyes: Yes: Conjunctiva Clear HENT: Yes: Atraumatic Cardiovascular: Yes: S1, S2 Respiratory: Yes: CTA Bilaterally Gastrointestinal: Yes: Soft Genitourinary: Yes: Molina Present Edema: No Neurological: Yes: Confusion Labs: CBC, BMP 01/14/17 05:00 01/14/17 10:15 Problem List - Problems (1) Hyponatremia Code(s): E87.1 - HYPO-OSMOLALITY AND HYPONATREMIA (2) Anxiety Code(s): F41.9 - ANXIETY DISORDER, UNSPECIFIED Assessment/Plan Current Medications Generic Name Dose Route Start Last Admin Trade Name Freq PRN Reason Stop Dose Admin Acetaminophen 650 mg 01/13/17 23:25 01/14/17 09:08 Tylenol - PO 650 mg Q6H PRN Administration FEVER OR PAIN Chlorhexidine Gluconate 1 applic 01/13/17 22:00 01/13/17 22:50 Hibiclens For Decolonization - TP 1 applic HS [facility] Administration Heparin Sodium (Porcine) 5,000 unit 01/13/17 06:00 01/14/17 06:10 Heparin - SQ 5,000 unit TID [facility] Administration Hydralazine HCl 25 mg 01/13/17 22:00 01/14/17 09:09 Apresoline - PO 25 mg BID [facility] Administration Potassium Phosphate 30 mm/ 260 mls @ 65 mls/hr 01/14/17 10:00 01/14/17 10:37 Sodium Chloride IVPB 01/14/17 13:59 65 mls/hr ONCE ONE Administration Insulin Aspart 1 vial 01/13/17 07:00 01/14/17 10:38 Novolog Vial Sliding Scale - SQ Not Given ACHS [facility] Protocol Levothyroxine Sodium 88 mcg 01/13/17 07:00 01/14/17 06:17 Synthroid - PO 88 mcg DAILY@0700 [facility] Administration Metoprolol Tartrate 50 mg 01/13/17 10:00 01/14/17 09:09 Lopressor - PO 50 mg BID [facility] Administration Mupirocin 1 applic 01/13/17 10:00 01/14/17 09:21 Bactroban Ointment (For Decolonization) - NS 01/18/17 09:59 1 applic BID [facility] Administration Nystatin 1 applic 01/13/17 12:00 01/14/17 09:22 Nystop Powder - TP 1 applic DAILY [facility] Administration Valsartan 160 mg 01/13/17 22:00 01/14/17 09:09 Diovan - PO 160 mg BID [facility] Administration Laboratory Tests 01/12/17 01/13/17 01/13/17 21:45 05:15 11:00 TSH 1.16 D Cortisol AM Sample 35.0 Urine Osmolality 747 D Ur Random Sodium 01/13/17 01/14/17 11:00 07:30 TSH Cortisol AM Sample Urine Osmolality Ur Random Sodium 35 70 Laboratory Tests 01/14/17 05:00 Phosphorus 1.6 L D Magnesium 1.7 L Impression 1. hyponatremia 2. HTN 3. anxiety 4. depression 5. diarrhea 6. GERD 7. DM 8. COPD 9. hypothyroidism 10. hypokalemia Plan - sodium is improving - cont with hypertonic, will increase to 30 cc per hour, cont to check sodium q 2 hrs - discussed with ICU team several times last night and today - will follow pt - urine studies sent after pt received several liters of saline and are not going to give an accurate metabolic picture - stop chlorthalidone, do not recommend using thiazides in the future - cont to monitor sodium closely - keep pt in the ICU - ct head report reviewed - replace mag and phos, please mix in NS if possible Dr Perez
[2017-01-14] MEDS ORDERED: SODIUM CHLORIDE 3% 500 ML IV ONE ×2 (14:15)
--- NOTE | 2017-01-14 14:45 | PN ---
Teaching Attending Note Name of Resident: Maribel Hamilton ATTENDING PHYSICIAN STATEMENT I saw and evaluated the patient. I reviewed the resident's note and discussed the case with the resident. I agree with the resident's findings and plan as documented. SUBJECTIVE: Patient seen and examined in the ICU. More awake and alert. Denies CP or SOB. Still with severe hyponatremia, but improved. Intake & Output 01/11/17 01/12/17 01/13/17 01/14/17 23:59 23:59 23:59 23:59 Intake Total 1000 2320 355 Output Total 300 600 Balance 1000 2019 - Weight 160 lb 169 lb 1 oz 171 lb 5 oz Last Vital Signs Temp Pulse Resp BP Pulse Ox 97.5 F L 54 L 20 115/59 98 01/14/17 10:00 01/14/17 12:00 01/14/17 12:00 01/14/17 12:00 01/14/17 09:00 Active Medications Acetaminophen (Tylenol -) 650 mg PO Q6H PRN PRN Reason: FEVER OR PAIN Last Admin: 01/14/17 14:21 Dose: 650 mg Chlorhexidine Gluconate (Hibiclens For Decolonization -) 1 applic TP HS [facility] Last Admin: 01/13/17 22:50 Dose: 1 applic Heparin Sodium (Porcine) (Heparin -) 5,000 unit SQ TID [facility] Last Admin: 01/14/17 14:21 Dose: 5,000 unit Hydralazine HCl (Apresoline -) 25 mg PO BID [facility] Last Admin: 01/14/17 09:09 Dose: 25 mg Sodium Chloride (Sodium Chloride 3%) 500 mls @ 30 mls/hr IV ASDIR ONE Stop: 01/15/17 06:54 Last Admin: 01/14/17 14:41 Dose: 30 mls/hr Insulin Aspart (Novolog Vial Sliding Scale -) 1 vial SQ ACHS [facility] PRN Reason: Protocol Last Admin: 01/14/17 10:38 Dose: Not Given Levothyroxine Sodium (Synthroid -) 88 mcg PO DAILY@0700 [facility] Last Admin: 01/14/17 06:17 Dose: 88 mcg Metoprolol Tartrate (Lopressor -) 50 mg PO BID [facility] Last Admin: 01/14/17 09:09 Dose: 50 mg Mupirocin (Bactroban Ointment (For Decolonization) -) 1 applic NS BID [facility] Stop: 01/18/17 09:59 Last Admin: 01/14/17 09:21 Dose: 1 applic Nystatin (Nystop Powder -) 1 applic TP DAILY [facility] Last Admin: 01/14/17 09:22 Dose: 1 applic Valsartan (Diovan -) 160 mg PO BID [facility] Last Admin: 01/14/17 09:09 Dose: 160 mg Constitutional: Yes: More awake and alert, No Distress Eyes: Yes: Other Pupils equal HENT: Yes: Atraumatic Neck: Yes: WNL, Trachea Midline Cardiovascular: Yes: Regular Rate and Rhythm Respiratory: Yes: diminished at the bases Gastrointestinal: Yes: Soft, Abdomen, Obese, Other (Non tender) Musculoskeletal: Yes: WNL Extremities: Yes: WNL Edema: No Peripheral Pulses WNL: Yes Integumentary: Yes: WNL Neurological: Yes: Awake and alert, non-focal Labs: Laboratory Results - last 24 hr 01/12/17 01/12/17 01/13/17 21:45 23:55 05:15 WBC RBC Hgb Hct MCV MCH MCHC RDW Plt Count MPV Neutrophils % Lymphocytes % Monocytes % Eosinophils % Basophils % Sodium 108 L* D 112 L* Potassium 3.1 L 2.9 L* Chloride 68 L D 74 L Carbon Dioxide 25 24 Anion Gap 15 14 BUN 17 D 16 Creatinine 0.6 0.5 L Creat Clearance w eGFR > 60 > 60 Random Glucose 154 H 133 H Serum Osmolality 230 L Calcium 9.3 8.5 Phosphorus Magnesium Total Bilirubin 1.3 H D 1.1 H AST 40 H D 35 ALT 35 D 31 Alkaline Phosphatase 112 92 Total Protein 7.6 6.2 L Albumin 4.0 3.4 TSH 1.16 D Free T4 1.36 D Cortisol AM Sample Urine Osmolality Ur Random Sodium Opiates Screen Negative Methadone Screen Negative Barbiturate Screen Negative Phencyclidine Screen Negative Ur Amphetamines Screen Negative MDMA (Ecstasy) Screen Negative Benzodiazepines Screen Negative Cocaine Screen Negative U Marijuana (THC) Screen Negative 01/13/17 01/13/17 01/13/17 05:15 11:00 15:30 WBC RBC Hgb Hct MCV MCH MCHC RDW Plt Count MPV Neutrophils % Lymphocytes % Monocytes % Eosinophils % Basophils % Sodium 111 L* Potassium 3.3 L Chloride 76 L Carbon Dioxide 20 L Anion Gap 15 BUN 14 Creatinine 0.6 Creat Clearance w eGFR Random Glucose 169 H Serum Osmolality Calcium 8.3 L Phosphorus Magnesium Total Bilirubin AST ALT Alkaline Phosphatase Total Protein Albumin TSH Free T4 Cortisol AM Sample 35.0 Urine Osmolality 747 D Ur Random Sodium Opiates Screen Methadone Screen Barbiturate Screen Phencyclidine Screen Ur Amphetamines Screen MDMA (Ecstasy) Screen Benzodiazepines Screen Cocaine Screen U Marijuana (THC) Screen 01/13/17 01/13/17 01/13/17 16:45 18:40 20:30 WBC RBC Hgb Hct MCV MCH MCHC RDW Plt Count MPV Neutrophils % Lymphocytes % Monocytes % Eosinophils % Basophils % Sodium 112 L* 112 L* Cancelled Potassium 3.3 L 3.4 L Cancelled Chloride 77 L 77 L Cancelled Carbon Dioxide 19 L 18 L Cancelled Anion Gap 16 17 H Cancelled BUN 14 14 Cancelled Creatinine 0.5 L 0.4 L Cancelled Creat Clearance w eGFR Random Glucose 171 H 163 H Cancelled Serum Osmolality Calcium 8.0 L 8.6 Cancelled Phosphorus Magnesium Total Bilirubin AST ALT Alkaline Phosphatase Total Protein Albumin TSH Free T4 Cortisol AM Sample Urine Osmolality Ur Random Sodium Opiates Screen Methadone Screen Barbiturate Screen Phencyclidine Screen Ur Amphetamines Screen MDMA (Ecstasy) Screen Benzodiazepines Screen Cocaine Screen U Marijuana (THC) Screen 01/13/17 01/13/17 01/14/17 21:00 23:00 02:15 WBC RBC Hgb Hct MCV MCH MCHC RDW Plt Count MPV Neutrophils % Lymphocytes % Monocytes % Eosinophils % Basophils % Sodium 112 L* 113 L* 115 L* Potassium 3.1 L 3.3 L 3.2 L Chloride 78 L 79 L 79 L Carbon Dioxide 20 L 21 24 Anion Gap 14 13 12 BUN 14 13 12 Creatinine 0.4 L 0.4 L 0.5 L D Creat Clearance w eGFR Random Glucose 148 H 140 H 141 H Serum Osmolality Calcium 8.0 L 8.2 L 8.1 L Phosphorus Magnesium Total Bilirubin AST ALT Alkaline Phosphatase Total Protein Albumin TSH Free T4 Cortisol AM Sample Urine Osmolality Ur Random Sodium Opiates Screen Methadone Screen Barbiturate Screen Phencyclidine Screen Ur Amphetamines Screen MDMA (Ecstasy) Screen Benzodiazepines Screen Cocaine Screen U Marijuana (THC) Screen 01/14/17 01/14/17 01/14/17 04:10 05:00 05:00 WBC 11.6 H RBC 3.84 Hgb 12.3 Hct 33.3 MCV 86.5 MCH 31.9 MCHC 36.9 H RDW 12.7 Plt Count 369 MPV 7.2 L Neutrophils % 80.1 Lymphocytes % 9.7 Monocytes % 10.0 Eosinophils % 0.1 Basophils % 0.1 Sodium 114 L* Potassium 3.4 L Chloride 81 L Carbon Dioxide 19 L D Anion Gap 14 BUN 13 Creatinine 0.4 L Creat Clearance w eGFR Random Glucose 133 H Serum Osmolality Calcium 8.0 L Phosphorus 1.6 L D Magnesium 1.7 L Total Bilirubin AST ALT Alkaline Phosphatase Total Protein Albumin TSH Free T4 Cortisol AM Sample Urine Osmolality Ur Random Sodium Opiates Screen Methadone Screen Barbiturate Screen Phencyclidine Screen Ur Amphetamines Screen MDMA (Ecstasy) Screen Benzodiazepines Screen Cocaine Screen U Marijuana (THC) Screen 01/14/17 01/14/17 01/14/17 05:00 07:30 09:00 WBC RBC Hgb Hct MCV MCH MCHC RDW Plt Count MPV Neutrophils % Lymphocytes % Monocytes % Eosinophils % Basophils % Sodium 116 L* 115 L* Potassium 3.2 L 3.1 L Chloride 81 L 81 L Carbon Dioxide 23 D 22 Anion Gap 12 12 BUN 12 12 Creatinine 0.4 L 0.5 L D Creat Clearance w eGFR Random Glucose 121 H 126 H Serum Osmolality Calcium 7.9 L 8.3 L Phosphorus Magnesium Total Bilirubin AST ALT Alkaline Phosphatase Total Protein Albumin TSH Free T4 Cortisol AM Sample Urine Osmolality Ur Random Sodium 70 Opiates Screen Methadone Screen Barbiturate Screen Phencyclidine Screen Ur Amphetamines Screen MDMA (Ecstasy) Screen Benzodiazepines Screen Cocaine Screen U Marijuana (THC) Screen 01/14/17 10:15 WBC RBC Hgb Hct MCV MCH MCHC RDW Plt Count MPV Neutrophils % Lymphocytes % Monocytes % Eosinophils % Basophils % Sodium 116 L* Potassium 3.5 Chloride 83 L Carbon Dioxide 23 Anion Gap 10 BUN 11 Creatinine 0.5 L Creat Clearance w eGFR Random Glucose 139 H Serum Osmolality Calcium 8.0 L Phosphorus Magnesium Total Bilirubin AST ALT Alkaline Phosphatase Total Protein Albumin TSH Free T4 Cortisol AM Sample Urine Osmolality Ur Random Sodium Opiates Screen Methadone Screen Barbiturate Screen Phencyclidine Screen Ur Amphetamines Screen MDMA (Ecstasy) Screen Benzodiazepines Screen Cocaine Screen U Marijuana (THC) Screen Problem List - Problems (1) Altered mental status, unspecified Code(s): R41.82 - ALTERED MENTAL STATUS, UNSPECIFIED (2) Hypokalemia Code(s): E87.6 - HYPOKALEMIA (3) Hyponatremia Code(s): E87.1 - HYPO-OSMOLALITY AND HYPONATREMIA Assessment/Plan Continue with 3% Frequent BMP monitoring Daily weight Strict I&O PO as tolerated Aspiration precautions Titrate BP Meds ICU monitoring Dr Feldman Critical care time spent in reviewing chart, evaluating patient and formulating plan - 36 minutes.
--- NOTE | 2017-01-14 14:55 | PN ---
Teaching Attending Note Name of Resident: Nito Beckford ATTENDING PHYSICIAN STATEMENT I saw and evaluated the patient. I reviewed the resident's note and discussed the case with the resident. I agree with the resident's findings and plan as documented. SUBJECTIVE: no fever ro chills, feels better, feels tired OBJECTIVE: AAOX3 . still with slightly dry MM CV: RRR Lungs : CTAB Ext: no edema . Abd : soft, NT, ND , NL BS. ASSESSMENT AND PLAN: 66 y/o lady with h/o HTN, HLD, NIDDM, and COPD who presented with AMS. She was found to have severe hyponatremia 1- Severe hyponatremia: hypotonic hypovolemic hyponatremia form being on Chlorthalidone. - NA has been correcting appropriately . mental status much improved - cont 3%. - cont Na q 2 hr while on 3% 2- Leukocytosis , likely reactive, no signs of infection on UA and cxray 3- HTN, cont diovan, HZN, and BB dispo: ICU Critical Care Total Critical Care Time (in minutes): 30 Critical Care Statement: The care of this patient involved high complexity decision making to prevent further life threatening deterioration of the patient 's condition and/or to evaluate & treat vital organ system(s) failure or risk of failure.
--- NOTE | 2017-01-14 16:30 | PN ---
Addendum entered and electronically signed by Nito Beckford RES 01/14/17 18:04: - Critical Care Critical Care patient: YES Original Note: Physical Exam: SUBJECTIVE: Patient seen and examined. She says shes not as confused today. She is complaining of left thigh pain and said she fell a few days ago while laying on her bed. OBJECTIVE: Vital Signs Period Temp Pulse Resp BP Sys/Mathew Pulse Ox Last 24 Hr 97.5 F-98.5 F 53-99 16-26 98-163/56-75 98-100 GENERAL: NAD, A/O x 3, improved mental state (was confused yesterday) HEAD: Normal with no signs of trauma. EYES: PERRL, extraocular movements intact, sclera anicteric, conjunctiva clear. No ptosis. ENT: dry mucous membranes. NECK: supple. LUNGS: Breath sounds equal, clear to auscultation bilaterally, no wheezes, no crackles, no accessory muscle use. HEART: Regular rate and rhythm, S1, S2 without murmur, rub or gallop. ABDOMEN: Soft, nontender, nondistended, normoactive bowel sounds, no guarding, no rebound, no hepatosplenomegaly, no masses. EXTREMITIES: 2+ pulses, warm, well-perfused, no edema. NEUROLOGICAL: limited. Cranial nerves II through XII grossly intact. SKIN: dry axilla Laboratory Results - last 24 hr 01/13/17 01/13/17 01/13/17 05:15 05:15 15:30 WBC RBC Hgb Hct MCV MCH MCHC RDW Plt Count MPV Neutrophils % Lymphocytes % Monocytes % Eosinophils % Basophils % Sodium 112 L* 111 L* Potassium 2.9 L* 3.3 L Chloride 74 L 76 L Carbon Dioxide 24 20 L Anion Gap 14 15 BUN 16 14 Creatinine 0.5 L 0.6 Creat Clearance w eGFR > 60 Random Glucose 133 H 169 H Serum Osmolality 230 L Calcium 8.5 8.3 L Phosphorus Magnesium Total Bilirubin 1.1 H AST 35 ALT 31 Alkaline Phosphatase 92 Total Protein 6.2 L Albumin 3.4 Free T4 1.36 D Cortisol AM Sample 35.0 Ur Random Sodium 01/13/17 01/13/17 01/13/17 16:45 18:40 20:30 WBC RBC Hgb Hct MCV MCH MCHC RDW Plt Count MPV Neutrophils % Lymphocytes % Monocytes % Eosinophils % Basophils % Sodium 112 L* 112 L* Cancelled Potassium 3.3 L 3.4 L Cancelled Chloride 77 L 77 L Cancelled Carbon Dioxide 19 L 18 L Cancelled Anion Gap 16 17 H Cancelled BUN 14 14 Cancelled Creatinine 0.5 L 0.4 L Cancelled Creat Clearance w eGFR Random Glucose 171 H 163 H Cancelled Serum Osmolality Calcium 8.0 L 8.6 Cancelled Phosphorus Magnesium Total Bilirubin AST ALT Alkaline Phosphatase Total Protein Albumin Free T4 Cortisol AM Sample Ur Random Sodium 01/13/17 01/13/17 01/14/17 21:00 23:00 02:15 WBC RBC Hgb Hct MCV MCH MCHC RDW Plt Count MPV Neutrophils % Lymphocytes % Monocytes % Eosinophils % Basophils % Sodium 112 L* 113 L* 115 L* Potassium 3.1 L 3.3 L 3.2 L Chloride 78 L 79 L 79 L Carbon Dioxide 20 L 21 24 Anion Gap 14 13 12 BUN 14 13 12 Creatinine 0.4 L 0.4 L 0.5 L D Creat Clearance w eGFR Random Glucose 148 H 140 H 141 H Serum Osmolality Calcium 8.0 L 8.2 L 8.1 L Phosphorus Magnesium Total Bilirubin AST ALT Alkaline Phosphatase Total Protein Albumin Free T4 Cortisol AM Sample Ur Random Sodium 01/14/17 01/14/17 01/14/17 04:10 05:00 05:00 WBC 11.6 H RBC 3.84 Hgb 12.3 Hct 33.3 MCV 86.5 MCH 31.9 MCHC 36.9 H RDW 12.7 Plt Count 369 MPV 7.2 L Neutrophils % 80.1 Lymphocytes % 9.7 Monocytes % 10.0 Eosinophils % 0.1 Basophils % 0.1 Sodium 114 L* Potassium 3.4 L Chloride 81 L Carbon Dioxide 19 L D Anion Gap 14 BUN 13 Creatinine 0.4 L Creat Clearance w eGFR Random Glucose 133 H Serum Osmolality Calcium 8.0 L Phosphorus 1.6 L D Magnesium 1.7 L Total Bilirubin AST ALT Alkaline Phosphatase Total Protein Albumin Free T4 Cortisol AM Sample Ur Random Sodium 01/14/17 01/14/17 01/14/17 05:00 07:30 09:00 WBC RBC Hgb Hct MCV MCH MCHC RDW Plt Count MPV Neutrophils % Lymphocytes % Monocytes % Eosinophils % Basophils % Sodium 116 L* 115 L* Potassium 3.2 L 3.1 L Chloride 81 L 81 L Carbon Dioxide 23 D 22 Anion Gap 12 12 BUN 12 12 Creatinine 0.4 L 0.5 L D Creat Clearance w eGFR Random Glucose 121 H 126 H Serum Osmolality Calcium 7.9 L 8.3 L Phosphorus Magnesium Total Bilirubin AST ALT Alkaline Phosphatase Total Protein Albumin Free T4 Cortisol AM Sample Ur Random Sodium 70 01/14/17 10:15 WBC RBC Hgb Hct MCV MCH MCHC RDW Plt Count MPV Neutrophils % Lymphocytes % Monocytes % Eosinophils % Basophils % Sodium 116 L* Potassium 3.5 Chloride 83 L Carbon Dioxide 23 Anion Gap 10 BUN 11 Creatinine 0.5 L Creat Clearance w eGFR Random Glucose 139 H Serum Osmolality Calcium 8.0 L Phosphorus Magnesium Total Bilirubin AST ALT Alkaline Phosphatase Total Protein Albumin Free T4 Cortisol AM Sample Ur Random Sodium Active Medications Generic Name Dose Route Start Last Admin Trade Name Freq PRN Reason Stop Dose Admin Acetaminophen 650 mg 01/13/17 23:25 01/14/17 14:21 Tylenol - PO 650 mg Q6H PRN Administration FEVER OR PAIN Chlorhexidine Gluconate 1 applic 01/13/17 22:00 01/13/17 22:50 Hibiclens For Decolonization - TP 1 applic HS SHAWN Administration Heparin Sodium (Porcine) 5,000 unit 01/13/17 06:00 01/14/17 14:21 Heparin - SQ 5,000 unit TID SHAWN Administration Hydralazine HCl 25 mg 01/13/17 22:00 01/14/17 09:09 Apresoline - PO 25 mg BID SHAWN Administration Sodium Chloride 500 mls @ 30 mls/hr 01/14/17 14:15 01/14/17 14:41 Sodium Chloride 3% IV 01/15/17 06:54 30 mls/hr ASDIR ONE Administration Insulin Aspart 1 vial 01/13/17 07:00 01/14/17 10:38 Novolog Vial Sliding Scale - SQ Not Given ACHS [facility] Protocol Levothyroxine Sodium 88 mcg 01/13/17 07:00 01/14/17 06:17 Synthroid - PO 88 mcg DAILY@0700 SHAWN Administration Metoprolol Tartrate 50 mg 01/13/17 10:00 01/14/17 09:09 Lopressor - PO 50 mg BID SHAWN Administration Mupirocin 1 applic 01/13/17 10:00 01/14/17 09:21 Bactroban Ointment (For Decolonization) - NS 01/18/17 09:59 1 applic BID SHAWN Administration Nystatin 1 applic 01/13/17 12:00 01/14/17 09:22 Nystop Powder - TP 1 applic DAILY SHAWN Administration Valsartan 160 mg 01/13/17 22:00 01/14/17 09:09 Diovan - PO 160 mg BID SHAWN Administration ASSESSMENT/PLAN: 66 y/o lady with h/o HTN, HLD, NIDDM, and COPD who presented with AMS. She was found to have severe hyponatremia #Severe hyponatremia:likelyhypotonic hypovolemic hyponatremia secondary from Chlorthalidone. -she recently started on Chlorothalidone, now stopped -3% hypertonic saline started due to failure of NA increasing from NS. Will continue 3% then switch to normal saline after reaching sodium goal of 120. - repeat and follow BMP q2 hours -Goal is to increase NA 0.5 meq/dl/hour -Stopped Cholorthalidone #Leukocytosis -likely reactive -CXR negative -U/A negative -Follow CBC #Left Hip Pain - s/p fall -Pelvic Xray of LLE ordered. #HTN -Hold chlorthalidone -Continue diovan, hydralazine, BB #DM -Hold januvia -BGM achs -ISS achs #FEN/GI -IVF 3% 30cc/hour -repleted Mg, K, Cl -NPO #PPx -Heparin 5000 units sq TID Visit type - Emergency Visit Emergency Visit: Yes ED Registration Date: 01/13/17 Care time: The patient presented to the Emergency Department on the above date and was hospitalized for further evaluation of their emergent condition. - New Patient This patient is new to me today: No - Critical Care Critical Care patient: No
[2017-01-14 16:42] LABS: ANION GAP 11 (8-16); CALCIUM 7.9 mg/dL (8.5-10.1); CO2 22 mmol/L (21-32); CREATININE 0.5 mg/dL (0.55-1.02); GLUCOSE,RANDOM 139 mg/dL (74-106)
[2017-01-14 18:08] LABS: ANION GAP 10 (8-16); CALCIUM 7.9 mg/dL (8.5-10.1); CO2 22 mmol/L (21-32); CREATININE 0.4 mg/dL (0.55-1.02); GLUCOSE,RANDOM 151 mg/dL (74-106)
[2017-01-14] MEDS ORDERED: SODIUM CHLORIDE 1,000 ML IV SCH (18:30)
[2017-01-14] MEDS ORDERED: ONDANSETRON *ODT* 4 MG TABLET SL ONE (20:47)
[2017-01-14] MEDS ORDERED: ONDANSETRON 4 MG/2 ML VIAL ONE (20:47)
[2017-01-14 20:52] LABS: ANION GAP 10 (8-16); CALCIUM 7.7 mg/dL (8.5-10.1); CO2 21 mmol/L (21-32); CREATININE 0.5 mg/dL (0.55-1.02); GLUCOSE,RANDOM 160 mg/dL (74-106)
[2017-01-14 21:01] LABS: MAGNESIUM 2.1 mg/dL (1.8-2.4); PHOSPHOROUS 1.7 mg/dL (2.5-4.9)
[2017-01-14] MEDS: CHLORHEXIDINE GLUCONATE 4% CLEANSER FOR DECOLONIZATION TP SCH (21:21)
[2017-01-14] MEDS ORDERED: DEXTROSE 5%-WATER - 1,000 ML IV SCH (21:30)
[2017-01-14] MEDS ORDERED: morphine CARPU-JECT 2 MG/1 ML DISP.SYRIN ONE (22:58)
[2017-01-14] MEDS ORDERED: morphine CARPU-JECT 2 MG/1 ML DISP.SYRIN IVPUSH ONE (23:00)
[2017-01-14] MEDS ORDERED: SODIUM PHOSPHATE - 15 MM in DEXTROSE 5%-WATER - 250 ML IVPB ONE (23:00)
[2017-01-15 00:04] LABS: ANION GAP 9 (8-16); CALCIUM 7.8 mg/dL (8.5-10.1); CO2 23 mmol/L (21-32); CREATININE 0.6 mg/dL (0.55-1.02); GLUCOSE,RANDOM 173 mg/dL (74-106)
[2017-01-15 03:54] LABS: ANION GAP 10 (8-16); CALCIUM 7.9 mg/dL (8.5-10.1); CO2 23 mmol/L (21-32); CREATININE 0.5 mg/dL (0.55-1.02); GLUCOSE,RANDOM 149 mg/dL (74-106)
[2017-01-15 04:16] LABS: MAGNESIUM 2.1 mg/dL (1.8-2.4); PHOSPHOROUS 2.6 mg/dL (2.5-4.9)
[2017-01-15 05:50] LABS: MCHC 36.3 g/dl (32.0-36.0); MEAN CELL VOLUME 88.1 fl (80-96); PLATELET COUNT 368 K/MM3 (134-434); WHITE BLOOD COUNT 7.7 K/mm3 (4.0-10.0)
[2017-01-15] MEDS ORDERED: DEXTROSE 5%-WATER - 1,000 ML IV SCH ×2 (06:00→13:17)
[2017-01-15] MEDS: HEPARIN NA (PORCINE) 5,000 UNITS/ML 1ML VIAL SQ SCH ×3 (06:20→21:15)
[2017-01-15 06:23] LABS: ANION GAP 8 (8-16); CO2 25 mmol/L (21-32); GLUCOSE,RANDOM 162 mg/dL (74-106); MAGNESIUM 2.1 mg/dL (1.8-2.4)
[2017-01-15 06:25] LABS: CALCIUM 8.1 mg/dL (8.5-10.1); CREATININE 0.5 mg/dL (0.55-1.02); PHOSPHOROUS 2.4 mg/dL (2.5-4.9)
[2017-01-15 06:47] LABS: URINE APPEARANCE CLEAR; URINE BILIRUBIN NEGATIVE (NEGATIVE); URINE BLOOD 1+ (NEGATIVE); URINE COLOR COLORLESS; URINE GLUCOSE (UA) NEGATIVE (NEGATIVE); URINE KETONE NEGATIVE (NEGATIVE); URINE LEUK ESTERASE NEGATIVE (NEGATIVE); URINE NITRITE NEGATIVE (NEGATIVE); URINE PROTEIN NEGATIVE (NEGATIVE); URINE UROBILINOGEN NEGATIVE mg/dL (0.2-1.0)
[2017-01-15 06:51] LABS: URINE RBC <1 /hpf (0-3)
[2017-01-15] MEDS ORDERED: POTASSIUM PHOSPHATE 15 MM in DEXTROSE 5%-WATER - 250 ML IVPB ONE (08:30)
[2017-01-15] MEDS: LEVOTHYROXINE NA 88 MCG TABLET (FP) PO SCH (10:02)
[2017-01-15] MEDS: hydrALAZINE HCL 25 MG TABLET (FP) PO SCH (10:02)
[2017-01-15] MEDS: METOPROLOL TARTRATE 50 MG TABLET (FP) PO SCH ×2 (10:02→21:15)
[2017-01-15] MEDS: VALSARTAN 160 MG TABLET (UD) PO SCH ×2 (10:02→21:15)
[2017-01-15] MEDS: INSULIN SLIDING SCALE (NOVOLOG) 1 VIAL SQ SCH ×4 (10:03→21:28)
[2017-01-15] MEDS: NYSTATIN POWDER 100,000 UNITS/GM - 15 GM TOPICAL POWDER TP SCH (10:05)
[2017-01-15] MEDS: MUPIROCIN 2% TOPICAL OINTMENT FOR DECOLONIZATION NS SCH ×2 (10:13→21:03)
[2017-01-15] MEDS: ACETAMINOPHEN 325 MG TABLET (FP) PO PRN ×2 (10:14→15:35)
[2017-01-15 11:27] LABS: ANION GAP 9 (8-16); CALCIUM 7.9 mg/dL (8.5-10.1); CO2 26 mmol/L (21-32); CREATININE 0.7 mg/dL (0.55-1.02); GLUCOSE,RANDOM 181 mg/dL (74-106)
--- NOTE | 2017-01-15 13:02 | PN ---
Teaching Attending Note Name of Resident: Krunal Nugent ATTENDING PHYSICIAN STATEMENT I saw and evaluated the patient. I reviewed the resident's note and discussed the case with the resident. I agree with the resident's findings and plan as documented. SUBJECTIVE: Patient seen and examined in the ICU. Awake and alert. Denies CP or SOB. Hyponatremia improving. Noted that due to rapid correction, IVF was changed to D5W. Intake & Output 01/12/17 01/13/17 01/14/17 01/15/17 23:59 23:59 23:59 23:59 Intake Total 1000 2320 1495 350 Output Total 300 1750 1300 Balance 1000 2020 -255 -950 Weight 160 lb 169 lb 1 oz 171 lb 5 oz 164 lb 3.91 oz Last Vital Signs Temp Pulse Resp BP Pulse Ox 98.0 F 58 L 21 106/52 100 01/15/17 10:00 01/15/17 12:00 01/15/17 12:00 01/15/17 12:00 01/15/17 08:45 Active Medications Acetaminophen (Tylenol -) 650 mg PO Q6H PRN PRN Reason: FEVER OR PAIN Last Admin: 01/15/17 10:14 Dose: 650 mg Chlorhexidine Gluconate (Hibiclens For Decolonization -) 1 applic TP HS [facility] Last Admin: 01/14/17 21:21 Dose: 1 applic Heparin Sodium (Porcine) (Heparin -) 5,000 unit SQ TID [facility] Last Admin: 01/15/17 06:20 Dose: 5,000 unit Hydralazine HCl (Apresoline -) 25 mg PO BID [facility] Last Admin: 01/15/17 10:02 Dose: Not Given Dextrose (D5w -) 1,000 mls @ 100 mls/hr IV ASDIR [facility] Last Admin: 01/15/17 10:03 Dose: 100 mls/hr Insulin Aspart (Novolog Vial Sliding Scale -) 1 vial SQ ACHS [facility] PRN Reason: Protocol Last Admin: 01/15/17 10:04 Dose: Not Given Levothyroxine Sodium (Synthroid -) 88 mcg PO DAILY@0700 [facility] Last Admin: 01/15/17 10:02 Dose: 88 mcg Metoprolol Tartrate (Lopressor -) 50 mg PO BID [facility] Last Admin: 01/15/17 10:02 Dose: 50 mg Mupirocin (Bactroban Ointment (For Decolonization) -) 1 applic NS BID [facility] Stop: 01/18/17 09:59 Last Admin: 01/15/17 10:13 Dose: 1 applic Nystatin (Nystop Powder -) 1 applic TP DAILY [facility] Last Admin: 01/15/17 10:05 Dose: 1 applic Valsartan (Diovan -) 160 mg PO BID [facility] Last Admin: 01/15/17 10:02 Dose: 160 mg Constitutional: Yes: More awake and alert, No Distress Eyes: Yes: Other Pupils equal HENT: Yes: Atraumatic Neck: Yes: WNL, Trachea Midline Cardiovascular: Yes: Regular Rate and Rhythm Respiratory: Yes: diminished at the bases Gastrointestinal: Yes: Soft, Abdomen, Obese, Other (Non tender) Musculoskeletal: Yes: WNL Extremities: Yes: WNL Edema: No Peripheral Pulses WNL: Yes Integumentary: Yes: WNL Neurological: Yes: Awake and alert, non-focal Labs: Laboratory Results - last 24 hr 01/14/17 01/14/17 01/14/17 14:00 17:00 19:55 WBC RBC Hgb Hct MCV MCH MCHC RDW Plt Count MPV Sodium 119 L* 120 L* 123 L* Potassium 4.7 D 4.3 4.1 Chloride 86 L 88 L 92 L Carbon Dioxide 22 22 21 Anion Gap 11 10 10 BUN 12 12 11 Creatinine 0.5 L 0.4 L 0.5 L D Random Glucose 139 H 151 H 160 H Calcium 7.9 L 7.9 L 7.7 L Phosphorus Magnesium Urine Color Urine Appearance Urine pH Ur Specific Mineral Urine Protein Urine Glucose (UA) Urine Ketones Urine Blood Urine Nitrite Urine Bilirubin Urine Urobilinogen Ur Leukocyte Esterase Urine RBC Urine WBC 01/14/17 01/14/17 01/15/17 20:00 23:25 03:00 WBC RBC Hgb Hct MCV MCH MCHC RDW Plt Count MPV Sodium 124 L* 127 L Potassium 4.0 Chloride 92 L Carbon Dioxide 23 Anion Gap 9 BUN 12 Creatinine 0.6 Random Glucose 173 H Calcium 7.8 L Phosphorus 1.7 L 2.6 D Magnesium 2.1 D 2.1 Urine Color Urine Appearance Urine pH Ur Specific Mineral Urine Protein Urine Glucose (UA) Urine Ketones Urine Blood Urine Nitrite Urine Bilirubin Urine Urobilinogen Ur Leukocyte Esterase Urine RBC Urine WBC 01/15/17 01/15/17 01/15/17 03:00 05:35 05:35 WBC 7.7 D RBC 3.78 Hgb 12.1 Hct 33.3 MCV 88.1 MCH 32.0 MCHC 36.3 H RDW 13.0 Plt Count 368 MPV 7.0 L Sodium 127 L 126 L Potassium 3.9 3.8 Chloride 94 L 93 L Carbon Dioxide 23 25 Anion Gap 10 8 BUN 11 10 Creatinine 0.5 L 0.5 L Random Glucose 149 H 162 H Calcium 7.9 L 8.1 L Phosphorus 2.4 L Magnesium 2.1 Urine Color Urine Appearance Urine pH Ur Specific Mineral Urine Protein Urine Glucose (UA) Urine Ketones Urine Blood Urine Nitrite Urine Bilirubin Urine Urobilinogen Ur Leukocyte Esterase Urine RBC Urine WBC 01/15/17 01/15/17 06:00 10:45 WBC RBC Hgb Hct MCV MCH MCHC RDW Plt Count MPV Sodium 127 L Potassium 3.6 Chloride 92 L Carbon Dioxide 26 Anion Gap 9 BUN 9 Creatinine 0.7 D Random Glucose 181 H Calcium 7.9 L Phosphorus Magnesium Urine Color Colorless Urine Appearance Clear Urine pH 7.0 Ur Specific Mineral <= 1.005 Urine Protein Negative Urine Glucose (UA) Negative Urine Ketones Negative Urine Blood 1+ H Urine Nitrite Negative Urine Bilirubin Negative Urine Urobilinogen Negative Ur Leukocyte Esterase Negative Urine RBC <1 Urine WBC None Problem List - Problems (1) Altered mental status, unspecified Code(s): R41.82 - ALTERED MENTAL STATUS, UNSPECIFIED (2) Hypokalemia Code(s): E87.6 - HYPOKALEMIA (3) Hyponatremia Code(s): E87.1 - HYPO-OSMOLALITY AND HYPONATREMIA Assessment/Plan PO as tolerated BMP monitoring Daily weight Strict I&O PO as tolerated Aspiration precautions BP Meds as ordered Will D/W Renal further fluid management Dr Feldman Critical care time spent in reviewing chart, evaluating patient and formulating plan - 36 minutes.
--- NOTE | 2017-01-15 13:24 | PN ---
Progress Note, Physician History of Present Illness: Pt seen and examined at bedside. She is awake and alert. Her mental status is markedly improved. - Current Medication List Current Medications: Active Medications Acetaminophen (Tylenol -) 650 mg PO Q6H PRN PRN Reason: FEVER OR PAIN Last Admin: 01/15/17 10:14 Dose: 650 mg Chlorhexidine Gluconate (Hibiclens For Decolonization -) 1 applic TP HS [facility] Last Admin: 01/14/17 21:21 Dose: 1 applic Heparin Sodium (Porcine) (Heparin -) 5,000 unit SQ TID [facility] Last Admin: 01/15/17 06:20 Dose: 5,000 unit Hydralazine HCl (Apresoline -) 25 mg PO BID [facility] Last Admin: 01/15/17 10:02 Dose: Not Given Insulin Aspart (Novolog Vial Sliding Scale -) 1 vial SQ ACHS [facility] PRN Reason: Protocol Last Admin: 01/15/17 10:04 Dose: Not Given Levothyroxine Sodium (Synthroid -) 88 mcg PO DAILY@0700 [facility] Last Admin: 01/15/17 10:02 Dose: 88 mcg Metoprolol Tartrate (Lopressor -) 50 mg PO BID [facility] Last Admin: 01/15/17 10:02 Dose: 50 mg Mupirocin (Bactroban Ointment (For Decolonization) -) 1 applic NS BID [facility] Stop: 01/18/17 09:59 Last Admin: 01/15/17 10:13 Dose: 1 applic Nystatin (Nystop Powder -) 1 applic TP DAILY [facility] Last Admin: 01/15/17 10:05 Dose: 1 applic Potassium Chloride (K-Dur -) 40 meq PO ONCE ONE Stop: 01/15/17 13:21 Valsartan (Diovan -) 160 mg PO BID [facility] Last Admin: 01/15/17 10:02 Dose: 160 mg - Objective Vital Signs: Vital Signs Temperature 98.0 F 01/15/17 10:00 Pulse Rate 58 L 01/15/17 12:00 Respiratory Rate 21 01/15/17 12:00 Blood Pressure 106/52 01/15/17 12:00 O2 Sat by Pulse Oximetry (%) 100 01/15/17 08:45 Constitutional: Yes: Calm Eyes: Yes: Conjunctiva Clear HENT: Yes: Atraumatic Neck: Yes: Supple Cardiovascular: Yes: S1, S2 Respiratory: Yes: CTA Bilaterally Gastrointestinal: Yes: Normal Bowel Sounds, Soft Genitourinary: Yes: WNL Musculoskeletal: Yes: WNL Edema: No Neurological: Yes: Oriented Psychiatric: Yes: Oriented Labs: CBC, BMP 01/15/17 05:35 01/15/17 10:45 Problem List - Problems (1) Hyponatremia Code(s): E87.1 - HYPO-OSMOLALITY AND HYPONATREMIA (2) Anxiety Code(s): F41.9 - ANXIETY DISORDER, UNSPECIFIED Assessment/Plan Current Medications Generic Name Dose Route Start Last Admin Trade Name Freq PRN Reason Stop Dose Admin Acetaminophen 650 mg 01/13/17 23:25 01/15/17 10:14 Tylenol - PO 650 mg Q6H PRN Administration FEVER OR PAIN Chlorhexidine Gluconate 1 applic 01/13/17 22:00 01/14/17 21:21 Hibiclens For Decolonization - TP 1 applic HS SHAWN Administration Heparin Sodium (Porcine) 5,000 unit 01/13/17 06:00 01/15/17 06:20 Heparin - SQ 5,000 unit TID SHAWN Administration Hydralazine HCl 25 mg 01/13/17 22:00 01/15/17 10:02 Apresoline - PO Not Given BID SHAWN Insulin Aspart 1 vial 01/13/17 07:00 01/15/17 10:04 Novolog Vial Sliding Scale - SQ Not Given ACHS [facility] Protocol Levothyroxine Sodium 88 mcg 01/13/17 07:00 01/15/17 10:02 Synthroid - PO 88 mcg DAILY@0700 SHAWN Administration Metoprolol Tartrate 50 mg 01/13/17 10:00 01/15/17 10:02 Lopressor - PO 50 mg BID SHAWN Administration Mupirocin 1 applic 01/13/17 10:00 01/15/17 10:13 Bactroban Ointment (For Decolonization) - NS 01/18/17 09:59 1 applic BID SHAWN Administration Nystatin 1 applic 01/13/17 12:00 01/15/17 10:05 Nystop Powder - TP 1 applic DAILY SHAWN Administration Potassium Chloride 40 meq 01/15/17 13:20 K-Dur - PO 01/15/17 13:21 ONCE ONE Valsartan 160 mg 01/13/17 22:00 01/15/17 10:02 Diovan - PO 160 mg BID SHAWN Administration Impression 1. hyponatremia 2. HTN 3. anxiety 4. depression 5. diarrhea 6. GERD 7. DM 8. COPD 9. hypothyroidism 10. hypokalemia Plan - stop fluids for now - check cpk level - monitor sodium - discussed with ICU - restrict free water - psych eval for depression - would not recommend restarting thiazides Dr Perez
[2017-01-15] MEDS ORDERED: POTASSIUM CHLORIDE TABS 20 MEQ TABLET.ER (FP) PO ONE (13:45)
[2017-01-15 14:16] LABS: CPK 188 IU/L (26-192)
--- NOTE | 2017-01-15 14:16 | PN ---
Physical Exam: SUBJECTIVE: Patient seen and examined feels better awake, alert and oriented in night patient was started on d5w because of overcorrection of na. repeat Sr na is 127. we will stop D5w and all other IV fluid. will try to increase her sodium from diet. OBJECTIVE: Vital Signs Period Temp Pulse Resp BP Sys/Mathew Pulse Ox Last 24 Hr 97.9 F-98.6 F 52-71 15-24 89-120/46-68 100-100 GENERAL: awake, alert, oriented HEAD: Normal with no signs of trauma. EYES: PERRL, extraocular movements intact, ENT: dry mucous membranes. NECK: supple, no lymphadenopathy, thyroid not palpable LUNGS: Breath sounds equal, clear to auscultation bilaterally, no wheezes, no crackles, no accessory muscle use. HEART: s1s2 normal, ABDOMEN: Soft, nontender, nondistended, normoactive bowel sounds, no guarding, no rebound, EXTREMITIES: 2+ pulses, warm, well-perfused, no edema. SKIN: dry axilla Laboratory Results - last 24 hr 01/14/17 01/14/17 01/14/17 14:00 17:00 19:55 WBC RBC Hgb Hct MCV MCH MCHC RDW Plt Count MPV Sodium 119 L* 120 L* 123 L* Potassium 4.7 D 4.3 4.1 Chloride 86 L 88 L 92 L Carbon Dioxide 22 22 21 Anion Gap 11 10 10 BUN 12 12 11 Creatinine 0.5 L 0.4 L 0.5 L D Random Glucose 139 H 151 H 160 H Calcium 7.9 L 7.9 L 7.7 L Phosphorus Magnesium Creatine Kinase Urine Color Urine Appearance Urine pH Ur Specific [place] Urine Protein Urine Glucose (UA) Urine Ketones Urine Blood Urine Nitrite Urine Bilirubin Urine Urobilinogen Ur Leukocyte Esterase Urine RBC Urine WBC 01/14/17 01/14/17 01/15/17 20:00 23:25 03:00 WBC RBC Hgb Hct MCV MCH MCHC RDW Plt Count MPV Sodium 124 L* 127 L Potassium 4.0 Chloride 92 L Carbon Dioxide 23 Anion Gap 9 BUN 12 Creatinine 0.6 Random Glucose 173 H Calcium 7.8 L Phosphorus 1.7 L 2.6 D Magnesium 2.1 D 2.1 Creatine Kinase Urine Color Urine Appearance Urine pH Ur Specific [place] Urine Protein Urine Glucose (UA) Urine Ketones Urine Blood Urine Nitrite Urine Bilirubin Urine Urobilinogen Ur Leukocyte Esterase Urine RBC Urine WBC 01/15/17 01/15/17 01/15/17 03:00 05:35 05:35 WBC 7.7 D RBC 3.78 Hgb 12.1 Hct 33.3 MCV 88.1 MCH 32.0 MCHC 36.3 H RDW 13.0 Plt Count 368 MPV 7.0 L Sodium 127 L 126 L Potassium 3.9 3.8 Chloride 94 L 93 L Carbon Dioxide 23 25 Anion Gap 10 8 BUN 11 10 Creatinine 0.5 L 0.5 L Random Glucose 149 H 162 H Calcium 7.9 L 8.1 L Phosphorus 2.4 L Magnesium 2.1 Creatine Kinase Urine Color Urine Appearance Urine pH Ur Specific [place] Urine Protein Urine Glucose (UA) Urine Ketones Urine Blood Urine Nitrite Urine Bilirubin Urine Urobilinogen Ur Leukocyte Esterase Urine RBC Urine WBC 01/15/17 01/15/17 01/15/17 06:00 10:45 13:45 WBC RBC Hgb Hct MCV MCH MCHC RDW Plt Count MPV Sodium 127 L Potassium 3.6 Chloride 92 L Carbon Dioxide 26 Anion Gap 9 BUN 9 Creatinine 0.7 D Random Glucose 181 H Calcium 7.9 L Phosphorus Magnesium Creatine Kinase Cancelled Urine Color Colorless Urine Appearance Clear Urine pH 7.0 Ur Specific [place] <= 1.005 Urine Protein Negative Urine Glucose (UA) Negative Urine Ketones Negative Urine Blood 1+ H Urine Nitrite Negative Urine Bilirubin Negative Urine Urobilinogen Negative Ur Leukocyte Esterase Negative Urine RBC <1 Urine WBC None Active Medications Generic Name Dose Route Start Last Admin Trade Name Freq PRN Reason Stop Dose Admin Acetaminophen 650 mg 01/13/17 23:25 01/15/17 10:14 Tylenol - PO 650 mg Q6H PRN Administration FEVER OR PAIN Chlorhexidine Gluconate 1 applic 01/13/17 22:00 01/14/17 21:21 Hibiclens For Decolonization - TP 1 applic HS SHAWN Administration Heparin Sodium (Porcine) 5,000 unit 01/13/17 06:00 01/15/17 14:04 Heparin - SQ 5,000 unit TID SHAWN Administration Hydralazine HCl 25 mg 01/13/17 22:00 01/15/17 10:02 Apresoline - PO Not Given BID SHAWN Insulin Aspart 1 vial 01/13/17 07:00 01/15/17 10:04 Novolog Vial Sliding Scale - SQ Not Given ACHS [facility] Protocol Levothyroxine Sodium 88 mcg 01/13/17 07:00 01/15/17 10:02 Synthroid - PO 88 mcg DAILY@0700 SHAWN Administration Metoprolol Tartrate 50 mg 01/13/17 10:00 01/15/17 10:02 Lopressor - PO 50 mg BID SHAWN Administration Mupirocin 1 applic 01/13/17 10:00 01/15/17 10:13 Bactroban Ointment (For Decolonization) - NS 01/18/17 09:59 1 applic BID SHAWN Administration Nystatin 1 applic 01/13/17 12:00 01/15/17 10:05 Nystop Powder - TP 1 applic DAILY [facility] Administration Valsartan 160 mg 01/13/17 22:00 01/15/17 10:02 Diovan - PO 160 mg BID SHAWN Administration ASSESSMENT/PLAN: 66 y/o lady with h/o HTN, HLD, NIDDM, and COPD who presented with AMS. She was found to have severe hyponatremia 1- Severe hyponatremia with AMS : hypotonic hypovolemic hyponatremia form being on Chlorthalidone. sr Na 127, mental status improved, patient oriented and alert IV fluid stopped. will let sodium increase with her diet. Monitor Sr sodium. free water less than 1L 2 DM monitor blood sugar continue with diabetic diet. on novalog sliding scale 3- HTN, controlled on meds on valsartan, hydralazine and metoprolol monitor vitals thiazide stopped 4 Hypothyroidism continue with levothyroxine 5 chronic pain continue home med acetaminophen 650 q6h prn Fluid: IV fluid stopped, orally allowed, electrolyte: hyponatremia, hypophosphatemia. ( IV kphos given) nutrition: diabetic diet dvt pro: on heparin gi pro: not required dispo: ICU Visit type - Emergency Visit Emergency Visit: Yes ED Registration Date: 01/13/17 Care time: The patient presented to the Emergency Department on the above date and was hospitalized for further evaluation of their emergent condition. - New Patient This patient is new to me today: No - Critical Care Critical Care patient: Yes Total Critical Care Time (in minutes): 45 Critical Care Statement: The care of this patient involved high complexity decision making to prevent further life threatening deterioration of the patient 's condition and/or to evaluate & treat vital organ system(s) failure or risk of failure.
--- NOTE | 2017-01-15 17:14 | PN ---
Teaching Attending Note Name of Resident: Nito Beckford ATTENDING PHYSICIAN STATEMENT I saw and evaluated the patient. I reviewed the resident's note and discussed the case with the resident. I agree with the resident's findings and plan as documented. SUBJECTIVE: no fever or chills. has generalized aches . pain in all joints, hips, knees, ankles and upper ext joints OBJECTIVE: AAOX3 . still with slightly dry MM CV: RRR Lungs: CTAB Ext: no edema . Abd : soft, NT, ND , NL BS. TTP over all extremities . no TTP over hips ASSESSMENT AND PLAN: 66 y/o lady with h/o HTN, HLD, NIDDM, and COPD who presented with AMS. She was found to have severe hyponatremia 1- Severe hypotonic hypovolemic hyponatremia form being on Chlorthalidone - off IVF - free water restriction 2- Leukocytosis , resolved 3- HTN, slight hypotension this am and b=over night . dc HZN Cont valsartan and metoprolol Critical Care Total Critical Care Time (in minutes): 40 Critical Care Statement: The care of this patient involved high complexity decision making to prevent further life threatening deterioration of the patient 's condition and/or to evaluate & treat vital organ system(s) failure or risk of failure.
--- NOTE | 2017-01-15 17:14 | PN ---
Physical Exam: SUBJECTIVE: Patient seen and examined. Patient seen and examined. She says shes not as confused today. She is complaining of pain all over her body. OBJECTIVE: Vital Signs Period Temp Pulse Resp BP Sys/Mathew Pulse Ox Last 24 Hr 97.9 F-98.6 F 52-71 15-24 89-127/46-68 100-100 GENERAL: NAD, A/O x 3, improved mental state (was confused yesterday) HEAD: Normal with no signs of trauma. EYES: PERRL, extraocular movements intact, sclera anicteric, conjunctiva clear. No ptosis. ENT: dry mucous membranes. NECK: supple. LUNGS: Breath sounds equal, clear to auscultation bilaterally, no wheezes, no crackles, no accessory muscle use. HEART: Regular rate and rhythm, S1, S2 without murmur, rub or gallop. ABDOMEN: Soft, nontender, nondistended, normoactive bowel sounds, no guarding, no rebound, no hepatosplenomegaly, no masses. EXTREMITIES: 2+ pulses, warm, well-perfused, no edema. NEUROLOGICAL: limited. Cranial nerves II through XII grossly intact. SKIN: dry axilla Laboratory Results - last 24 hr 01/14/17 01/14/17 01/14/17 17:00 19:55 20:00 WBC RBC Hgb Hct MCV MCH MCHC RDW Plt Count MPV Sodium 120 L* 123 L* Potassium 4.3 4.1 Chloride 88 L 92 L Carbon Dioxide 22 21 Anion Gap 10 10 BUN 12 11 Creatinine 0.4 L 0.5 L D Random Glucose 151 H 160 H Calcium 7.9 L 7.7 L Phosphorus 1.7 L Magnesium 2.1 D Creatine Kinase Creatine Kinase Index CK-MB (CK-2) Urine Color Urine Appearance Urine pH Ur Specific [place] Urine Protein Urine Glucose (UA) Urine Ketones Urine Blood Urine Nitrite Urine Bilirubin Urine Urobilinogen Ur Leukocyte Esterase Urine RBC Urine WBC 01/14/17 01/15/17 01/15/17 23:25 03:00 03:00 WBC RBC Hgb Hct MCV MCH MCHC RDW Plt Count MPV Sodium 124 L* 127 L 127 L Potassium 4.0 3.9 Chloride 92 L 94 L Carbon Dioxide 23 23 Anion Gap 9 10 BUN 12 11 Creatinine 0.6 0.5 L Random Glucose 173 H 149 H Calcium 7.8 L 7.9 L Phosphorus 2.6 D Magnesium 2.1 Creatine Kinase Creatine Kinase Index CK-MB (CK-2) Urine Color Urine Appearance Urine pH Ur Specific [place] Urine Protein Urine Glucose (UA) Urine Ketones Urine Blood Urine Nitrite Urine Bilirubin Urine Urobilinogen Ur Leukocyte Esterase Urine RBC Urine WBC 01/15/17 01/15/17 01/15/17 05:35 05:35 06:00 WBC 7.7 D RBC 3.78 Hgb 12.1 Hct 33.3 MCV 88.1 MCH 32.0 MCHC 36.3 H RDW 13.0 Plt Count 368 MPV 7.0 L Sodium 126 L Potassium 3.8 Chloride 93 L Carbon Dioxide 25 Anion Gap 8 BUN 10 Creatinine 0.5 L Random Glucose 162 H Calcium 8.1 L Phosphorus 2.4 L Magnesium 2.1 Creatine Kinase Creatine Kinase Index CK-MB (CK-2) Urine Color Colorless Urine Appearance Clear Urine pH 7.0 Ur Specific [place] <= 1.005 Urine Protein Negative Urine Glucose (UA) Negative Urine Ketones Negative Urine Blood 1+ H Urine Nitrite Negative Urine Bilirubin Negative Urine Urobilinogen Negative Ur Leukocyte Esterase Negative Urine RBC <1 Urine WBC None 01/15/17 01/15/17 10:45 13:45 WBC RBC Hgb Hct MCV MCH MCHC RDW Plt Count MPV Sodium 127 L Potassium 3.6 Chloride 92 L Carbon Dioxide 26 Anion Gap 9 BUN 9 Creatinine 0.7 D Random Glucose 181 H Calcium 7.9 L Phosphorus Magnesium Creatine Kinase 188 Cancelled Creatine Kinase Index 6.4 H* CK-MB (CK-2) 12.104 H Urine Color Urine Appearance Urine pH Ur Specific [place] Urine Protein Urine Glucose (UA) Urine Ketones Urine Blood Urine Nitrite Urine Bilirubin Urine Urobilinogen Ur Leukocyte Esterase Urine RBC Urine WBC Active Medications Generic Name Dose Route Start Last Admin Trade Name Freq PRN Reason Stop Dose Admin Acetaminophen 650 mg 01/13/17 23:25 01/15/17 15:35 Tylenol - PO 650 mg Q6H PRN Administration FEVER OR PAIN Chlorhexidine Gluconate 1 applic 01/13/17 22:00 01/14/17 21:21 Hibiclens For Decolonization - TP 1 applic HS SHAWN Administration Heparin Sodium (Porcine) 5,000 unit 01/13/17 06:00 01/15/17 14:04 Heparin - SQ 5,000 unit TID [facility]N Administration Hydralazine HCl 25 mg 01/13/17 22:00 01/15/17 10:02 Apresoline - PO Not Given BID SHAWN Insulin Aspart 1 vial 01/13/17 07:00 01/15/17 15:44 Novolog Vial Sliding Scale - SQ Not Given ACHS [facility] Protocol Levothyroxine Sodium 88 mcg 01/13/17 07:00 01/15/17 10:02 Synthroid - PO 88 mcg DAILY@0700 [facility] Administration Metoprolol Tartrate 50 mg 01/13/17 10:00 01/15/17 10:02 Lopressor - PO 50 mg BID [facility]N Administration Mupirocin 1 applic 01/13/17 10:00 01/15/17 10:13 Bactroban Ointment (For Decolonization) - NS 01/18/17 09:59 1 applic BID [facility]N Administration Nystatin 1 applic 01/13/17 12:00 01/15/17 10:05 Nystop Powder - TP 1 applic DAILY [facility]N Administration Valsartan 160 mg 01/13/17 22:00 01/15/17 10:02 Diovan - PO 160 mg BID [facility]N Administration ASSESSMENT/PLAN: 66 y/o lady with h/o HTN, HLD, NIDDM, and COPD who presented with AMS. She was found to have severe hyponatremia #Severe hyponatremia:likelyhypotonic hypovolemic hyponatremia secondary from Chlorthalidone. -she recently started on Chlorothalidone by her doctor, now stopped -Fluids held -Sodium level improving at an appropriate rate -repeat and follow BMP -Check CPK level in AM -hold Cholorthalidone -Restrict free water #Leukocytosis -likely reactive -CXR negative -U/A negative -Follow CBC #Left Hip Pain - s/p fall -Pelvic Xray negative for fx #HTN -Hold chlorthalidone -Continue diovan, hydralazine, BB #DM -Hold januvia -BGM achs -ISS achs #FEN/GI -IVF stopped -repleted K -NPO #PPx -Heparin 5000 units sq TID Visit type - Emergency Visit Emergency Visit: Yes ED Registration Date: 01/13/17 Care time: The patient presented to the Emergency Department on the above date and was hospitalized for further evaluation of their emergent condition. - New Patient This patient is new to me today: No - Critical Care Critical Care patient: Yes Total Critical Care Time (in minutes): 45 Critical Care Statement: The care of this patient involved high complexity decision making to prevent further life threatening deterioration of the patient 's condition and/or to evaluate & treat vital organ system(s) failure or risk of failure.
[2017-01-15 17:52] LABS: ANION GAP 11 (8-16); CALCIUM 8.1 mg/dL (8.5-10.1); CO2 23 mmol/L (21-32); CREATININE 0.6 mg/dL (0.55-1.02); GLUCOSE,RANDOM 150 mg/dL (74-106)
[2017-01-15] MEDS ORDERED: morphine CARPU-JECT 2 MG/1 ML DISP.SYRIN IVPUSH ONE (19:09)
[2017-01-15] MEDS ORDERED: HYDROmorphone HCL CARPU-JECT 1 MG/1 ML DISP.SYRIN IVPB ONE (19:20)
[2017-01-15] MEDS: POLYETHYLENE GLYCOL 3350 119 GM BTL PO SCH (21:15)
[2017-01-15] MEDS ORDERED: CHLORHEXIDINE GLUCONATE 4% CLEANSER FOR DECOLONIZATION TP SCH (22:00)
[2017-01-16] MEDS: HEPARIN NA (PORCINE) 5,000 UNITS/ML 1ML VIAL SQ SCH ×3 (05:58→21:11)
[2017-01-16] MEDS: LEVOTHYROXINE NA 88 MCG TABLET (FP) PO SCH (05:59)
[2017-01-16] MEDS: INSULIN SLIDING SCALE (NOVOLOG) 1 VIAL SQ SCH ×3 (05:59→17:55)
[2017-01-16] MEDS ORDERED: PROCHLORPERAZINE MALEATE 5 MG TABLET PO PRN (06:52)
[2017-01-16 07:55] LABS: BASOPHIL 0.4 % (0-2.0); EOSINOPHIL 0.8 % (0-4.5); MCH 31.2 pg (25.7-33.7); MCHC 35.1 g/dl (32.0-36.0); MEAN PLT VOLUME 7.1 fl (7.5-11.1); NEUTROPHILS 73.1 % (42.8-82.8); PLATELET COUNT 398 K/MM3 (134-434); RDW 13.2 % (11.6-15.6); WHITE BLOOD COUNT 12.6 K/mm3 (4.0-10.0)
[2017-01-16 08:15] LABS: ANION GAP 12 (8-16); CALCIUM 8.5 mg/dL (8.5-10.1); CO2 22 mmol/L (21-32); CREATININE 0.6 mg/dL (0.55-1.02); GLUCOSE,RANDOM 135 mg/dL (74-106); PHOSPHOROUS 2.7 mg/dL (2.5-4.9)
[2017-01-16] MEDS ORDERED: PT OWN MED DRAWER 7, Y5N ONE (09:08)
[2017-01-16] MEDS: VALSARTAN 160 MG TABLET (UD) PO SCH ×3 (10:13→22:42)
[2017-01-16] MEDS: MUPIROCIN 2% TOPICAL OINTMENT FOR DECOLONIZATION NS SCH (10:13)
[2017-01-16] MEDS: METOPROLOL TARTRATE 50 MG TABLET (FP) PO SCH ×2 (10:14→21:11)
[2017-01-16] MEDS: ACETAMINOPHEN 325 MG TABLET (FP) PO PRN ×3 (10:14→23:20)
[2017-01-16] MEDS: NYSTATIN POWDER 100,000 UNITS/GM - 15 GM TOPICAL POWDER TP SCH (10:15)
[2017-01-16] MEDS: POLYETHYLENE GLYCOL 3350 119 GM BTL PO SCH (10:15)
[2017-01-16] MEDS ORDERED: LORazepam 0.5 MG TABLET PO ONE (10:27)
--- NOTE | 2017-01-16 12:18 | PN ---
Progress Note (short form) - Note Progress Note: RENAL Pt is awake and alert comfortable though has many complaints dizzy, nauseated Last Vital Signs Temp Pulse Resp BP Pulse Ox 98.9 F 79 20 126/68 100 01/16/17 10:00 01/16/17 10:00 01/16/17 10:00 01/16/17 10:00 01/16/17 09:00 lungs clear cvs s1s2 rr abd soft ext no edema neuro awake and alert, some facial asymmetry though is able to move her lips bilaterally CBC, BMP 01/16/17 06:00 01/16/17 06:00 Current Medications Generic Name Dose Route Start Last Admin Trade Name Freq PRN Reason Stop Dose Admin Acetaminophen 650 mg 01/15/17 19:16 01/16/17 10:14 Tylenol - PO 650 mg Q6H PRN Administration FEVER OR PAIN Chlorhexidine Gluconate 1 applic 01/15/17 22:00 01/15/17 21:03 Hibiclens For Decolonization - TP Not Given HS [facility] Heparin Sodium (Porcine) 5,000 unit 01/15/17 22:00 01/16/17 05:58 Heparin - SQ 5,000 unit TID SH[facility]N Administration Insulin Aspart 1 vial 01/15/17 22:00 01/16/17 11:28 Novolog Vial Sliding Scale - SQ Not Given ACHS [facility] Protocol Levothyroxine Sodium 88 mcg 01/16/17 07:00 01/16/17 05:59 Synthroid - PO 88 mcg DAILY@0700 [facility] Administration Metoprolol Tartrate 50 mg 01/15/17 22:00 01/16/17 10:14 Lopressor - PO 50 mg BID [facility] Administration Mupirocin 1 applic 01/15/17 22:00 01/16/17 10:13 Bactroban Ointment (For Decolonization) - NS 01/18/17 09:59 Not Given BID SHAWN Nystatin 1 applic 01/16/17 10:00 01/16/17 10:15 Nystop Powder - TP 1 applic DAILY [facility] Administration Polyethylene Glycol 17 gm 01/15/17 21:00 01/16/17 10:15 Miralax (For Daily Use) - PO 17 gm DAILY [facility] Administration Prochlorperazine Maleate 5 mg 01/16/17 06:52 Compazine - PO Q4H PRN NAUSEA AND/OR VOMITING Valsartan 160 mg 01/15/17 22:00 01/16/17 10:13 Diovan - PO 160 mg BID SH[facility]N Administration IMPRESSION hyponatremia better overall. Probably from thiazides and increased water intake facial asymmetry not from frances's palsy since she can move her lips to both sides hypothyroidism not playing a role in hyponatremia PLAN do not restart thiazides- ever keep fluid restricted and feed consider salt tabs MV
--- NOTE | 2017-01-16 13:31 | PN ---
Teaching Attending Note Name of Resident: Nito Beckford ATTENDING PHYSICIAN STATEMENT I saw and evaluated the patient. I reviewed the resident's note and discussed the case with the resident. I agree with the resident's findings and plan as documented. SUBJECTIVE: generalized pain. has involuntory movements in L sided mouth , typical for her tardive dyskininesia . was on Ingezza as out pt OBJECTIVE: AAOX3 . MMM CV: RRR Lungs: CTAB Ext: no edema . Abd : soft, NT, ND , NL BS. Neuro : EOMI, round equal pupils , reactive to light , L angle of the mouth is pulled with smoking of lips and occasional tongue movements nl facial sensation strength , 5/5 in upper and lower ext , reflexes 1+ b/l . ASSESSMENT AND PLAN: 66 y/o lady with h/o HTN, HLD, NIDDM, and COPD who presented with AMS. She was found to have severe hyponatremia 1- Severe hypotonic hypovolemic hyponatremia form being on Chlorthalidone - off IVF . monitor with fluid restriction 2- Leukocytosis , resolved 3- HTN, cont to hold HZN Cont valsartan and metoprolol 4- Tardive dyskinesia : due to being off her medication Ingezza. she is not on any antipsychotics. will try 0.5 of po ativan to see if it helps . will ask her to take bring her home medication
[2017-01-16] MEDS ORDERED: LORazepam 0.5 MG TABLET PO PRN (15:23)
--- NOTE | 2017-01-16 19:43 | PN ---
Physical Exam: SUBJECTIVE: Patient seen and examined. Patient says she feels bad and has pain all over her body. She also had involuntary mouth movement which she says happens to her a lot. OBJECTIVE: Vital Signs Period Temp Pulse Resp BP Sys/Mathew Pulse Ox Last 24 Hr 97.9 F-98.9 F 59-79 16-20 97-135/54-78 100-100 GENERAL: NAD, A/O x 3, improved mental state HEAD: Normal with no signs of trauma. EYES: PERRL, extraocular movements intact, sclera anicteric, conjunctiva clear. No ptosis. ENT: dry mucous, involuntary mouth movements membranes. NECK: supple. LUNGS: Breath sounds equal, clear to auscultation bilaterally, no wheezes, no crackles, no accessory muscle use. HEART: Regular rate and rhythm, S1, S2 without murmur, rub or gallop. ABDOMEN: Soft, nontender, nondistended, normoactive bowel sounds, no guarding, no rebound, no hepatosplenomegaly, no masses. EXTREMITIES: 2+ pulses, warm, well-perfused, no edema. NEUROLOGICAL: CN 2-12 Intact. left angle of her mouth is pulled to the left side of her face. Patient has history of tardive dyskinesia. Facial sensations intact. 5/5 strength B/L upper and lower extremities SKIN: dry axilla Laboratory Results - last 24 hr 01/16/17 01/16/17 01/16/17 05:44 06:00 06:00 WBC 12.6 H D RBC 4.00 Hgb 12.5 Hct 35.6 MCV 89.0 MCH 31.2 MCHC 35.1 RDW 13.2 Plt Count 398 MPV 7.1 L Neutrophils % 73.1 Lymphocytes % 17.9 D Monocytes % 7.8 Eosinophils % 0.8 D Basophils % 0.4 D Sodium 127 L Potassium 4.1 Chloride 93 L Carbon Dioxide 22 Anion Gap 12 BUN 12 Creatinine 0.6 POC Glucometer 138 Random Glucose 135 H Calcium 8.5 Phosphorus 2.7 Magnesium 2.0 Creatine Kinase Creatine Kinase Index CK-MB (CK-2) 01/16/17 01/16/17 01/16/17 06:00 11:24 17:54 WBC RBC Hgb Hct MCV MCH MCHC RDW Plt Count MPV Neutrophils % Lymphocytes % Monocytes % Eosinophils % Basophils % Sodium Potassium Chloride Carbon Dioxide Anion Gap BUN Creatinine POC Glucometer 200 182 Random Glucose Calcium Phosphorus Magnesium Creatine Kinase 211 H Creatine Kinase Index 5.3 H CK-MB (CK-2) 11.380 H Active Medications Generic Name Dose Route Start Last Admin Trade Name Freq PRN Reason Stop Dose Admin Acetaminophen 650 mg 01/15/17 19:16 01/16/17 16:00 Tylenol - PO 650 mg Q6H PRN Administration FEVER OR PAIN Heparin Sodium (Porcine) 5,000 unit 01/15/17 22:00 01/16/17 13:16 Heparin - SQ 5,000 unit TID [facility] Administration Insulin Aspart 1 vial 01/15/17 22:00 01/16/17 17:55 Novolog Vial Sliding Scale - SQ Not Given ACHS [facility] Protocol Levothyroxine Sodium 88 mcg 01/16/17 07:00 01/16/17 05:59 Synthroid - PO 88 mcg DAILY@0700 [facility] Administration Metoprolol Tartrate 50 mg 01/15/17 22:00 01/16/17 10:14 Lopressor - PO 50 mg BID [facility]N Administration Non-Formulary Medication 1 each 01/16/17 18:00 Patient's Own Med PO DAILY [facility]N Nystatin 1 applic 01/16/17 10:00 01/16/17 10:15 Nystop Powder - TP 1 applic DAILY [facility] Administration Polyethylene Glycol 17 gm 01/15/17 21:00 01/16/17 10:15 Miralax (For Daily Use) - PO 17 gm DAILY [facility] Administration Prochlorperazine Maleate 5 mg 01/16/17 06:52 Compazine - PO Q4H PRN NAUSEA AND/OR VOMITING Valsartan 160 mg 01/15/17 22:00 01/16/17 10:13 Diovan - PO 160 mg BID [facility]N Administration ASSESSMENT/PLAN: 66 y/o lady with h/o HTN, HLD, NIDDM, and COPD who presented with AMS. She was found to have severe hyponatremia #Severe hyponatremia:likelyhypotonic hypovolemic hyponatremia secondary from Chlorthalidone. -she recently started on Chlorothalidone by her doctor, now stopped -Fluids held -Sodium level improving at an appropriate rate -repeat and follow BMP -hold Cholorthalidone -Restrict free water #Leukocytosis -likely reactive -CXR negative -U/A negative -Follow CBC #Tardive Dyskinesia -Continue Ingezza 40mg (home medication) -not on antipsychotics #Left Hip Pain - s/p fall -Pelvic Xray negative for fx #HTN -Hold chlorthalidone -Continue diovan, BB -Held hydralazine #DM -Hold januvia -BGM achs -ISS achs #FEN/GI -IVF stopped -repleted K -NPO #PPx -Heparin 5000 units sq TID Visit type - Emergency Visit Emergency Visit: Yes ED Registration Date: 01/13/17 Care time: The patient presented to the Emergency Department on the above date and was hospitalized for further evaluation of their emergent condition. - New Patient This patient is new to me today: No - Critical Care Critical Care patient: No
[2017-01-16] MEDS ORDERED: ZOLPIDEM TARTRATE 5 MG TABLET PO ONE (20:08)
[2017-01-17] MEDS: INSULIN SLIDING SCALE (NOVOLOG) 1 VIAL SQ SCH ×5 (00:20→21:29)
[2017-01-17] MEDS: HEPARIN NA (PORCINE) 5,000 UNITS/ML 1ML VIAL SQ SCH ×3 (05:04→21:33)
[2017-01-17] MEDS: ACETAMINOPHEN 325 MG TABLET (FP) PO PRN ×2 (05:06→18:07)
[2017-01-17] MEDS: LEVOTHYROXINE NA 88 MCG TABLET (FP) PO SCH (06:47)
[2017-01-17 07:55] LABS: MCH 31.7 pg (25.7-33.7); MEAN CELL VOLUME 90.5 fl (80-96); PLATELET COUNT 355 K/MM3 (134-434); WHITE BLOOD COUNT 10.6 K/mm3 (4.0-10.0)
--- NOTE | 2017-01-17 08:03 | PN ---
Progress Note (short form) - Note Progress Note: Subjective: " I feel bad ". no other description. per RN, did not sleep well last night , constant complaints about her TD . Objective: Vital Signs: Last Vital Signs Temp Pulse Resp BP Pulse Ox 98 F 82 18 117/65 100 01/17/17 05:38 01/17/17 05:38 01/17/17 05:38 01/17/17 05:38 01/16/17 21:00 Laboratory Results - last 24 hr 01/16/17 01/16/17 01/16/17 06:00 06:00 06:00 WBC 12.6 H D RBC 4.00 Hgb 12.5 Hct 35.6 MCV 89.0 MCH 31.2 MCHC 35.1 RDW 13.2 Plt Count 398 MPV 7.1 L Neutrophils % 73.1 Lymphocytes % 17.9 D Monocytes % 7.8 Eosinophils % 0.8 D Basophils % 0.4 D Sodium 127 L Potassium 4.1 Chloride 93 L Carbon Dioxide 22 Anion Gap 12 BUN 12 Creatinine 0.6 POC Glucometer Random Glucose 135 H Calcium 8.5 Phosphorus 2.7 Magnesium 2.0 Creatine Kinase 211 H Creatine Kinase Index 5.3 H CK-MB (CK-2) 11.380 H 01/16/17 01/16/17 01/16/17 11:24 17:54 21:03 WBC RBC Hgb Hct MCV MCH MCHC RDW Plt Count MPV Neutrophils % Lymphocytes % Monocytes % Eosinophils % Basophils % Sodium Potassium Chloride Carbon Dioxide Anion Gap BUN Creatinine POC Glucometer 200 182 197 Random Glucose Calcium Phosphorus Magnesium Creatine Kinase Creatine Kinase Index CK-MB (CK-2) 01/17/17 04:52 WBC RBC Hgb Hct MCV MCH MCHC RDW Plt Count MPV Neutrophils % Lymphocytes % Monocytes % Eosinophils % Basophils % Sodium Potassium Chloride Carbon Dioxide Anion Gap BUN Creatinine POC Glucometer 122 Random Glucose Calcium Phosphorus Magnesium Creatine Kinase Creatine Kinase Index CK-MB (CK-2) Physical Exam: AAOX3 . MMM CV: RRR Lungs: CTAB Ext: no edema . Neuro : EOMI, round equal pupils , reactive to light , smoking of lips and occasional tongue movements nl facial sensation . tongue and uvula at mid line strength , 5/5 in upper and lower ext , reflexes 2+ b/l knee jerk and biceps . ASSESSMENT AND PLAN: 66 y/o lady with h/o HTN, HLD, NIDDM, and COPD who presented with AMS. She was found to have severe hyponatremia 1- Severe hypotonic hypovolemic hyponatremia form being on Chlorthalidone - off IVF . monitor with fluid restriction - Labs pending for this AM 2- Leukocytosis , resolved 3- HTN, cont to hold HZN Cont valsartan and metoprolol 4- Tardive dyskinesia : due to being off her medication Ingezza. has chronic hx of it . Not on any antipsychotics . slightly improved with trial of ativan yesterday . - place on 0.5 mg of ativan BID . - family to bring Ingezza from home if Ns cont to improve, or stay stable. might be able to dc tomorrow PT eval Visit type - Emergency Visit Emergency Visit: Yes ED Registration Date: 01/13/17 Care time: The patient presented to the Emergency Department on the above date and was hospitalized for further evaluation of their emergent condition. - New Patient This patient is new to me today: No - Critical Care Critical Care patient: No
[2017-01-17] MEDS: LORazepam 0.5 MG TABLET PO SCH ×2 (08:14→09:41)
[2017-01-17 08:25] LABS: ANION GAP 9 (8-16); CALCIUM 8.5 mg/dL (8.5-10.1); CO2 26 mmol/L (21-32); CREATININE 0.6 mg/dL (0.55-1.02); GLUCOSE,RANDOM 117 mg/dL (74-106)
[2017-01-17] MEDS: METOPROLOL TARTRATE 50 MG TABLET (FP) PO SCH ×2 (09:40→21:33)
[2017-01-17] MEDS: VALSARTAN 160 MG TABLET (UD) PO SCH ×2 (09:40→21:33)
[2017-01-17] MEDS: NYSTATIN POWDER 100,000 UNITS/GM - 15 GM TOPICAL POWDER TP SCH (09:43)
[2017-01-17] MEDS: POLYETHYLENE GLYCOL 3350 119 GM BTL PO SCH (09:43)
[2017-01-17] MEDS: VALBENAZINE TOSYLATE 40 MG PO SCH (11:28)
--- NOTE | 2017-01-17 12:54 | PN ---
Progress Note (short form) - Note Progress Note: RENAL Pt is awake and alert comfortable though has many complaints dizzy, nauseated Last Vital Signs Temp Pulse Resp BP Pulse Ox 98.2 F 116 H 20 137/63 100 01/17/17 09:38 01/17/17 09:38 01/17/17 09:38 01/17/17 09:38 01/17/17 09:00 lungs clear cvs s1s2 rr abd soft ext no edema neuro awake and alert, some facial asymmetry though is able to move her lips bilaterally CBC, BMP 01/17/17 06:00 01/17/17 06:00 Current Medications Generic Name Dose Route Start Last Admin Trade Name Freq PRN Reason Stop Dose Admin Acetaminophen 650 mg 01/15/17 19:16 01/16/17 23:20 Tylenol - PO 650 mg Q6H PRN Administration FEVER OR PAIN Acetaminophen 650 mg 01/17/17 04:48 01/17/17 05:06 Tylenol - PO 650 mg Q4H PRN Administration FEVER OR PAIN Heparin Sodium (Porcine) 5,000 unit 01/15/17 22:00 01/17/17 05:04 Heparin - SQ 5,000 unit TID SHAWN Administration Insulin Aspart 1 vial 01/15/17 22:00 01/17/17 12:21 Novolog Vial Sliding Scale - SQ Not Given ACHS [facility] Protocol Levothyroxine Sodium 88 mcg 01/16/17 07:00 01/17/17 06:47 Synthroid - PO 88 mcg DAILY@0700 [facility] Administration Lorazepam 0.5 mg 01/17/17 10:00 01/17/17 09:41 Ativan - PO Not Given BID SHAWN Metoprolol Tartrate 50 mg 01/16/17 20:06 01/17/17 09:40 Lopressor - PO 50 mg BID [facility]N Administration Valbenazine Tosylate 0 mg 01/17/17 10:00 01/17/17 11:28 [Ingrezza] 40 Mg PO 40 mg Capsule (Pt's Own) DAILY [facility]N Administration Nystatin 1 applic 01/16/17 10:00 01/17/17 09:43 Nystop Powder - TP 1 applic DAILY [facility]N Administration Polyethylene Glycol 17 gm 01/15/17 21:00 01/17/17 09:43 Miralax (For Daily Use) - PO 17 gm DAILY [facility] Administration Prochlorperazine Maleate 5 mg 01/16/17 06:52 Compazine - PO Q4H PRN NAUSEA AND/OR VOMITING Valsartan 160 mg 01/16/17 21:59 01/17/17 09:40 Diovan - PO 160 mg BID [facility]N Administration IMPRESSION hyponatremia better overall. Probably from thiazides and increased water intake facial asymmetry not from frances's palsy since she can move her lips to both sides hypothyroidism not playing a role in hyponatremia PLAN do not restart thiazides- ever keep fluid restricted and feed consider salt tabs if hyponatremia recurs MV
[2017-01-17] MEDS ORDERED: ZOLPIDEM TARTRATE 5 MG TABLET PO ONE (21:11)
[2017-01-18] MEDS: HEPARIN NA (PORCINE) 5,000 UNITS/ML 1ML VIAL SQ SCH ×3 (06:02→21:14)
[2017-01-18] MEDS: INSULIN SLIDING SCALE (NOVOLOG) 1 VIAL SQ SCH ×4 (06:02→21:14)
[2017-01-18] MEDS: LEVOTHYROXINE NA 88 MCG TABLET (FP) PO SCH (06:02)
[2017-01-18 08:57] LABS: ANION GAP 10 (8-16); CALCIUM 8.6 mg/dL (8.5-10.1); CO2 23 mmol/L (21-32); CREATININE 0.7 mg/dL (0.55-1.02); GLUCOSE,RANDOM 205 mg/dL (74-106)
[2017-01-18] MEDS ORDERED: PT OWN MED DRAWER 7, Y5N ONE (09:13)
[2017-01-18] MEDS: VALSARTAN 160 MG TABLET (UD) PO SCH ×2 (09:16→21:13)
[2017-01-18] MEDS: METOPROLOL TARTRATE 50 MG TABLET (FP) PO SCH ×2 (09:16→21:13)
[2017-01-18] MEDS: VALBENAZINE TOSYLATE 40 MG PO SCH (09:17)
[2017-01-18] MEDS: POLYETHYLENE GLYCOL 3350 119 GM BTL PO SCH (09:18)
[2017-01-18] MEDS: NYSTATIN POWDER 100,000 UNITS/GM - 15 GM TOPICAL POWDER TP SCH (10:57)
[2017-01-18] MEDS: ACETAMINOPHEN 325 MG TABLET (FP) PO PRN ×2 (11:36→17:22)
--- NOTE | 2017-01-18 13:51 | PN ---
Progress Note, Physician History of Present Illness: Pt seen and examined at bedside. She is awake and appears anxious. - Current Medication List Current Medications: Active Medications Acetaminophen (Tylenol -) 650 mg PO Q6H PRN PRN Reason: FEVER OR PAIN Last Admin: 01/18/17 11:36 Dose: 650 mg Acetaminophen (Tylenol -) 650 mg PO Q4H PRN PRN Reason: FEVER OR PAIN Last Admin: 01/17/17 05:06 Dose: 650 mg Heparin Sodium (Porcine) (Heparin -) 5,000 unit SQ TID [facility] Last Admin: 01/18/17 06:02 Dose: 5,000 unit Insulin Aspart (Novolog Vial Sliding Scale -) 1 vial SQ ACHS [facility] PRN Reason: Protocol Last Admin: 01/18/17 11:45 Dose: Not Given Levothyroxine Sodium (Synthroid -) 88 mcg PO DAILY@0700 [facility] Last Admin: 01/18/17 06:02 Dose: 88 mcg Metoprolol Tartrate (Lopressor -) 50 mg PO BID [facility] Last Admin: 01/18/17 09:16 Dose: 50 mg Valbenazine Tosylate [Ingrezza] 40 Mg Capsule (Pt's Own) 0 mg PO DAILY [facility] Last Admin: 01/18/17 09:17 Dose: 1 mg Nystatin (Nystop Powder -) 1 applic TP DAILY [facility] Last Admin: 01/18/17 10:57 Dose: 1 applic Polyethylene Glycol (Miralax (For Daily Use) -) 17 gm PO DAILY [facility] Last Admin: 01/18/17 09:18 Dose: 17 gm Prochlorperazine Maleate (Compazine -) 5 mg PO Q4H PRN PRN Reason: NAUSEA AND/OR VOMITING Valsartan (Diovan -) 160 mg PO BID [facility] Last Admin: 01/18/17 09:16 Dose: 160 mg - Objective Vital Signs: Vital Signs Temperature 98.5 F 01/18/17 10:00 Pulse Rate 92 H 01/18/17 10:00 Respiratory Rate 18 01/18/17 10:00 Blood Pressure 146/80 01/18/17 10:00 O2 Sat by Pulse Oximetry (%) 98 01/18/17 09:00 Constitutional: Yes: Anxious Eyes: Yes: Conjunctiva Clear HENT: Yes: Atraumatic Cardiovascular: Yes: S1, S2 Respiratory: Yes: CTA Bilaterally Gastrointestinal: Yes: Soft Genitourinary: Yes: WNL Musculoskeletal: Yes: WNL Edema: No Neurological: Yes: Oriented Labs: CBC, BMP 01/17/17 06:00 01/18/17 08:10 Problem List - Problems (1) Hyponatremia Code(s): E87.1 - HYPO-OSMOLALITY AND HYPONATREMIA (2) Anxiety Code(s): F41.9 - ANXIETY DISORDER, UNSPECIFIED Assessment/Plan Current Medications Generic Name Dose Route Start Last Admin Trade Name Freq PRN Reason Stop Dose Admin Acetaminophen 650 mg 01/15/17 19:16 01/18/17 11:36 Tylenol - PO 650 mg Q6H PRN Administration FEVER OR PAIN Acetaminophen 650 mg 01/17/17 04:48 01/17/17 05:06 Tylenol - PO 650 mg Q4H PRN Administration FEVER OR PAIN Heparin Sodium (Porcine) 5,000 unit 01/15/17 22:00 01/18/17 06:02 Heparin - SQ 5,000 unit TID [facility] Administration Insulin Aspart 1 vial 01/15/17 22:00 01/18/17 11:45 Novolog Vial Sliding Scale - SQ Not Given ACHS [facility] Protocol Levothyroxine Sodium 88 mcg 01/16/17 07:00 01/18/17 06:02 Synthroid - PO 88 mcg DAILY@0700 [facility] Administration Metoprolol Tartrate 50 mg 01/16/17 20:06 01/18/17 09:16 Lopressor - PO 50 mg BID [facility] Administration Valbenazine Tosylate 0 mg 01/17/17 10:00 01/18/17 09:17 [Ingrezza] 40 Mg PO 1 mg Capsule (Pt's Own) DAILY [facility] Administration Nystatin 1 applic 01/16/17 10:00 01/18/17 10:57 Nystop Powder - TP 1 applic DAILY [facility] Administration Polyethylene Glycol 17 gm 01/15/17 21:00 01/18/17 09:18 Miralax (For Daily Use) - PO 17 gm DAILY [facility] Administration Prochlorperazine Maleate 5 mg 01/16/17 06:52 Compazine - PO Q4H PRN NAUSEA AND/OR VOMITING Valsartan 160 mg 01/16/17 21:59 01/18/17 09:16 Diovan - PO 160 mg BID [facility]N Administration Impression 1. hyponatremia 2. HTN 3. anxiety 4. depression 5. diarrhea 6. GERD 7. DM 8. COPD 9. hypothyroidism 10. hypokalemia Plan - sodium is stabilizing - repeat urine osm and sodium - restrict free water - do not restart thiazides - will follow Dr Perez
--- NOTE | 2017-01-18 16:19 | PN ---
Physical Exam: SUBJECTIVE: Patient seen and examined. Said she had pain everywhere. Her whole body hurts. Nothing is alleviating her pain. No change since yesterday. OBJECTIVE: Vital Signs Period Temp Pulse Resp BP Sys/Mathew Pulse Ox Last 24 Hr 98.1 F-99.1 F 64-92 18-18 106-146/52-80 98-98 GENERAL: NAD, very anxious HEAD: Normal with no signs of trauma. EYES: PERRL, extraocular movements intact, sclera anicteric, conjunctiva clear. No ptosis. ENT: dry mucous, involuntary mouth movements membranes. NECK: supple. LUNGS: Breath sounds equal, clear to auscultation bilaterally, no wheezes, no crackles, no accessory muscle use. HEART: Regular rate and rhythm, S1, S2 without murmur, rub or gallop. ABDOMEN: Soft, nontender, nondistended, normoactive bowel sounds, no guarding, no rebound, no hepatosplenomegaly, no masses. EXTREMITIES: 2+ pulses, warm, well-perfused, no edema. NEUROLOGICAL: CN 2-12 Intact. left angle of her mouth is pulled to the left side of her face. Patient has history of tardive dyskinesia. Facial sensations intact. 5/5 strength B/L upper and lower extremities Laboratory Results - last 24 hr 01/17/17 01/17/17 01/18/17 16:19 21:28 05:29 Sodium Potassium Chloride Carbon Dioxide Anion Gap BUN Creatinine POC Glucometer 238 154 120 Random Glucose Calcium 01/18/17 01/18/17 08:10 11:42 Sodium 131 L Potassium 4.4 Chloride 98 Carbon Dioxide 23 Anion Gap 10 BUN 8 D Creatinine 0.7 POC Glucometer 152 Random Glucose 205 H D Calcium 8.6 Active Medications Generic Name Dose Route Start Last Admin Trade Name Freq PRN Reason Stop Dose Admin Acetaminophen 650 mg 01/15/17 19:16 01/18/17 11:36 Tylenol - PO 650 mg Q6H PRN Administration FEVER OR PAIN Acetaminophen 650 mg 01/17/17 04:48 01/17/17 05:06 Tylenol - PO 650 mg Q4H PRN Administration FEVER OR PAIN Heparin Sodium (Porcine) 5,000 unit 01/15/17 22:00 01/18/17 14:32 Heparin - SQ 5,000 unit TID [facility] Administration Insulin Aspart 1 vial 01/15/17 22:00 01/18/17 11:45 Novolog Vial Sliding Scale - SQ Not Given ACHS [facility] Protocol Levothyroxine Sodium 88 mcg 01/16/17 07:00 01/18/17 06:02 Synthroid - PO 88 mcg DAILY@0700 [facility] Administration Metoprolol Tartrate 50 mg 01/16/17 20:06 01/18/17 09:16 Lopressor - PO 50 mg BID [facility] Administration Valbenazine Tosylate 0 mg 01/17/17 10:00 01/18/17 09:17 [Ingrezza] 40 Mg PO 1 mg Capsule (Pt's Own) DAILY [facility] Administration Nystatin 1 applic 01/16/17 10:00 01/18/17 10:57 Nystop Powder - TP 1 applic DAILY [facility] Administration Polyethylene Glycol 17 gm 01/15/17 21:00 01/18/17 09:18 Miralax (For Daily Use) - PO 17 gm DAILY [facility] Administration Prochlorperazine Maleate 5 mg 01/16/17 06:52 Compazine - PO Q4H PRN NAUSEA AND/OR VOMITING Valsartan 160 mg 01/16/17 21:59 01/18/17 09:16 Diovan - PO 160 mg BID [facility] Administration ASSESSMENT/PLAN: 66 y/o lady with h/o HTN, HLD, NIDDM, and COPD who presented with AMS. She was found to have severe hyponatremia #Severe hyponatremia:likely hypotonic hypovolemic hyponatremia secondary from Chlorthalidone. -Sodium level improving at an appropriate rate -thiazides stopped -fluid restrictions -f/up labs tomorrow #Leukocytosis -resolved -likely reactive -CXR negative -U/A negative -Follow CBC #Tardive Dyskinesia -chronic history of it. -Continue Ingezza 40mg (home medication) -not on antipsychotics #Left Hip Pain - s/p fall -Pelvic Xray negative for fx #HTN -Hold chlorthalidone -Continue diovan, BB -Held hydralazine #DM -Hold januvia -BGM achs -ISS achs #FEN/GI -IVF stopped -NPO #PPx -Heparin 5000 units sq TID Dispo: Likely discharge to subacute rehab tomorrow if patient improves or remains stable. Spoke with daughter and about rehab and both agreed. Visit type - Emergency Visit Emergency Visit: Yes ED Registration Date: 01/13/17 Care time: The patient presented to the Emergency Department on the above date and was hospitalized for further evaluation of their emergent condition. - New Patient This patient is new to me today: No - Critical Care Critical Care patient: No
--- NOTE | 2017-01-18 17:49 | PN ---
Teaching Attending Note Name of Resident: Nito Beckford ATTENDING PHYSICIAN STATEMENT I saw and evaluated the patient. I reviewed the resident's note and discussed the case with the resident. I agree with the resident's findings and plan as documented. SUBJECTIVE: does not feel well as she has generalized pain OBJECTIVE: AAOX3 . MMM CV: RRR Lungs: CTAB Ext: no edema . still has lip smoking movements , no facial droop. EOMI, round pupils ASSESSMENT AND PLAN: 66 y/o lady with h/o HTN, HLD, NIDDM, and COPD who presented with AMS. She was found to have severe hyponatremia 1- Severe hypotonic hypovolemic hyponatremia form being on Chlorthalidone - Cont fluid restriction 2- Leukocytosis , mild , no signs of infectin 3- HTN, cont to hold HZN Cont valsartan and metoprolol 4- Tardive dyskinesia : due to being off her medication Ingezza. has chronic hx of it . Not on any antipsychotics . - family declined Ativan - cont Ingezza pt is medically ready for Dc. rehab options d/w them.
[2017-01-19] MEDS: ACETAMINOPHEN 325 MG TABLET (FP) PO PRN ×4 (04:37→22:34)
[2017-01-19] MEDS: INSULIN SLIDING SCALE (NOVOLOG) 1 VIAL SQ SCH ×4 (06:22→21:44)
[2017-01-19] MEDS: LEVOTHYROXINE NA 88 MCG TABLET (FP) PO SCH (06:22)
[2017-01-19] MEDS: HEPARIN NA (PORCINE) 5,000 UNITS/ML 1ML VIAL SQ SCH ×3 (06:22→21:39)
[2017-01-19] MEDS ORDERED: PT OWN MED DRAWER 7, Y5N ONE (08:55)
[2017-01-19] MEDS: NYSTATIN POWDER 100,000 UNITS/GM - 15 GM TOPICAL POWDER TP SCH (09:44)
[2017-01-19] MEDS: VALBENAZINE TOSYLATE 40 MG PO SCH (09:44)
[2017-01-19] MEDS: POLYETHYLENE GLYCOL 3350 119 GM BTL PO SCH (09:44)
[2017-01-19] MEDS: VALSARTAN 160 MG TABLET (UD) PO SCH ×2 (09:44→21:38)
[2017-01-19] MEDS: METOPROLOL TARTRATE 50 MG TABLET (FP) PO SCH ×2 (09:44→21:38)
--- NOTE | 2017-01-19 13:27 | PN ---
Progress Note, Physician History of Present Illness: Pt seen and examined at bedside. She is awake and alert. She is still anxious. - Current Medication List Current Medications: Active Medications Acetaminophen (Tylenol -) 650 mg PO Q6H PRN PRN Reason: FEVER OR PAIN Last Admin: 01/19/17 10:51 Dose: 650 mg Acetaminophen (Tylenol -) 650 mg PO Q4H PRN PRN Reason: FEVER OR PAIN Last Admin: 01/19/17 04:37 Dose: 650 mg Heparin Sodium (Porcine) (Heparin -) 5,000 unit SQ TID [facility] Last Admin: 01/19/17 06:22 Dose: 5,000 unit Insulin Aspart (Novolog Vial Sliding Scale -) 1 vial SQ ACHS [facility] PRN Reason: Protocol Last Admin: 01/19/17 06:22 Dose: Not Given Levothyroxine Sodium (Synthroid -) 88 mcg PO DAILY@0700 [facility] Last Admin: 01/19/17 06:22 Dose: 88 mcg Metoprolol Tartrate (Lopressor -) 50 mg PO BID [facility] Last Admin: 01/19/17 09:44 Dose: 50 mg Valbenazine Tosylate [Ingrezza] 40 Mg Capsule (Pt's Own) 0 mg PO DAILY [facility] Last Admin: 01/19/17 09:44 Dose: 1 mg Nystatin (Nystop Powder -) 1 applic TP DAILY [facility] Last Admin: 01/19/17 09:44 Dose: 1 applic Polyethylene Glycol (Miralax (For Daily Use) -) 17 gm PO DAILY [facility] Last Admin: 01/19/17 09:44 Dose: 17 gm Prochlorperazine Maleate (Compazine -) 5 mg PO Q4H PRN PRN Reason: NAUSEA AND/OR VOMITING Valsartan (Diovan -) 160 mg PO BID [facility] Last Admin: 01/19/17 09:44 Dose: 160 mg - Objective Vital Signs: Vital Signs Temperature 98.1 F 01/19/17 10:00 Pulse Rate 80 01/19/17 10:00 Respiratory Rate 20 01/19/17 10:00 Blood Pressure 152/87 01/19/17 10:00 O2 Sat by Pulse Oximetry (%) 97 01/19/17 10:00 Constitutional: Yes: Calm Eyes: Yes: Conjunctiva Clear HENT: Yes: Atraumatic Neck: Yes: Supple Cardiovascular: Yes: S1, S2 Respiratory: Yes: CTA Bilaterally Gastrointestinal: Yes: Soft Genitourinary: Yes: WNL Musculoskeletal: Yes: WNL Edema: No Neurological: Yes: Oriented Labs: CBC, BMP 01/17/17 06:00 01/19/17 08:00 Problem List - Problems (1) Hyponatremia Code(s): E87.1 - HYPO-OSMOLALITY AND HYPONATREMIA (2) Anxiety Code(s): F41.9 - ANXIETY DISORDER, UNSPECIFIED Assessment/Plan Current Medications Generic Name Dose Route Start Last Admin Trade Name Freq PRN Reason Stop Dose Admin Acetaminophen 650 mg 01/15/17 19:16 01/19/17 10:51 Tylenol - PO 650 mg Q6H PRN Administration FEVER OR PAIN Acetaminophen 650 mg 01/17/17 04:48 01/19/17 04:37 Tylenol - PO 650 mg Q4H PRN Administration FEVER OR PAIN Heparin Sodium (Porcine) 5,000 unit 01/15/17 22:00 01/19/17 06:22 Heparin - SQ 5,000 unit TID [facility] Administration Insulin Aspart 1 vial 01/15/17 22:00 01/19/17 06:22 Novolog Vial Sliding Scale - SQ Not Given ACHS [facility] Protocol Levothyroxine Sodium 88 mcg 01/16/17 07:00 01/19/17 06:22 Synthroid - PO 88 mcg DAILY@0700 [facility] Administration Metoprolol Tartrate 50 mg 01/16/17 20:06 01/19/17 09:44 Lopressor - PO 50 mg BID [facility] Administration Valbenazine Tosylate 0 mg 01/17/17 10:00 01/19/17 09:44 [Ingrezza] 40 Mg PO 1 mg Capsule (Pt's Own) DAILY [facility] Administration Nystatin 1 applic 01/16/17 10:00 01/19/17 09:44 Nystop Powder - TP 1 applic DAILY [facility] Administration Polyethylene Glycol 17 gm 01/15/17 21:00 01/19/17 09:44 Miralax (For Daily Use) - PO 17 gm DAILY [facility] Administration Prochlorperazine Maleate 5 mg 01/16/17 06:52 Compazine - PO Q4H PRN NAUSEA AND/OR VOMITING Valsartan 160 mg 01/16/17 21:59 01/19/17 09:44 Diovan - PO 160 mg BID [facility] Administration Impression 1. hyponatremia 2. HTN 3. anxiety 4. depression 5. diarrhea 6. GERD 7. DM 8. COPD 9. hypothyroidism 10. hypokalemia Plan - sodium is improving - urine studies are not back - she will need outpt follow up - cont water restriction - do not restart thiazides - will follow Dr Perez
--- NOTE | 2017-01-19 14:31 | PN ---
Teaching Attending Note Name of Resident: Nito Beckford ATTENDING PHYSICIAN STATEMENT I saw and evaluated the patient. I reviewed the resident's note and discussed the case with the resident. I agree with the resident's findings and plan as documented. SUBJECTIVE: no fever ro chills , generalized pain. OBJECTIVE: AAOX3 . MMM CV: RRR Lungs: CTAB Ext: no edema . still has lip smoking movements but much improved ( no facial movements when distracted ) , no facial droop. EOMI, round pupils ASSESSMENT AND PLAN: 66 y/o lady with h/o HTN, HLD, NIDDM, and COPD who presented with AMS. She was found to have severe hyponatremia 1- Severe hypotonic hypovolemic hyponatremia form being on Chlorthalidone - Cont fluid restriction 2- HTN, cont to hold HZN Cont valsartan and metoprolol if BP increased , HZN can be resumed as outpt 4- Tardive dyskinesia : due to being off her medication Ingezza. has chronic hx of it . Not on any antipsychotics . - cont Ingezza - f/u with neuro as out pt pt is medically ready for DC when rehab bed is available
--- NOTE | 2017-01-19 16:15 | PN ---
Physical Exam: SUBJECTIVE: Patient seen and examined. Said she had pain everywhere. Her whole body hurts. Nothing is alleviating her pain. No change since yesterday. OBJECTIVE: Vital Signs Period Temp Pulse Resp BP Sys/Mathew Pulse Ox Last 24 Hr 97.1 F-99 F 63-80 18-20 118-152/58-87 97-98 GENERAL: NAD, very anxious HEAD: Normal with no signs of trauma. EYES: PERRL, extraocular movements intact, sclera anicteric, conjunctiva clear. No ptosis. ENT: dry mucous, involuntary mouth movements membranes. NECK: supple. LUNGS: Breath sounds equal, clear to auscultation bilaterally, no wheezes, no crackles, no accessory muscle use. HEART: Regular rate and rhythm, S1, S2 without murmur, rub or gallop. ABDOMEN: Soft, nontender, nondistended, normoactive bowel sounds, no guarding, no rebound, no hepatosplenomegaly, no masses. EXTREMITIES: 2+ pulses, warm, well-perfused, no edema. NEUROLOGICAL: CN 2-12 Intact. lip smacking from tardive dyskinesia (improved). left angle of her mouth is pulled to the left side of her face (improved). Patient has history of tardive dyskinesia. Facial sensations intact. 5/5 strength B/L upper and lower extremities Laboratory Results - last 24 hr 01/18/17 01/18/17 01/19/17 17:27 21:12 06:00 Sodium POC Glucometer 201 184 144 01/19/17 01/19/17 08:00 12:26 Sodium 133 L POC Glucometer 131 Active Medications Generic Name Dose Route Start Last Admin Trade Name Freq PRN Reason Stop Dose Admin Acetaminophen 650 mg 01/15/17 19:16 01/19/17 10:51 Tylenol - PO 650 mg Q6H PRN Administration FEVER OR PAIN Acetaminophen 650 mg 01/17/17 04:48 01/19/17 04:37 Tylenol - PO 650 mg Q4H PRN Administration FEVER OR PAIN Heparin Sodium (Porcine) 5,000 unit 01/15/17 22:00 01/19/17 14:16 Heparin - SQ 5,000 unit TID [facility] Administration Insulin Aspart 1 vial 01/15/17 22:00 01/19/17 14:08 Novolog Vial Sliding Scale - SQ Not Given ACHS [facility] Protocol Levothyroxine Sodium 88 mcg 01/16/17 07:00 01/19/17 06:22 Synthroid - PO 88 mcg DAILY@0700 [facility] Administration Metoprolol Tartrate 50 mg 01/16/17 20:06 01/19/17 09:44 Lopressor - PO 50 mg BID [facility] Administration Valbenazine Tosylate 0 mg 01/17/17 10:00 01/19/17 09:44 [Ingrezza] 40 Mg PO 1 mg Capsule (Pt's Own) DAILY [facility] Administration Nystatin 1 applic 01/16/17 10:00 01/19/17 09:44 Nystop Powder - TP 1 applic DAILY [facility] Administration Polyethylene Glycol 17 gm 01/15/17 21:00 01/19/17 09:44 Miralax (For Daily Use) - PO 17 gm DAILY [facility] Administration Prochlorperazine Maleate 5 mg 01/16/17 06:52 Compazine - PO Q4H PRN NAUSEA AND/OR VOMITING Valsartan 160 mg 01/16/17 21:59 01/19/17 09:44 Diovan - PO 160 mg BID [facility] Administration ASSESSMENT/PLAN: 66 y/o lady with h/o HTN, HLD, NIDDM, and COPD who presented with AMS. She was found to have severe hyponatremia #Severe hyponatremia:likely hypotonic hypovolemic hyponatremia secondary from Chlorthalidone. -Sodium level improving at an appropriate rate- 133 today. -thiazides stopped -fluid restrictions. 1 liter a day #Leukocytosis -resolved -likely reactive -CXR negative -U/A negative #Tardive Dyskinesia -improving -chronic history of it. -Continue Ingezza 40mg (home medication) -not on antipsychotics #Left Hip Pain - s/p fall -Pelvic Xray negative for fx #HTN -Hold chlorthalidone -Continue diovan, BB -Held hydralazine #DM -Hold januvia -BGM achs -ISS achs #FEN/GI -IVF stopped -Diabetic diet #PPx -Heparin 5000 units sq TID Dispo: Likely discharge to subacute rehab tomorrow if patient improves or remains stable. Spoke with daughter and about rehab and both agreed. Visit type - Emergency Visit Emergency Visit: Yes ED Registration Date: 01/13/17 Care time: The patient presented to the Emergency Department on the above date and was hospitalized for further evaluation of their emergent condition. - New Patient This patient is new to me today: No - Critical Care Critical Care patient: No
[2017-01-20] MEDS: ACETAMINOPHEN 325 MG TABLET (FP) PO PRN ×3 (05:26→17:17)
[2017-01-20] MEDS: HEPARIN NA (PORCINE) 5,000 UNITS/ML 1ML VIAL SQ SCH ×3 (06:28→22:06)
[2017-01-20] MEDS: LEVOTHYROXINE NA 88 MCG TABLET (FP) PO SCH (06:29)
[2017-01-20] MEDS: INSULIN SLIDING SCALE (NOVOLOG) 1 VIAL SQ SCH ×4 (06:29→22:07)
[2017-01-20] MEDS ORDERED: PT OWN MED DRAWER 7, Y5N ONE (09:48)
[2017-01-20] MEDS: VALSARTAN 160 MG TABLET (UD) PO SCH ×2 (09:51→22:06)
[2017-01-20] MEDS: METOPROLOL TARTRATE 50 MG TABLET (FP) PO SCH ×2 (09:51→22:06)
[2017-01-20] MEDS: VALBENAZINE TOSYLATE 40 MG PO SCH (09:52)
[2017-01-20] MEDS: POLYETHYLENE GLYCOL 3350 119 GM BTL PO SCH (09:53)
[2017-01-20] MEDS: NYSTATIN POWDER 100,000 UNITS/GM - 15 GM TOPICAL POWDER TP SCH (11:35)
--- NOTE | 2017-01-20 13:48 | PN ---
Teaching Attending Note Name of Resident: Nito Beckford ATTENDING PHYSICIAN STATEMENT I saw and evaluated the patient. I reviewed the resident's note and discussed the case with the resident. I agree with the resident's findings and plan as documented. SUBJECTIVE: Patient is c/o having generalized aches and pain all over her body. at bedside OBJECTIVE: Vital Signs Temperature 98.3 F 01/20/17 06:00 Pulse Rate 64 01/20/17 06:00 Respiratory Rate 20 01/20/17 06:00 Blood Pressure 124/61 01/20/17 06:00 O2 Sat by Pulse Oximetry (%) 98 01/19/17 15:48 CBCD WBC 10.6 K/mm3 (4.0-10.0) H 01/17/17 06:00 RBC 3.90 M/mm3 (3.60-5.2) 01/17/17 06:00 Hgb 12.3 GM/dL (10.7-15.3) 01/17/17 06:00 Hct 35.3 % (32.4-45.2) 01/17/17 06:00 MCV 90.5 fl (80-96) 01/17/17 06:00 MCHC 35.0 g/dl (32.0-36.0) 01/17/17 06:00 RDW 13.0 % (11.6-15.6) 01/17/17 06:00 Plt Count 355 K/MM3 (134-434) 01/17/17 06:00 MPV 7.0 fl (7.5-11.1) L 01/17/17 06:00 CMP Sodium 132 mmol/L (136-145) L 01/20/17 06:47 Potassium 4.4 mmol/L (3.5-5.1) 01/18/17 08:10 Chloride 98 mmol/L (98-107) 01/18/17 08:10 Carbon Dioxide 23 mmol/L (21-32) 01/18/17 08:10 Anion Gap 10 (8-16) 01/18/17 08:10 BUN 8 mg/dL (7-18) D 01/18/17 08:10 Creatinine 0.7 mg/dL (0.55-1.02) 01/18/17 08:10 Creat Clearance w eGFR > 60 (>60) 01/13/17 05:15 Random Glucose 205 mg/dL (74-106) H D 01/18/17 08:10 Calcium 8.6 mg/dL (8.5-10.1) 01/18/17 08:10 Total Bilirubin 1.1 mg/dL (0.2-1.0) H 01/13/17 11:50 AST 38 U/L (15-37) H 01/13/17 11:50 ALT 34 U/L (12-78) 01/13/17 11:50 Alkaline Phosphatase 91 U/L (45-117) 01/13/17 11:50 Total Protein 6.1 g/dl (6.4-8.2) L 01/13/17 11:50 Albumin 3.3 g/dl (3.4-5.0) L 01/13/17 11:50 CARDIAC ENZYMES Creatine Kinase 211 IU/L (26-192) H 01/16/17 06:00 Current Medications Generic Name Dose Route Start Last Admin Trade Name Freq PRN Reason Stop Dose Admin Acetaminophen 650 mg 01/15/17 19:16 01/20/17 05:26 Tylenol - PO 650 mg Q6H PRN Administration FEVER OR PAIN Acetaminophen 650 mg 01/17/17 04:48 01/20/17 11:35 Tylenol - PO 650 mg Q4H PRN Administration FEVER OR PAIN Heparin Sodium (Porcine) 5,000 unit 01/15/17 22:00 01/20/17 06:28 Heparin - SQ 5,000 unit TID [facility] Administration Insulin Aspart 1 vial 01/15/17 22:00 01/20/17 11:34 Novolog Vial Sliding Scale - SQ Not Given ACHS [facility] Protocol Levothyroxine Sodium 88 mcg 01/16/17 07:00 01/20/17 06:29 Synthroid - PO 88 mcg DAILY@0700 [facility] Administration Metoprolol Tartrate 50 mg 01/16/17 20:06 01/20/17 09:51 Lopressor - PO 50 mg BID [facility] Administration Valbenazine Tosylate 0 mg 01/17/17 10:00 01/20/17 09:52 [Ingrezza] 40 Mg PO 40 mg Capsule (Pt's Own) DAILY [facility] Administration Nystatin 1 applic 01/16/17 10:00 01/20/17 11:35 Nystop Powder - TP 1 applic DAILY [facility] Administration Polyethylene Glycol 17 gm 01/15/17 21:00 01/20/17 09:53 Miralax (For Daily Use) - PO 17 gm DAILY [facility] Administration Prochlorperazine Maleate 5 mg 01/16/17 06:52 Compazine - PO Q4H PRN NAUSEA AND/OR VOMITING Valsartan 160 mg 01/16/17 21:59 01/20/17 09:51 Diovan - PO 160 mg BID [facility] Administration Home Medications Medication Instructions Recorded Levothyroxine [Synthroid -] 88 mcg PO DAILY@0700 #30 tablet 11/02/16 Sitagliptin Phosphate [Januvia] 50 mg PO DAILY #30 tab 11/02/16 Metoprolol Tartrate [Lopressor -] 50 mg PO BID #60 tablet 12/31/16 Valsartan [Diovan] 320 mg PO DAILY #30 tablet 12/31/16 Valbenazine Tosylate [Ingrezza] 40 mg PO 01/16/17 Laboratory Tests 01/12/17 01/13/17 01/13/17 21:45 01:30 05:15 Sodium 108 L* D 109 L* 112 L* 01/13/17 01/13/17 01/13/17 11:50 15:30 16:45 Sodium 110 L* 111 L* 112 L* 01/13/17 01/13/17 01/13/17 18:40 21:00 23:00 Sodium 112 L* 112 L* 113 L* 01/14/17 01/14/17 01/14/17 02:15 04:10 05:00 Sodium 115 L* 114 L* 116 L* 01/14/17 01/14/17 01/14/17 09:00 10:15 14:00 Sodium 115 L* 116 L* 119 L* 01/14/17 01/14/17 01/14/17 17:00 19:55 23:25 Sodium 120 L* 123 L* 124 L* 01/15/17 01/15/17 01/15/17 03:00 03:00 05:35 Sodium 127 L 127 L 126 L 01/15/17 01/15/17 01/16/17 10:45 16:30 06:00 Sodium 127 L 127 L 127 L 01/17/17 01/18/17 01/19/17 06:00 08:10 08:00 Sodium 132 L 131 L 133 L 01/20/17 06:47 Sodium 132 L ASSESSMENT AND PLAN: 66 y/o lady with h/o HTN, HLD, NIDDM, and COPD who presented with AMS. She was found to have severe hyponatremia # Severe hypotonic hypovolemic hyponatremia s/p Chlorthalidone, Sodium was 108-- > today 132, continue fluid restriction. # HTN continue valsartan and metoprolol, discontinue Chlorthalidone # Tardive dyskinesia : due to being off her medication Ingezza. has chronic hx of it . Not on any antipsychotics . cont Ingezza f/u with neuro as out pt # generalized pain can't r/o Fibromyalgia further w/u as an outpatient. will recommend DVT Px: Heparin
--- NOTE | 2017-01-20 16:15 | PN ---
Progress Note, Physician History of Present Illness: Pt seen and examined at bedside. She remains anxious. - Current Medication List Current Medications: Active Medications Acetaminophen (Tylenol -) 650 mg PO Q6H PRN PRN Reason: FEVER OR PAIN Last Admin: 01/20/17 05:26 Dose: 650 mg Acetaminophen (Tylenol -) 650 mg PO Q4H PRN PRN Reason: FEVER OR PAIN Last Admin: 01/20/17 11:35 Dose: 650 mg Heparin Sodium (Porcine) (Heparin -) 5,000 unit SQ TID [facility] Last Admin: 01/20/17 15:23 Dose: 5,000 unit Insulin Aspart (Novolog Vial Sliding Scale -) 1 vial SQ ACHS [facility] PRN Reason: Protocol Last Admin: 01/20/17 11:34 Dose: Not Given Levothyroxine Sodium (Synthroid -) 88 mcg PO DAILY@0700 [facility] Last Admin: 01/20/17 06:29 Dose: 88 mcg Metoprolol Tartrate (Lopressor -) 50 mg PO BID [facility] Last Admin: 01/20/17 09:51 Dose: 50 mg Valbenazine Tosylate [Ingrezza] 40 Mg Capsule (Pt's Own) 0 mg PO DAILY [facility] Last Admin: 01/20/17 09:52 Dose: 40 mg Nystatin (Nystop Powder -) 1 applic TP DAILY [facility] Last Admin: 01/20/17 11:35 Dose: 1 applic Polyethylene Glycol (Miralax (For Daily Use) -) 17 gm PO DAILY [facility] Last Admin: 01/20/17 09:53 Dose: 17 gm Prochlorperazine Maleate (Compazine -) 5 mg PO Q4H PRN PRN Reason: NAUSEA AND/OR VOMITING Valsartan (Diovan -) 160 mg PO BID [facility] Last Admin: 01/20/17 09:51 Dose: 160 mg - Objective Vital Signs: Vital Signs Temperature 97.8 F 01/20/17 14:28 Pulse Rate 56 L 01/20/17 14:28 Respiratory Rate 20 01/20/17 14:28 Blood Pressure 150/68 01/20/17 14:28 O2 Sat by Pulse Oximetry (%) 97 01/20/17 09:00 Constitutional: Yes: Calm Eyes: Yes: Conjunctiva Clear HENT: Yes: Atraumatic Neck: Yes: Supple Cardiovascular: Yes: S1, S2 Respiratory: Yes: CTA Bilaterally Gastrointestinal: Yes: Soft Genitourinary: Yes: WNL Musculoskeletal: Yes: WNL Edema: No Neurological: Yes: Oriented Psychiatric: Yes: Oriented Labs: CBC, BMP 01/17/17 06:00 01/20/17 06:47 Problem List - Problems (1) Hyponatremia Code(s): E87.1 - HYPO-OSMOLALITY AND HYPONATREMIA (2) Anxiety Code(s): F41.9 - ANXIETY DISORDER, UNSPECIFIED Assessment/Plan Current Medications Generic Name Dose Route Start Last Admin Trade Name Freq PRN Reason Stop Dose Admin Acetaminophen 650 mg 01/15/17 19:16 01/20/17 05:26 Tylenol - PO 650 mg Q6H PRN Administration FEVER OR PAIN Acetaminophen 650 mg 01/17/17 04:48 01/20/17 11:35 Tylenol - PO 650 mg Q4H PRN Administration FEVER OR PAIN Heparin Sodium (Porcine) 5,000 unit 01/15/17 22:00 01/20/17 15:23 Heparin - SQ 5,000 unit TID [facility] Administration Insulin Aspart 1 vial 01/15/17 22:00 01/20/17 11:34 Novolog Vial Sliding Scale - SQ Not Given ACHS [facility] Protocol Levothyroxine Sodium 88 mcg 01/16/17 07:00 01/20/17 06:29 Synthroid - PO 88 mcg DAILY@0700 [facility] Administration Metoprolol Tartrate 50 mg 01/16/17 20:06 01/20/17 09:51 Lopressor - PO 50 mg BID [facility] Administration Valbenazine Tosylate 0 mg 01/17/17 10:00 01/20/17 09:52 [Ingrezza] 40 Mg PO 40 mg Capsule (Pt's Own) DAILY [facility] Administration Nystatin 1 applic 01/16/17 10:00 01/20/17 11:35 Nystop Powder - TP 1 applic DAILY [facility] Administration Polyethylene Glycol 17 gm 01/15/17 21:00 01/20/17 09:53 Miralax (For Daily Use) - PO 17 gm DAILY [facility] Administration Prochlorperazine Maleate 5 mg 01/16/17 06:52 Compazine - PO Q4H PRN NAUSEA AND/OR VOMITING Valsartan 160 mg 01/16/17 21:59 01/20/17 09:51 Diovan - PO 160 mg BID [facility] Administration Impression 1. hyponatremia 2. HTN 3. anxiety 4. depression 5. diarrhea 6. GERD 7. DM 8. COPD 9. hypothyroidism 10. hypokalemia Plan - monitor sodium - cont fluid restriction - follow up repeat urine osm and lytes - do not restart thiazides - will follow Dr Perez
--- NOTE | 2017-01-20 16:16 | PN ---
Physical Exam: SUBJECTIVE: Patient seen and examined. No acute events over night. Says she has severe generalized aches and pain all over her body. OBJECTIVE: Vital Signs Period Temp Pulse Resp BP Sys/Mathew Pulse Ox Last 24 Hr 97.8 F-99.1 F 56-72 20-20 124-150/53-73 97 GENERAL: NAD, very anxious HEAD: Normal with no signs of trauma. EYES: PERRL, extraocular movements intact, sclera anicteric, conjunctiva clear. No ptosis. ENT: dry mucous, involuntary mouth movements membranes. NECK: supple. LUNGS: Breath sounds equal, clear to auscultation bilaterally, no wheezes, no crackles, no accessory muscle use. HEART: Regular rate and rhythm, S1, S2 without murmur, rub or gallop. ABDOMEN: Soft, nontender, nondistended, normoactive bowel sounds, no guarding, no rebound, no hepatosplenomegaly, no masses. EXTREMITIES: 2+ pulses, warm, well-perfused, no edema. NEUROLOGICAL: CN 2-12 Intact. lip smacking from tardive dyskinesia (improved). left angle of her mouth is pulled to the left side of her face (improved). Patient has history of tardive dyskinesia. Facial sensations intact. 5/5 strength B/L upper and lower extremities Laboratory Results - last 24 hr 01/19/17 01/19/17 01/19/17 17:11 19:00 21:07 Sodium POC Glucometer 141 143 Ur Random Sodium 36 Ur Random Potassium 48.5 Ur Random Chloride 47 01/20/17 01/20/17 01/20/17 05:52 06:47 11:32 Sodium 132 L POC Glucometer 164 162 Ur Random Sodium Ur Random Potassium Ur Random Chloride Active Medications Generic Name Dose Route Start Last Admin Trade Name Freq PRN Reason Stop Dose Admin Acetaminophen 650 mg 01/15/17 19:16 01/20/17 05:26 Tylenol - PO 650 mg Q6H PRN Administration FEVER OR PAIN Acetaminophen 650 mg 01/17/17 04:48 01/20/17 11:35 Tylenol - PO 650 mg Q4H PRN Administration FEVER OR PAIN Heparin Sodium (Porcine) 5,000 unit 01/15/17 22:00 01/20/17 15:23 Heparin - SQ 5,000 unit TID SHAWN Administration Insulin Aspart 1 vial 01/15/17 22:00 01/20/17 11:34 Novolog Vial Sliding Scale - SQ Not Given ACHS [facility] Protocol Levothyroxine Sodium 88 mcg 01/16/17 07:00 01/20/17 06:29 Synthroid - PO 88 mcg DAILY@0700 SHAWN Administration Metoprolol Tartrate 50 mg 01/16/17 20:06 01/20/17 09:51 Lopressor - PO 50 mg BID SHAWN Administration Valbenazine Tosylate 0 mg 01/17/17 10:00 01/20/17 09:52 [Ingrezza] 40 Mg PO 40 mg Capsule (Pt's Own) DAILY SHAWN Administration Nystatin 1 applic 01/16/17 10:00 01/20/17 11:35 Nystop Powder - TP 1 applic DAILY SHAWN Administration Polyethylene Glycol 17 gm 01/15/17 21:00 01/20/17 09:53 Miralax (For Daily Use) - PO 17 gm DAILY [facility] Administration Prochlorperazine Maleate 5 mg 01/16/17 06:52 Compazine - PO Q4H PRN NAUSEA AND/OR VOMITING Valsartan 160 mg 01/16/17 21:59 01/20/17 09:51 Diovan - PO 160 mg BID SHAWN Administration ASSESSMENT/PLAN: 66 y/o lady with h/o HTN, HLD, NIDDM, and COPD who presented with AMS. She was found to have severe hyponatremia with sodium level of 108. #Severe hyponatremia:likely hypotonic hypovolemic hyponatremia secondary from Chlorthalidone. -Sodium level improving at an appropriate rate- 132 today. -thiazides stopped -fluid restrictions. 1 liter a day #Leukocytosis -resolved -likely reactive -CXR negative -U/A negative #Tardive Dyskinesia -improving -chronic history of it. -Continue Ingezza 40mg (home medication) -not on antipsychotics #Generalized Body pain -Can't rule-out fibromyalgia. Further workup will be needed as outpatient. Recommended Dr. Cm. #Left Hip Pain - s/p fall -Pelvic Xray negative for fx #HTN -Hold chlorthalidone -Continue diovan, BB -Held hydralazine #DM -Hold januvia -BGM achs -ISS achs #FEN/GI -IVF stopped -Diabetic diet #PPx -Heparin 5000 units sq TID Dispo: Likely discharge to subacute rehab tomorrow if patient improves or remains stable. Spoke with daughter and about rehab and both agreed. Visit type - Emergency Visit Emergency Visit: Yes ED Registration Date: 01/13/17 Care time: The patient presented to the Emergency Department on the above date and was hospitalized for further evaluation of their emergent condition. - New Patient This patient is new to me today: No - Critical Care Critical Care patient: No
[2017-01-20] MEDS ORDERED: INSULIN (NOVOLOG) ASPART 100 UNITS/ML 10ML VIAL ONE (17:48)
[2017-01-21] MEDS: ACETAMINOPHEN 325 MG TABLET (FP) PO PRN ×2 (01:40→09:17)
[2017-01-21] MEDS: HEPARIN NA (PORCINE) 5,000 UNITS/ML 1ML VIAL SQ SCH (06:22)
[2017-01-21] MEDS: INSULIN SLIDING SCALE (NOVOLOG) 1 VIAL SQ SCH ×2 (06:22→12:04)
[2017-01-21] MEDS: LEVOTHYROXINE NA 88 MCG TABLET (FP) PO SCH (06:22)
[2017-01-21] MEDS ORDERED: PT OWN MED DRAWER 7, Y5N ONE ×2 (09:08→11:26)
[2017-01-21] MEDS: VALBENAZINE TOSYLATE 40 MG PO SCH (09:13)
[2017-01-21] MEDS: METOPROLOL TARTRATE 50 MG TABLET (FP) PO SCH (09:14)
[2017-01-21] MEDS: VALSARTAN 160 MG TABLET (UD) PO SCH (09:14)
[2017-01-21] MEDS: NYSTATIN POWDER 100,000 UNITS/GM - 15 GM TOPICAL POWDER TP SCH (09:15)
[2017-01-21] MEDS: POLYETHYLENE GLYCOL 3350 119 GM BTL PO SCH (09:15)
--- NOTE | 2017-01-21 10:43 | PN ---
Progress Note (short form) - Note Progress Note: Resting in NAD. no acute events overnight. Chronic generalized body aches. Na improved/stable. Denies CP or SOB. Intake & Output 01/18/17 01/19/17 01/20/17 01/21/17 23:59 23:59 23:59 23:59 Intake Total 570 850 120 Output Total 450 Balance 570 400 120 Last Vital Signs Temp Pulse Resp BP Pulse Ox 98.3 F 65 18 144/69 98 01/21/17 06:00 01/21/17 06:00 01/21/17 06:00 01/21/17 06:00 01/20/17 21:00 Active Medications Acetaminophen (Tylenol -) 650 mg PO Q6H PRN PRN Reason: FEVER OR PAIN Last Admin: 01/21/17 09:17 Dose: 650 mg Acetaminophen (Tylenol -) 650 mg PO Q4H PRN PRN Reason: FEVER OR PAIN Last Admin: 01/20/17 17:17 Dose: 650 mg Heparin Sodium (Porcine) (Heparin -) 5,000 unit SQ TID [facility] Last Admin: 01/21/17 06:22 Dose: 5,000 unit Insulin Aspart (Novolog Vial Sliding Scale -) 1 vial SQ ACHS [facility] PRN Reason: Protocol Last Admin: 01/21/17 06:22 Dose: Not Given Levothyroxine Sodium (Synthroid -) 88 mcg PO DAILY@0700 [facility] Last Admin: 01/21/17 06:22 Dose: 88 mcg Metoprolol Tartrate (Lopressor -) 50 mg PO BID [facility] Last Admin: 01/21/17 09:14 Dose: 50 mg Valbenazine Tosylate [Ingrezza] 40 Mg Capsule (Pt's Own) 0 mg PO DAILY [facility] Last Admin: 01/21/17 09:13 Dose: 1 mg Nystatin (Nystop Powder -) 1 applic TP DAILY [facility] Last Admin: 01/21/17 09:15 Dose: 1 applic Polyethylene Glycol (Miralax (For Daily Use) -) 17 gm PO DAILY [facility] Last Admin: 01/21/17 09:15 Dose: 17 gm Prochlorperazine Maleate (Compazine -) 5 mg PO Q4H PRN PRN Reason: NAUSEA AND/OR VOMITING Valsartan (Diovan -) 160 mg PO BID [facility] Last Admin: 01/21/17 09:14 Dose: 160 mg Constitutional: Yes: No Distress Eyes: Yes: Other Pupils equal HENT: Yes: Atraumatic Neck: Yes: WNL, Trachea Midline Cardiovascular: Yes: Regular Rate and Rhythm Respiratory: Yes: diminished at the bases Gastrointestinal: Yes: Soft, Abdomen, Obese, Other (Non tender) Musculoskeletal: Yes: WNL Extremities: Yes: WNL Edema: No Peripheral Pulses WNL: Yes Integumentary: Yes: WNL Neurological: Yes: Awake and alert, non-focal Labs: Laboratory Results - last 24 hr 01/20/17 01/20/17 01/20/17 11:32 16:58 17:00 Sodium POC Glucometer 162 189 Urine Osmolality 280 L D 01/20/17 01/21/17 01/21/17 21:04 06:04 08:00 Sodium 132 L POC Glucometer 161 144 Urine Osmolality Problem List - Problems (1) Altered mental status, unspecified Code(s): R41.82 - ALTERED MENTAL STATUS, UNSPECIFIED (2) Hypokalemia Code(s): E87.6 - HYPOKALEMIA (3) Hyponatremia Code(s): E87.1 - HYPO-OSMOLALITY AND HYPONATREMIA Assessment/Plan Current meds / management D/C planning Dr Feldman
--- NOTE | 2017-01-21 11:05 | PN ---
Teaching Attending Note Name of Resident: Nito Beckford ATTENDING PHYSICIAN STATEMENT I saw and evaluated the patient. I reviewed the resident's note and discussed the case with the resident. I agree with the resident's findings and plan as documented. SUBJECTIVE: Patient has no new complains. OBJECTIVE: Vital Signs Temperature 98.3 F 01/21/17 06:00 Pulse Rate 65 01/21/17 06:00 Respiratory Rate 18 01/21/17 06:00 Blood Pressure 144/69 01/21/17 06:00 O2 Sat by Pulse Oximetry (%) 98 01/20/17 21:00 CBCD WBC 10.6 K/mm3 (4.0-10.0) H 01/17/17 06:00 RBC 3.90 M/mm3 (3.60-5.2) 01/17/17 06:00 Hgb 12.3 GM/dL (10.7-15.3) 01/17/17 06:00 Hct 35.3 % (32.4-45.2) 01/17/17 06:00 MCV 90.5 fl (80-96) 01/17/17 06:00 MCHC 35.0 g/dl (32.0-36.0) 01/17/17 06:00 RDW 13.0 % (11.6-15.6) 01/17/17 06:00 Plt Count 355 K/MM3 (134-434) 01/17/17 06:00 MPV 7.0 fl (7.5-11.1) L 01/17/17 06:00 CMP Sodium 132 mmol/L (136-145) L 01/21/17 08:00 Potassium 4.4 mmol/L (3.5-5.1) 01/18/17 08:10 Chloride 98 mmol/L (98-107) 01/18/17 08:10 Carbon Dioxide 23 mmol/L (21-32) 01/18/17 08:10 Anion Gap 10 (8-16) 01/18/17 08:10 BUN 8 mg/dL (7-18) D 01/18/17 08:10 Creatinine 0.7 mg/dL (0.55-1.02) 01/18/17 08:10 Creat Clearance w eGFR > 60 (>60) 01/13/17 05:15 Random Glucose 205 mg/dL (74-106) H D 01/18/17 08:10 Calcium 8.6 mg/dL (8.5-10.1) 01/18/17 08:10 Total Bilirubin 1.1 mg/dL (0.2-1.0) H 01/13/17 11:50 AST 38 U/L (15-37) H 01/13/17 11:50 ALT 34 U/L (12-78) 01/13/17 11:50 Alkaline Phosphatase 91 U/L (45-117) 01/13/17 11:50 Total Protein 6.1 g/dl (6.4-8.2) L 01/13/17 11:50 Albumin 3.3 g/dl (3.4-5.0) L 01/13/17 11:50 CARDIAC ENZYMES Creatine Kinase 211 IU/L (26-192) H 01/16/17 06:00 Current Medications Generic Name Dose Route Start Last Admin Trade Name Freq PRN Reason Stop Dose Admin Acetaminophen 650 mg 01/15/17 19:16 01/21/17 09:17 Tylenol - PO 650 mg Q6H PRN Administration FEVER OR PAIN Acetaminophen 650 mg 01/17/17 04:48 01/20/17 17:17 Tylenol - PO 650 mg Q4H PRN Administration FEVER OR PAIN Heparin Sodium (Porcine) 5,000 unit 01/15/17 22:00 01/21/17 06:22 Heparin - SQ 5,000 unit TID SHAWN Administration Insulin Aspart 1 vial 01/15/17 22:00 01/21/17 06:22 Novolog Vial Sliding Scale - SQ Not Given [facility] Protocol Levothyroxine Sodium 88 mcg 01/16/17 07:00 01/21/17 06:22 Synthroid - PO 88 mcg DAILY@0700 [facility] Administration Metoprolol Tartrate 50 mg 01/16/17 20:06 01/21/17 09:14 Lopressor - PO 50 mg BID SHAWN Administration Valbenazine Tosylate 0 mg 01/17/17 10:00 01/21/17 09:13 [Ingrezza] 40 Mg PO 1 mg Capsule (Pt's Own) DAILY [facility] Administration Nystatin 1 applic 01/16/17 10:00 01/21/17 09:15 Nystop Powder - TP 1 applic DAILY [facility] Administration Polyethylene Glycol 17 gm 01/15/17 21:00 01/21/17 09:15 Miralax (For Daily Use) - PO 17 gm DAILY [facility] Administration Prochlorperazine Maleate 5 mg 01/16/17 06:52 Compazine - PO Q4H PRN NAUSEA AND/OR VOMITING Valsartan 160 mg 01/16/17 21:59 01/21/17 09:14 Diovan - PO 160 mg BID SHAWN Administration Home Medications Medication Instructions Recorded Levothyroxine [Synthroid -] 88 mcg PO DAILY@0700 #30 tablet 11/02/16 Sitagliptin Phosphate [Januvia] 50 mg PO DAILY #30 tab 11/02/16 Metoprolol Tartrate [Lopressor -] 50 mg PO BID #60 tablet 12/31/16 Valsartan [Diovan] 320 mg PO DAILY #30 tablet 12/31/16 Valbenazine Tosylate [Ingrezza] 40 mg PO 01/16/17 PE: per resident's note ASSESSMENT AND PLAN: 66 y/o lady with h/o HTN, HLD, NIDDM, and COPD who presented with AMS. She was found to have severe hyponatremia # s/p Severe hypotonic hypovolemic hyponatremia s/p Chlorthalidone, Sodium was 108--> 132-->132 today repeat. continue fluid restriction. Being discharged to snf. for further care and strength. # HTN continue valsartan and metoprolol, discontinue Chlorthalidone # Tardive dyskinesia : due to being off her medication Ingezza. has chronic hx of it . Not on any antipsychotics . cont Ingezza f/u with neuro as out pt # generalized pain can't r/o Fibromyalgia further w/u as an outpatient. will recommend DVT Px: Heparin
[2017-01-21] MEDS ORDERED: MAG HYDROX/AL HYDROX/SIMETH 30 ML UNIT-DOSE CUP PO ONE (11:14)
[2017-01-21] MEDS ORDERED: diphenhydrAMINE HCL 25 MG CAPSULE (FP) PO ONE (11:49)
[2017-01-21] MEDS: ALPRAZolam 0.25 MG TABLET PO ONE ×2 (12:00→15:25)
[2017-01-21 12:18] VITALS: BP 134/60; PULSE 68; TEMP 98.1
--- NOTE | 2017-01-21 15:15 | DS ---
Physical Exam: SUBJECTIVE: Patient seen and examined. No acute events over night. Says she has severe generalized aches and pain all over her body. OBJECTIVE: Vital Signs Period Temp Pulse Resp BP Sys/Mathew Pulse Ox Last 24 Hr 98.1 F-98.9 F 51-68 18-20 124-153/54-71 98-99 PHYSICAL EXAM GENERAL: NAD, very anxious HEAD: Normal with no signs of trauma. EYES: PERRL, extraocular movements intact, sclera anicteric, conjunctiva clear. No ptosis. ENT: dry mucous, involuntary mouth movements membranes. NECK: supple. LUNGS: Breath sounds equal, clear to auscultation bilaterally, no wheezes, no crackles, no accessory muscle use. HEART: Regular rate and rhythm, S1, S2 without murmur, rub or gallop. ABDOMEN: Soft, nontender, nondistended, normoactive bowel sounds, no guarding, no rebound, no hepatosplenomegaly, no masses. EXTREMITIES: 2+ pulses, warm, well-perfused, no edema. NEUROLOGICAL: CN 2-12 Intact. lip smacking from tardive dyskinesia (improved). left angle of her mouth is pulled to the left side of her face (improved). Patient has history of tardive dyskinesia. Facial sensations intact. 5/5 strength B/L upper and lower extremities LABS Laboratory Results - last 24 hr 01/20/17 01/20/17 01/20/17 16:58 17:00 21:04 Sodium POC Glucometer 189 161 Urine Osmolality 280 L D 01/21/17 01/21/17 06:04 08:00 Sodium 132 L POC Glucometer 144 Urine Osmolality HOSPITAL COURSE: Date of Admission:01/13/17 Patient is a 66 y/o F with h/o Severe Anxiety, HTN, HLD, NIDDM, and COPD who presented with AMS. She was found to have severe hyponatremia secondary to Chlorothalidone use, with sodium level of 108. Nephrology (Dr. Perez) was consulted and patient was treated with 3% hypertonic saline and sodium level was closely monitored to ensure an appropriate rate increase. Chlorthalidone was also stopped. There was an improvement in sodium and the patient was later switched to fluid restrictions. Patient was closely monitored until sodium levels were at an appropriate level. Patient was discharged with a sodium level of 133. Patient also had tardive dyskinesia because she was off her home medication. Patient was given Ativan for the anxiety and tardive dyskinesia but her family did not want to give her any more sedatives. Her family then brought her medication (Ingrezza 40mg) from the house and her tardive dyskinesia improved. She was discharged and transferred to [facility]. She is to be followed up by her primary care physician after discharge. Date of Discharge: 01/21/17 Minutes to complete discharge: 40 Discharge Summary Reason For Visit: AMS HYPOKALEMIA HYPONATREMIA Current Active Problems Abdominal pain (Acute) Mouth pain (Acute) Abnormal involuntary movement (Chronic) Anxiety (Chronic) Diabetes (Chronic) IBS (irritable bowel syndrome) (Chronic) Condition: Improved - Instructions Diet, Activity, Other Instructions: You were admitted and treated for Low sodium levels in the body. Please follow up with your primary care physician and your parts cataloger (Dr. Hendrickson) 1 week after discharge. Follow-up with Dr. Moseley (rheumatology) for your joint pain. You will need to be on fluid restriction. Do not drink more than 1 Liter of liquids a day which includes water, soda, juices, etc. Do not take chlorthalidone anymore as it was the most likely reason for your low body sodium levels. Please follow up with your doctor about your tardive dyskinesia for further evaluation and treatment. We have made some changes to your medications, please take as directed. avoid any hydrocholorthiazide Referrals: [facility] [Outside] Giancarlo Moseley MD [Staff Physician] - 3 Weeks Sherrill Donohue MD [Primary Care Provider] - 1 Week Fidel Hendrickson MD [Staff Physician] - 1 Week Disposition: RESIDENTIAL FACILITY - Home Medications Comprehensive Discharge Medication List: Ambulatory Orders Levothyroxine [Synthroid -] 88 mcg PO DAILY@0700 #30 tablet 11/02/16 Sitagliptin Phosphate [Januvia] 50 mg PO DAILY #30 tab 11/02/16 Metoprolol Tartrate [Lopressor -] 50 mg PO BID #60 tablet 12/31/16 Valsartan [Diovan] 320 mg PO DAILY #30 tablet 12/31/16 Valbenazine Tosylate [Ingrezza] 40 mg PO 01/16/17 This patient is new to me today: No Emergency Visit: No Critical Care patient: No - Discharge Referral Referred to [facility] Med P.C.: No
== END 2017-01-21 12:11 | DRG 640 ==
LOC: JER 20:23 → JERBED 01-13 00:44 → JICU 01-13 03:27 → J4W 01-15 20:02 → J5S 01-19 12:14 → UNDODISIN 01-21 11:52
PROVIDERS: ADMIT Internal Medicine; ATTEND Internal Medicine
DX: E87.1 Hypo-osmolality and hyponatremia (principal); G92 Toxic encephalopathy; E87.6 Hypokalemia; T50.2X5A Adverse effect of carbonic-anhydrase inhibitors, benzothiadiazides and other diuretics, initial encounter; E86.0 Dehydration; I10 Essential (primary) hypertension; E78.5 Hyperlipidemia, unspecified; J44.9 Chronic obstructive pulmonary disease, unspecified; E03.9 Hypothyroidism, unspecified; D72.829 Elevated white blood cell count, unspecified; E11.42 Type 2 diabetes mellitus with diabetic polyneuropathy; Z79.84 Long term (current) use of oral hypoglycemic drugs; E87.8 Other disorders of electrolyte and fluid balance, not elsewhere classified; F41.9 Anxiety disorder, unspecified; F32.9 Major depressive disorder, single episode, unspecified; G24.01 Drug induced subacute dyskinesia; S79.912A Unspecified injury of left hip, initial encounter; W06.XXXA Fall from bed, initial encounter; Y93.84 Activity, sleeping; Y92.013 Bedroom of single-family (private) house as the place of occurrence of the external cause; Y99.8 Other external cause status
CPT/HCPCS: 36415; 70450-TC; 71010-TC; 73523-TC; 80048; 80053; 80076; 80307; 81003; 81015; 82009; 82436; 82533; 82553; 83690; 83735; 83930; 83935; 84100; 84133; 84295; 84300; 84439; 84443; 85025; 85027; 93005; 93010; 94010; 97116-GP; 97161-GP; 99284-25; J1644